=== PATIENT | female | born 1955 | race African-American/Black ===

== ENCOUNTER → 2016-11-16 | Outpatient (CLI) | payer OTHER ==
--- NOTE | 2016-11-16 14:29 | XR ---
EXAMINATION TYPE: XR knee complete RT DATE OF EXAM: 11/16/2016 2:25 PM COMPARISON: NONE HISTORY: Pain TECHNIQUE: Four views are submitted. FINDINGS: There is hypertrophic change and significant narrowing of the joint space particularly along the medi al compartment of the knee and patellofemoral joint with severe narrowing. Small suprapatellar bursal fluid collection. Sclerotic density distal diaphysis of the femur is nonspecific possibly related to previous bone infa rct. Osseous structures are intact. No acute fracture seen. IMPRESSION: 1. No acute fracture or dislocation. 2. Severe osteoarthritis.
== END ==
LOC: RADXRMAIN 14:10
PROVIDERS: ATTEND Emergency Medicine
DX: S80.01XA Contusion of right knee, initial encounter (principal); M17.11 Unilateral primary osteoarthritis, right knee

== ENCOUNTER → 2016-11-24 | Outpatient (CLI) | payer OTHER ==
--- NOTE | 2016-11-24 12:59 | US ---
EXAMINATION TYPE: US venous doppler duplex LE RT DATE OF EXAM: 11/24/2016 12:42 PM COMPARISON: us 11/10 2016 CLINICAL HISTORY: M79.604 Pain in right leg. pt fell and has rt leg pain and swelling, just recently put on aspirin as preventative SIDE PERFORMED: right TECHNIQUE: The lower extremity deep venous system is examined utilizing real time linear array sonog trent with graded compression, doppler sonography and color-flow sonography. VESSELS IMAGED: External Iliac Vein (EIV) Common Femoral Vein Deep Femoral Vein Femoral Vein Popliteal Vein Proximal Calf Veins Right Leg: neg for RLE dvt Results called to Sharita in the office at the time of the exam. IMPRESSION: 1. No deep venous arthrosis right lower extremity.
== END ==
LOC: RADUSWWP 12:24
PROVIDERS: ATTEND Emergency Medicine
DX: S80.01XA Contusion of right knee, initial encounter (principal); M79.604 Pain in right leg

== ENCOUNTER → 2017-08-31 | Outpatient (CLI) | payer BC | END | disposition home or self-care (01) | LOC: LABPAT 12:21 | PROVIDERS: ATTEND Orthopaedic Surgery | DX: Z01.812 Encounter for preprocedural laboratory examination (principal) | CPT/HCPCS: 36415; 84132 ==

== ENCOUNTER 2017-09-05 06:27 | Inpatient (IN) | payer BC, OTHER ==
[2017-08-31 10:40] VITALS: BMI 45.8
[~2017-09-05 06:27] MED LIST: ACETAMINOPHEN TAB 500 MG TAB PO ONE; DEXAMETHASONE SOD PHOSPHATE 10 MG/ML 1 ML VIAL IV ONE; MELOXICAM 7.5 MG TAB PO ONE; MIDAZOLAM 2 MG/2 ML VIAL IV PRN; MORPHINE SULFATE 4 MG/ML SYRINGE IV PRN; ONDANSETRON 4 MG/2 ML VIAL IVP ONE; ROPIVACAINE 246.25 MG, EPINEPHrine 0.5 MG, KETOROLAC 30 MG, cloNIDine HCL/PF 80 MCG, WA... MISCELLANE ONE; SCOPOLAMINE 1.5MG/72HR PATCH TRANSDERM ONE; TRANEXAMIC ACID 1,000 MG in SODIUM CHLORIDE 0.9% 50 ML IVPB ONE
[2017-09-05] MEDS ORDERED: HYDROcodone/APAP 7.5-325MG 1 EACH TAB PO PRN (06:57)
[2017-09-05] MEDS ORDERED: ONDANSETRON 4 MG/2 ML VIAL IVP PRN (06:57)
[2017-09-05] MEDS ORDERED: DIAZEPAM 5 MG TAB PO PRN ×2 (06:57)
[2017-09-05] MEDS ORDERED: MAGNESIUM HYDROXIDE 2,400 MG/10 ML CUP PO PRN (06:57)
[2017-09-05] MEDS ORDERED: NALOXONE 0.4 MG/ML 1 ML VIAL IV PRN (06:57)
[2017-09-05] MEDS ORDERED: HYDROmorphone 2 MG/ML 1 ML SYRINGE IVP PRN ×3 (06:57)
[2017-09-05] MEDS ORDERED: ceFAZolin 1,000 MG in SODIUM CHLORIDE 0.9% 1,000 ML IRRIGATION ONE ×4 (07:20)
[2017-09-05] MEDS: LACTATED RINGERS 1,000 ML IV SCH ×2 (07:20→07:21)
[2017-09-05] MEDS ORDERED: LIDOCAINE 1% 20 ML VIAL (10MG/ML) FOR IV START INTRADERMA ONE (07:20)
[2017-09-05] MEDS ORDERED: PROPOFOL 10 MG/ML 20 ML VIAL IV ONE (07:22)
[2017-09-05] MEDS ORDERED: PHENYLEPHRINE-0.9% NACL SYG 1 MG/10 ML SYRINGE ONE (07:22)
[2017-09-05] MEDS ORDERED: HEPARIN SODIUM,PORCINE 10,000 UNIT/ML 1 ML VIAL ONE (07:22)
[2017-09-05] MEDS ORDERED: SODIUM CHLORIDE 0.9% 100 ML BAG ONE (07:22)
[2017-09-05] MEDS ORDERED: SODIUM CHLORIDE 0.9% IRRIG 1,000 ML BTL IRRIGATION ONE (07:22)
[2017-09-05] MEDS ORDERED: ePHEDrine SULFATE/0.9% NACL/PF 50 MG/5 ML SYRINGE IV ONE (07:22)
[2017-09-05] MEDS ORDERED: MIDAZOLAM 2 MG/2 ML VIAL ONE (07:22)
[2017-09-05] MEDS ORDERED: fentaNYL (PF) 50 MCG/ML 2 ML AMP ONE (07:22)
[2017-09-05] MEDS ORDERED: TRANEXAMIC ACID 1,000 MG/10 ML VIAL ONE (07:22)
[2017-09-05] MEDS ORDERED: ceFAZolin 3 GM in SODIUM CHLORIDE 0.9% 100 ML IVPB SCH (08:00)
[2017-09-05] MEDS ORDERED: LACTATED RINGERS 1,000 ML IV ONE (08:08)
--- NOTE | 2017-09-05 09:06 | P.OP ---
Date of Procedure: 09/05/17 Preoperative Diagnosis: Severe osteoarthritis right hip Postoperative Diagnosis: Severe osteoarthritis right hip Procedure(s) Performed: Right total hip arthroplasty with a direct anterior approach Implants: Bacon and nephew Polarstem size 3 standard Bacon & Nephew R3, 3 hole acetabular shell, 52 mm Bacon [employer] Nephew reflection 6.5 mm cancellus screw, 20 mm 2 Bacon [employer] Nephew R3, XLPE 20 acetabular liner Bacon & Nephew Oxinium femoral head 36 m, +4 All components were press-fit. The articulation is Oxinium on polyethylene. Anesthesia: spinal Surgeon: Randy Deras System Support Technician #1: Pamela Juares Estimated Blood Loss (ml): 100 Pathology: other (Femoral head) Condition: stable Disposition: PACU Indications for Procedure: After failure of conservative treatment we discussed the surgical and nonsurgical treatment options at length. Patient wishes to proceed with a total hip arthroplasty with a direct anterior approach. Complications specific to this procedure were discussed at length, including but not limited to infection, leg length discrepancy, dislocation, and nerve injury. Patient is aware of all these complications and informed consent was obtained Operative Findings: The operative findings are consistent with severe osteoarthritis of the right hip Description of Procedure: Patient was seen and evaluated in the preoperative area, consent was reviewed, and the surgical site was marked with a skin marker. Patient was then brought to the operating room and given prophylactic antibiotics intravenously. 1 g of Tranexamic acid was also given. A spinal anesthetic was administered by the anesthesia department. The patient was then placed on the [place] table with the bony prominences well-padded. The hip area was then prepped and draped in usual sterile fashion. A universal timeout was then performed, which confirmed the patient's name, surgical site, ALLERGIES, and procedure being performed. Next the incision site was located at 1 cm distal and 1 cm lateral to the anterior superior iliac spine. The skin and subcutaneous tissues were sharply incised. Incision was carefully dissected down to the fascia overlying the tensor fascia aleks muscle. This fascia was then incised in line with the incision. Next, using blunt finger dissection, the tensor fascia aleks muscle was dissected off its investing fascia. The muscle was then carefully retracted laterally with a cobra retractor over the lateral neck of the femur. Next, the circumflex vessels were identified and cauterized using the AquaMantis device. The anterior hip capsule was then exposed. The capsule was then opened and an inverted T fashion. Cobra retractors were then placed intracapsularly. The proximal femur was then visualized. The femoral neck was then osteotomized appropriate level above the lesser trochanter. Small amount of traction was placed with the [place] table. A small wedge of bone was then removed from the remaining femoral head. Next, using a corkscrew femoral head was easily removed from the acetabulum. On gross visual inspection, the femoral head had complete loss of articular cartilage in multiple periarticular osteophytes. Attention was then turned to the acetabulum. the acetabulum was exposed and any remaining labrum was excised. Sequential reaming of the acetabulum was performed using fluoroscopic guidance. When the appropriate size was reached, a trial was then placed. The position and fit of the trial was checked with fluoroscopy. The trial was then removed. Then, using fluoroscopic guidance, the final implant was impacted at 20 of anteversion and 40 of abduction, and fully seated in the acetabulum. 2 screws were then placed in the acetabulum. Again fluoroscopy was used to check position of the screws. Next, the liner was then impacted, with a 20 elevated liner located in the anterior superior quadrant. Component locking was confirmed. Attention was then directed to the femur. With the aid of the [place] table, the femur was externally rotated to approximately 130, extended, and abducted under the opposite leg. A side hook was then placed under the proximal femur, and the side hook elevator was used to elevate the proximal femur. Retractors were then placed. A capsular release was performed, as well as a release of the conjoined tendon, which afforded excellent visualization of the proximal femur. Next, a box osteotome was used to lateralize the proximal femur. A tug hand was then used to locate the femoral canal. Sequential broaching was then performed with appropriate size which afforded excellent fixation in the proximal femur. A trial was then placed with appropriate head and neck, and the hip was gently reduced with the aid of the [place] table. Fluoroscopy was then used to check position of the components, as well as to ensure equal leg lengths. The hip was then gently dislocated and the trials were then removed. Final implants were then impacted and the hip was again reduced. Final fluoroscopic x-rays confirmed that the components were in anatomic position, as well as equal leg lengths. The hip was also taken through range of motion, and found to be stable. The hip was then copiously irrigated with antibiotic solution with pulsatile lavage. The hip was then irrigated with Irrisept solution. The soft tissues were then injected with a ropivacaine solution, which consisted of 246.25 mg of ropivacaine, 0.5 mg of epinephrine, 30 mg of Toradol, 80 g of clonidine, and 48.45 mL of sterile water, for a total of 100 mL of fluid injected. A second dose of 1 g of Tranexamic acid was also given. the fascia was then closed with 2-0 strata fix suture. The subcutaneous tissue was closed with 3-0 Vicryl. The subcuticular tissue was closed with 3-0 strata fix suture. The skin was then closed with Dermabond glue and a sterile silver dressing. The patient was then transferred to the recovery room in stable condition. The nurseryman assistant CARY Bose was required due to the complexity of surgery, and the need for skilled surgical assistant certified for positioning, draping, exposure, retraction, and closure of the wound.
[2017-09-05] MEDS: SODIUM CHLORIDE 0.9% 1,000 ML IV SCH ×2 (09:58→22:16)
--- NOTE | 2017-09-05 10:11 | XR ---
Limited right hip HISTORY: Status post right hip arthroplasty Single frontal view of the right hip Patient is status post right hip arthroplasty. There is anatomic alignment. Lucency in the soft tissu es is compatible with postop state. IMPRESSION: Orthopedic follow-up.
--- NOTE | 2017-09-05 11:12 | XR ---
Limited right hip HISTORY: Hip replacement 2 intraoperative C-arm images document the procedure
--- NOTE | 2017-09-05 12:14 | FL ---
Fluoroscopy HISTORY: Hip arthroplasty 43 seconds fluoroscopy time supplied to the referring clinician. 2 intraoperative C-arm images docum ent the procedure. See dictated report from orthopedic surgery.
--- NOTE | 2017-09-05 15:31 | P.CONS ---
History of Present Illness - Reason for Consult Consult date: 09/05/17 Medical management Requesting physician: Randy Deras - Chief Complaint Status post right total hip arthroplasty - History of Present Illness This is a 61-year-old female with a known history of hyperlipidemia, acid reflux , hypertension, overactive bladder, hypothyroidism and depression. She is a patient of Dr. Charles. She has been suffering with right hip pain and underwent a right total hip arthroplasty for her osteoarthritis of the right hip. She tolerated surgery well. Estimated blood loss is 100 mL. Patient denies any chest pain, shortness breath, nausea or vomiting, bowel movement changes or any new urinary symptoms. Patient is complaining of some pain. We' ll continue with current pain medication. We have been consulted for medical management. Review of Systems Please refer to HPI otherwise unremarkable Past Medical History Past Medical History: GERD/Reflux, Hyperlipidemia, Hypertension, Osteoarthritis (OA), Thyroid Disorder Additional Past Medical History / Comment(s): fibro History of Any Multi-Drug Resistant Organisms: None Reported Past Surgical History: Adenoidectomy, Bariatric Surgery, Breast Surgery, Orthopedic Surgery, Tonsillectomy Additional Past Surgical History / Comment(s): LT KNEE SCOPE. BREAST BX. LAP BAND. COLONOSCOPY. EGD Past Anesthesia/Blood Transfusion Reactions: Motion Sickness Past Psychological History: Depression Smoking Status: Former smoker Past Alcohol Use History: Rare Additional Past Alcohol Use History / Comment(s): QUIT SMOKING 2005 Past Drug Use History: None Reported - Past Family History Father Family Medical History: Cancer Medications and Allergies Home Medications Medication Instructions Recorded Confirmed Type Alpha Lipoic Acid 200 mg PO DAILY 08/31/17 09/05/17 History Calcium Carbonate/Vitamin D3 1 tab PO DAILY 08/31/17 09/05/17 History [Calcium 500-Vit D3 600 Tablet] Cyclobenzaprine [Flexeril] 10 mg PO HS 08/31/17 09/05/17 History DULoxetine HCL [Cymbalta] 90 mg PO DAILY 08/31/17 09/05/17 History Diclofenac Sodium [Voltaren] 75 mg PO BID 08/31/17 09/05/17 History Gabapentin 600 mg PO TID 08/31/17 09/05/17 History Hydrocodone/Acetaminophen [Medon 1 tab PO TID PRN 08/31/17 09/05/17 History 10-325] Levothyroxine Sodium [Synthroid] 50 mcg PO DAILY 08/31/17 09/05/17 History Lidocaine 5% Patch [Lidoderm 5% 1 patch TRANSDERM DAILY PRN 08/31/17 09/05/17 History Patch] Losartan/Hydrochlorothiazide 1 tab PO DAILY 08/31/17 09/05/17 History [Losartan-Hctz 100-25 mg Tab] Magnesium Gluconate [Magonate] 500 mg PO DAILY 08/31/17 09/05/17 History Multivit/Folic Acid/Vit K1 1 tab PO DAILY 08/31/17 09/05/17 History [One-A-Day Women's 50 Plus Tab] Fortson-3 Fatty Acids/Fish Oil [Fish 1 cap PO DAILY 08/31/17 09/05/17 History Oil 1,000 mg Softgel] Omeprazole 40 mg PO DAILY 08/31/17 09/05/17 History Oxybutynin Chloride [Ditropan] 5 mg PO HS 08/31/17 09/05/17 History Pravastatin Sodium [Pravachol] 20 mg PO DAILY 08/31/17 09/05/17 History lamoTRIgine [LaMICtal] 25 mg PO HS 08/31/17 09/05/17 History Turmeric Root Extract [Turmeric] 1,000 mg PO DAILY 09/05/17 09/05/17 History Allergies Allergy/AdvReac Type Severity Reaction Status Date / Time No Known Allergies Allergy Verified 09/05/17 11:02 Physical Exam Vitals: Vital Signs Temp Pulse Resp BP Pulse Ox 09/05/17 12:30 89 152/43 89 L 09/05/17 12:15 89 157/85 96 09/05/17 12:00 88 138/76 95 09/05/17 11:45 88 120/97 97 09/05/17 11:30 84 163/79 99 09/05/17 11:15 83 142/94 95 09/05/17 11:00 85 154/101 09/05/17 10:45 83 157/83 09/05/17 10:30 97.6 F 83 16 152/70 97 09/05/17 10:01 77 16 154/63 97 09/05/17 09:45 76 16 170/76 94 L 09/05/17 09:32 73 16 152/72 98 09/05/17 09:21 97.0 F L 74 18 132/68 92 L 09/05/17 07:00 97.7 F 90 16 138/84 97 Intake and Output 09/05/17 09/05/17 09/05/17 06:59 14:59 22:59 Intake Total 2232 Output Total 100 Balance 2132 Intake: IV 2102 Intake, IV Titration 130 Amount Sodium Chloride 0.9% 1, 130 000 ml @ 65 mls/hr IV . [id number] [facility] Rx#:[id number] Output: Estimated Blood Loss 100 Other: Weight 132.903 kg Patient Weight 09/06/17 06:59 Weight 132.903 kg Head normocephalic Neck supple Lungs clear to auscultation bilaterally no wheezing or crackles Heart regular rate and rhythm S1-S2, no rub or gallop Abdomen is soft nontender nondistended positive bowel sounds no hepatosplenomegaly Extremities no edema Neuro alert and orientated to 3 Assessment and Plan Assessment: 1. Severe arthritis of the right hip: Status post right total hip arthroplasty with direct anterior approach. Estimated blood loss is 100 mL. Continue with pain control and DVT prophylaxis, aspirin 325 mg twice a day and SCDs per orthopedics 2. Essential hypertension: Resume her losartan/hydrochlorothiazide 3. Hypothyroidism continue Synthroid 4. GERD resume omeprazole 5. Hyperlipidemia continue pravastatin 6. Depression resume Lamictal 7. Overactive bladder resume the ditropan Thank you for this consultation. We'll continue to follow along with you during patient's hospitalization. Time with Patient: Greater than 30 (Greater than 50% of the total time spent in counseling and coordination of care.I performed an examination of the patient and discussed their management with the physician Button Maker. I have reviewed the Physician Button Maker's notes and agree with the documented findings and plan of care)
[2017-09-05] MEDS: HYDROcodone/APAP 7.5-325MG 1 EACH TAB PO PRN ×2 (16:24→21:51)
[2017-09-05] MEDS: hydrOXYzine PAMOATE 25 MG CAP PO PRN ×2 (16:25→21:51)
[2017-09-05] MEDS: GABAPENTIN 300 MG CAP PO SCH ×2 (16:32→21:51)
[2017-09-05] MEDS: lamoTRIgine 25 MG TAB PO SCH (20:20)
[2017-09-05] MEDS: OXYBUTYNIN CHLORIDE 5 MG TAB PO SCH (20:20)
[2017-09-05] MEDS: ASPIRIN 325 MG TAB PO SCH (20:20)
[2017-09-05] MEDS: SENNOSIDES-DOCUSATE SODIUM 1 EACH TAB PO SCH (20:20)
[2017-09-05] MEDS: CYCLOBENZAPRINE 10 MG TAB PO SCH (20:20)
[2017-09-06] MEDS: LACTATED RINGERS 1,000 ML IV SCH (03:41)
[2017-09-06] MEDS: LEVOTHYROXINE 50 MCG TAB PO SCH (05:26)
[2017-09-06] MEDS: hydrOXYzine PAMOATE 25 MG CAP PO PRN ×3 (06:09→21:19)
[2017-09-06] MEDS: HYDROcodone/APAP 7.5-325MG 1 EACH TAB PO PRN ×3 (06:09→21:19)
[2017-09-06] MEDS: DULoxetine HCL 30 MG CAPSULE.DR PO SCH (07:42)
[2017-09-06] MEDS: GABAPENTIN 300 MG CAP PO SCH ×3 (07:42→21:19)
[2017-09-06] MEDS: LOSARTAN-HCTZ 50-12.5 MG 1 EACH TAB PO SCH (07:42)
[2017-09-06] MEDS: ASPIRIN 325 MG TAB PO SCH ×2 (07:42→21:19)
[2017-09-06] MEDS: MELOXICAM 7.5 MG TAB PO SCH (07:42)
[2017-09-06] MEDS: PANTOPRAZOLE 40 MG TABLET PO SCH (07:42)
[2017-09-06] MEDS: PRAVASTATIN SODIUM 20 MG TAB PO SCH (07:43)
[2017-09-06 07:56] LABS: Basophils % (A) 0 %; Eosinophils % (A) 1 %; HCT 31.8 % (34.0-46.0); HGB 9.5 gm/dL (11.4-16.0); Hypochromasia Slight; Lymphocytes % (A) 18 %; MCH 26.2 pg (25.0-35.0); MCV 87.3 fL (80.0-100.0); Mean Platelet Volume 7.9; Monocytes # (A) 0.3 k/uL (0-1.0); Monocytes % (A) 5 %; Neutrophils # (A) 3.9 k/uL (1.3-7.7); Neutrophils % (A) 74 %; Platelet Count 193 k/uL (150-450); RBC 3.64 m/uL (3.80-5.40); RDW 13.8 % (11.5-15.5); WBC 5.3 k/uL (3.8-10.6)
[2017-09-06 08:04] LABS: ALT 25 U/L (9-52); AST 36 U/L (14-36); Alkaline Phosphatase 91 U/L (38-126); Anion Gap 9 mmol/L; Blood Urea Nitrogen 20 mg/dL (7-17); Calcium 8.5 mg/dL (8.4-10.2); Carbon Dioxide 27 mmol/L (22-30); Chloride 104 mmol/L (98-107); Glucose 114 mg/dL (74-99); Potassium 3.8 mmol/L (3.5-5.1); Sodium 140 mmol/L (137-145); Total Bilirubin 0.4 mg/dL (0.2-1.3); Total Protein 5.3 g/dL (6.3-8.2)
[2017-09-06] MEDS ORDERED: ALPHA LIPOIC ACID 200 MG PO SCH (09:00)
[2017-09-06] MEDS ORDERED: NON-FORMULARY DRUG (Omega-3 Fatty Acids/Fish Oil [Fish Oil 1,000 Mg Softgel] 1 CAP) PO SCH (09:00)
--- NOTE | 2017-09-06 09:07 | P.PN ---
Subjective Progress Note Date: 09/06/17 This is a 61-year-old female who is status post right total hip arthroplasty. Patient is seen and evaluated at bedside today with Dr. Randy Deras. Patient states her pain is well controlled and she has been up and out of bed. Objective - Vital Signs Vital signs: Vital Signs Temp 98.4 F 09/06/17 07:00 Pulse 86 09/06/17 07:00 Resp 16 09/06/17 07:00 BP 118/72 09/06/17 07:00 Pulse Ox 96 09/06/17 07:00 Intake & Output 09/05/17 09/06/17 09/06/17 18:59 06:59 18:59 Intake Total 2472 1120 Output Total 100 600 Balance 2372 520 Weight 132.903 kg Intake: IV 2102 Intake, IV Titration 130 520 Amount Sodium Chloride 0.9% 1, 130 520 000 ml @ 65 mls/hr IV . [id number] [facility] Rx#:[id number] Oral 240 120 Other 480 Output: Urine 600 Estimated Blood Loss 100 Other: # Voids 2 - Exam Vital signs are stable. Patient is in no acute distress and is alert and oriented 3. Calf is soft and nontender to palpation. Dressing is clean, dry, and intact. Patient has full foot and ankle motion without pain or difficulty. Neurovascular status and circulatory status are intact. - Labs CBC & Chem 7: 09/06/17 07:20 09/06/17 07:20 Labs: Abnormal Lab Results - Last 24 Hours (Table) 09/06/17 09/06/17 Range/Units 07:20 07:20 RBC 3.64 L (3.80-5.40) m/uL Hgb 9.5 L (11.4-16.0) gm/dL Hct 31.8 L (34.0-46.0) % MCHC 30.0 L (31.0-37.0) g/dL BUN 20 H (7-17) mg/dL Glucose 114 H (74-99) mg/dL Total Protein 5.3 L (6.3-8.2) g/dL Albumin 3.0 L (3.5-5.0) g/dL Assessment and Plan (1) S/P total hip arthroplasty Current Visit: Yes Status: Acute Code(s): Z96.649 - PRESENCE OF UNSPECIFIED ARTIFICIAL HIP JOINT SNOMED Code(s): 983758470581 (2) Primary osteoarthritis of right hip Current Visit: Yes Status: Acute Code(s): M16.11 - UNILATERAL PRIMARY OSTEOARTHRITIS, RIGHT HIP SNOMED Code(s): 895018932 Plan: Continue routine postop care. Continue antocoagulation. Weightbearing as tolerated with a walker Leave dressing in place for 1 week Anticipate discharge to rehab Monday
[2017-09-06] MEDS: CALCIUM CARB-VIT D 500MG-200UN 1 EACH TAB PO SCH (12:13)
[2017-09-06] MEDS: MULTIVITAMINS, THERA 1 EACH TAB PO SCH (12:13)
[2017-09-06] MEDS: MAGNESIUM OXIDE 400 MG TAB PO SCH (12:13)
--- NOTE | 2017-09-06 17:42 | P.PN ---
Subjective Progress Note Date: 09/06/17 This is a 61-year-old female with a known history of hyperlipidemia, acid reflux , hypertension, overactive bladder, hypothyroidism and depression. She is a patient of Dr. Charles. She has been suffering with right hip pain and underwent a right total hip arthroplasty for her osteoarthritis of the right hip. She tolerated surgery well. Estimated blood loss is 100 mL. Patient denies any chest pain, shortness breath, nausea or vomiting, bowel movement changes or any new urinary symptoms. Patient is complaining of some pain. We' ll continue with current pain medication. We have been consulted for medical management. On 09/06/2017 agent is alert and oriented 3 she is complaining of pain and itching in the right hip area otherwise she denies any complaints liver or chills no headache or dizziness no chest pain or shortness of breath no cough no palpitation no nausea or vomiting no abdominal pain no diarrhea or constipation and no urinary symptoms Objective - Vital Signs Vital signs: Vital Signs Temp 99.4 F 09/06/17 15:00 Pulse 94 09/06/17 15:00 Resp 16 09/06/17 15:00 BP 113/55 09/06/17 15:00 Pulse Ox 96 09/06/17 15:00 Intake & Output 09/05/17 09/06/17 09/06/17 18:59 06:59 18:59 Intake Total 2472 1120 400 Output Total 100 600 Balance 2372 520 400 Weight 132.903 kg Intake: IV 2102 Intake, IV Titration 130 520 Amount Sodium Chloride 0.9% 1, 130 520 000 ml @ 65 mls/hr IV . [id number] [facility] Rx#:[id number] Oral 240 120 400 Other 480 Output: Urine 600 Estimated Blood Loss 100 Other: # Voids 2 1 - Exam HEENT head normocephalic and atraumatic Neck is supple no JVD no goiter no lymphadenopathy Chest exam reveals a few scattered crackles no wheezing Cardiac exam reveals regular heart sounds no gallops no murmurs Abdomen is soft nontender no organomegaly Extremity exam reveals no edema no cyanosis or clubbing - Labs CBC & Chem 7: 09/06/17 07:20 09/06/17 07:20 Labs: Abnormal Lab Results - Last 24 Hours (Table) 09/06/17 09/06/17 Range/Units 07:20 07:20 RBC 3.64 L (3.80-5.40) m/uL Hgb 9.5 L (11.4-16.0) gm/dL Hct 31.8 L (34.0-46.0) % MCHC 30.0 L (31.0-37.0) g/dL BUN 20 H (7-17) mg/dL Glucose 114 H (74-99) mg/dL Total Protein 5.3 L (6.3-8.2) g/dL Albumin 3.0 L (3.5-5.0) g/dL Assessment and Plan Assessment: 1. Severe arthritis of the right hip: Status post right total hip arthroplasty with direct anterior approach. Estimated blood loss is 100 mL. Continue with pain control and DVT prophylaxis, aspirin 325 mg twice a day and SCDs per orthopedics 2. Essential hypertension: Resume her losartan/hydrochlorothiazide 3. Hypothyroidism continue Synthroid 4. GERD resume omeprazole 5. Hyperlipidemia continue pravastatin 6. Depression resume Lamictal 7. Overactive bladder resume the ditropan
[2017-09-06] MEDS: SODIUM CHLORIDE 0.9% 1,000 ML IV SCH (21:10)
[2017-09-06] MEDS: SENNOSIDES-DOCUSATE SODIUM 1 EACH TAB PO SCH (21:19)
[2017-09-06] MEDS: CYCLOBENZAPRINE 10 MG TAB PO SCH (21:19)
[2017-09-06] MEDS: lamoTRIgine 25 MG TAB PO SCH (21:19)
[2017-09-06] MEDS: OXYBUTYNIN CHLORIDE 5 MG TAB PO SCH (21:19)
[2017-09-07] MEDS: SODIUM CHLORIDE 0.9% 1,000 ML IV SCH ×2 (03:43→20:27)
[2017-09-07] MEDS: LACTATED RINGERS 1,000 ML IV SCH (03:43)
[2017-09-07] MEDS: LEVOTHYROXINE 50 MCG TAB PO SCH (04:47)
[2017-09-07] MEDS: HYDROcodone/APAP 7.5-325MG 1 EACH TAB PO PRN ×3 (05:26→20:07)
[2017-09-07] MEDS: hydrOXYzine PAMOATE 25 MG CAP PO PRN ×3 (05:26→20:07)
[2017-09-07 06:40] LABS: Basophils # (A) 0.1 k/uL (0-0.2); Basophils % (A) 1 %; Eosinophils # (A) 0.1 k/uL (0-0.7); Eosinophils % (A) 2 %; HCT 29.3 % (34.0-46.0); HGB 8.9 gm/dL (11.4-16.0); Hypochromasia Slight; Lymphocytes # (A) 0.8 k/uL (1.0-4.8); Lymphocytes % (A) 15 %; MCH 26.7 pg (25.0-35.0); MCHC 30.3 g/dL (31.0-37.0); MCV 88.2 fL (80.0-100.0); Mean Platelet Volume 8.4; Monocytes # (A) 0.3 k/uL (0-1.0); Monocytes % (A) 6 %; Neutrophils % (A) 74 %; Platelet Count 178 k/uL (150-450); RBC 3.33 m/uL (3.80-5.40); RDW 14.9 % (11.5-15.5); WBC 5.4 k/uL (3.8-10.6)
[2017-09-07 06:56] LABS: ALT 25 U/L (9-52); AST 37 U/L (14-36); Alkaline Phosphatase 91 U/L (38-126); Anion Gap 9 mmol/L; Blood Urea Nitrogen 21 mg/dL (7-17); Calcium 8.5 mg/dL (8.4-10.2); Carbon Dioxide 27 mmol/L (22-30); Chloride 101 mmol/L (98-107); Glucose 102 mg/dL (74-99); Potassium 3.7 mmol/L (3.5-5.1); Sodium 137 mmol/L (137-145); Total Bilirubin 0.4 mg/dL (0.2-1.3); Total Protein 5.3 g/dL (6.3-8.2)
[2017-09-07] MEDS: ASPIRIN 325 MG TAB PO SCH ×2 (08:36→20:07)
[2017-09-07] MEDS: MELOXICAM 7.5 MG TAB PO SCH (08:36)
[2017-09-07] MEDS: GABAPENTIN 300 MG CAP PO SCH ×3 (08:36→21:00)
[2017-09-07] MEDS: PANTOPRAZOLE 40 MG TABLET PO SCH (08:36)
[2017-09-07] MEDS: DULoxetine HCL 30 MG CAPSULE.DR PO SCH (08:37)
[2017-09-07] MEDS: LOSARTAN-HCTZ 50-12.5 MG 1 EACH TAB PO SCH (08:45)
--- NOTE | 2017-09-07 09:07 | P.PN ---
Subjective Progress Note Date: 09/07/17 This is a 61-year-old female who is status post right total hip arthroplasty. This is postoperative day #2. Patient states her pain is well controlled and she has been up and out of bed with physical therapy. Patient has no new complaints today. Objective - Vital Signs Vital signs: Vital Signs Temp 97 F L 09/07/17 07:00 Pulse 93 09/07/17 07:00 Resp 16 09/07/17 07:00 BP 102/45 09/07/17 07:00 Pulse Ox 97 09/07/17 07:00 Intake & Output 09/06/17 09/07/17 09/07/17 18:59 06:59 18:59 Intake Total 400 960 360 Balance 400 960 360 Intake: Oral 400 360 Other 960 Other: Voiding Method Toilet Bedpan # Voids 1 3 - Exam Vital signs are stable. Patient is in no acute distress and is alert and oriented 3. Calf is soft and nontender to palpation. Dressing is clean, dry, and intact. Patient has full foot and ankle motion without pain or difficulty. Neurovascular status and circulatory status are intact. - Labs CBC & Chem 7: 09/07/17 06:20 09/07/17 06:20 Labs: Abnormal Lab Results - Last 24 Hours (Table) 09/07/17 09/07/17 Range/Units 06:20 06:20 RBC 3.33 L (3.80-5.40) m/uL Hgb 8.9 L (11.4-16.0) gm/dL Hct 29.3 L (34.0-46.0) % MCHC 30.3 L (31.0-37.0) g/dL Lymphocytes # 0.8 L (1.0-4.8) k/uL BUN 21 H (7-17) mg/dL Glucose 102 H (74-99) mg/dL AST 37 H (14-36) U/L Total Protein 5.3 L (6.3-8.2) g/dL Albumin 3.0 L (3.5-5.0) g/dL Assessment and Plan (1) S/P total hip arthroplasty Current Visit: Yes Status: Acute Code(s): Z96.649 - PRESENCE OF UNSPECIFIED ARTIFICIAL HIP JOINT SNOMED Code(s): 846373312601 (2) Primary osteoarthritis of right hip Current Visit: Yes Status: Acute Code(s): M16.11 - UNILATERAL PRIMARY OSTEOARTHRITIS, RIGHT HIP SNOMED Code(s): 732585710 Plan: Continue routine postop care. Continue antocoagulation. Weightbearing as tolerated with a walker Leave dressing in place for 1 week Anticipate discharge to rehab Monday
--- NOTE | 2017-09-07 10:33 | P.PN ---
Subjective Progress Note Date: 09/07/17 This is a 61-year-old female with a known history of hyperlipidemia, acid reflux , hypertension, overactive bladder, hypothyroidism and depression. She is a patient of Dr. Charles. She has been suffering with right hip pain and underwent a right total hip arthroplasty for her osteoarthritis of the right hip. She tolerated surgery well. Estimated blood loss is 100 mL. Patient denies any chest pain, shortness breath, nausea or vomiting, bowel movement changes or any new urinary symptoms. Patient is complaining of some pain. We' ll continue with current pain medication. We have been consulted for medical management. 09/07/2017 patient's pain is controlled. She is working with the CPM machine. She has been up and ambulating. The planning [facility]. Patient did have a drop in her hemoglobin from 9.5-8.9. She'll be started on iron supplement. She denies any chest pain or shortness of breath. Denies any nausea or vomiting. She is passing gas. Last bowel movement 2 days ago. Denies any difficulty urinating Objective - Vital Signs Vital signs: Vital Signs Temp 97 F L 09/07/17 07:00 Pulse 93 09/07/17 07:00 Resp 16 09/07/17 07:00 BP 102/45 09/07/17 07:00 Pulse Ox 97 09/07/17 07:00 Intake & Output 09/06/17 09/07/17 09/07/17 18:59 06:59 18:59 Intake Total 400 960 360 Balance 400 960 360 Intake: Oral 400 360 Other 960 Other: Voiding Method Toilet Bedpan # Voids 1 3 - Exam Head normocephalic Neck supple Lungs clear to auscultation bilaterally no wheezing or crackles Heart regular rate and rhythm S1-S2, no rub or gallop Abdomen is soft nontender nondistended positive bowel sounds no hepatosplenomegaly Extremities no edema Neuro alert and orientated to 3 - Labs CBC & Chem 7: 09/07/17 06:20 09/07/17 06:20 Labs: Abnormal Lab Results - Last 24 Hours (Table) 09/07/17 09/07/17 Range/Units 06:20 06:20 RBC 3.33 L (3.80-5.40) m/uL Hgb 8.9 L (11.4-16.0) gm/dL Hct 29.3 L (34.0-46.0) % MCHC 30.3 L (31.0-37.0) g/dL Lymphocytes # 0.8 L (1.0-4.8) k/uL BUN 21 H (7-17) mg/dL Glucose 102 H (74-99) mg/dL AST 37 H (14-36) U/L Total Protein 5.3 L (6.3-8.2) g/dL Albumin 3.0 L (3.5-5.0) g/dL Assessment and Plan Assessment: 1. Severe osteoarthritis of the right hip: Status post right total hip arthroplasty with direct anterior approach. Estimated blood loss is 100 mL. Continue with pain control and DVT prophylaxis, aspirin 325 mg twice a day and SCDs per orthopedics 2. Essential hypertension: Continue her losartan/hydrochlorothiazide 3. Hypothyroidism continue Synthroid 4. GERD resume omeprazole 5. Hyperlipidemia continue pravastatin 6. Depression resume Lamictal 7. Overactive bladder resume the ditropan 8. Expected acute blood loss anemia due to surgery. Hemoglobin 8.9. Started iron supplement. Check CBC in a.m. Anticipating [facility] tomorrow I performed an examination of the patient and discussed their management with the physician Egg Sorter. I have reviewed the Physician Egg Sorter's notes and agree with the documented findings and plan of care
[2017-09-07] MEDS: PRAVASTATIN SODIUM 20 MG TAB PO SCH (13:06)
[2017-09-07] MEDS: FERROUS SULFATE 325 MG TAB PO SCH ×2 (13:06→20:07)
[2017-09-07] MEDS: MAGNESIUM OXIDE 400 MG TAB PO SCH (13:08)
[2017-09-07] MEDS: CALCIUM CARB-VIT D 500MG-200UN 1 EACH TAB PO SCH (13:09)
[2017-09-07] MEDS: MULTIVITAMINS, THERA 1 EACH TAB PO SCH (13:09)
[2017-09-07] MEDS: CYCLOBENZAPRINE 10 MG TAB PO SCH (20:07)
[2017-09-07] MEDS: SENNOSIDES-DOCUSATE SODIUM 1 EACH TAB PO SCH (20:07)
[2017-09-07] MEDS: lamoTRIgine 25 MG TAB PO SCH (20:07)
[2017-09-07] MEDS: OXYBUTYNIN CHLORIDE 5 MG TAB PO SCH (20:07)
[2017-09-08] MEDS: LACTATED RINGERS 1,000 ML IV SCH (05:17)
[2017-09-08] MEDS: LEVOTHYROXINE 50 MCG TAB PO SCH (05:20)
[2017-09-08] MEDS: hydrOXYzine PAMOATE 25 MG CAP PO PRN ×3 (06:18→19:57)
[2017-09-08] MEDS: HYDROcodone/APAP 7.5-325MG 1 EACH TAB PO PRN ×3 (06:18→19:55)
[2017-09-08 07:38] LABS: Basophils % (A) 1 %; Eosinophils # (A) 0.2 k/uL (0-0.7); Eosinophils % (A) 4 %; HGB 8.9 gm/dL (11.4-16.0); Hypochromasia Slight; Lymphocytes # (A) 0.8 k/uL (1.0-4.8); Lymphocytes % (A) 20 %; MCH 26.9 pg (25.0-35.0); MCHC 30.7 g/dL (31.0-37.0); MCV 87.6 fL (80.0-100.0); Mean Platelet Volume 8.6; Monocytes # (A) 0.2 k/uL (0-1.0); Monocytes % (A) 5 %; Neutrophils # (A) 2.8 k/uL (1.3-7.7); Neutrophils % (A) 69 %; Platelet Count 186 k/uL (150-450); RBC 3.31 m/uL (3.80-5.40); RDW 14.7 % (11.5-15.5); WBC 4.1 k/uL (3.8-10.6)
[2017-09-08 07:58] LABS: ALT 26 U/L (9-52); AST 35 U/L (14-36); Albumin 2.8 g/dL (3.5-5.0); Alkaline Phosphatase 98 U/L (38-126); Anion Gap 8 mmol/L; Blood Urea Nitrogen 16 mg/dL (7-17); Calcium 8.5 mg/dL (8.4-10.2); Carbon Dioxide 29 mmol/L (22-30); Chloride 102 mmol/L (98-107); Glucose 103 mg/dL (74-99); Potassium 4.2 mmol/L (3.5-5.1); Sodium 139 mmol/L (137-145); Total Bilirubin 0.3 mg/dL (0.2-1.3); Total Protein 5.2 g/dL (6.3-8.2)
[2017-09-08] MEDS: DULoxetine HCL 30 MG CAPSULE.DR PO SCH (09:07)
[2017-09-08] MEDS: ASPIRIN 325 MG TAB PO SCH ×2 (09:07→20:44)
[2017-09-08] MEDS: MAGNESIUM OXIDE 400 MG TAB PO SCH (09:08)
[2017-09-08] MEDS: FERROUS SULFATE 325 MG TAB PO SCH ×2 (09:08→20:44)
[2017-09-08] MEDS: GABAPENTIN 300 MG CAP PO SCH ×3 (09:08→23:16)
[2017-09-08] MEDS: MELOXICAM 7.5 MG TAB PO SCH (09:08)
[2017-09-08] MEDS: CALCIUM CARB-VIT D 500MG-200UN 1 EACH TAB PO SCH (09:08)
[2017-09-08] MEDS: LOSARTAN-HCTZ 50-12.5 MG 1 EACH TAB PO SCH (09:09)
[2017-09-08] MEDS: PRAVASTATIN SODIUM 20 MG TAB PO SCH (09:10)
--- NOTE | 2017-09-08 09:24 | P.DS ---
Providers Date of admission: 09/05/17 06:27 Expected date of discharge: 09/08/17 Attending physician: Randy Deras Consults: 09/05/17 06:57 Consult Physician Routine Consulting Provider: Dilia Wilkerson Consult Reason/Comments: medical management Do you want consulting provider notified?: Yes 09/05/17 09:49 Consult Physician Routine Consulting Provider: Buddy Stark Consult Reason/Comments: medcial management Do you want consulting provider notified?: Yes Primary care physician: Dilia Wilkerson - Discharge Diagnosis(es) (1) S/P total hip arthroplasty Current Visit: Yes Status: Acute (2) Primary osteoarthritis of right hip Current Visit: Yes Status: Acute Hospital Course: This is a 61-year-old female with known history of degenerative arthritis of the right hip. The patient presents for evaluation. After discussion and consideration patient elects to proceed with total hip arthroplasty. The patient is seen preoperatively by Dr. Deras and cleared for surgery. Patient is admitted to [facility] on 09/05/2017 for total hip arthroplasty. The procedures performed without complication or sequelae. The patient is doing well postoperatively. Labs and vital signs are stable on day of discharge. On day of discharge patient's hip incision is healing well. There is minimal erythema. There is no drainage noted at this time. There is minimal soft tissue swelling to the hip and thigh. Patient has full foot and ankle motion without difficulty or pain. Neurovascular status to the right lower extremity is intact. Patient is discharged to rehab in good condition. Please see [facility] rec for accurate list of home medications. Plan - Discharge Summary Discharge Rx Participant: No New Discharge Prescriptions: New Aspirin 325 mg PO BID #60 tab HYDROcodone/APAP 7.5-325MG [[place] 7.5-325] 1 - 2 tab PO Q4-6H PRN #90 tab PRN Reason: Pain Meloxicam [Mobic] 7.5 mg PO DAILY #15 tab Sennosides [Senokot] 1 tab PO BID #60 tablet No Action Alpha Lipoic Acid 200 mg PO DAILY Calcium Carbonate/Vitamin D3 [Calcium 500-Vit D3 600 Tablet] 1 tab PO DAILY Cyclobenzaprine [Flexeril] 10 mg PO HS Diclofenac Sodium [Voltaren] 75 mg PO BID DULoxetine HCL [Cymbalta] 90 mg PO DAILY Gabapentin 600 mg PO TID Hydrocodone/Acetaminophen [[place] 10-325] 1 tab PO TID PRN PRN Reason: Pain lamoTRIgine [LaMICtal] 25 mg PO HS Levothyroxine Sodium [Synthroid] 50 mcg PO DAILY Lidocaine 5% Patch [Lidoderm 5% Patch] 1 patch TRANSDERM DAILY PRN PRN Reason: Pain Losartan/Hydrochlorothiazide [Losartan-Hctz 100-25 mg Tab] 1 tab PO DAILY Magnesium Gluconate [Magonate] 500 mg PO DAILY Multivit/Folic Acid/Vit K1 [One-A-Day Women's 50 Plus Tab] 1 tab PO DAILY [place]-3 Fatty Acids/Fish Oil [Fish Oil 1,000 mg Softgel] 1 cap PO DAILY Omeprazole 40 mg PO DAILY Oxybutynin Chloride [Ditropan] 5 mg PO HS Pravastatin Sodium [Pravachol] 20 mg PO DAILY Turmeric Root Extract [Turmeric] 1,000 mg PO DAILY Discharge Medication List Alpha Lipoic Acid 200 mg PO DAILY 08/31/17 [History] Calcium Carbonate/Vitamin D3 [Calcium 500-Vit D3 600 Tablet] 1 tab PO DAILY [History] Cyclobenzaprine [Flexeril] 10 mg PO HS 08/31/17 [History] DULoxetine HCL [Cymbalta] 90 mg PO DAILY 08/31/17 [History] Diclofenac Sodium [Voltaren] 75 mg PO BID 08/31/17 [History] Gabapentin 600 mg PO TID 08/31/17 [History] Hydrocodone/Acetaminophen [[place] 10-325] 1 tab PO TID PRN 08/31/17 [History] Levothyroxine Sodium [Synthroid] 50 mcg PO DAILY 08/31/17 [History] Lidocaine 5% Patch [Lidoderm 5% Patch] 1 patch TRANSDERM DAILY PRN 08/31/17 [ History] Losartan/Hydrochlorothiazide [Losartan-Hctz 100-25 mg Tab] 1 tab PO DAILY [History] Magnesium Gluconate [Magonate] 500 mg PO DAILY 08/31/17 [History] Multivit/Folic Acid/Vit K1 [One-A-Day Women's 50 Plus Tab] 1 tab PO DAILY [History] [place]-3 Fatty Acids/Fish Oil [Fish Oil 1,000 mg Softgel] 1 cap PO DAILY [History] Omeprazole 40 mg PO DAILY 08/31/17 [History] Oxybutynin Chloride [Ditropan] 5 mg PO HS 08/31/17 [History] Pravastatin Sodium [Pravachol] 20 mg PO DAILY 08/31/17 [History] lamoTRIgine [LaMICtal] 25 mg PO HS 08/31/17 [History] Turmeric Root Extract [Turmeric] 1,000 mg PO DAILY 09/05/17 [History] Aspirin 325 mg PO BID #60 tab 09/08/17 [Rx] HYDROcodone/APAP 7.5-325MG [[place] 7.5-325] 1 - 2 tab PO Q4-6H PRN #90 tab [Rx] Meloxicam [Mobic] 7.5 mg PO DAILY #15 tab 09/08/17 [Rx] Sennosides [Senokot] 1 tab PO BID #60 tablet 09/08/17 [Rx] Follow up Appointment(s)/Referral(s): Randy Deras DO [Doctor of Osteopathic Medicine] - 2 Weeks Activity/Diet/Wound Care/Special Instructions: Weightbearing as tolerated with walker Leave dressing intact. Dressing may be removed by home care nurse in 7 days, 09/12/2017. May shower with dressing on. Follow-up with [facility] in 2 weeks, please call with any questions or concerns [phone] Discharge Disposition: TRANSFER TO SNF/ECF
[2017-09-08] MEDS ORDERED: LACTULOSE 20 GM/30 ML CUP PO ONE (09:56)
--- NOTE | 2017-09-08 10:03 | P.PN ---
Subjective Progress Note Date: 09/08/17 This is a 61-year-old female with a known history of hyperlipidemia, acid reflux , hypertension, overactive bladder, hypothyroidism and depression. She is a patient of Dr. Charles. She has been suffering with right hip pain and underwent a right total hip arthroplasty for her osteoarthritis of the right hip. She tolerated surgery well. Estimated blood loss is 100 mL. Patient denies any chest pain, shortness breath, nausea or vomiting, bowel movement changes or any new urinary symptoms. Patient is complaining of some pain. We' ll continue with current pain medication. We have been consulted for medical management. 09/07/2017 patient's pain is controlled. She is working with the CPM machine. She has been up and ambulating. The planning discharge to ECF tomorrow. Patient did have a drop in her hemoglobin from 9.5-8.9. She'll be started on iron supplement. She denies any chest pain or shortness of breath. Denies any nausea or vomiting. She is passing gas. Last bowel movement 2 days ago. Denies any difficulty urinating 09/08/2017 patient complaining of collado splint and her right collado. This is not new for patient. She was given pain medication. She's having some relief. She denies any chest pain or shortness of breath. She has not had a bowel movement since she's been here. Lactulose will be given. Continue stool softener. Patient denies any chest pain or shortness breath. Denies abdominal pain. Denies a nausea vomiting. Scheduled be discharged to ECF today Objective - Vital Signs Vital signs: Vital Signs Temp 98.6 F 09/08/17 07:00 Pulse 84 09/08/17 07:00 Resp 18 09/08/17 07:00 BP 144/68 09/08/17 07:00 Pulse Ox 94 L 09/08/17 07:00 Intake & Output 09/07/17 09/08/17 09/08/17 18:59 06:59 18:59 Intake Total 1320 480 250 Balance 1320 480 250 Intake: Oral 1320 250 Other 480 Other: Voiding Method Toilet # Voids 4 3 - Exam Head normocephalic Neck supple Lungs clear to auscultation bilaterally no wheezing or crackles Heart regular rate and rhythm S1-S2, no rub or gallop Abdomen is soft nontender nondistended positive bowel sounds no hepatosplenomegaly Extremities no edema Neuro alert and orientated to 3 - Labs CBC & Chem 7: 09/08/17 07:23 09/08/17 07:23 Labs: Abnormal Lab Results - Last 24 Hours (Table) 09/08/17 09/08/17 Range/Units 07:23 07:23 RBC 3.31 L (3.80-5.40) m/uL Hgb 8.9 L (11.4-16.0) gm/dL Hct 29.0 L (34.0-46.0) % MCHC 30.7 L (31.0-37.0) g/dL Lymphocytes # 0.8 L (1.0-4.8) k/uL Glucose 103 H (74-99) mg/dL Total Protein 5.2 L (6.3-8.2) g/dL Albumin 2.8 L (3.5-5.0) g/dL Assessment and Plan Assessment: 1. Severe osteoarthritis of the right hip: Status post right total hip arthroplasty with direct anterior approach. Estimated blood loss is 100 mL. Continue with pain control and DVT prophylaxis, aspirin 325 mg twice a day and SCDs per orthopedics 2. Essential hypertension: Continue her losartan/hydrochlorothiazide 3. Hypothyroidism continue Synthroid 4. GERD resume omeprazole 5. Hyperlipidemia continue pravastatin 6. Depression resume Lamictal 7. Overactive bladder resume the ditropan 8. Expected acute blood loss anemia due to surgery. Hemoglobin 8.9. Continue ferrous sulfate. Check CBC on Monday Patient is medically stable for discharge to [facility]. Dr. Dupree to follow at [facility] I performed an examination of the patient and discussed their management with the physician Stage Manager. I have reviewed the Physician Stage Manager's notes and agree with the documented findings and plan of care
[2017-09-08] MEDS: PANTOPRAZOLE 40 MG TABLET PO SCH (11:08)
[2017-09-08] MEDS ORDERED: HYDROmorphone 2 MG TAB PO PRN ×2 (13:33)
[2017-09-08] MEDS ORDERED: HYDROmorphone 4 MG TABLET PO PRN (13:34)
[2017-09-08] MEDS: MULTIVITAMINS, THERA 1 EACH TAB PO SCH (14:20)
[2017-09-08] MEDS: SODIUM CHLORIDE 0.9% 1,000 ML IV SCH (14:20)
[2017-09-08] MEDS: CYCLOBENZAPRINE 10 MG TAB PO SCH (20:44)
[2017-09-08] MEDS: lamoTRIgine 25 MG TAB PO SCH (20:44)
[2017-09-08] MEDS: OXYBUTYNIN CHLORIDE 5 MG TAB PO SCH (20:44)
[2017-09-08] MEDS: SENNOSIDES-DOCUSATE SODIUM 1 EACH TAB PO SCH (20:44)
[2017-09-09] MEDS: hydrOXYzine PAMOATE 25 MG CAP PO PRN ×4 (02:14→20:19)
[2017-09-09] MEDS: HYDROcodone/APAP 7.5-325MG 1 EACH TAB PO PRN ×4 (02:15→20:19)
[2017-09-09] MEDS: LEVOTHYROXINE 50 MCG TAB PO SCH (05:43)
[2017-09-09] MEDS: PRAVASTATIN SODIUM 20 MG TAB PO SCH (08:29)
[2017-09-09] MEDS: ASPIRIN 325 MG TAB PO SCH ×2 (08:29→20:19)
[2017-09-09] MEDS: MELOXICAM 7.5 MG TAB PO SCH (08:29)
[2017-09-09] MEDS: GABAPENTIN 300 MG CAP PO SCH ×3 (08:29→21:38)
[2017-09-09] MEDS: LOSARTAN-HCTZ 50-12.5 MG 1 EACH TAB PO SCH (08:29)
[2017-09-09] MEDS: FERROUS SULFATE 325 MG TAB PO SCH ×2 (08:29→20:19)
[2017-09-09] MEDS: DULoxetine HCL 30 MG CAPSULE.DR PO SCH (08:30)
[2017-09-09] MEDS: LACTATED RINGERS 1,000 ML IV SCH (08:32)
[2017-09-09] MEDS: SODIUM CHLORIDE 0.9% 1,000 ML IV SCH ×2 (08:32→20:20)
[2017-09-09] MEDS: PANTOPRAZOLE 40 MG TABLET PO SCH (10:03)
[2017-09-09] MEDS: MAGNESIUM OXIDE 400 MG TAB PO SCH (13:49)
[2017-09-09] MEDS: MULTIVITAMINS, THERA 1 EACH TAB PO SCH (13:49)
[2017-09-09] MEDS: CALCIUM CARB-VIT D 500MG-200UN 1 EACH TAB PO SCH (13:49)
[2017-09-09] MEDS: OXYBUTYNIN CHLORIDE 5 MG TAB PO SCH (20:19)
[2017-09-09] MEDS: lamoTRIgine 25 MG TAB PO SCH (20:19)
[2017-09-09] MEDS: CYCLOBENZAPRINE 10 MG TAB PO SCH (20:19)
[2017-09-09] MEDS: SENNOSIDES-DOCUSATE SODIUM 1 EACH TAB PO SCH (20:20)
[2017-09-10] MEDS: LEVOTHYROXINE 50 MCG TAB PO SCH (05:12)
[2017-09-10] MEDS: LACTATED RINGERS 1,000 ML IV SCH (05:14)
[2017-09-10] MEDS: HYDROcodone/APAP 7.5-325MG 1 EACH TAB PO PRN ×3 (06:04→21:39)
[2017-09-10] MEDS: hydrOXYzine PAMOATE 25 MG CAP PO PRN ×3 (06:04→21:39)
[2017-09-10] MEDS: PRAVASTATIN SODIUM 20 MG TAB PO SCH (08:10)
[2017-09-10] MEDS: ASPIRIN 325 MG TAB PO SCH ×2 (08:11→21:39)
[2017-09-10] MEDS: FERROUS SULFATE 325 MG TAB PO SCH ×2 (08:11→21:40)
[2017-09-10] MEDS: DULoxetine HCL 30 MG CAPSULE.DR PO SCH (08:11)
[2017-09-10] MEDS: PANTOPRAZOLE 40 MG TABLET PO SCH (08:11)
[2017-09-10] MEDS: GABAPENTIN 300 MG CAP PO SCH ×3 (08:11→21:40)
[2017-09-10] MEDS: MELOXICAM 7.5 MG TAB PO SCH (08:12)
[2017-09-10] MEDS: LOSARTAN-HCTZ 50-12.5 MG 1 EACH TAB PO SCH (08:12)
[2017-09-10] MEDS: SODIUM CHLORIDE 0.9% 1,000 ML IV SCH (08:14)
--- NOTE | 2017-09-10 09:28 | P.PN ---
Subjective Progress Note Date: 09/10/17 Principal diagnosis: Status post total right hip arthroplasty This is a 61-year-old female who is status post total right hip arthroplasty. She is complaining of increased pain to the right hip and feels that the hip is more swollen today. She is rating her pain at 4-5/10. Objective - Vital Signs Vital signs: Vital Signs Temp 98.5 F 09/10/17 07:00 Pulse 91 09/10/17 07:00 Resp 14 09/10/17 07:00 BP 139/75 09/10/17 07:00 Pulse Ox 96 09/10/17 07:00 Intake & Output 09/09/17 09/10/17 09/10/17 18:59 06:59 18:59 Intake Total 3200 480 600 Balance 3200 480 600 Intake: Oral 3200 600 Other 480 Other: Voiding Method Toilet # Voids 2 1 - Exam This is a pleasant 61-year-old female in no acute distress. She is alert and oriented 3. Exam of the right hip reveals [id number] swelling. There is no erythema. The dressing is intact with no drainage noted on the dressing. She has full foot and ankle motion without difficulty or pain. Neurovascular status to the lower extremity is intact. - Labs CBC & Chem 7: 09/08/17 07:23 09/08/17 07:23 Assessment and Plan (1) Osteoarthritis of right hip Current Visit: Yes Status: Acute Code(s): M16.11 - UNILATERAL PRIMARY OSTEOARTHRITIS, RIGHT HIP SNOMED Code(s): 031415274418293 (2) S/P total hip arthroplasty Current Visit: Yes Status: Acute Code(s): Z96.649 - PRESENCE OF UNSPECIFIED ARTIFICIAL HIP JOINT SNOMED Code(s): 916652225373 Plan: The clinical findings are discussed the patient. We are planning discharge to inpatient rehab tomorrow if cleared medically. Continue physical therapy.
[2017-09-10] MEDS: MAGNESIUM OXIDE 400 MG TAB PO SCH (11:25)
[2017-09-10] MEDS: CALCIUM CARB-VIT D 500MG-200UN 1 EACH TAB PO SCH (11:25)
[2017-09-10] MEDS: MULTIVITAMINS, THERA 1 EACH TAB PO SCH (11:25)
[2017-09-10] MEDS: guaiFENesin SYRUP 100MG/5ML 200 MG/10 ML CUP PO PRN ×2 (14:37→21:38)
[2017-09-10] MEDS: SENNOSIDES-DOCUSATE SODIUM 1 EACH TAB PO SCH (21:39)
[2017-09-10] MEDS: CYCLOBENZAPRINE 10 MG TAB PO SCH (21:39)
[2017-09-10] MEDS: OXYBUTYNIN CHLORIDE 5 MG TAB PO SCH (21:39)
[2017-09-10] MEDS: lamoTRIgine 25 MG TAB PO SCH (21:39)
[2017-09-11] MEDS: SODIUM CHLORIDE 0.9% 1,000 ML IV SCH (00:33)
[2017-09-11] MEDS: LEVOTHYROXINE 50 MCG TAB PO SCH (05:15)
[2017-09-11] MEDS: LACTATED RINGERS 1,000 ML IV SCH (05:16)
[2017-09-11] MEDS: hydrOXYzine PAMOATE 25 MG CAP PO PRN ×2 (06:25→12:51)
[2017-09-11] MEDS: HYDROcodone/APAP 7.5-325MG 1 EACH TAB PO PRN ×2 (06:25→12:51)
[2017-09-11] MEDS: guaiFENesin SYRUP 100MG/5ML 200 MG/10 ML CUP PO PRN ×2 (06:26→12:51)
[2017-09-11 07:01] VITALS: BP 125/59; PULSE 78; RESP 14; TEMP 97.9
[2017-09-11] MEDS: GABAPENTIN 300 MG CAP PO SCH (08:29)
[2017-09-11] MEDS: PRAVASTATIN SODIUM 20 MG TAB PO SCH (08:29)
[2017-09-11] MEDS: LOSARTAN-HCTZ 50-12.5 MG 1 EACH TAB PO SCH (08:29)
[2017-09-11] MEDS: FERROUS SULFATE 325 MG TAB PO SCH (08:30)
[2017-09-11] MEDS: ASPIRIN 325 MG TAB PO SCH (08:30)
[2017-09-11] MEDS: MELOXICAM 7.5 MG TAB PO SCH (08:30)
[2017-09-11] MEDS: DULoxetine HCL 30 MG CAPSULE.DR PO SCH (08:30)
[2017-09-11] MEDS: PANTOPRAZOLE 40 MG TABLET PO SCH (08:30)
[2017-09-11 09:31] LABS: Basophils % (A) 1 %; Eosinophils # (A) 0.2 k/uL (0-0.7); Eosinophils % (A) 8 %; HCT 29.5 % (34.0-46.0); Hypochromasia Moderate; Lymphocytes # (A) 0.6 k/uL (1.0-4.8); Lymphocytes % (A) 22 %; MCH 26.5 pg (25.0-35.0); MCHC 30.4 g/dL (31.0-37.0); MCV 87.3 fL (80.0-100.0); Mean Platelet Volume 7.2; Monocytes # (A) 0.2 k/uL (0-1.0); Monocytes % (A) 6 %; Neutrophils # (A) 1.6 k/uL (1.3-7.7); Neutrophils % (A) 62 %; Platelet Count 270 k/uL (150-450); RBC 3.38 m/uL (3.80-5.40); RDW 13.8 % (11.5-15.5); WBC 2.6 k/uL (3.8-10.6)
--- NOTE | 2017-09-11 09:35 | P.DS ---
Providers Date of admission: 09/05/17 06:27 Expected date of discharge: 09/11/17 Attending physician: Randy Deras Consults: 09/05/17 06:57 Consult Physician Routine Consulting Provider: Dilia Wilkerson Consult Reason/Comments: medical management Do you want consulting provider notified?: Yes 09/05/17 09:49 Consult Physician Routine Consulting Provider: Buddy Stakr Consult Reason/Comments: medcial management Do you want consulting provider notified?: Yes Primary care physician: Dilia Wilkerson - Discharge Diagnosis(es) (1) S/P total hip arthroplasty Current Visit: Yes Status: Acute (2) Primary osteoarthritis of right hip Current Visit: Yes Status: Acute Hospital Course: This is a 61-year-old female with known history of degenerative arthritis of the right hip. The patient presents for evaluation. After discussion and consideration patient elects to proceed with total hip arthroplasty. The patient is seen preoperatively by Dr. Deras and cleared for surgery. Patient is admitted to [facility] on 09/05/2017 for total hip arthroplasty. The procedures performed without complication or sequelae. The patient is doing well postoperatively. Labs and vital signs are stable on day of discharge. On day of discharge patient's hip incision is healing well. There is minimal erythema. There is no drainage noted at this time. There is minimal soft tissue swelling to the hip and thigh. Patient has full foot and ankle motion without difficulty or pain. Neurovascular status to the right lower extremity is intact. Patient is discharged to rehab in good condition. Please see [facility] rec for accurate list of home medications. Plan - Discharge Summary Discharge Rx Participant: No New Discharge Prescriptions: New Aspirin 325 mg PO BID #60 tab HYDROcodone/APAP 7.5-325MG [[place] 7.5-325] 1 - 2 tab PO Q4-6H PRN #90 tab PRN Reason: Pain Meloxicam [Mobic] 7.5 mg PO DAILY #15 tab Sennosides [Senokot] 1 tab PO BID #60 tablet Ferrous Sulfate [Iron (65 MG Elemental)] 325 mg PO BID tab Continue Alpha Lipoic Acid 200 mg PO DAILY Calcium Carbonate/Vitamin D3 [Calcium 500-Vit D3 600 Tablet] 1 tab PO DAILY Cyclobenzaprine [Flexeril] 10 mg PO HS DULoxetine HCL [Cymbalta] 90 mg PO DAILY Gabapentin 600 mg PO TID lamoTRIgine [LaMICtal] 25 mg PO HS Levothyroxine Sodium [Synthroid] 50 mcg PO DAILY Lidocaine 5% Patch [Lidoderm 5% Patch] 1 patch TRANSDERM DAILY PRN PRN Reason: Pain Losartan/Hydrochlorothiazide [Losartan-Hctz 100-25 mg Tab] 1 tab PO DAILY Magnesium Gluconate [Magonate] 500 mg PO DAILY Multivit/Folic Acid/Vit K1 [One-A-Day Women's 50 Plus Tab] 1 tab PO DAILY [place]-3 Fatty Acids/Fish Oil [Fish Oil 1,000 mg Softgel] 1 cap PO DAILY Omeprazole 40 mg PO DAILY Oxybutynin Chloride [Ditropan] 5 mg PO HS Pravastatin Sodium [Pravachol] 20 mg PO DAILY Turmeric Root Extract [Turmeric] 1,000 mg PO DAILY Discontinued Diclofenac Sodium [Voltaren] 75 mg PO BID Hydrocodone/Acetaminophen [[place] 10-325] 1 tab PO TID PRN PRN Reason: Pain Discharge Medication List Alpha Lipoic Acid 200 mg PO DAILY 08/31/17 [History] Calcium Carbonate/Vitamin D3 [Calcium 500-Vit D3 600 Tablet] 1 tab PO DAILY [History] Cyclobenzaprine [Flexeril] 10 mg PO HS 08/31/17 [History] DULoxetine HCL [Cymbalta] 90 mg PO DAILY 08/31/17 [History] Gabapentin 600 mg PO TID 08/31/17 [History] Levothyroxine Sodium [Synthroid] 50 mcg PO DAILY 08/31/17 [History] Lidocaine 5% Patch [Lidoderm 5% Patch] 1 patch TRANSDERM DAILY PRN 08/31/17 [ History] Losartan/Hydrochlorothiazide [Losartan-Hctz 100-25 mg Tab] 1 tab PO DAILY [History] Magnesium Gluconate [Magonate] 500 mg PO DAILY 08/31/17 [History] Multivit/Folic Acid/Vit K1 [One-A-Day Women's 50 Plus Tab] 1 tab PO DAILY [History] [place]-3 Fatty Acids/Fish Oil [Fish Oil 1,000 mg Softgel] 1 cap PO DAILY [History] Omeprazole 40 mg PO DAILY 08/31/17 [History] Oxybutynin Chloride [Ditropan] 5 mg PO HS 08/31/17 [History] Pravastatin Sodium [Pravachol] 20 mg PO DAILY 08/31/17 [History] lamoTRIgine [LaMICtal] 25 mg PO HS 08/31/17 [History] Turmeric Root Extract [Turmeric] 1,000 mg PO DAILY 09/05/17 [History] Aspirin 325 mg PO BID #60 tab 09/08/17 [Rx] Ferrous Sulfate [Iron (65 MG Elemental)] 325 mg PO BID tab 09/08/17 [Rx] HYDROcodone/APAP 7.5-325MG [[place] 7.5-325] 1 - 2 tab PO Q4-6H PRN #90 tab [Rx] Meloxicam [Mobic] 7.5 mg PO DAILY #15 tab 09/08/17 [Rx] Sennosides [Senokot] 1 tab PO BID #60 tablet 09/08/17 [Rx] Follow up Appointment(s)/Referral(s): Randy Deras DO [Doctor of Osteopathic Medicine] - 09/21/17 10:50 am Activity/Diet/Wound Care/Special Instructions: Weightbearing as tolerated with walker Leave dressing intact. Dressing may be removed by home care nurse in 7 days, 09/12/2017. May shower with dressing on. Follow-up with [facility] in 2 weeks, please call with any questions or concerns [phone] diet: regular Check CBC on Monday Dr. Dupree to follow at [facility] Discharge Disposition: TRANSFER TO SNF/ECF
--- NOTE | 2017-09-11 10:21 | P.PN ---
Subjective Progress Note Date: 09/11/17 This is a 61-year-old female with a known history of hyperlipidemia, acid reflux , hypertension, overactive bladder, hypothyroidism and depression. She is a patient of Dr. Charles. She has been suffering with right hip pain and underwent a right total hip arthroplasty for her osteoarthritis of the right hip. She tolerated surgery well. Estimated blood loss is 100 mL. Patient denies any chest pain, shortness breath, nausea or vomiting, bowel movement changes or any new urinary symptoms. Patient is complaining of some pain. We' ll continue with current pain medication. We have been consulted for medical management. 09/07/2017 patient's pain is controlled. She is working with the CPM machine. She has been up and ambulating. The planning discharge to [facility] tomorrow. Patient did have a drop in her hemoglobin from 9.5-8.9. She'll be started on iron supplement. She denies any chest pain or shortness of breath. Denies any nausea or vomiting. She is passing gas. Last bowel movement 2 days ago. Denies any difficulty urinating 09/08/2017 patient complaining of collado splint and her right collado. This is not new for patient. She was given pain medication. She's having some relief. She denies any chest pain or shortness of breath. She has not had a bowel movement since she's been here. Lactulose will be given. Continue stool softener. Patient denies any chest pain or shortness breath. Denies abdominal pain. Denies a nausea vomiting. Scheduled be discharged to [facility] today 09/11/2017 patient's discharged held over the weekend awaiting prior out from her insurance. Patient complaining of a mild cough was started on Robitussin over the weekend. No fever. They complain of some sinus congestion and sore throat but that appears to be improving. We will check a flu swab just confirm that she does not have influenza. At that is negative she can be discharged patient has no other complaints Objective - Vital Signs Vital signs: Vital Signs Temp 97.9 F 09/11/17 06:58 Pulse 78 09/11/17 06:58 Resp 14 09/11/17 06:58 BP 125/59 09/11/17 06:58 Pulse Ox 95 09/11/17 06:58 Intake & Output 09/10/17 09/11/17 09/11/17 18:59 06:59 18:59 Intake Total 1076 520 Balance 1076 520 Intake: Intake, IV Titration 520 Amount Sodium Chloride 0.9% 1, 520 000 ml @ 65 mls/hr IV . [id number] NEETU Rx#:[id number] Oral 1076 Other: Voiding Method Toilet # Voids 3 1 - Exam Head normocephalic Neck supple Lungs clear to auscultation bilaterally no wheezing or crackles Heart regular rate and rhythm S1-S2, no rub or gallop Abdomen is soft nontender nondistended positive bowel sounds no hepatosplenomegaly Extremities no edema Neuro alert and orientated to 3 - Labs CBC & Chem 7: 09/11/17 09:06 09/08/17 07:23 Labs: Abnormal Lab Results - Last 24 Hours (Table) 09/11/17 Range/Units 09:06 WBC 2.6 L (3.8-10.6) k/uL RBC 3.38 L (3.80-5.40) m/uL Hgb 9.0 L (11.4-16.0) gm/dL Hct 29.5 L (34.0-46.0) % MCHC 30.4 L (31.0-37.0) g/dL Lymphocytes # 0.6 L (1.0-4.8) k/uL Assessment and Plan Assessment: 1. Severe osteoarthritis of the right hip: Status post right total hip arthroplasty with direct anterior approach. Estimated blood loss is 100 mL. Continue with pain control and DVT prophylaxis, aspirin 325 mg twice a day and SCDs per orthopedics 2. Essential hypertension: Continue her losartan/hydrochlorothiazide 3. Hypothyroidism continue Synthroid 4. GERD resume omeprazole 5. Hyperlipidemia continue pravastatin 6. Depression resume Lamictal 7. Overactive bladder resume the ditropan 8. Expected acute blood loss anemia due to surgery. Continue ferrous sulfate. Hemoglobin 9. Recommend checking CBC in 1 week 9. Mild upper respiratory infection. Continue with the Robitussin as needed for the next 7 days. Treat symptomatically. We'll confirm that patient does not have the flu. Flu swab has been ordered. 10. Leukopenia: White count 2.6 likely reactive to patient's surgery and upper respiratory tract infection. Again will follow-up with CBC in 1 week If flu swab is negative patient medically stable for discharge I performed an examination of the patient and discussed their management with the physician Midlevel Provider. I have reviewed the Physician Midlevel Provider's notes and agree with the documented findings and plan of care
[2017-09-11] MEDS: MAGNESIUM OXIDE 400 MG TAB PO SCH (12:47)
[2017-09-11] MEDS: CALCIUM CARB-VIT D 500MG-200UN 1 EACH TAB PO SCH (12:47)
[2017-09-11] MEDS: MULTIVITAMINS, THERA 1 EACH TAB PO SCH (12:47)
== END 2017-09-11 15:15 | DRG 470 ==
LOC: 2ORMAIN 06:27 → 3SUR 09:20
PROVIDERS: ADMIT Orthopaedic Surgery; ATTEND Orthopaedic Surgery
PROC: 0SR906A Replacement of Right Hip Joint with Oxidized Zirconium on Polyethylene Synthetic Substitute, Uncemented, Open Approach (ICD-10-PCS; principal; 2017-09-05 07:00)
DX: M16.11 Unilateral primary osteoarthritis, right hip (principal); D62 Acute posthemorrhagic anemia; D72.819 Decreased white blood cell count, unspecified; E03.9 Hypothyroidism, unspecified; E78.5 Hyperlipidemia, unspecified; F32.9 Major depressive disorder, single episode, unspecified; I10 Essential (primary) hypertension; K21.9 Gastro-esophageal reflux disease without esophagitis; E07.9 Disorder of thyroid, unspecified; E20.9 Hypoparathyroidism, unspecified; F41.9 Anxiety disorder, unspecified; N32.81 Overactive bladder; Z79.82 Long term (current) use of aspirin; Z79.899 Other long term (current) drug therapy; Z87.891 Personal history of nicotine dependence; Z79.890 Hormone replacement therapy; Z79.891 Long term (current) use of opiate analgesic; Z98.84 Bariatric surgery status
CPT/HCPCS: 36415; 73501; 80053; 84132; 85025; 86850; 86891; 86900; 86901; 87502; 88300

== ENCOUNTER 2017-12-25 07:00 | Inpatient (IN) | payer BC ==
[2018-02-12 14:07] VITALS: BMI 50.4
[2018-02-19] MEDS ORDERED: TRANEXAMIC ACID 1,000 MG in SODIUM CHLORIDE 0.9% 50 ML IVPB ONE ×4 (05:00)
[2018-02-19] MEDS ORDERED: ACETAMINOPHEN TAB 500 MG TAB PO ONE (05:00)
[2018-02-19] MEDS ORDERED: MELOXICAM 7.5 MG TAB PO ONE (05:00)
[2018-02-19] MEDS ORDERED: LIDOCAINE 1% 20 ML VIAL (10MG/ML) FOR IV START INTRADERMA PRN (05:12)
[2018-02-19] MEDS ORDERED: HYDROmorphone 0.5 MG/0.5 ML SYRINGE IVP PRN ×3 (05:12→09:14)
[2018-02-19] MEDS ORDERED: LACTATED RINGERS 1,000 ML IV SCH (05:12)
[2018-02-19] MEDS ORDERED: ONDANSETRON 4 MG/2 ML VIAL IVP ONE (05:12)
[2018-02-19] MEDS ORDERED: DEXAMETHASONE SOD PHOS (MDV) 100 MG/10 ML VIAL IVP ONE (07:00)
[2018-02-19] MEDS ORDERED: fentaNYL (PF) 50 MCG/ML 2 ML AMP ONE (07:11)
[2018-02-19] MEDS ORDERED: MIDAZOLAM 2 MG/2 ML VIAL ONE (07:11)
[2018-02-19] MEDS ORDERED: PHENYLEPHRINE-0.9% NACL SYG 1 MG/10 ML SYRINGE ONE (07:11)
[2018-02-19] MEDS: ROPIVACAINE 246.25 MG, EPINEPHrine 0.5 MG, KETOROLAC 30 MG, cloNIDine HCL/PF 80 MCG, WA... MISCELLANE ONE ×10 (07:39→08:31)
[2018-02-19] MEDS ORDERED: ceFAZolin 3,000 MG in SODIUM CHLORIDE 0.9% IRRIGATIO 3,000 ML IRRIGATION ONE (07:40)
[2018-02-19 07:44] LABS: Basophils % (A) 1 %; Eosinophils # (A) 0.2 k/uL (0-0.7); Eosinophils % (A) 3 %; HCT 37.5 % (34.0-46.0); HGB 11.8 gm/dL (11.4-16.0); Hypochromasia Slight; Lymphocytes # (A) 0.8 k/uL (1.0-4.8); Lymphocytes % (A) 13 %; MCH 25.6 pg (25.0-35.0); MCHC 31.5 g/dL (31.0-37.0); MCV 81.2 fL (80.0-100.0); Mean Platelet Volume 7.4; Monocytes # (A) 0.3 k/uL (0-1.0); Monocytes % (A) 4 %; Neutrophils # (A) 4.6 k/uL (1.3-7.7); Neutrophils % (A) 77 %; Platelet Count 251 k/uL (150-450); RBC 4.62 m/uL (3.80-5.40)
[2018-02-19] MEDS ORDERED: LACTATED RINGERS 1,000 ML IV ONE (08:41)
--- NOTE | 2018-02-19 08:48 | P.OP ---
Date of Procedure: 02/19/18 Preoperative Diagnosis: Severe osteoarthritis left hip Postoperative Diagnosis: Severe osteoarthritis left hip Procedure(s) Performed: Left total hip arthroplasty with a direct anterior approach Implants: Bacon and nephew Polarstem size 3 standard Bacon & Nephew R3, 3 hole acetabular shell, 52 mm Bacon & Nephew reflection 6.5 mm cancellus screw, 20 mm 2 Bacon & Nephew R3, XLPE 20 acetabular liner Bacon & Nephew Oxinium femoral head 36 m, +0 All components were press-fit. The articulation is Oxinium on polyethylene. Anesthesia: spinal Surgeon: Randy Deras Plate And Frame Filter Operator #1: Pamela Juares Estimated Blood Loss (ml): 200 Pathology: other (Femoral head) Condition: stable Disposition: PACU Indications for Procedure: After failure of conservative treatment we discussed the surgical and nonsurgical treatment options at length. Patient wishes to proceed with a total hip arthroplasty with a direct anterior approach. Complications specific to this procedure were discussed at length, including but not limited to infection, leg length discrepancy, dislocation, and nerve injury. Patient is aware of all these complications and informed consent was obtained Operative Findings: The operative findings are consistent with severe osteoarthritis of the left hip Description of Procedure: Patient was seen and evaluated in the preoperative area, consent was reviewed, and the surgical site was marked with a skin marker. Patient was then brought to the operating room and given prophylactic antibiotics intravenously. 1 g of Tranexamic acid was also given. A spinal anesthetic was administered by the anesthesia department. The patient was then placed on the Fromberg table with the bony prominences well-padded. The hip area was then prepped and draped in usual sterile fashion. A universal timeout was then performed, which confirmed the patient's name, surgical site, ALLERGIES, and procedure being performed. Next the incision site was located at 1 cm distal and 1 cm lateral to the anterior superior iliac spine. The skin and subcutaneous tissues were sharply incised. Incision was carefully dissected down to the fascia overlying the tensor fascia aleks muscle. This fascia was then incised in line with the incision. Next, using blunt finger dissection, the tensor fascia aleks muscle was dissected off its investing fascia. The muscle was then carefully retracted laterally with a cobra retractor over the lateral neck of the femur. Next, the circumflex vessels were identified and cauterized using the AquaMantis device. The anterior hip capsule was then exposed. The capsule was then opened and an inverted T fashion. Cobra retractors were then placed intracapsularly. The proximal femur was then visualized. The femoral neck was then osteotomized appropriate level above the lesser trochanter. Small amount of traction was placed with the Fromberg table. A small wedge of bone was then removed from the remaining femoral head. Next, using a corkscrew femoral head was easily removed from the acetabulum. On gross visual inspection, the femoral head had complete loss of articular cartilage in multiple periarticular osteophytes. Attention was then turned to the acetabulum. the acetabulum was exposed and any remaining labrum was excised. Sequential reaming of the acetabulum was performed using fluoroscopic guidance. When the appropriate size was reached, a trial was then placed. The position and fit of the trial was checked with fluoroscopy. The trial was then removed. Then, using fluoroscopic guidance, the final implant was impacted at 20 of anteversion and 40 of abduction, and fully seated in the acetabulum. 2 screws were then placed in the acetabulum. Again fluoroscopy was used to check position of the screws. Next, the liner was then impacted, with a 20 elevated liner located in the anterior superior quadrant. Component locking was confirmed. Attention was then directed to the femur. With the aid of the Fromberg table, the femur was externally rotated to approximately 130, extended, and abducted under the opposite leg. A side hook was then placed under the proximal femur, and the side hook elevator was used to elevate the proximal femur. Retractors were then placed. A capsular release was performed, as well as a release of the conjoined tendon, which afforded excellent visualization of the proximal femur. Next, a box osteotome was used to lateralize the proximal femur. A mail handler was then used to locate the femoral canal. Sequential broaching was then performed with appropriate size which afforded excellent fixation in the proximal femur. A trial was then placed with appropriate head and neck, and the hip was gently reduced with the aid of the Fromberg table. Fluoroscopy was then used to check position of the components, as well as to ensure equal leg lengths. The hip was then gently dislocated and the trials were then removed. Final implants were then impacted and the hip was again reduced. Final fluoroscopic x-rays confirmed that the components were in anatomic position, as well as equal leg lengths. The hip was also taken through range of motion, and found to be stable. The hip was then copiously irrigated with antibiotic solution with pulsatile lavage. The hip was then irrigated with Irrisept solution. The soft tissues were then injected with a ropivacaine solution, which consisted of 246.25 mg of ropivacaine, 0.5 mg of epinephrine, 30 mg of Toradol, 80 g of clonidine, and 48.45 mL of sterile water, for a total of 100 mL of fluid injected. A second dose of 1 g of Tranexamic acid was also given. the fascia was then closed with 2-0 strata fix suture. The subcutaneous tissue was closed with 3-0 Vicryl. The subcuticular tissue was closed with 3-0 strata fix suture. The skin was then closed with Dermabond glue and a sterile silver dressing. The patient was then transferred to the recovery room in stable condition. The physician assistant certified CARY Bose was required due to the complexity of surgery, and the need for skilled surgical physician assistant for positioning, draping, exposure, retraction, and closure of the wound.
--- NOTE | 2018-02-19 08:58 | FL ---
Fluoroscopy HISTORY: Hip replacement 55 seconds fluoroscopy time supplied to the referring clinician. 2 intraoperative C-arm images docum ent the procedure. See dictated report from orthopedic surgery.
--- NOTE | 2018-02-19 08:58 | XR ---
Limited left hip HISTORY: Hip replacement 2 intraoperative C-arm images document the procedure
[2018-02-19] MEDS ORDERED: NALOXONE 0.4 MG/ML 1 ML VIAL IV PRN (09:14)
[2018-02-19] MEDS ORDERED: HYDROcodone/APAP 7.5-325MG 1 EACH TAB PO PRN (09:14)
[2018-02-19] MEDS ORDERED: DIAZEPAM 5 MG TAB PO PRN ×2 (09:14)
[2018-02-19] MEDS ORDERED: MAGNESIUM HYDROXIDE 2,400 MG/10 ML CUP PO PRN (09:14)
[2018-02-19] MEDS ORDERED: ONDANSETRON 4 MG/2 ML VIAL IVP PRN (09:14)
[2018-02-19] MEDS ORDERED: hydrOXYzine PAMOATE 25 MG CAP PO PRN (09:14)
[2018-02-19] MEDS ORDERED: LABETALOL 5 MG/ML VIAL MDV IVP ONE (09:57)
--- NOTE | 2018-02-19 10:31 | XR ---
EXAMINATION TYPE: XR Hip Limited LT DATE OF EXAM: 02/19/2018 CLINICAL HISTORY: Left hip pain and osteoarthritis. TECHNIQUE: Single AP portable view of left hip is obtained immediately postoperatively. COMPARISON: None. FINDINGS: Metallic hardware from left hip arthroplasty is seen and appears satisfactory in alignment and position. There is evidence of recent surgery with subcutaneous gas noted laterally. IMPRESSION: Metallic hardware from left hip arthroplasty is satisfactory in position.
[2018-02-19] MEDS: HYDROmorphone 0.5 MG/0.5 ML SYRINGE IVP PRN (11:38)
--- NOTE | 2018-02-19 12:45 | P.CONS ---
History of Present Illness - Reason for Consult Consult date: 02/19/18 Medical management Requesting physician: Randy Deras - Chief Complaint Osteoarthritis of left hip - History of Present Illness This is a 62-year-old patient of Dr. Wilkerson. Patient is status post total left arthroplasty anterior approach with cell saver with Dr. Deras. Patient has a known medical history of GERD, hyperlipidemia, hypertension, osteoarthritis, pneumonia, thyroid disorder, depression bariatric surgery and previous joint replacement. Patient denies a history of arrhythmia or Myocardial infections. Patient is an ex-smoker quitting in 2006. At this time patient is resting comfortably in bed remaining pretty sleepy post surgery but is easily arousable. Patient denies chest pain or shortness of breath at this time. Patient denies nausea vomiting or diarrhea. Patient denies urinary burning or frequency. Review of Systems Please refer to HPI otherwise unremarkable Past Medical History Past Medical History: GERD/Reflux, Hyperlipidemia, Hypertension, Osteoarthritis (OA), Pneumonia, Thyroid Disorder Additional Past Medical History / Comment(s): varicose veins, hx ulcer and hiatal hernia, arthritis in back, degenerative disk, pinched nerve L5, sciatica , spinal stenosis, hx anemia, urinary urgency/leakage History of Any Multi-Drug Resistant Organisms: None Reported Past Surgical History: Adenoidectomy, Bariatric Surgery, Breast Surgery, Joint Replacement, Orthopedic Surgery, Tonsillectomy Additional Past Surgical History / Comment(s): LT KNEE arthroscopy, rt hip replacement, lap band with hiatal hernia repair, loly breast biopsy Past Anesthesia/Blood Transfusion Reactions: Motion Sickness Smoking Status: Former smoker - Past Family History Father Family Medical History: Cancer Brother(s) Family Medical History: Cancer Medications and Allergies Home Medications Medication Instructions Recorded Confirmed Type Alpha Lipoic Acid 200 mg PO DAILY 08/31/17 02/19/18 History Calcium Carbonate/Vitamin D3 1 tab PO DAILY 08/31/17 02/19/18 History [Calcium 500-Vit D3 600 Tablet] Cyclobenzaprine [Flexeril] 10 mg PO HS 08/31/17 02/19/18 History DULoxetine HCL [Cymbalta] 90 mg PO DAILY 08/31/17 02/19/18 History Levothyroxine Sodium [Synthroid] 50 mcg PO DAILY 08/31/17 02/19/18 History Lidocaine 5% Patch [Lidoderm 5% 1 patch TRANSDERM DAILY 08/31/17 02/19/18 History Patch] Losartan/Hydrochlorothiazide 1 tab PO DAILY 08/31/17 02/19/18 History [Losartan-Hctz 100-25 mg Tab] Multivit/Folic Acid/Vit K1 1 tab PO DAILY 08/31/17 02/19/18 History [One-A-Day Women's 50 Plus Tab] Omeprazole 40 mg PO DAILY 08/31/17 02/19/18 History Pravastatin Sodium [Pravachol] 20 mg PO DAILY 08/31/17 02/19/18 History lamoTRIgine [LaMICtal] 25 mg PO HS 08/31/17 02/19/18 History Diclofenac Sodium [Voltaren] 75 mg PO BID 02/12/18 02/19/18 History Fish Oil/Dha/Epa [Fish Oil 1,200 1 cap PO DAILY 02/12/18 02/19/18 History mg Fish Oil] Gabapentin 800 mg PO QID PRN 02/12/18 02/19/18 History HYDROcodone/APAP 10-325MG [[place] 1 tab PO TID 02/12/18 02/19/18 History 10-325] Ranitidine HCl 300 mg PO HS 02/12/18 02/19/18 History Turmeric Tab 400 mg PO DAILY 02/12/18 02/19/18 History hydrOXYzine PAMOATE 25 mg PO BID PRN 02/12/18 02/19/18 History Potassium Chloride [Klor-Con 10] 10 meq PO DIRECTED 02/19/18 02/19/18 History Allergies Allergy/AdvReac Type Severity Reaction Status Date / Time No Known Allergies Allergy Verified 02/19/18 10:25 Physical Exam Vitals: Vital Signs Temp Pulse Resp BP Pulse Ox 02/19/18 10:25 77 16 132/78 97 02/19/18 10:10 84 16 142/60 97 02/19/18 09:55 85 16 187/99 96 02/19/18 09:40 97 16 183/100 100 02/19/18 09:25 96 16 162/79 100 02/19/18 09:10 97.5 F L 96 14 138/64 100 02/19/18 06:37 97.7 F 62 16 134/90 98 Intake and Output 02/18/18 02/19/18 02/19/18 22:59 06:59 14:59 Intake Total 1151 Output Total 150 Balance 1001 Intake: IV 1151 Output: Estimated Blood Loss 150 Head normocephalic Neck supple Lungs clear to auscultation bilaterally no wheezing or crackles Heart regular rate and rhythm S1-S2, no rub or gallop Abdomen is soft nontender nondistended positive bowel sounds no hepatosplenomegaly Extremities no edema. Left hip dressing clean dry and intact Neuro alert and orientated to 3 Results CBC & Chem 7: 02/19/18 06:55 Labs: Abnormal Lab Results - Last 24 Hours (Table) 02/19/18 Range/Units 06:55 RDW 16.0 H (11.5-15.5) % Lymphocytes # 0.8 L (1.0-4.8) k/uL Assessment and Plan Assessment: 1. Status post total left hip arthroplasty. Patient currently on aspirin 325 mg by mouth twice a day per Ortho surgical services. Pain control with Dilaudid and [place]. 2. History of hypothyroidism. Home Synthroid ordered 3. History of depression. Home Cymbalta reordered 4. Hyperlipidemia. Home Pravastatin ordered. 5. History of essential hypertension. Home Hyzaar ordered 6. History of GERD. DVT prophylaxis Pepcid, DVT prophylaxis aspirin 325 twice a day Thank you for this medical consultation will continue to follow patient throughout hospitilization Time with Patient: Greater than 30 (Greater than 60% of the total time spent in counseling and coordination of care. I performed an examination of the patient and discussed their management with the Nurse Practitioner. I have reviewed the Nurse Practitioner's notes and agree with the documented findings and plan of care)
[2018-02-19] MEDS: HYDROcodone/APAP 7.5-325MG 1 EACH TAB PO PRN ×2 (14:15→23:53)
--- NOTE | 2018-02-19 14:41 | CDI ---
Last Revision, July 2017 Documentation Clarification Form Date: 02/19/2018 12:00:00 AM From: Shahnaz WEISS,RN,CCDS Admit Date: 02/19/2018 5:48:00 AM Patient Name: Rosalva Gooden Visit Number: [id number] Discharge Date: ATTENTION: The Clinical Documentation Specialists (CDI) and [facility] Coding Staff appreciate your assistance in clarifying documentation. Please respond to the clarification below the line at the bottom and electronically sign. The CDI & [facility] Coding staff will review the response and follow-up if needed. Please note: Queries are made part of the Legal Health Record. If you have any questions, please contact the author of this message via ITS. Dr. Randy Deras Please render your opinion on the clinical significance if any of Documetned BMI 50.4 with VTE assessment noting obesity as risk factor. EMR documents notes abdomen obese habitus on physical exam. History/Risk Factors: bariatric surgery(lap band) , GERD, Hyperlipidemai, Thyroid issues, deprersion and previous joint replacment presenting for left hip replacement for OA of left hip, Mallampati score of 3, Clinical Indicator: preop surgical check list identifying obesity as risk with VTE assessment Patients weight is 146.05 KGs Patients height is 5 ft 7 in Calculated BMI is 50.4 Treatment clear liquid diet advance as tolerated. In order to capture the severity of condition associated with patient BMI of 50.4, a clinical diagnoses needs to be documented by the physician. Please clarify: Obese Morbidly obese Other, please specify ____ Unable to determine Please continue to document in your progress notes and discharge summary in order to capture severity of illness and risk of mortality. Include clinical findings that support your diagnosis. MTDD
[2018-02-19] MEDS: SODIUM CHLORIDE 0.9% 1,000 ML IV SCH (15:13)
[2018-02-19] MEDS: POTASSIUM CHLORIDE ER 10 MEQ TAB.ER.PRT PO SCH (15:19)
[2018-02-19] MEDS: lamoTRIgine 25 MG TAB PO SCH (20:53)
[2018-02-19] MEDS: ASPIRIN 325 MG TAB PO SCH (20:53)
[2018-02-19] MEDS: FAMOTIDINE 20 MG TAB PO SCH (20:53)
[2018-02-19] MEDS: SENNOSIDES-DOCUSATE SODIUM 1 EACH TAB PO SCH (20:54)
[2018-02-19] MEDS: GABAPENTIN 400 MG CAP PO PRN ×2 (21:00→23:53)
[2018-02-20] MEDS: SODIUM CHLORIDE 0.9% 1,000 ML IV SCH ×2 (01:07→16:58)
[2018-02-20] MEDS: LEVOTHYROXINE 50 MCG TAB PO SCH (05:45)
[2018-02-20] MEDS: HYDROcodone/APAP 7.5-325MG 1 EACH TAB PO PRN ×3 (07:09→19:24)
[2018-02-20] MEDS: PANTOPRAZOLE 40 MG TABLET PO SCH (07:09)
[2018-02-20 07:54] LABS: Anisocytosis Slight; Basophils % (A) 1 %; Eosinophils % (A) 1 %; HCT 34.9 % (34.0-46.0); HGB 10.4 gm/dL (11.4-16.0); Hypochromasia Marked; Lymphocytes # (A) 1.2 k/uL (1.0-4.8); Lymphocytes % (A) 17 %; MCH 26.2 pg (25.0-35.0); MCHC 29.8 g/dL (31.0-37.0); Monocytes # (A) 0.4 k/uL (0-1.0); Monocytes % (A) 6 %; Neutrophils # (A) 5.2 k/uL (1.3-7.7); Neutrophils % (A) 75 %; Platelet Count 267 k/uL (150-450); RBC 3.97 m/uL (3.80-5.40); RDW 16.3 % (11.5-15.5); WBC 6.9 k/uL (3.8-10.6)
[2018-02-20 08:01] LABS: ALT 28 U/L (9-52); AST 39 U/L (14-36); Albumin 3.5 g/dL (3.5-5.0); Alkaline Phosphatase 98 U/L (38-126); Anion Gap 10 mmol/L; Blood Urea Nitrogen 17 mg/dL (7-17); Calcium 8.5 mg/dL (8.4-10.2); Carbon Dioxide 23 mmol/L (22-30); Chloride 104 mmol/L (98-107); Glucose 123 mg/dL (74-99); Sodium 137 mmol/L (137-145); Total Bilirubin 0.5 mg/dL (0.2-1.3)
[2018-02-20 08:17] LABS: Potassium 4.5 mmol/L (3.5-5.1)
[2018-02-20] MEDS: ASPIRIN 325 MG TAB PO SCH ×2 (08:49→21:08)
[2018-02-20] MEDS: DULoxetine HCL 30 MG CAPSULE.DR PO SCH (08:49)
[2018-02-20] MEDS: CALCIUM CARB-VIT D 500MG-200UN 1 EACH TAB PO SCH (08:49)
[2018-02-20] MEDS: MULTIVITAMINS, THERA 1 EACH TAB PO SCH (08:50)
[2018-02-20] MEDS: PRAVASTATIN SODIUM 20 MG TAB PO SCH (08:50)
[2018-02-20] MEDS: MELOXICAM 7.5 MG TAB PO SCH (08:50)
[2018-02-20] MEDS ORDERED: FISH OIL 1200MG PO SCH (09:00)
--- NOTE | 2018-02-20 09:33 | P.PN ---
Subjective Progress Note Date: 02/20/18 This is a 62-year-old female who is status post left total hip arthroplasty. This is postoperative day #1. Patient is seen and evaluated at bedside with Dr. Randy Deras. Patient states that she has been up and walking and reports that her pain is under control. Patient denies any fever/chills, numbness, weakness, tingling, abdominal pain, shortness of breath or chest pain. Objective - Vital Signs Vital signs: Vital Signs Temp 98.3 F 02/20/18 07:00 Pulse 94 02/20/18 07:00 Resp 14 02/20/18 07:00 BP 128/67 02/20/18 07:00 Pulse Ox 94 L 02/20/18 07:00 Intake & Output 02/19/18 02/20/18 02/20/18 18:59 06:59 18:59 Intake Total 1656 1080 300 Output Total 150 Balance 1506 1080 300 Weight 146.057 kg Intake: IV 1151 Intake, IV Titration 505 680 Amount Sodium Chloride 0.9% 1, 455 680 000 ml @ 65 mls/hr IV . [id number] [facility] Rx#:[id number] ceFAZolin 3 gm In Sodium 50 Chloride 0.9% 50 ml @ 100 mls/hr IVPB Q8HR [facility] Rx# :[id number] Oral 300 Other 400 Output: Estimated Blood Loss 150 Other: Voiding Method Toilet # Voids 1 2 - Exam Vital signs are stable. Patient is in no acute distress and is alert and oriented 3. Calf is soft and nontender to palpation. Dressing is clean, dry, and intact. Patient has full foot and ankle motion without pain or difficulty. Neurovascular status and circulatory status are intact. - Labs CBC & Chem 7: 02/20/18 07:08 02/20/18 07:08 Labs: Abnormal Lab Results - Last 24 Hours (Table) 02/20/18 02/20/18 Range/Units 07:08 07:08 Hgb 10.4 L (11.4-16.0) gm/dL MCHC 29.8 L (31.0-37.0) g/dL RDW 16.3 H (11.5-15.5) % Glucose 123 H (74-99) mg/dL AST 39 H (14-36) U/L Total Protein 6.0 L (6.3-8.2) g/dL Assessment and Plan (1) Primary osteoarthritis of left hip Current Visit: Yes Status: Acute Code(s): M16.12 - UNILATERAL PRIMARY OSTEOARTHRITIS, LEFT HIP SNOMED Code(s): 288761274 (2) S/P total hip arthroplasty Current Visit: Yes Status: Acute Code(s): Z96.649 - PRESENCE OF UNSPECIFIED ARTIFICIAL HIP JOINT SNOMED Code(s): 518803684957 Plan: Continue routine postop care. Continue antocoagulation. Weightbearing as tolerated with a walker Leave dressing in place for 10 days. Likely discharge to rehab .
--- NOTE | 2018-02-20 09:46 | P.PN ---
Subjective Progress Note Date: 02/20/18 This is a 62-year-old patient of Dr. Wilkerson. Patient is status post total left arthroplasty anterior approach with cell saver with Dr. Deras. Patient has a known medical history of GERD, hyperlipidemia, hypertension, osteoarthritis, pneumonia, thyroid disorder, depression bariatric surgery and previous joint replacement. Patient denies a history of arrhythmia or Myocardial infections. Patient is an ex-smoker quitting in 2006. At this time patient is resting comfortably in bed remaining pretty sleepy post surgery but is easily arousable. Patient denies chest pain or shortness of breath at this time. Patient denies nausea vomiting or diarrhea. Patient denies urinary burning or frequency. On 02/20/2018 patient is sitting up at site of bed. States that her pain is not bothering her too bad but it is more her chronic back pain. Requesting a lidocaine patch be reordered for her back along with her home medications of Flexeril and Diclofenac sodium that she takes for back pain. Will discuss case with ortho surgical services since they have prescribed patient on Valium and Mobic. Denies chest pain or shortness of breath at this time. Denies any urinary symptoms. Denies nausea vomiting or diarrhea. Plan for possible discharge on to [facility]. Objective - Vital Signs Vital signs: Vital Signs Temp 98.3 F 02/20/18 07:00 Pulse 94 02/20/18 07:00 Resp 14 02/20/18 07:00 BP 128/67 02/20/18 07:00 Pulse Ox 94 L 02/20/18 07:00 Intake & Output 02/19/18 02/20/18 02/20/18 18:59 06:59 18:59 Intake Total 1656 1080 300 Output Total 150 Balance 1506 1080 300 Weight 146.057 kg Intake: IV 1151 Intake, IV Titration 505 680 Amount Sodium Chloride 0.9% 1, 455 680 000 ml @ 65 mls/hr IV . [id number] [facility] Rx#:[id number] ceFAZolin 3 gm In Sodium 50 Chloride 0.9% 50 ml @ 100 mls/hr IVPB Q8HR [facility] Rx# :[id number] Oral 300 Other 400 Output: Estimated Blood Loss 150 Other: Voiding Method Toilet # Voids 1 2 - Exam Head normocephalic Neck supple Lungs clear to auscultation bilaterally no wheezing or crackles Heart regular rate and rhythm S1-S2, no rub or gallop Abdomen is soft nontender nondistended positive bowel sounds no hepatosplenomegaly Extremities no edema. Dressing to left hip is clean dry and intact Neuro alert and orientated to 3 - Labs CBC & Chem 7: 02/20/18 07:08 02/20/18 07:08 Labs: Abnormal Lab Results - Last 24 Hours (Table) 02/20/18 02/20/18 Range/Units 07:08 07:08 Hgb 10.4 L (11.4-16.0) gm/dL MCHC 29.8 L (31.0-37.0) g/dL RDW 16.3 H (11.5-15.5) % Glucose 123 H (74-99) mg/dL AST 39 H (14-36) U/L Total Protein 6.0 L (6.3-8.2) g/dL Assessment and Plan Assessment: 1. Status post total left hip arthroplasty. Patient currently on aspirin 325 mg by mouth twice a day per Ortho surgical services. Pain control with Dilaudid and [place]. 2. History of hypothyroidism. Home Synthroid ordered 3. History of depression. Home Cymbalta reordered 4. Hyperlipidemia. Home Pravastatin ordered. 5. History of essential hypertension. Home Hyzaar ordered 6. History of GERD. 7. Back pain. Lidocaine patch has been reordered. Patient home medication of Diclofenac sodium and Flexeril. Patient currently prescribed Valium and Mobiac per Ortho surgical services. Will discuss with Ortho. DVT prophylaxis Pepcid, DVT prophylaxis aspirin 325 twice a day Thank you for this medical consultation will continue to follow patient throughout hospitilization Possible plan for discharge on to I performed an examination of the patient and discussed their management with the Nurse Practitioner. I have reviewed the Nurse Practitioner's notes and agree with the documented findings and plan of care
--- NOTE | 2018-02-20 10:04 | CDI ---
Date: 02/19/2018 12:00:00 AM From: Shahnaz WEISS,RN,CCDS Admit Date: 02/19/2018 5:48:00 AM Patient Name: Rosalva Gooden Visit Number: [id number] Discharge Date: ATTENTION: The Clinical Documentation Specialists (CDI) and [facility] Coding Staff appreciate your assistance in clarifying documentation. Please respond to the clarification below the line at the bottom and electronically sign. The CDI & [facility] Coding staff will review the response and follow-up if needed. Please note: Queries are made part of the Legal Health Record. If you have any questions, please contact the author of this message via ITS. Dr. Randy Deras Please render your opinion on the clinical significance if any of Documetned BMI 50.4 with VTE assessment noting obesity as risk factor. EMR documents notes abdomen obese habitus on physical exam. History/Risk Factors: bariatric surgery(lap band) , GERD, Hyperlipidemai, Thyroid issues, deprersion and previous joint replacment presenting for left hip replacement for OA of left hip, Mallampati score of 3, Clinical Indicator: preop surgical check list identifying obesity as risk with VTE assessment Patients weight is 146.05 KGs Patients height is 5 ft 7 in Calculated BMI is 50.4 Treatment clear liquid diet advance as tolerated. In order to capture the severity of condition associated with patient BMI of 50.4, a clinical diagnoses needs to be documented by the physician. Please clarify: Obese Morbidly obese Other, please specify ____ Unable to determine Please continue to document in your progress notes and discharge summary in order to capture severity of illness and risk of mortality. Include clinical findings that support your diagnosis. MTDD
[2018-02-20] MEDS: LIDOCAINE 5% PATCH TOPICAL SCH (10:09)
[2018-02-20] MEDS: LOSARTAN-HCTZ 50-12.5 MG 1 EACH TAB PO SCH (10:09)
[2018-02-20] MEDS: HYDROmorphone 0.5 MG/0.5 ML SYRINGE IVP PRN (14:36)
[2018-02-20] MEDS: SENNOSIDES-DOCUSATE SODIUM 1 EACH TAB PO SCH (21:08)
[2018-02-20] MEDS: lamoTRIgine 25 MG TAB PO SCH (21:09)
[2018-02-20] MEDS: FAMOTIDINE 20 MG TAB PO SCH (21:09)
[2018-02-21] MEDS ORDERED: HYDROcodone/APAP 7.5-325MG 1 EACH TAB ONE (01:35)
[2018-02-21] MEDS: LEVOTHYROXINE 50 MCG TAB PO SCH (05:40)
[2018-02-21] MEDS: HYDROcodone/APAP 7.5-325MG 1 EACH TAB PO PRN ×3 (07:32→19:37)
[2018-02-21] MEDS: PANTOPRAZOLE 40 MG TABLET PO SCH (07:37)
[2018-02-21] MEDS: LIDOCAINE 5% PATCH TOPICAL SCH (07:38)
[2018-02-21] MEDS ORDERED: KETOROLAC 60 MG/2 ML VIAL IM STA (08:06)
--- NOTE | 2018-02-21 08:06 | P.PN ---
Subjective Progress Note Date: 02/21/18 This is a 62-year-old female who is status post left total hip arthroplasty. This is postoperative day #2. Patient is seen and evaluated at bedside with Dr. Randy Deras. Patient states that her pain has been worse today, but she has been up and walking to and from the bathroom throughout the night. Patient denies any fever/chills, numbness, weakness, tingling, abdominal pain, shortness of breath or chest pain. Objective - Vital Signs Vital signs: Vital Signs Temp 98.8 F 02/21/18 02:16 Pulse 95 02/21/18 02:16 Resp 16 02/21/18 02:16 BP 139/72 02/21/18 02:16 Pulse Ox 94 L 02/21/18 02:16 Intake & Output 02/20/18 02/21/18 02/21/18 18:59 06:59 18:59 Intake Total 700 980 Balance 700 980 Intake: Intake, IV Titration 800 Amount Sodium Chloride 0.9% 1, 800 000 ml @ 65 mls/hr IV . [id number] [facility] Rx#:[id number] Oral 700 180 Other: Voiding Method Toilet # Voids 2 1 - Exam Vital signs are stable. Patient is in no acute distress and is alert and oriented 3. Calf is soft and nontender to palpation. Dressing is clean, dry, and intact. Patient has full foot and ankle motion without pain or difficulty. Neurovascular status and circulatory status are intact. - Labs CBC & Chem 7: 02/20/18 07:08 02/20/18 07:08 Assessment and Plan (1) Primary osteoarthritis of left hip Current Visit: Yes Status: Acute Code(s): M16.12 - UNILATERAL PRIMARY OSTEOARTHRITIS, LEFT HIP SNOMED Code(s): 548097255 (2) S/P total hip arthroplasty Current Visit: Yes Status: Acute Code(s): Z96.649 - PRESENCE OF UNSPECIFIED ARTIFICIAL HIP JOINT SNOMED Code(s): 928434164515 Plan: Continue routine postop care. Continue antocoagulation with aspirin. Weightbearing as tolerated with a walker. Leave dressing in place for 10 days. Likely discharge to rehab .
[2018-02-21] MEDS ORDERED: KETOROLAC 30 MG/ML 1 ML VIAL IVP STA (08:16)
[2018-02-21 08:23] LABS: ALT 24 U/L (9-52); AST 39 U/L (14-36); Alkaline Phosphatase 100 U/L (38-126); Anion Gap 6 mmol/L; Blood Urea Nitrogen 15 mg/dL (7-17); Calcium 8.3 mg/dL (8.4-10.2); Carbon Dioxide 28 mmol/L (22-30); Chloride 103 mmol/L (98-107); Glucose 104 mg/dL (74-99); Potassium 4.1 mmol/L (3.5-5.1); Sodium 137 mmol/L (137-145); Total Bilirubin 0.4 mg/dL (0.2-1.3); Total Protein 5.2 g/dL (6.3-8.2)
[2018-02-21] MEDS: SODIUM CHLORIDE 0.9% 1,000 ML IV SCH (08:40)
[2018-02-21] MEDS: CALCIUM CARB-VIT D 500MG-200UN 1 EACH TAB PO SCH (08:50)
[2018-02-21] MEDS: ASPIRIN 325 MG TAB PO SCH ×2 (08:50→19:34)
[2018-02-21] MEDS: DULoxetine HCL 30 MG CAPSULE.DR PO SCH (08:50)
[2018-02-21] MEDS: PRAVASTATIN SODIUM 20 MG TAB PO SCH (08:51)
[2018-02-21] MEDS: MELOXICAM 7.5 MG TAB PO SCH (08:51)
[2018-02-21] MEDS: MULTIVITAMINS, THERA 1 EACH TAB PO SCH (08:51)
[2018-02-21] MEDS: POTASSIUM CHLORIDE ER 10 MEQ TAB.ER.PRT PO SCH (08:51)
[2018-02-21] MEDS: LOSARTAN-HCTZ 50-12.5 MG 1 EACH TAB PO SCH (08:51)
[2018-02-21] MEDS: KETOROLAC 30 MG/ML 1 ML VIAL IVP SCH ×2 (11:32→17:25)
--- NOTE | 2018-02-21 11:44 | P.PN ---
Subjective Progress Note Date: 02/21/18 This is a 62-year-old patient of Dr. Wilkerson. Patient is status post total left arthroplasty anterior approach with cell saver with Dr. Deras. Patient has a known medical history of GERD, hyperlipidemia, hypertension, osteoarthritis, pneumonia, thyroid disorder, depression bariatric surgery and previous joint replacement. Patient denies a history of arrhythmia or Myocardial infections. Patient is an ex-smoker quitting in 2006. At this time patient is resting comfortably in bed remaining pretty sleepy post surgery but is easily arousable. Patient denies chest pain or shortness of breath at this time. Patient denies nausea vomiting or diarrhea. Patient denies urinary burning or frequency. On 02/20/2018 patient is sitting up at site of bed. States that her pain is not bothering her too bad but it is more her chronic back pain. Requesting a lidocaine patch be reordered for her back along with her home medications of Flexeril and Diclofenac sodium that she takes for back pain. Will discuss case with ortho surgical services since they have prescribed patient on Valium and Mobic. Denies chest pain or shortness of breath at this time. Denies any urinary symptoms. Denies nausea vomiting or diarrhea. Plan for possible discharge on to [facility]. On 02/21/2018 patient is sitting in bed. Does complain of increased pain in hip and back. Toradol has been added per Ortho surgical services. Patient also complaining of increase urinary frequency throughout night. Urinary analysis and culture has been ordered. Patient has remained afebrile. We'll check CBC. She denies chest pain or shortness of breath at this time. Denies nausea vomiting or diarrhea Objective - Vital Signs Vital signs: Vital Signs Temp 98.1 F 02/21/18 07:05 Pulse 99 02/21/18 07:05 Resp 20 02/21/18 07:05 BP 127/74 02/21/18 07:05 Pulse Ox 96 02/21/18 07:05 Intake & Output 02/20/18 02/21/18 02/21/18 18:59 06:59 18:59 Intake Total 700 980 Balance 700 980 Intake: Intake, IV Titration 800 Amount Sodium Chloride 0.9% 1, 800 000 ml @ 65 mls/hr IV . [id number] [facility] Rx#:[id number] Oral 700 180 Other: Voiding Method Toilet Toilet # Voids 2 1 - Exam Head normocephalic Neck supple Lungs clear to auscultation bilaterally no wheezing or crackles Heart regular rate and rhythm S1-S2, no rub or gallop Abdomen is soft nontender nondistended positive bowel sounds no hepatosplenomegaly Extremities no edema. Dressing to left hip is clean dry and intact Neuro alert and orientated to 3 - Labs CBC & Chem 7: 02/20/18 07:08 18 07:17 Labs: Abnormal Lab Results - Last 24 Hours (Table) 02/21/18 Range/Units 07:17 Glucose 104 H (74-99) mg/dL Calcium 8.3 L (8.4-10.2) mg/dL AST 39 H (14-36) U/L Total Protein 5.2 L (6.3-8.2) g/dL Albumin 3.0 L (3.5-5.0) g/dL Assessment and Plan Assessment: 1. Status post total left hip arthroplasty. Patient currently on aspirin 325 mg by mouth twice a day per Ortho surgical services. Pain control with Dilaudid and [place]. Toradol has been added for ortho surgical services for increase pain. 2. History of hypothyroidism. Home Synthroid ordered 3. History of depression. Home Cymbalta reordered 4. Hyperlipidemia. Home Pravastatin ordered. AST 39, ALT 24. We'll continue to monitor 5. History of essential hypertension. Home Hyzaar ordered 6. History of GERD. 7. Back pain. Lidocaine patch has been reordered. Patient home medication of Diclofenac sodium and Flexeril. Patient currently prescribed Valium and Mobiac per Ortho surgical services. Will discuss with Ortho. DVT prophylaxis Pepcid, DVT prophylaxis aspirin 325 twice a day Thank you for this medical consultation will continue to follow patient throughout hospitilization Possible plan for discharge on to I performed an examination of the patient and discussed their management with the Nurse Practitioner. I have reviewed the Nurse Practitioner's notes and agree with the documented findings and plan of care -
[2018-02-21 13:41] LABS: Appearance,Urine Clear (Clear); Bilirubin,Urine Negative (Negative); Blood,Urine Negative (Negative); Color,Urine Yellow; Glucose,Urine (UA) Negative (Negative); Ketones,Urine Negative (Negative); Leukocyte Esterase,Urine Negative (Negative); Nitrite,Urine Negative (Negative); Protein,Urine Negative (Negative); Specific Gravity,Urine 1.011 (1.001-1.035); Urobilinogen,Urine <2.0 mg/dL (<2.0)
[2018-02-21] MEDS ORDERED: HYDROmorphone 1 MG/ML 1 ML SYRINGE IVP PRN ×3 (17:12→17:13)
[2018-02-21] MEDS: FAMOTIDINE 20 MG TAB PO SCH (19:33)
[2018-02-21] MEDS: lamoTRIgine 25 MG TAB PO SCH (19:33)
[2018-02-21] MEDS: SENNOSIDES-DOCUSATE SODIUM 1 EACH TAB PO SCH (19:33)
[2018-02-22] MEDS: KETOROLAC 30 MG/ML 1 ML VIAL IVP SCH ×4 (00:03→17:10)
[2018-02-22] MEDS: HYDROcodone/APAP 7.5-325MG 1 EACH TAB PO PRN ×3 (01:17→17:46)
[2018-02-22 03:15] VITALS: RESP 16
[2018-02-22] MEDS: LEVOTHYROXINE 50 MCG TAB PO SCH (05:41)
[2018-02-22 07:22] LABS: ALT 32 U/L (9-52); AST 34 U/L (14-36); Albumin 2.9 g/dL (3.5-5.0); Alkaline Phosphatase 92 U/L (38-126); Anion Gap 6 mmol/L; Blood Urea Nitrogen 17 mg/dL (7-17); Carbon Dioxide 29 mmol/L (22-30); Chloride 103 mmol/L (98-107); Glucose 94 mg/dL (74-99); Potassium 4.4 mmol/L (3.5-5.1); Sodium 138 mmol/L (137-145); Total Bilirubin 0.3 mg/dL (0.2-1.3); Total Protein 4.9 g/dL (6.3-8.2)
[2018-02-22 07:44] LABS: Basophils % (A) 1 %; Eosinophils # (A) 0.2 k/uL (0-0.7); Eosinophils % (A) 5 %; HCT 27.6 % (34.0-46.0); Hypochromasia Moderate; Lymphocytes # (A) 1.1 k/uL (1.0-4.8); Lymphocytes % (A) 26 %; MCH 25.5 pg (25.0-35.0); MCHC 30.8 g/dL (31.0-37.0); Mean Platelet Volume 7.8; Monocytes # (A) 0.2 k/uL (0-1.0); Monocytes % (A) 5 %; Neutrophils # (A) 2.7 k/uL (1.3-7.7); Neutrophils % (A) 62 %; Platelet Count 206 k/uL (150-450); RBC 3.32 m/uL (3.80-5.40); RDW 15.9 % (11.5-15.5); WBC 4.3 k/uL (3.8-10.6)
[2018-02-22 07:47] LABS: HGB 8.5 gm/dL (11.4-16.0); MCV 82.9 fL (80.0-100.0)
[2018-02-22] MEDS: DULoxetine HCL 30 MG CAPSULE.DR PO SCH (08:16)
[2018-02-22] MEDS: LOSARTAN-HCTZ 50-12.5 MG 1 EACH TAB PO SCH (08:16)
[2018-02-22] MEDS: MELOXICAM 7.5 MG TAB PO SCH (08:16)
[2018-02-22] MEDS: PANTOPRAZOLE 40 MG TABLET PO SCH (08:17)
[2018-02-22] MEDS: ASPIRIN 325 MG TAB PO SCH (08:17)
[2018-02-22] MEDS: CALCIUM CARB-VIT D 500MG-200UN 1 EACH TAB PO SCH (08:17)
[2018-02-22] MEDS: MULTIVITAMINS, THERA 1 EACH TAB PO SCH (08:17)
[2018-02-22] MEDS: PRAVASTATIN SODIUM 20 MG TAB PO SCH (08:17)
[2018-02-22] MEDS: LIDOCAINE 5% PATCH TOPICAL SCH (08:18)
--- NOTE | 2018-02-22 08:44 | P.DS ---
Providers Date of admission: 02/19/18 05:48 Expected date of discharge: 02/22/18 Attending physician: Randy Deras Consults: 02/19/18 09:14 Consult Physician Routine Consulting Provider: Dilia Wilkerson Consult Reason/Comments: medical management Do you want consulting provider notified?: Yes 02/19/18 09:56 Consult Physician Routine Consulting Provider: Buddy Stark Consult Reason/Comments: medical managment Do you want consulting provider notified?: Yes Primary care physician: Dilia Wilkerson - Discharge Diagnosis(es) (1) Primary osteoarthritis of left hip Current Visit: Yes Status: Acute (2) S/P total hip arthroplasty Current Visit: Yes Status: Acute Hospital Course: This is a 62-year-old female with known history of degenerative arthritis of the left hip. The patient presents for evaluation. After discussion and consideration patient elects to proceed with total hip arthroplasty. The patient is seen preoperatively by Dr. Deras and medically cleared for surgery by their primary care physician. Patient is admitted to [facility] on 02/19/2018 for total hip arthroplasty. The procedures performed without complication or sequelae. The patient is doing well postoperatively. Labs and vital signs are stable on day of discharge. On day of discharge patient's hip incision is healing well. There is minimal erythema. There is no drainage noted at this time. There is minimal soft tissue swelling to the hip and thigh. Patient has full foot and ankle motion without difficulty or pain. Neurovascular status to the left lower extremity is intact. Patient is discharged to rehab in good condition. Please see med rec for accurate list of home medications. Plan - Discharge Summary Discharge Rx Participant: No New Discharge Prescriptions: New Aspirin 325 mg PO BID #60 tab HYDROcodone/APAP 7.5-325MG [[place] 7.5-325] 1 - 2 tab PO Q4-6H PRN #84 tab PRN Reason: Pain Sennosides [Senokot] 1 tab PO BID #60 tablet Ketorolac [Toradol] 10 mg PO Q6H #8 tab No Action Alpha Lipoic Acid 200 mg PO DAILY Calcium Carbonate/Vitamin D3 [Calcium 500-Vit D3 600 Tablet] 1 tab PO DAILY Cyclobenzaprine [Flexeril] 10 mg PO HS DULoxetine HCL [Cymbalta] 90 mg PO DAILY lamoTRIgine [LaMICtal] 25 mg PO HS Levothyroxine Sodium [Synthroid] 50 mcg PO DAILY Lidocaine 5% Patch [Lidoderm 5% Patch] 1 patch TRANSDERM DAILY Losartan/Hydrochlorothiazide [Losartan-Hctz 100-25 mg Tab] 1 tab PO DAILY Multivit/Folic Acid/Vit K1 [One-A-Day Women's 50 Plus Tab] 1 tab PO DAILY Omeprazole 40 mg PO DAILY Pravastatin Sodium [Pravachol] 20 mg PO DAILY HYDROcodone/APAP 10-325MG [[place] 10-325] 1 tab PO TID Gabapentin 800 mg PO QID PRN PRN Reason: neuropathy Fish Oil/Dha/Epa [Fish Oil 1,200 mg Fish Oil] 1 cap PO DAILY Diclofenac Sodium [Voltaren] 75 mg PO BID Turmeric Tab 400 mg PO DAILY hydrOXYzine PAMOATE 25 mg PO BID PRN PRN Reason: Anxiety Ranitidine HCl 300 mg PO HS Potassium Chloride [Klor-Con 10] 10 meq PO DIRECTED Discharge Medication List Alpha Lipoic Acid 200 mg PO DAILY 08/31/17 [History] Calcium Carbonate/Vitamin D3 [Calcium 500-Vit D3 600 Tablet] 1 tab PO DAILY [History] Cyclobenzaprine [Flexeril] 10 mg PO HS 08/31/17 [History] DULoxetine HCL [Cymbalta] 90 mg PO DAILY 08/31/17 [History] Levothyroxine Sodium [Synthroid] 50 mcg PO DAILY 08/31/17 [History] Lidocaine 5% Patch [Lidoderm 5% Patch] 1 patch TRANSDERM DAILY 08/31/17 [History ] Losartan/Hydrochlorothiazide [Losartan-Hctz 100-25 mg Tab] 1 tab PO DAILY [History] Multivit/Folic Acid/Vit K1 [One-A-Day Women's 50 Plus Tab] 1 tab PO DAILY [History] Omeprazole 40 mg PO DAILY 08/31/17 [History] Pravastatin Sodium [Pravachol] 20 mg PO DAILY 08/31/17 [History] lamoTRIgine [LaMICtal] 25 mg PO HS 08/31/17 [History] Diclofenac Sodium [Voltaren] 75 mg PO BID 02/12/18 [History] Fish Oil/Dha/Epa [Fish Oil 1,200 mg Fish Oil] 1 cap PO DAILY 02/12/18 [History] Gabapentin 800 mg PO QID PRN 02/12/18 [History] HYDROcodone/APAP 10-325MG [[place] 10-325] 1 tab PO TID 02/12/18 [History] Ranitidine HCl 300 mg PO HS 02/12/18 [History] Turmeric Tab 400 mg PO DAILY 02/12/18 [History] hydrOXYzine PAMOATE 25 mg PO BID PRN 02/12/18 [History] Potassium Chloride [Klor-Con 10] 10 meq PO DIRECTED 02/19/18 [History] Aspirin 325 mg PO BID #60 tab 02/22/18 [Rx] HYDROcodone/APAP 7.5-325MG [[place] 7.5-325] 1 - 2 tab PO Q4-6H PRN #84 tab [Rx] Ketorolac [Toradol] 10 mg PO Q6H #8 tab 02/22/18 [Rx] Sennosides [Senokot] 1 tab PO BID #60 tablet 02/22/18 [Rx] Follow up Appointment(s)/Referral(s): Lucho Espinosa, [NON-STAFF] - As Needed Randy Deras DO [Doctor of Osteopathic Medicine] - 03/05/18 9:00 am Patient Instructions/Handouts: Anterior Hip Replacement (DC) Activity/Diet/Wound Care/Special Instructions: Weightbearing as tolerated with walker Leave dressing intact. Dressing may be removed by home care nurse in 10 days. May shower with dressing on. Follow-up with [facility] in 2 weeks, please call with any questions or concerns [phone] Discharge Disposition: TRANSFER TO SNF/ECF
--- NOTE | 2018-02-22 13:44 | P.PN ---
Subjective Progress Note Date: 02/22/18 This is a 62-year-old patient of Dr. Wilkerson. Patient is status post total left arthroplasty anterior approach with cell saver with Dr. Deras. Patient has a known medical history of GERD, hyperlipidemia, hypertension, osteoarthritis, pneumonia, thyroid disorder, depression bariatric surgery and previous joint replacement. Patient denies a history of arrhythmia or Myocardial infections. Patient is an ex-smoker quitting in 2006. At this time patient is resting comfortably in bed remaining pretty sleepy post surgery but is easily arousable. Patient denies chest pain or shortness of breath at this time. Patient denies nausea vomiting or diarrhea. Patient denies urinary burning or frequency. On 02/20/2018 patient is sitting up at site of bed. States that her pain is not bothering her too bad but it is more her chronic back pain. Requesting a lidocaine patch be reordered for her back along with her home medications of Flexeril and Diclofenac sodium that she takes for back pain. Will discuss case with ortho surgical services since they have prescribed patient on Valium and Mobic. Denies chest pain or shortness of breath at this time. Denies any urinary symptoms. Denies nausea vomiting or diarrhea. Plan for possible discharge on to [facility]. On 02/21/2018 patient is sitting in bed. Does complain of increased pain in hip and back. Toradol has been added per Ortho surgical services. Patient also complaining of increase urinary frequency throughout night. Urinary analysis and culture has been ordered. Patient has remained afebrile. We'll check CBC. She denies chest pain or shortness of breath at this time. Denies nausea vomiting or diarrhea On 02/22/2018 patient is sitting in bed stating pain is improved today. UA completed yesterday and was negative for infection. Discharge orders received from ortho surgical services. Patient will be discharged to [facility] on the jose and will be prescribed [place] and Toradol for pain per ortho. Hemoglobin dropping to 8.5. No signs of bleeding noted to site. Ferrous sulfate has been ordered. CBC and comp will be followed up outpatient. Patient denies chest pain or shortness of breath at this time. Objective - Vital Signs Vital signs: Vital Signs Temp 98.5 F 02/22/18 07:20 Pulse 85 02/22/18 07:20 Resp 16 02/22/18 07:20 BP 118/69 07/19/18 07:20 Pulse Ox 96 02/22/18 07:20 Intake & Output 02/21/18 02/22/18 02/22/18 18:59 06:59 18:59 Intake Total 0 Balance 0 Intake: Intake, IV Titration 0 Amount Sodium Chloride 0.9% 1, 0 000 ml @ 65 mls/hr IV . [id number] [facility] Rx#:[id number] Other: Voiding Method Toilet Toilet # Voids 3 1 - Exam Head normocephalic Neck supple Lungs clear to auscultation bilaterally no wheezing or crackles Heart regular rate and rhythm S1-S2, no rub or gallop Abdomen is soft nontender nondistended positive bowel sounds no hepatosplenomegaly Extremities no edema. Dressing to left hip is clean dry and intact Neuro alert and orientated to 3 - Labs CBC & Chem 7: 02/22/18 06:27 02/22/18 06:27 Labs: Abnormal Lab Results - Last 24 Hours (Table) 02/22/18 02/22/18 Range/Units 06:27 06:27 RBC 3.32 L (3.80-5.40) m/uL Hgb 8.5 L D (11.4-16.0) gm/dL Hct 27.6 L (34.0-46.0) % MCHC 30.8 L (31.0-37.0) g/dL RDW 15.9 H (11.5-15.5) % Calcium 8.0 L (8.4-10.2) mg/dL Total Protein 4.9 L (6.3-8.2) g/dL Albumin 2.9 L (3.5-5.0) g/dL Microbiology - Last 24 Hours (Table) 02/21/18 13:00 Urine Culture - Preliminary Urine,Clean Catch Assessment and Plan Assessment: 1. Status post total left hip arthroplasty. Patient currently on aspirin 325 mg by mouth twice a day per Ortho surgical services. Pain control with Dilaudid and [place]. Toradol has been added for ortho surgical services for increase pain. 2. History of hypothyroidism. Home Synthroid ordered 3. History of depression. Home Cymbalta reordered 4. Hyperlipidemia. Home Pravastatin ordered. AST 39, ALT 24. We'll continue to monitor. Resolved. AST 34 and ALT 32. 5. History of essential hypertension. Home Hyzaar ordered 6. History of GERD. 7. Back pain. Lidocaine patch has been reordered. Patient home medication of Diclofenac sodium and Flexeril. Patient currently prescribed Valium and Mobiac per Ortho surgical services. Will discuss with Ortho. Diclofenac DC'd upon discharge. 8. Anemia following postoperative blood loss. Hemoglobin down to 8.5. Ferrous sulfate has been ordered. CBC Ordered for outpatient management DVT prophylaxis Pepcid, DVT prophylaxis aspirin 325 twice a day Thank you for this medical consultation will continue to follow patient throughout hospitilization Possible plan for discharge on to I performed an examination of the patient and discussed their management with the Nurse Practitioner. I have reviewed the Nurse Practitioner's notes and agree with the documented findings and plan of care -
[2018-02-22 14:55] VITALS: BP 120/69; PULSE 86; TEMP 98.4
[2018-02-22] MEDS: SODIUM CHLORIDE 0.9% 1,000 ML IV SCH ×2 (16:16)
[2018-02-22] MEDS ORDERED: FERROUS SULFATE 325 MG TAB PO SCH (21:00)
--- NOTE | 2018-02-27 09:33 | CDI ---
Last Revision, July 2017 Documentation Clarification Form Date: 02/27/18 From: Valeria Nicolas Josiane Carty, Homoeopath Hours-8:30 am & 5 pm Crow Admit Date: 02/19/2018 5:48:00 AM Patient Name: Rosalva Gooden Visit Number: [id number] Discharge Date: 02/22/18 ATTENTION: The Clinical Documentation Specialists (CDI) and [facility] Coding Staff appreciate your assistance in clarifying documentation. Please respond to the clarification below the line at the bottom and electronically sign. The CDI & [facility] Coding staff will review the response and follow-up if needed. Please note: Queries are made part of the Legal Health Record. If you have any questions, please contact the author of this message via ITS. Dr. Buddy Stark A diagnosis of anemia following postoperative blood loss lacks specificity to accurately reflect your patients severity of condition and clarification is needed. History/Risk Factors: left THR Hemoglobin: 11.8, 10.4, 8.5 Hematocrit: 37.5, 34.9, 27.6 Treatment: Ferrous sulfate, monitoring labs In order to capture the severity of condition, please clarify the type of anemia and etiology if known: Acute Acute on chronic Chronic Unable to determine Other, please specify Please continue to document in your progress notes and discharge summary in order to capture severity of illness and risk of mortality. Include clinical findings that support your diagnosis. MTDD
--- NOTE | 2018-02-28 08:38 | CDI ---
Date: 02/19/2018 12:00:00 AM From: Shahnaz WEISS,CCDS,RN Admit Date: 02/19/2018 5:48:00 AM Patient Name: Rosalva Gooden Visit Number: [id number] Discharge Date: ATTENTION: The Clinical Documentation Specialists (CDI) and [facility] Coding Staff appreciate your assistance in clarifying documentation. Please respond to the clarification below the line at the bottom and electronically sign. The CDI & [facility] Coding staff will review the response and follow-up if needed. Please note: Queries are made part of the Legal Health Record. If you have any questions, please contact the author of this message via ITS Dr Stark Please render your opinion on the clinical significance if any of Documented BMI 50.4 with VTE assessment noting obesity as risk factor. EMR documents notes abdomen obese habitus on physical exam. History/Risk Factors: bariatric surgery(lap band) , GERD, Hyperlipidemia, Thyroid issues, depression and previous joint replacement presenting for left hip replacement for OA of left hip, Mallampati score of 3, Clinical Indicator: preop surgical check list identifying obesity as risk with VTE assessment Patients weight is 146.05 KGs Patients height is 5 ft 7 in Calculated BMI is 50.4 Treatment clear liquid diet advance as tolerated. In order to capture the severity of condition associated with patient BMI of 50.4, a clinical diagnoses needs to be documented by the physician. Please clarify: Obese Morbidly obese Other, please specify ____ Unable to determine Please continue to document in your progress notes and discharge summary in order to capture severity of illness and risk of mortality. Include clinical findings that support your diagnosis. MTDD
== END 2018-02-22 18:56 | DRG 470 ==
LOC: 2ORMAIN 02-19 05:48 → 3SUR 02-19 09:50
PROVIDERS: ADMIT Orthopaedic Surgery; ATTEND Orthopaedic Surgery
PROC: 30233N0 Transfusion of Autologous Red Blood Cells into Peripheral Vein, Percutaneous Approach (ICD-10-PCS; 2018-02-19)
PROC: 0SRB06A Replacement of Left Hip Joint with Oxidized Zirconium on Polyethylene Synthetic Substitute, Uncemented, Open Approach (ICD-10-PCS; principal; 2018-02-19 07:00)
DX: M16.12 Unilateral primary osteoarthritis, left hip (principal); Z68.43 Body mass index [BMI] 50.0-59.9, adult; E78.5 Hyperlipidemia, unspecified; K21.9 Gastro-esophageal reflux disease without esophagitis; I10 Essential (primary) hypertension; F32.9 Major depressive disorder, single episode, unspecified; E20.9 Hypoparathyroidism, unspecified; F41.9 Anxiety disorder, unspecified; I73.00 Raynaud's syndrome without gangrene; G62.9 Polyneuropathy, unspecified; I83.90 Asymptomatic varicose veins of unspecified lower extremity; Z87.11 Personal history of peptic ulcer disease; M51.16 Intervertebral disc disorders with radiculopathy, lumbar region; E03.9 Hypothyroidism, unspecified; G89.29 Other chronic pain; R35.0 Frequency of micturition; R39.15 Urgency of urination; E66.01 Morbid (severe) obesity due to excess calories; K44.9 Diaphragmatic hernia without obstruction or gangrene; M48.061 Spinal stenosis, lumbar region without neurogenic claudication; D50.0 Iron deficiency anemia secondary to blood loss (chronic); Z79.890 Hormone replacement therapy; Z79.891 Long term (current) use of opiate analgesic; Z79.899 Other long term (current) drug therapy; Z98.84 Bariatric surgery status; Z87.891 Personal history of nicotine dependence; Z96.641 Presence of right artificial hip joint; Z87.01 Personal history of pneumonia (recurrent); Z80.9 Family history of malignant neoplasm, unspecified
CPT/HCPCS: 36415; 73501; 80053; 81001; 81003; 85025; 85027; 85610; 85730; 86850; 86900; 86901; 87070; 87086; 88300

== ENCOUNTER → 2018-02-12 | Outpatient (CLI) | payer BC ==
[2018-02-12 17:54] LABS: Anisocytosis Slight; HGB 11.2 gm/dL (11.4-16.0); Hypochromasia Slight; MCH 25.2 pg (25.0-35.0); MCHC 31.1 g/dL (31.0-37.0); MCV 80.9 fL (80.0-100.0); Mean Platelet Volume 8.5; Platelet Count 209 k/uL (150-450); RBC 4.44 m/uL (3.80-5.40); RDW 16.6 % (11.5-15.5); WBC 3.5 k/uL (3.8-10.6)
[2018-02-12 18:03] LABS: INR 1.1 (<1.2); Partial Thromboplastin Time 24.6 sec (22.0-30.0); Prothrombin Time 10.4 sec (9.0-12.0)
[2018-02-12 18:06] LABS: ALT 31 U/L (9-52); AST 18 U/L (14-36); Albumin 3.8 g/dL (3.5-5.0); Alkaline Phosphatase 117 U/L (38-126); Anion Gap 11 mmol/L; Blood Urea Nitrogen 20 mg/dL (7-17); Calcium 8.6 mg/dL (8.4-10.2); Carbon Dioxide 27 mmol/L (22-30); Chloride 104 mmol/L (98-107); Glucose 102 mg/dL (74-99); Potassium 3.8 mmol/L (3.5-5.1); Sodium 142 mmol/L (137-145); Total Bilirubin 0.2 mg/dL (0.2-1.3); Total Protein 6.1 g/dL (6.3-8.2)
[2018-02-12 18:27] LABS: Appearance,Urine Clear (Clear); Bilirubin,Urine Negative (Negative); Blood,Urine Negative (Negative); Color,Urine Yellow; Glucose,Urine (UA) Negative (Negative); Ketones,Urine Negative (Negative); Leukocyte Esterase,Urine Trace (Negative); Mucus,Urine Rare /hpf; Nitrite,Urine Negative (Negative); PH, Urine 5.5 (5.0-8.0); Protein,Urine Negative (Negative); RBC,Urine <1 /hpf (0-5); Specific Gravity,Urine 1.024 (1.001-1.035); Squamous Epithelial Cell,Urine 2 /hpf (0-4); Urobilinogen,Urine <2.0 mg/dL (<2.0); WBC,Urine 1 /hpf (0-5)
== END | disposition home or self-care (01) ==
LOC: LABPAT 16:24
PROVIDERS: ATTEND Orthopaedic Surgery
DX: Z01.812 Encounter for preprocedural laboratory examination (principal)
CPT/HCPCS: 36415; 80053; 81001; 85027; 85610; 85730; 87070

== ENCOUNTER → 2019-02-01 | Outpatient (CLI) | payer MEDICARE ==
--- NOTE | 2019-02-01 08:24 | CT ---
EXAMINATION TYPE: CT chest w con DATE OF EXAM: 02/01/2019 COMPARISON: None HISTORY: Dyspnea upon exertion CT DLP: 1278.3 mGycm Automated exposure control for dose reduction was used. CONTRAST: CT scan of the chest is performed with IV Contrast, patient injected with 100 mL of Isovue 300. FINDINGS: LUNGS: The lungs are grossly clear, there is no concerning parenchymal mass or nodule identified. M ild hyperinflation is compatible with mild COPD. Parenchymal linear scar is noted at the left lung ba se and lingula. There is no pleural effusion or pneumothorax seen. The tracheobronchial tree is dumont nt. MEDIASTINUM: There are no greater than 1 cm hilar or mediastinal lymph nodes. No pericardial effusi on is seen. Thoracic aorta is of normal caliber. The heart is not enlarged. UPPER ABDOMEN: Gastric banding device is noted. 3.5 cm left adrenal mass felt to reflect an adrenal a denoma. OTHER: No additional significant abnormality is seen. IMPRESSION: 1. Mild COPD. 2. Left adrenal adenoma.
== END | disposition home or self-care (01) ==
LOC: RADCTMAIN 06:03
PROVIDERS: ATTEND Family Medicine
DX: J44.9 Chronic obstructive pulmonary disease, unspecified (principal)
CPT/HCPCS: 82565; 84520; 71260; 36415; Q9967

== ENCOUNTER → 2019-05-06 | Outpatient (CLI) | payer MEDICARE, BC ==
--- NOTE | 2019-05-06 15:04 | P.HPBAR ---
Bariatric H&P - History & Physicial H&P Date: 05/06/19 History & Physicial: Visit/CC: Patient initial contact: Initial weight: Initial weight in pounds: Height: Initial BMI: Last weight: Current weight: Current weight in pounds: Current BMI: Trinity body weight (based on NIH guidelines): Excess body weight loss: The patient is a 63 year-old F who presents for Bariatric Assessment. Patient presents today for her LAP-BAND follow-up. Patient's had been seen several years. She has complaints of some vague abdominal pain. She describes pain in the epigastric and right and left upper quadrant. She also has complaints of indigestion. Past Medical History Past Medical History: GERD/Reflux, Hyperlipidemia, Hypertension, Osteoarthritis (OA), Pneumonia, Thyroid Disorder Additional Past Medical History / Comment(s): varicose veins, hx ulcer and hiatal hernia, arthritis in back, degenerative disk, pinched nerve L5, sciatica, spinal stenosis, hx anemia, urinary urgency/leakage History of Any Multi-Drug Resistant Organisms: None Reported Past Surgical History: Adenoidectomy, Bariatric Surgery, Breast Surgery, Joint Replacement, Orthopedic Surgery, Tonsillectomy Additional Past Surgical History / Comment(s): LT KNEE arthroscopy, rt hip replacement, lap band with hiatal hernia repair, loly breast biopsy Past Anesthesia/Blood Transfusion Reactions: Motion Sickness Smoking Status: Former smoker - Past Family History Father Family Medical History: Cancer Brother(s) Family Medical History: Cancer Surgical - Exam - General well developed, well nourished, no distress - Eyes PERRL - ENT normal pinna - Abdomen Abdomen: soft, non tender Bariatric Assessment & Plan Plan: Patient is a vague complaints of abdominal pain. No evidence of ventral hernia. The patient will undergo ultrasound the gallbladder and HIDA scan tonight for possible biliary dysfunction or gallstones. She also be scheduled for an EGD. Bariatric Checklist Checklist: Plan: Checklist: EGD: 1. Hiatal hernia: 2. H. Pylori: HgbA1c: Vitamin D: Smoking: Former smoker Primary care physician referral: Psychiatry clearance: Cardiology clearance: Sleep study: Diet journal: VTE risk score: VTE risk level: Rehab needs at discharge:
[2019-05-06 15:52] VITALS: BP 132/59; PULSE 67; TEMP 98; BMI 50.3
== END ==
LOC: BARWHC3 14:13
PROVIDERS: ATTEND Surgery
DX: Z48.815 Encounter for surgical aftercare following surgery on the digestive system (principal); R10.9 Unspecified abdominal pain; Z98.84 Bariatric surgery status; Z87.891 Personal history of nicotine dependence
CPT/HCPCS: 99211

== ENCOUNTER → 2019-05-15 | Outpatient (CLI) | payer MEDICARE, BC ==
--- NOTE | 2019-05-15 10:43 | CT ---
EXAMINATION TYPE: CT brain w con DATE OF EXAM: 05/15/2019 COMPARISON: None HISTORY: headache CT DLP: 1094 mGycm Automated exposure control for dose reduction was used. CONTRAST: CT scan of the head is performed with IV Contrast, patient injected with 80 mL of Isovue 300. FINDINGS: There is no abnormal enhancing mass or midline shift identified. The ventricles and sulci are within normal limits in size. The globes are intact and the visualized sinuses are clear. IMPRESSION: Negative contrast enhanced head CT exam.
== END | disposition home or self-care (01) ==
LOC: RADCTMAIN 06:17
PROVIDERS: ATTEND Family Medicine
DX: R51 Headache (principal)
CPT/HCPCS: 82565; 84520; 70460; 36415; Q9967

== ENCOUNTER → 2019-05-15 | Outpatient (CLI) | payer MEDICARE, BC ==
--- NOTE | 2019-05-15 10:57 | NM ---
Nuclear medicine hepatobiliary scan. HISTORY: Pain. DOSAGE: The patient received 2.9 micrograms of CCK and 4.1 mCi of Technetium 99m Choletec. FINDINGS: There is reduced hepatic extraction. The gallbladder is seen by 30 minutes. There is bili wilmer to bowel clearance by 30 minutes. Ejection fraction is 96%. IMPRESSION: 1. Reduced hepatic extraction could be technical correlate with LFTs confirmation. 2. Ejection fraction 96% which can occasionally be seen with hyperdynamic gallbladder. Correlate clin ically.
== END ==
LOC: RADNMMAIN 06:23
PROVIDERS: ATTEND Surgery
DX: R10.13 Epigastric pain (principal)
CPT/HCPCS: 78227; A9537; J2805

== ENCOUNTER 2019-05-17 08:55 | Day surgery (SDC) | payer MEDICARE, BC ==
[2019-05-16 11:09] VITALS: BMI 51.7
[~2019-05-17 08:55] MED LIST changes: -ACETAMINOPHEN TAB 500 MG TAB PO ONE; -DEXAMETHASONE SOD PHOSPHATE 10 MG/ML 1 ML VIAL IV ONE; +LACTATED RINGERS 1,000 ML IV SCH; +LIDOCAINE 1% 20 ML VIAL (10MG/ML) FOR IV START INTRADERMA PRN; -MELOXICAM 7.5 MG TAB PO ONE; -MIDAZOLAM 2 MG/2 ML VIAL IV PRN; -MORPHINE SULFATE 4 MG/ML SYRINGE IV PRN; -ONDANSETRON 4 MG/2 ML VIAL IVP ONE; -ROPIVACAINE 246.25 MG, EPINEPHrine 0.5 MG, KETOROLAC 30 MG, cloNIDine HCL/PF 80 MCG, WA... MISCELLANE ONE; -SCOPOLAMINE 1.5MG/72HR PATCH TRANSDERM ONE; -TRANEXAMIC ACID 1,000 MG in SODIUM CHLORIDE 0.9% 50 ML IVPB ONE
[2019-05-17 09:26] VITALS: TEMP 97
[2019-05-17] MEDS ORDERED: PROPOFOL 10 MG/ML 20 ML VIAL IV ONE (10:17)
[2019-05-17] MEDS ORDERED: GLYCOPYRROLATE 0.2 MG/ML 2 ML VIAL ONE (10:17)
[2019-05-17] MEDS ORDERED: LIDOCAINE 1% INJ 10MG/ML (20 ML MDV) ONE (10:17)
[2019-05-17] MEDS ORDERED: KETAMINE 10 MG/ML 20 ML VIAL ONE (10:17)
--- NOTE | 2019-05-17 10:21 | P.GSHP ---
History of Present Illness H&P Date: 05/17/19 Chief Complaint: GERD This is a 63-year-old female who presents today for EGD. Patient issues with GERD. Past Medical History Past Medical History: GERD/Reflux, Hyperlipidemia, Hypertension, Osteoarthritis (OA), Pneumonia, Thyroid Disorder Additional Past Medical History / Comment(s): having nausea,sob w/ activity,varicose veins, hx ulcer and hiatal hernia, arthritis in back, degenerative disk, pinched nerve L5, sciatica, spinal stenosis, hx anemia, urinary urgency/leakage History of Any Multi-Drug Resistant Organisms: None Reported Past Surgical History: Adenoidectomy, Bariatric Surgery, Breast Surgery, Joint Replacement, Orthopedic Surgery, Tonsillectomy Additional Past Surgical History / Comment(s): LT KNEE arthroscopy x2, bilateral hip replacement, lap band with hiatal hernia repair, loly breast biopsy Past Anesthesia/Blood Transfusion Reactions: Motion Sickness Smoking Status: Former smoker - Past Family History Father Family Medical History: Cancer Brother(s) Family Medical History: Cancer Medications and Allergies Home Medications Medication Instructions Recorded Confirmed Type Levothyroxine Sodium [Synthroid] 50 mcg PO QAM 08/31/17 05/16/19 History Omeprazole 40 mg PO DAILY 08/31/17 05/16/19 History Pravastatin Sodium [Pravachol] 40 mg PO DAILY 08/31/17 05/16/19 History Ranitidine HCl 300 mg PO HS 02/12/18 05/16/19 History Diclofenac Sodium [Voltaren] 75 mg PO BID 05/06/19 05/16/19 History FLUoxetine HCL [PROzac] 40 mg PO BID 05/06/19 05/16/19 History Fluticasone Nasal [place] [Flonase 2 spray NASAL DAILY 05/06/19 05/16/19 History Nasal [place]] Metoprolol Succinate [Toprol XL] 25 mg PO BID 05/06/19 05/16/19 History Ondansetron [Zofran] 8 mg PO Q8H PRN 05/06/19 05/17/19 History Gabapentin 800 mg PO QID 05/16/19 05/16/19 History HYDROcodone/APAP 10-325MG [[place] 1 tab PO Q8H PRN 05/16/19 05/17/19 History 10-325] Losartan Potassium 100 mg PO QAM 05/16/19 05/16/19 History Metoprolol Tartrate 25 mg PO HS PRN 05/16/19 05/17/19 History Topiramate [Trokendi Xr] 50 mg PO HS 05/16/19 05/16/19 History Allergies Allergy/AdvReac Type Severity Reaction Status Date / Time aripiprazole [From [facility]] Allergy Anaphylaxis Verified 05/17/19 09:28 Surgical - Exam Vital Signs Temp Pulse Resp BP Pulse Ox 97 F L 59 L 16 166/70 98 05/17/19 09:25 05/17/19 09:25 05/17/19 09:25 05/17/19 09:25 05/17/19 09:25 - General well developed, well nourished - Eyes PERRL - ENT normal pinna - Neck no masses - Respiratory normal expansion - Cardiovascular Rhythm: regular - Abdomen Abdomen: soft, non tender Assessment and Plan Assessment: GERD. We'll perform EGD.
--- NOTE | 2019-05-17 10:31 | P.OP ---
Date of Procedure: 05/17/19 Preoperative Diagnosis: GERD Postoperative Diagnosis: Antral gastritis Procedure(s) Performed: EGD Anesthesia: MAC Surgeon: Anil Valenzuela Pathology: other (Antrum) Condition: stable Disposition: PACU Description of Procedure: The patient's placed on the endoscopy table in the lateral position. She rece ived IV sedation. The gastro-/oropharynx and passed in the esophagus and stomach. Scope then placed through the pylorus. The first second portion of the duodenum appeared normal. Scope was then brought back the antrum and this appeared mildly inflamed. A biopsies performed. Scope was unretroflexed and remainder of the stomach appeared normal. There was no significant hiatal hernia. The GE junction was at 40 cm. The distal esophagus appeared normal. The proximal esophagus. Normal. Scope withdrawn for patient.
[2019-05-17 10:53] VITALS: BP 130/67; PULSE 54; RESP 18
== END 2019-05-17 11:24 | disposition home or self-care (01) ==
LOC: ORWHC2ENDO 08:55
PROVIDERS: ATTEND Surgery
DX: K29.50 Unspecified chronic gastritis without bleeding (principal); K21.9 Gastro-esophageal reflux disease without esophagitis; E78.5 Hyperlipidemia, unspecified; I10 Essential (primary) hypertension; M19.90 Unspecified osteoarthritis, unspecified site; E07.9 Disorder of thyroid, unspecified; I83.90 Asymptomatic varicose veins of unspecified lower extremity; M46.90 Unspecified inflammatory spondylopathy, site unspecified; G58.8 Other specified mononeuropathies; M54.30 Sciatica, unspecified side; M48.00 Spinal stenosis, site unspecified; Z79.890 Hormone replacement therapy; Z79.899 Other long term (current) drug therapy; Z79.1 Long term (current) use of non-steroidal anti-inflammatories (NSAID); Z79.891 Long term (current) use of opiate analgesic; Z88.8 Allergy status to other drugs, medicaments and biological substances; Z98.84 Bariatric surgery status; Z96.643 Presence of artificial hip joint, bilateral; Z98.890 Other specified postprocedural states; Z90.89 Acquired absence of other organs; Z87.19 Personal history of other diseases of the digestive system; Z87.891 Personal history of nicotine dependence; Z87.01 Personal history of pneumonia (recurrent); Z87.448 Personal history of other diseases of urinary system; Z80.9 Family history of malignant neoplasm, unspecified
CPT/HCPCS: 88305; 43239; J2001; J2704

== ENCOUNTER → 2019-05-20 | Outpatient (CLI) | payer MEDICARE, BC ==
--- NOTE | 2019-05-20 14:36 | P.HPBAR ---
Bariatric H&P - History & Physicial H&P Date: 05/20/19 History & Physicial: Visit/CC: Patient initial contact: Initial weight: Initial weight in pounds: Height: Initial BMI: Last weight: Current weight: Current weight in pounds: Current BMI: [place] body weight (based on NIH guidelines): Excess body weight loss: The patient is a 63 year-old F who presents for Bariatric Assessment. She presents today for follow-up. She had a recent EGD. She's been observed mild gastritis. Her HIDA scan shows abnormal ejection fraction. She's had trouble with nausea. Past Medical History Past Medical History: GERD/Reflux, Hyperlipidemia, Hypertension, Osteoarthritis (OA), Pneumonia, Thyroid Disorder Additional Past Medical History / Comment(s): having nausea,sob w/ activity,varicose veins, hx ulcer and hiatal hernia, arthritis in back, degenerative disk, pinched nerve L5, sciatica, spinal stenosis, hx anemia, urinary urgency/leakage History of Any Multi-Drug Resistant Organisms: None Reported Past Surgical History: Adenoidectomy, Bariatric Surgery, Breast Surgery, Joint Replacement, Orthopedic Surgery, Tonsillectomy Additional Past Surgical History / Comment(s): LT KNEE arthroscopy x2, bilateral hip replacement, lap band with hiatal hernia repair, loly breast biopsy Past Anesthesia/Blood Transfusion Reactions: Motion Sickness Smoking Status: Former smoker - Past Family History Father Family Medical History: Cancer Brother(s) Family Medical History: Cancer Surgical - Exam - General well developed, well nourished, no distress - Eyes PERRL - ENT normal pinna - Neck no masses - Respiratory normal expansion - Cardiovascular Rhythm: regular - Abdomen Abdomen: soft, non tender Bariatric Assessment & Plan Plan: Biliary dysfunction Chronic nausea. Patient will bet scheduled for laparoscopic cholecystectomy Bariatric Checklist Checklist: Plan: Checklist: EGD: 1. Hiatal hernia: 2. H. Pylori: HgbA1c: Vitamin D: Smoking: Former smoker Primary care physician referral: Karen Rivera (THRESHING DEPARTMENT SUPERVISOR at Dr. Dilia Wilkerson's office) Psychiatry clearance: Cardiology clearance: Sleep study: Diet journal: VTE risk score: VTE risk level: Rehab needs at discharge:
[2019-05-20 15:27] VITALS: BP 127/79; PULSE 65; TEMP 98.5; BMI 53.0
== END ==
LOC: BARWHC3 14:08
PROVIDERS: ATTEND Surgery
DX: Z48.815 Encounter for surgical aftercare following surgery on the digestive system (principal); K83.8 Other specified diseases of biliary tract; Z98.84 Bariatric surgery status; Z87.891 Personal history of nicotine dependence
CPT/HCPCS: 99211

== ENCOUNTER 2019-05-29 10:46 | Day surgery (SDC) | payer MEDICARE, BC ==
[2019-05-28 11:48] VITALS: BMI 52.4
[~2019-05-29 10:46] MED LIST changes: +DEXAMETHASONE SOD PHOSPHATE 10 MG/ML 1 ML VIAL IV ONE; +HYDROmorphone 0.5 MG/0.5 ML SYRINGE IVP PRN; +MIDAZOLAM 2 MG/2 ML VIAL IV PRN; +SCOPOLAMINE 1.5MG/72HR PATCH TRANSDERM ONE; +ceFAZolin 3 GM in SODIUM CHLORIDE 0.9% 100 ML IVPB ONE
--- NOTE | 2019-05-29 11:11 | P.GSHP ---
History of Present Illness H&P Date: 05/29/19 Chief Complaint: Right upper quadrant pain This a 63-year-old female with complaint right quadrant pain. Her recent HIDA scan shows an abnormal ejection fraction. Patient presents today for laparoscopic cholecystectomy for chronic cholecystitis and right upper quadrant pain. Past Medical History Past Medical History: GERD/Reflux, Hyperlipidemia, Hypertension, Osteoarthritis (OA), Pneumonia, Sleep Apnea/CPAP/BIPAP, Thyroid Disorder Additional Past Medical History / Comment(s): having nausea,sob w/ activity,varicose veins, hx ulcer and hiatal hernia, arthritis in back, degenerative disk, pinched nerve L5, sciatica, spinal stenosis, hx anemia, urinary urgency/leakage History of Any Multi-Drug Resistant Organisms: None Reported Past Surgical History: Adenoidectomy, Bariatric Surgery, Breast Surgery, Joint Replacement, Orthopedic Surgery, Tonsillectomy Additional Past Surgical History / Comment(s): LT KNEE arthroscopy x2, bilateral hip replacement, lap band with hiatal hernia repair, loly breast biopsy,emphysema Past Anesthesia/Blood Transfusion Reactions: Motion Sickness Smoking Status: Former smoker - Past Family History Father Family Medical History: Cancer Brother(s) Family Medical History: Cancer Medications and Allergies Home Medications Medication Instructions Recorded Confirmed Type Levothyroxine Sodium [Synthroid] 50 mcg PO QAM 08/31/17 05/28/19 History Omeprazole 40 mg PO DAILY 08/31/17 05/28/19 History Pravastatin Sodium [Pravachol] 40 mg PO HS 08/31/17 05/28/19 History Ranitidine HCl 300 mg PO HS 02/12/18 05/28/19 History Diclofenac Sodium [Voltaren] 75 mg PO BID 05/06/19 05/28/19 History FLUoxetine HCL [PROzac] 40 mg PO BID 05/06/19 05/28/19 History Fluticasone Nasal [place] [Flonase 2 spray NASAL DAILY 05/06/19 05/28/19 History Nasal [place]] Metoprolol Succinate [Toprol XL] 25 mg PO BID 05/06/19 05/28/19 History Ondansetron [Zofran] 8 mg PO Q8H PRN 05/06/19 05/28/19 History Gabapentin 800 mg PO QID 05/16/19 05/28/19 History HYDROcodone/APAP 10-325MG [[place] 1 tab PO Q8H PRN 05/16/19 05/28/19 History 10-325] Losartan Potassium 100 mg PO QAM 05/16/19 05/28/19 History Topiramate [Trokendi Xr] 50 mg PO HS 05/16/19 05/28/19 History Allergies Allergy/AdvReac Type Severity Reaction Status Date / Time aripiprazole [From [facility]] Allergy Anaphylaxis, Verified 05/28/19 10:59 TROUBLE BREATHING Surgical - Exam - General well developed, well nourished, no distress - Eyes PERRL - ENT normal pinna - Neck no masses - Respiratory normal expansion - Cardiovascular Rhythm: regular - Abdomen Abdomen: soft, non tender Assessment and Plan Assessment: Right upper Quadrant pain Chronic cholecystitis We'll perform laparoscopic cholecystectomy.
[2019-05-29] MEDS ORDERED: LACTATED RINGERS 1,000 ML IV ONE (11:40)
[2019-05-29] MEDS: ONDANSETRON 4 MG/2 ML VIAL IVP ONE ×2 (11:41→15:33)
[2019-05-29] MEDS ORDERED: HEPARIN SODIUM,PORCINE 5,000 UNIT/ML 1 ML VIAL SQ ONE (12:59)
[2019-05-29] MEDS ORDERED: SUCCINYLCHOLINE CHLORIDE VIAL 200 MG/10 ML VIAL IV ONE (14:14)
[2019-05-29] MEDS ORDERED: GLYCOPYRROLATE 0.2 MG/ML 2 ML VIAL ONE (14:14)
[2019-05-29] MEDS ORDERED: ROCURONIUM BROMIDE 10 MG/ML 10 ML VIAL IV ONE (14:14)
[2019-05-29] MEDS ORDERED: PROPOFOL 10 MG/ML 20 ML VIAL IV ONE (14:14)
[2019-05-29] MEDS ORDERED: LIDOCAINE 1% INJ 10MG/ML (20 ML MDV) ONE (14:14)
[2019-05-29] MEDS ORDERED: MIDAZOLAM 2 MG/2 ML VIAL ONE (14:14)
[2019-05-29] MEDS ORDERED: NEOSTIGMINE 1 MG/ML 10 ML VIAL ONE (14:14)
[2019-05-29] MEDS ORDERED: fentaNYL (PF) 50 MCG/ML 2 ML AMP ONE (14:14)
[2019-05-29] MEDS ORDERED: BUPIVACAINE (PF) 0.25% 30 ML VIAL SQ ONE (14:51)
--- NOTE | 2019-05-29 15:15 | P.OP ---
Date of Procedure: 05/29/19 Preoperative Diagnosis: Cholecystitis Postoperative Diagnosis: Cholecystitis Procedure(s) Performed: Laparoscopic cholecystectomy Anesthesia: ROLANDO Surgeon: Anil Valenzuela Estimated Blood Loss (ml): 5 Pathology: other (Gallbladder) Condition: stable Disposition: PACU Description of Procedure: The patient was placed on the operating table. The patient received a general endotracheal tube anesthesia. The patients abdomen was prepped and draped in the usual sterile fashion. Through an infraumbilical stab incision, the fascia of the anterior abdominal wall was grasped with a pair of Kochers and then the Veress needle was placed in the peritoneal cavity. Position of the Veress needle was confirmed with positive drop test. The abdomen was then insufflated. After adequate insufflation, the 10 mm trocar was placed in the peritoneal cavity. Following this the laparoscope was placed in the peritoneal cavity. The patient was placed in the head-up, right side up position and then a 5 mm trocar was placed in the right lateral and right subcostal position under direct visualization. A 8 mm trocar was placed in the epigastric position. The gallbladder was grasped in the fundus and infundibulum. Traction on the gallbladder was placed in the lateral and the cephalad positions. The triangle of Calot was visualized.. The cystic duct was bluntly dissected until the union of the cystic duct and common bile duct was seen. A critical view of safety was achieved. The cystic duct was then divided and sealed with the Harmonic scissors. A PDS Endoloop was then placed throughout the cystic duct stump. The cystic artery divided and sealed with the Harmonic scissors. The gallbladder was then removed from the liver bed using Harmonic scissors. The gallbladder was then extracted through the epigastric port site. Operative field was checked for any bleeding spots and Harmonic scissors was used to coagulate the liver bed. The abdomen was irrigated. The trocars were removed. The skin was closed using interrupted 3-0 Vicryl suture. Dermabond dressing were applied. The patient tolerated the procedure well.
[2019-05-29 15:18] VITALS: TEMP 97
[2019-05-29] MEDS ORDERED: ONDANSETRON 4 MG/2 ML VIAL IVP ONE (16:15)
[2019-05-29 17:14] VITALS: RESP 20
[2019-05-29 18:01] VITALS: BP 145/59; PULSE 62
== END 2019-05-29 18:10 | disposition home or self-care (01) ==
LOC: OR 10:46
PROVIDERS: ATTEND Surgery
DX: K81.1 Chronic cholecystitis (principal); K21.9 Gastro-esophageal reflux disease without esophagitis; E78.5 Hyperlipidemia, unspecified; I10 Essential (primary) hypertension; M19.90 Unspecified osteoarthritis, unspecified site; G47.30 Sleep apnea, unspecified; Z99.89 Dependence on other enabling machines and devices; E07.9 Disorder of thyroid, unspecified; I83.90 Asymptomatic varicose veins of unspecified lower extremity; M46.90 Unspecified inflammatory spondylopathy, site unspecified; M54.30 Sciatica, unspecified side; Z98.84 Bariatric surgery status; Z96.643 Presence of artificial hip joint, bilateral; R39.15 Urgency of urination; Z87.891 Personal history of nicotine dependence; Z87.01 Personal history of pneumonia (recurrent); Z79.890 Hormone replacement therapy; Z79.899 Other long term (current) drug therapy; Z88.8 Allergy status to other drugs, medicaments and biological substances
CPT/HCPCS: 47562; 88304; J2250; J0330; J1644; J1100; J2710; J0690; J2405; J2001; J3010; J2704; J1170

== ENCOUNTER → 2019-06-10 | Outpatient (CLI) | payer MEDICARE, BC ==
[2019-06-10 15:23] VITALS: BP 137/74; PULSE 79; RESP 16; TEMP 97.4; BMI 52.3
--- NOTE | 2019-06-10 15:49 | P.HPBAR ---
Bariatric H&P - History & Physicial H&P Date: 06/10/19 History & Physicial: Visit/CC: Gallbladder f/u Patient initial contact: Initial weight: 158.757 kg Initial weight in pounds: 350.00 Height: 5 ft 7 in Initial BMI: 54.8 Last weight: Current weight: 151.5 kg Current weight in pounds: 334.00 Current BMI: 52.3 [place] body weight (based on NIH guidelines): 61.235 kg Excess body weight loss: 7.4% The patient is a 63 year-old F who presents for Bariatric Assessment. Patient presents today for lab band follow up. She has lost 4 pounds since her last visit. She's had some evidence of GERD. She recently underwent laparoscopic cholecystectomy. Past Medical History Past Medical History: GERD/Reflux, Hyperlipidemia, Hypertension, Osteoarthritis (OA), Pneumonia, Sleep Apnea/CPAP/BIPAP, Thyroid Disorder Additional Past Medical History / Comment(s): having nausea,sob w/ activity,varicose veins, hx ulcer and hiatal hernia, arthritis in back, degenerative disk, pinched nerve L5, sciatica, spinal stenosis, hx anemia, urinary urgency/leakage History of Any Multi-Drug Resistant Organisms: None Reported Past Surgical History: Adenoidectomy, Bariatric Surgery, Breast Surgery, Cholecystectomy, Joint Replacement, Orthopedic Surgery, Tonsillectomy Additional Past Surgical History / Comment(s): LT KNEE arthroscopy x2, bilateral hip replacement, lap band with hiatal hernia repair, loly breast biopsy,emphysema Past Anesthesia/Blood Transfusion Reactions: Motion Sickness Past Psychological History: Depression Smoking Status: Former smoker Past Alcohol Use History: Rare Additional Past Alcohol Use History / Comment(s): QUIT SMOKING 2006, started smoking age 18's, 1 PPD Past Drug Use History: None Reported - Past Family History Father Family Medical History: Cancer Brother(s) Family Medical History: Cancer Surgical - Exam Vital Signs Temp Pulse Resp BP 97.4 F L 79 16 137/74 06/10/19 15:18 06/10/19 15:18 06/10/19 15:18 06/10/19 15:18 - General well developed, well nourished, no distress - Eyes PERRL - ENT normal pinna - Neck no masses - Respiratory normal expansion - Cardiovascular Rhythm: regular - Abdomen Abdomen: soft, non tender Bariatric Assessment & Plan Plan: Status post lap band surgery. Patient is doing quite well. She will follow-up in 4 weeks. Her GERD is minimal will be observed. Bariatric Checklist Checklist: Plan: Checklist: EGD: 1. Hiatal hernia: 2. H. Pylori: HgbA1c: Vitamin D: Smoking: Former smoker Primary care physician referral: Karen Rivera (OPERA SINGER at Dr. Dilia Wilkerson's office) Psychiatry clearance: Cardiology clearance: Sleep study: Diet journal: VTE risk score: VTE risk level: Rehab needs at discharge:
== END | disposition home or self-care (01) ==
LOC: BARWHC3 14:31
PROVIDERS: ATTEND Surgery
DX: Z46.51 Encounter for fitting and adjustment of gastric lap band (principal); K21.9 Gastro-esophageal reflux disease without esophagitis; Z98.84 Bariatric surgery status; Z87.891 Personal history of nicotine dependence; Z90.49 Acquired absence of other specified parts of digestive tract
CPT/HCPCS: 99211

== ENCOUNTER → 2019-07-08 | Outpatient (CLI) | payer MEDICARE, BC ==
[2019-07-08 15:14] VITALS: BP 139/84; PULSE 84; RESP 16; TEMP 98.4; BMI 52.3
--- NOTE | 2019-08-25 12:39 | P.HPBAR ---
Bariatric H&P - History & Physicial H&P Date: 07/08/19 History & Physicial: Visit/CC: band f/u Patient initial contact: Initial weight: 158.757 kg Initial weight in pounds: 350.00 Height: 5 ft 7 in Initial BMI: 54.8 Last weight: Current weight: 151.5 kg Current weight in pounds: 334.00 Current BMI: 52.3 [place] body weight (based on NIH guidelines): 61.235 kg Excess body weight loss: 7.4% The patient is a 63 year-old F who presents for Bariatric Assessment. Patient is hungry and requesting a fill of her band. Past Medical History Past Medical History: GERD/Reflux, Hyperlipidemia, Hypertension, Osteoarthritis (OA), Pneumonia, Sleep Apnea/CPAP/BIPAP, Thyroid Disorder Additional Past Medical History / Comment(s): having nausea,sob w/ activity,varicose veins, hx ulcer and hiatal hernia, arthritis in back, degen erative disk, pinched nerve L5, sciatica, spinal stenosis, hx anemia, urinary urgency/leakage History of Any Multi-Drug Resistant Organisms: None Reported Past Surgical History: Adenoidectomy, Bariatric Surgery, Breast Surgery, Cholecystectomy, Joint Replacement, Orthopedic Surgery, Tonsillectomy Additional Past Surgical History / Comment(s): LT KNEE arthroscopy x2, bilateral hip replacement, lap band with hiatal hernia repair, loly breast biopsy,emphysema Past Anesthesia/Blood Transfusion Reactions: Motion Sickness Smoking Status: Former smoker - Past Family History Father Family Medical History: Cancer Brother(s) Family Medical History: Cancer Surgical - Exam Vital Signs Temp Pulse Resp BP 98.4 F 84 16 139/84 07/08/19 15:12 07/08/19 15:12 07/08/19 15:12 07/08/19 15:12 - General well developed, well nourished - Abdomen Abdomen: soft, non tender Bariatric Assessment & Plan Plan: Patient LAP-BAND was adjusted. She had 0.5 mL added to her band. She currently is 2.5 mL in the band. She'll follow-up as needed Bariatric Checklist Checklist: Plan: Checklist: EGD: 1. Hiatal hernia: 2. H. Pylori: HgbA1c: Vitamin D: Smoking: Former smoker Primary care physician referral: Karen Rivera (FUR DRESSING SUPERVISOR at Dr. Dilia Wilkerson's office) Psychiatry clearance: Cardiology clearance: Sleep study: Diet journal: VTE risk score: VTE risk level: Rehab needs at discharge:
== END | disposition home or self-care (01) ==
LOC: BARWHC3 15:01
PROVIDERS: ATTEND Surgery
DX: E66.01 Morbid (severe) obesity due to excess calories (principal); Z68.43 Body mass index [BMI] 50.0-59.9, adult; K21.9 Gastro-esophageal reflux disease without esophagitis; E78.5 Hyperlipidemia, unspecified; I10 Essential (primary) hypertension; G47.33 Obstructive sleep apnea (adult) (pediatric)
CPT/HCPCS: 99212

== ENCOUNTER → 2019-08-12 | Outpatient (CLI) | payer MEDICARE, BC ==
[2019-08-12 14:51] VITALS: BP 139/64; PULSE 72; RESP 16; TEMP 97.5; BMI 52.3
--- NOTE | 2019-08-25 12:30 | P.HPBAR ---
Bariatric H&P - History & Physicial H&P Date: 08/12/19 History & Physicial: Visit/CC: Band adj Patient initial contact: Initial weight: 158.757 kg Initial weight in pounds: 350.00 Height: 5 ft 7 in Initial BMI: 54.8 Last weight: Current weight: 151.5 kg Current weight in pounds: 334.00 Current BMI: 52.3 [place] body weight (based on NIH guidelines): 61.235 kg Excess body weight loss: 7.4% The patient is a 63 year-old F who presents for Bariatric Assessment. Patient presents today for her LAP-BAND adjustment. She currently is hungry. Past Medical History Past Medical History: GERD/Reflux, Hyperlipidemia, Hypertension, Osteoarthritis (OA), Pneumonia, Sleep Apnea/CPAP/BIPAP, Thyroid Disorder Additional Past Medical History / Comment(s): having nausea,sob w/ activity,varicose veins, hx ulcer and hiatal hernia, arthritis in back, degenerative disk, pinched nerve L5, sciatica, spinal stenosis, hx anemia, urinary urgency/leakage History of Any Multi-Drug Resistant Organisms: None Reported Past Surgical History: Adenoidectomy, Bariatric Surgery, Breast Surgery, Cholecystectomy, Joint Replacement, Orthopedic Surgery, Tonsillectomy Additional Past Surgical History / Comment(s): LT KNEE arthroscopy x2, bilateral hip replacement, lap band with hiatal hernia repair, loly breast biopsy,emphysema Past Anesthesia/Blood Transfusion Reactions: Motion Sickness Past Psychological History: Depression Smoking Status: Former smoker Past Alcohol Use History: Rare Additional Past Alcohol Use History / Comment(s): QUIT SMOKING 2006, started smoking age 18's, 1 PPD Past Drug Use History: None Reported - Past Family History Father Family Medical History: Cancer Brother(s) Family Medical History: Cancer Surgical - Exam Vital Signs Temp Pulse Resp BP 97.5 F L 72 16 139/64 08/12/19 14:41 08/12/19 14:41 08/12/19 14:41 08/12/19 14:41 - General well developed, well nourished, no distress - Abdomen Abdomen: soft, non tender Bariatric Assessment & Plan Plan: Patient's lap band adjusted. She had 1 mL added to the band. She currently has 3.8 mL in the band. She will follow-up in 4 weeks. Bariatric Checklist Checklist: Plan: Checklist: EGD: 1. Hiatal hernia: 2. H. Pylori: HgbA1c: Vitamin D: Smoking: Former smoker Primary care physician referral: Karen Rivera (SALES COMMUNICATIONS MANAGER at Dr. Dilia Wilkerson's office) Psychiatry clearance: Cardiology clearance: Sleep study: Diet journal: VTE risk score: VTE risk level: Rehab needs at discharge:
== END | disposition home or self-care (01) ==
LOC: BARWHC3 14:06
PROVIDERS: ATTEND Surgery
DX: Z46.51 Encounter for fitting and adjustment of gastric lap band (principal); Z98.84 Bariatric surgery status; Z90.49 Acquired absence of other specified parts of digestive tract; Z87.891 Personal history of nicotine dependence
CPT/HCPCS: 99212

== ENCOUNTER → 2019-09-23 | Outpatient (CLI) | payer MEDICARE, BC ==
[2019-09-23 15:48] VITALS: BP 131/81; PULSE 96; TEMP 97.6; BMI 52.7
--- NOTE | 2019-09-26 11:21 | P.HPBAR ---
Bariatric H&P - History & Physicial H&P Date: 09/23/19 History & Physicial: Visit/CC: band fill Patient initial contact: Initial weight: 158.757 kg Initial weight in pounds: 350.00 Height: 5 ft 7 in Initial BMI: 54.8 Last weight: Current weight: 152.861 kg Current weight in pounds: 337.00 Current BMI: 52.7 [place] body weight (based on NIH guidelines): 61.235 kg Excess body weight loss: 6.0% The patient is a 63 year-old F who presents for Bariatric Assessment. Patient presents today for her LAP-BAND adjustment. She currently is hungry. She's had a weight gain. Past Medical History Past Medical History: GERD/Reflux, Hyperlipidemia, Hypertension, Osteoarthritis (OA), Pneumonia, Sleep Apnea/CPAP/BIPAP, Thyroid Disorder Additional Past Medical History / Comment(s): having nausea,sob w/ activity,varicose veins, hx ulcer and hiatal hernia, arthritis in back, degenerative disks, pinched nerve L5, sciatica, spinal stenosis, hx anemia, urinary urgency/leakage (occasional incontinence of bladder and bowels) Pt seeing urologist to determine cause History of Any Multi-Drug Resistant Organisms: None Reported Past Surgical History: Adenoidectomy, Bariatric Surgery, Breast Surgery, Cholecystectomy, Joint Replacement, Orthopedic Surgery, Tonsillectomy Additional Past Surgical History / Comment(s): LT KNEE arthroscopy x2, bilateral hip replacement, lap band with hiatal hernia repair, loly breast biopsy,emphysema Past Anesthesia/Blood Transfusion Reactions: Motion Sickness Past Psychological History: Depression Smoking Status: Former smoker Past Alcohol Use History: Rare Additional Past Alcohol Use History / Comment(s): QUIT SMOKING 2006, started smoking age 18's, 1 PPD Past Drug Use History: None Reported - Past Family History Father Family Medical History: Cancer Brother(s) Family Medical History: Cancer Surgical - Exam Vital Signs Temp Pulse BP 97.6 F 96 131/81 09/23/19 15:44 09/23/19 15:44 09/23/19 15:44 - General well developed, well nourished, no distress - Eyes PERRL - ENT normal pinna - Neck no masses - Cardiovascular Rhythm: regular - Abdomen Abdomen: soft, non tender Bariatric Assessment & Plan Plan: Patient LAP-BAND was adjusted. She had 0.5 mL added to the band. The patient's had troubles with dysphagia. She was able to water without difficulty. She currently has 4 mL in the band. The patient may need conversion sleeve gastrectomy if her dysphagia recurs Bariatric Checklist Checklist: Plan: Checklist: EGD: 1. Hiatal hernia: 2. H. Pylori: HgbA1c: Vitamin D: Smoking: Former smoker Primary care physician referral: Karen Rivera (MARKETING AREA MANAGER at Dr. Dilia Wilkerson's office) Psychiatry clearance: Cardiology clearance: Sleep study: Diet journal: VTE risk score: VTE risk level: Rehab needs at discharge:
== END | disposition home or self-care (01) ==
LOC: BARWHC3 15:30
PROVIDERS: ATTEND Surgery
DX: Z46.51 Encounter for fitting and adjustment of gastric lap band (principal); R13.10 Dysphagia, unspecified; Z87.891 Personal history of nicotine dependence; Z98.84 Bariatric surgery status; Z90.49 Acquired absence of other specified parts of digestive tract
CPT/HCPCS: 99212

== ENCOUNTER → 2019-10-14 | Outpatient (CLI) | payer MEDICARE, BC ==
[2019-10-14 15:01] VITALS: BP 135/62; PULSE 74; RESP 16; TEMP 97.5; BMI 51.7
--- NOTE | 2019-10-15 12:36 | P.HPBAR ---
Bariatric H&P - History & Physicial H&P Date: 10/14/19 History & Physicial: Visit/CC: Band f/u Patient initial contact: Initial weight: 158.757 kg Initial weight in pounds: 350.00 Height: 5 ft 7 in Initial BMI: 54.8 Last weight: Current weight: 149.685 kg Current weight in pounds: 330.00 Current BMI: 51.7 [place] body weight (based on NIH guidelines): 61.235 kg Excess body weight loss: 9.3% The patient is a 63 year-old F who presents for Bariatric Assessment. Patient presents today for lab band follow. She's had some minimal GERD. She also some complaints of nausea. She's had excellent weight loss. She is less 7 pounds last visit. Past Medical History Past Medical History: GERD/Reflux, Hyperlipidemia, Hypertension, Osteoarthritis (OA), Pneumonia, Sleep Apnea/CPAP/BIPAP, Thyroid Disorder Additional Past Medical History / Comment(s): having nausea,sob w/ activity,varicose veins, hx ulcer and hiatal hernia, arthritis in back, degenerative disks, pinched nerve L5, sciatica, spinal stenosis, hx anemia, u rinary urgency/leakage (occasional incontinence of bladder and bowels) Pt seeing urologist to determine cause History of Any Multi-Drug Resistant Organisms: None Reported Past Surgical History: Adenoidectomy, Bariatric Surgery, Breast Surgery, Cholecystectomy, Joint Replacement, Orthopedic Surgery, Tonsillectomy Additional Past Surgical History / Comment(s): LT KNEE arthroscopy x2, bilateral hip replacement, lap band with hiatal hernia repair, loly breast biopsy,emphysema Past Anesthesia/Blood Transfusion Reactions: Motion Sickness Past Psychological History: Depression Smoking Status: Former smoker Past Alcohol Use History: Rare Additional Past Alcohol Use History / Comment(s): QUIT SMOKING 2006, started smoking age 18's, 1 PPD Past Drug Use History: None Reported - Past Family History Father Family Medical History: Cancer Brother(s) Family Medical History: Cancer Surgical - Exam Vital Signs Temp Pulse Resp BP 97.5 F L 74 16 135/62 10/14/19 14:59 10/14/19 14:59 10/14/19 14:59 10/14/19 14:59 - General well developed, well nourished, no distress - Abdomen Abdomen: soft, non tender Bariatric Assessment & Plan Plan: Patient did not have an adjustment today. Her weight loss is great. Her GERD and dysphagia is minimal. She'll follow-up in 4 weeks. Bariatric Checklist Checklist: Plan: Checklist: EGD: 1. Hiatal hernia: 2. H. Pylori: HgbA1c: Vitamin D: Smoking: Former smoker Primary care physician referral: Karen Rivera (JUNIOR UNDERWRITER at Dr. Dilia Wilkerson's office) Psychiatry clearance: Cardiology clearance: Sleep study: Diet journal: VTE risk score: VTE risk level: Rehab needs at discharge:
== END | disposition home or self-care (01) ==
LOC: BARWHC3 13:34
PROVIDERS: ATTEND Surgery
DX: Z46.51 Encounter for fitting and adjustment of gastric lap band (principal); Z87.891 Personal history of nicotine dependence; Z90.49 Acquired absence of other specified parts of digestive tract; Z98.84 Bariatric surgery status
CPT/HCPCS: 99211

== ENCOUNTER → 2019-12-16 | Outpatient (CLI) | payer MEDICARE, BC ==
[2019-12-16 14:10] VITALS: BP 112/69; PULSE 60; RESP 16; TEMP 98.6; BMI 51.5
--- NOTE | 2019-12-16 15:21 | P.HPBAR ---
Bariatric H&P - History & Physicial H&P Date: 12/16/19 History & Physicial: Visit/CC: Lap Band follow up possible fill Patient initial contact: Initial weight: 158.757 kg Initial weight in pounds: 350.00 Height: 5 ft 7 in Initial BMI: 54.8 Last weight: Current weight: 149.277 kg Current weight in pounds: 329.10 Current BMI: 51.5 [place] body weight (based on NIH guidelines): 61.235 kg Excess body weight loss: 9.7% The patient is a 64 year-old F who presents for Bariatric Assessment. Patient rents today for her LAP-BAND follow-up. She has lost 1 pounds her last visit. She's had minimal GERD. Past Medical History Past Medical History: GERD/Reflux, Hyperlipidemia, Hypertension, Osteoarthritis (OA), Pneumonia, Sleep Apnea/CPAP/BIPAP, Thyroid Disorder Additional Past Medical History / Comment(s): having nausea,sob w/ activity,varicose veins, hx ulcer and hiatal hernia, arthritis in back, degenerative disks, pinched nerve L5, sciatica, spinal stenosis, hx anemia, urinary urgency/leakage (occasional incontinence of bladder and bowels) Pt seeing urologist to determine cause History of Any Multi-Drug Resistant Organisms: None Reported Past Surgical History: Adenoidectomy, Bariatric Surgery, Breast Surgery, Cholecystectomy, Joint Replacement, Orthopedic Surgery, Tonsillectomy Additional Past Surgical History / Comment(s): LT KNEE arthroscopy x2, bilateral hip replacement, lap band with hiatal hernia repair, loly breast biopsy,emphysema Past Anesthesia/Blood Transfusion Reactions: Motion Sickness Smoking Status: Former smoker - Past Family History Father Family Medical History: Cancer Brother(s) Family Medical History: Cancer Surgical - Exam Vital Signs Temp Pulse Resp BP Pulse Ox 98.6 F 60 16 112/69 96 12/16/19 14:07 12/16/19 14:07 12/16/19 14:07 12/16/19 14:07 12/16/19 14:07 - General well developed, well nourished, no distress - Eyes PERRL - ENT normal pinna - Neck no masses - Respiratory normal expansion - Cardiovascular Rhythm: regular - Abdomen Abdomen: soft, non tender Bariatric Assessment & Plan Plan: Status post lap band procedure. Patient is minimal overexert. She'll follow-up in 8 weeks. She will have a fill at that time she still has poorly. Bariatric Checklist Checklist: Plan: Checklist: EGD: 1. Hiatal hernia: 2. H. Pylori: HgbA1c: Vitamin D: Smoking: Former smoker Primary care physician referral: Karen Rivera (ART SALES CONSULTANT at Dr. Dilia Wilkerson's office) Psychiatry clearance: Cardiology clearance: Sleep study: Diet journal: VTE risk score: VTE risk level: Rehab needs at discharge:
== END | disposition home or self-care (01) ==
LOC: BARWHC3 13:59
PROVIDERS: ATTEND Surgery
DX: Z48.815 Encounter for surgical aftercare following surgery on the digestive system (principal); Z98.84 Bariatric surgery status; Z87.891 Personal history of nicotine dependence
CPT/HCPCS: 99211

== ENCOUNTER → 2020-01-13 | Outpatient (CLI) | payer MEDICARE, BC ==
[2020-01-13 15:02] VITALS: BP 160/81; PULSE 68; RESP 16; TEMP 98.6; BMI 51.8
--- NOTE | 2020-01-13 15:50 | P.HPBAR ---
Bariatric H&P - History & Physicial H&P Date: 01/13/20 History & Physicial: Visit/CC: Band F/U Patient initial contact: Initial weight: 158.757 kg Initial weight in pounds: 350.00 Height: 5 ft 7 in Initial BMI: 54.8 Last weight: Current weight: 150.139 kg Current weight in pounds: 331.00 Current BMI: 51.8 [place] body weight (based on NIH guidelines): 61.235 kg Excess body weight loss: 8.8% The patient is a 64 year-old F who presents for Bariatric Assessment. Patient presents today for bariatric follow-up. She is requesting a fill of her band. She currently is hungry. Past Medical History Past Medical History: GERD/Reflux, Hyperlipidemia, Hypertension, Osteoarthritis (OA), Pneumonia, Sleep Apnea/CPAP/BIPAP, Thyroid Disorder Additional Past Medical History / Comment(s): having nausea,sob w/ activity,varicose veins, hx ulcer and hiatal hernia, arthritis in back, degenerative disks, pinched nerve L5, sciatica, spinal stenosis, hx anemia, urinary urgency/leakage (occasional incontinence of bladder and bowels) Pt seeing urologist to determine cause History of Any Multi-Drug Resistant Organisms: None Reported Past Surgical History: Adenoidectomy, Bariatric Surgery, Breast Surgery, Cholecystectomy, Joint Replacement, Orthopedic Surgery, Tonsillectomy Additional Past Surgical History / Comment(s): LT KNEE arthroscopy x2, bilateral hip replacement, lap band with hiatal hernia repair, loly breast biopsy,emphysema Past Anesthesia/Blood Transfusion Reactions: Motion Sickness Past Psychological History: Depression Smoking Status: Former smoker Past Alcohol Use History: Rare Additional Past Alcohol Use History / Comment(s): QUIT SMOKING 2006, started smoking age 18's, 1 PPD Past Drug Use History: None Reported - Past Family History Father Family Medical History: Cancer Brother(s) Family Medical History: Cancer Surgical - Exam Vital Signs Temp Pulse Resp BP 98.6 F 68 16 160/81 01/13/20 14:59 01/13/20 14:59 01/13/20 14:59 01/13/20 14:59 - General well developed, well nourished, no distress - Eyes PERRL - ENT normal pinna - Neck no masses - Respiratory normal expansion - Cardiovascular Rhythm: regular - Abdomen Abdomen: soft, non tender Bariatric Assessment & Plan Plan: Patient's lap band was adjusted. She had 0.5 mL added to the band. She currently has 5 mL in the band. She'll follow-up in 4 weeks. Bariatric Checklist Checklist: Plan: Checklist: EGD: 1. Hiatal hernia: 2. H. Pylori: HgbA1c: Vitamin D: Smoking: Former smoker Primary care physician referral: Karen Rivera (JEWEL SETTER at Dr. Dilia Wilkerson's office) Psychiatry clearance: Cardiology clearance: Sleep study: Diet journal: VTE risk score: VTE risk level: Rehab needs at discharge:
== END | disposition home or self-care (01) ==
LOC: BARWHC3 14:04
PROVIDERS: ATTEND Surgery
DX: Z46.51 Encounter for fitting and adjustment of gastric lap band (principal); Z87.891 Personal history of nicotine dependence; Z98.84 Bariatric surgery status
CPT/HCPCS: 99212

== ENCOUNTER 2020-01-19 07:31 | Emergency (ER) | payer MEDICARE, BC ==
[2020-01-19] MEDS ORDERED: IOPAMIDOL CONTRAST (ORAL USE) VIAL PO PRN (07:57)
--- NOTE | 2020-01-19 08:02 | ED ---
General Adult HPI - General Chief complaint: Nausea/Vomiting/Diarrhea Stated complaint: vomiting Time Seen by Provider: 01/19/20 07:38 Source: patient, RN notes reviewed, old records reviewed Mode of arrival: ambulatory Limitations: no limitations - History of Present Illness Initial comments: 64-year-old female presenting for evaluation of vomiting and inability to tolerate anything by mouth. Patient has a gastric lap band which was adjusted earlier this week. She states that yesterday she had a mashed potato and has been unable to swallow anything since this time including her medication. She's had several episodes of vomiting. She is spitting her oral secretions She cannot swallow them. She denies significant abdominal pain. She has epigastric discomfort associated with this. - Related Data Home Medications Medication Instructions Recorded Confirmed Levothyroxine Sodium [Synthroid] 50 mcg PO QAM 08/31/17 12/16/19 Omeprazole 40 mg PO DAILY 08/31/17 12/16/19 Pravastatin Sodium [Pravachol] 40 mg PO HS 08/31/17 12/16/19 Ranitidine HCl 300 mg PO HS 02/12/18 12/16/19 Diclofenac Sodium [Voltaren] 75 mg PO BID 05/06/19 12/16/19 FLUoxetine HCL [PROzac] 40 mg PO BID 05/06/19 12/16/19 Fluticasone Nasal [place] [Flonase 2 spray NASAL DAILY 05/06/19 12/16/19 Nasal [place]] Metoprolol Succinate [Toprol XL] 25 mg PO BID 05/06/19 12/16/19 Ondansetron [Zofran] 8 mg PO Q8H PRN 05/06/19 12/16/19 Gabapentin 800 mg PO QID 05/16/19 12/16/19 HYDROcodone/APAP 10-325MG [[place] 1 tab PO Q8H PRN 05/16/19 12/16/19 10-325] Losartan Potassium 100 mg PO QAM 05/16/19 12/16/19 Topiramate [Trokendi Xr] 50 mg PO HS 05/16/19 12/16/19 Trospium Chloride [Sanctura XR] 60 mg PO HS 09/23/19 12/16/19 Previous Rx's Medication Instructions Recorded Docusate [Colace] 100 mg PO BID #20 capsule 10/23/19 HYDROcodone/APAP 5-325MG [[place] 1 tab PO Q6HR PRN #10 tab 05/29/19 5-325] Allergies Allergy/AdvReac Type Severity Reaction Status Date / Time aripiprazole [From [facility]] Allergy Anaphylaxis, Verified 01/19/20 07:37 TROUBLE BREATHING Review of Systems ROS Statement: Those systems with pertinent positive or pertinent negative responses have been documented in the HPI. ROS Other: All systems not noted in ROS Statement are negative. Past Medical History Past Medical History: GERD/Reflux, Hyperlipidemia, Hypertension, Osteoarthritis (OA), Pneumonia, Sleep Apnea/CPAP/BIPAP, Thyroid Disorder Additional Past Medical History / Comment(s): having nausea,sob w/ activity,va ricose veins, hx ulcer and hiatal hernia, arthritis in back, degenerative disks, pinched nerve L5, sciatica, spinal stenosis, hx anemia, urinary urgency/leakage (occasional incontinence of bladder and bowels) Pt seeing urologist to determine cause History of Any Multi-Drug Resistant Organisms: None Reported Past Surgical History: Adenoidectomy, Bariatric Surgery, Breast Surgery, Cholecystectomy, Joint Replacement, Orthopedic Surgery, Tonsillectomy Additional Past Surgical History / Comment(s): LT KNEE arthroscopy x2, bilateral hip replacement, lap band with hiatal hernia repair, loly breast biopsy,emphysema Past Anesthesia/Blood Transfusion Reactions: Motion Sickness Past Psychological History: Depression Smoking Status: Former smoker Past Alcohol Use History: Rare Past Drug Use History: None Reported - Past Family History Father Family Medical History: Cancer Brother(s) Family Medical History: Cancer General Exam Limitations: no limitations General appearance: alert, anxious Head exam: Present: atraumatic, normocephalic Eye exam: Present: normal appearance, PERRL Neck exam: Present: normal inspection. Absent: tenderness, meningismus Respiratory exam: Present: normal lung sounds bilaterally. Absent: respiratory distress, wheezes Cardiovascular Exam: Present: regular rate, normal rhythm GI/Abdominal exam: Present: soft. Absent: distended, tenderness, guarding Extremities exam: Present: normal inspection, normal capillary refill. Absent: pedal edema Neurological exam: Present: alert, oriented X3, CN II-XII intact. Absent: motor sensory deficit Psychiatric exam: Present: anxious Skin exam: Present: warm, dry, intact. Absent: cyanosis, diaphoretic Course Vital Signs 01/19/20 01/19/20 07:35 09:00 Temperature 98.5 F 97.9 F Pulse Rate 87 50 L Respiratory 16 16 Rate Blood Pressure 183/80 168/82 O2 Sat by Pulse 98 98 Oximetry - Reevaluation(s) Reevaluation #1: 01/19/20 08:[address] Gongora, will obtain CT with oral contrast Medical Decision Making - Medical Decision Making 64-year-old status post lap band with nausea vomiting, unable to tolerate any liquids or solid foods. CT performed with both oral and IV contrast, shows lap band in satisfactory position, there is gastric contents beyond the lap band however the oral contrast load did not repeat the distal esophagus or stomach or was diluted. Laboratory testing reveals normal CBC, normal x-rays, normal kidney function. Patient will be admitted to Dr. Valenzuela, , for IV hydration, possible adjustment of lap band. - Lab Data Result diagrams: 01/19/20 08:02 01/19/20 08:02 Lab Results 01/19/20 01/19/20 01/19/20 Range/Units 08:02 08:02 08:02 WBC 4.5 (3.8-10.6) k/uL RBC 5.02 (3.80-5.40) m/uL Hgb 13.2 (11.4-16.0) gm/dL Hct 43.3 (34.0-46.0) % MCV 86.3 (80.0-100.0) fL MCH 26.3 (25.0-35.0) pg MCHC 30.5 L (31.0-37.0) g/dL RDW 14.5 (11.5-15.5) % Plt Count 228 (150-450) k/uL Neutrophils % 68 % Lymphocytes % 24 % Monocytes % 3 % Eosinophils % 4 % Basophils % 1 % Neutrophils # 3.1 (1.3-7.7) k/uL Lymphocytes # 1.1 (1.0-4.8) k/uL Monocytes # 0.1 (0-1.0) k/uL Eosinophils # 0.2 (0-0.7) k/uL Basophils # 0.0 (0-0.2) k/uL Hypochromasia Slight Sodium 140 (137-145) mmol/L Potassium 4.4 (3.5-5.1) mmol/L Chloride 111 H (98-107) mmol/L Carbon Dioxide 23 (22-30) mmol/L Anion Gap 6 mmol/L BUN 12 (7-17) mg/dL Creatinine 0.96 (0.52-1.04) mg/dL Est GFR (CKD-EPI)AfAm 71 (>60 ml/min/1.73 sqM) Est GFR (CKD-EPI)NonAf 62 (>60 ml/min/1.73 sqM) Glucose 119 H (74-99) mg/dL Calcium 9.0 (8.4-10.2) mg/dL Total Bilirubin 0.6 (0.2-1.3) mg/dL AST 37 H (14-36) U/L ALT 36 H (4-34) U/L Alkaline Phosphatase 156 H (38-126) U/L Total Protein 6.9 (6.3-8.2) g/dL Albumin 4.0 (3.5-5.0) g/dL Amylase 95 (30-110) U/L Lipase 93 (23-300) U/L Urine Color Yellow Urine Appearance Clear (Clear) Urine pH 6.0 (5.0-8.0) Ur Specific [place] 1.020 (1.001-1.035) Urine Protein Trace H (Negative) Urine Glucose (UA) Negative (Negative) Urine Ketones Negative (Negative) Urine Blood Negative (Negative) Urine Nitrite Negative (Negative) Urine Bilirubin Negative (Negative) Urine Urobilinogen 3.0 (<2.0) mg/dL Ur Leukocyte Esterase Negative (Negative) Disposition Clinical Impression: Dehydration, Hx of laparoscopic gastric banding, Partial gastric outlet obstruction Disposition: ADMITTED IP TO THIS [facility] Condition: Stable Is patient prescribed a controlled substance at d/c from ED?: No Referrals: Dilia Wilkerson DO [Primary Care Provider] - 1-2 days Decision to Admit Reason: Admit from EC Decision Date: 01/19/20 Decision Time: 09:33
[2020-01-19 08:32] LABS: Basophils % (A) 1 %; Eosinophils # (A) 0.2 k/uL (0-0.7); Eosinophils % (A) 4 %; HCT 43.3 % (34.0-46.0); HGB 13.2 gm/dL (11.4-16.0); Hypochromasia Slight; Lymphocytes # (A) 1.1 k/uL (1.0-4.8); Lymphocytes % (A) 24 %; MCH 26.3 pg (25.0-35.0); MCHC 30.5 g/dL (31.0-37.0); MCV 86.3 fL (80.0-100.0); Monocytes # (A) 0.1 k/uL (0-1.0); Monocytes % (A) 3 %; Neutrophils # (A) 3.1 k/uL (1.3-7.7); Neutrophils % (A) 68 %; Platelet Count 228 k/uL (150-450); RBC 5.02 m/uL (3.80-5.40); RDW 14.5 % (11.5-15.5); WBC 4.5 k/uL (3.8-10.6)
[2020-01-19 08:39] LABS: Appearance,Urine Clear (Clear); Bilirubin,Urine Negative (Negative); Blood,Urine Negative (Negative); Color,Urine Yellow; Glucose,Urine (UA) Negative (Negative); Ketones,Urine Negative (Negative); Leukocyte Esterase,Urine Negative (Negative); Nitrite,Urine Negative (Negative); Protein,Urine Trace (Negative)
[2020-01-19 08:41] LABS: Potassium 4.4 mmol/L (3.5-5.1); Total Bilirubin 0.6 mg/dL (0.2-1.3); Total Protein 6.9 g/dL (6.3-8.2)
[2020-01-19 09:09] VITALS: TEMP 97.9
--- NOTE | 2020-01-19 09:22 | CT ---
EXAMINATION TYPE: CT abdomen pelvis w con DATE OF EXAM: 01/19/2020 REFERENCE: NONE HISTORY: abdominal pain HISTORY: vomiting CT DLP: 3477 mGy Automated exposure control for dose reduction was used. TECHNIQUE: Helical acquisition through the abdomen and pelvis was obtained following the oral ingesti on of with Oral Contrast and following intravenous administration of 100 mL of Isovue 300. The data w as reformatted in axial, coronal and sagittal projections. FINDINGS: Visualized portions of the lungs are clear. There is no pleural or pericardial fluid. The heart is enlarged. Within the abdomen, a lap band is in place. The lap band appears in good position. The liver is unremarkable. The gallbladder is been removed. The spleen is normal. The right adrenal gland is normal. There is a 3.6 cm low attenuating left adrenal mass. This is noted on previous CT scan of the chest dated 02/01/2019. Both kidneys demonstrate function and appear morphologically normal. The pancreas is unremarkable. There is no significant retroperitoneal, iliac or inguinal adenopathy. There are bilateral hip prostheses in place. This is causing significant streak artifact through the pelvis. Limited views of the bladder unremarkable. The uterus is normal. The ovaries are not seen wit h certainty. There is no significant diverticular change and there is no radiographic evidence of diverticulitis. The appendix is not seen with certainty. Small bowel loops are normal caliber. There is no free fluid and no free air. There is degenerative disc disease with vacuum phenomena at T12-L1, L4-5 and L5-S1. This hypertrophic spondylosis throughout the lower dorsal spine. IMPRESSION: 1. STATUS POST LAP BAND SURGERY. 2. MILD CARDIOMEGALY. 3. 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 4. DEGENERATIVE CHANGE WITHIN THE SPINE.
[2020-01-19] MEDS ORDERED: MORPHINE SULFATE 4 MG/0.8 ML SYRINGE (INJ) IVP STA (09:29)
[2020-01-19] MEDS ORDERED: ALPRAZolam 0.25 MG TAB PO PRN (09:30)
[2020-01-19] MEDS ORDERED: MORPHINE SULFATE 4 MG/ML SYRINGE IV PRN (09:30)
[2020-01-19] MEDS ORDERED: ONDANSETRON 4 MG/2 ML VIAL IVP PRN (09:30)
[2020-01-19] MEDS ORDERED: SODIUM CHLORIDE 0.9% 1,000 ML IV SCH (09:30)
[2020-01-19] MEDS ORDERED: NALOXONE 0.4 MG/ML 1 ML VIAL IV PRN (09:30)
[2020-01-19] MEDS ORDERED: MORPHINE SULFATE 4 MG/ML SYRINGE IVP STA (09:34)
--- NOTE | 2020-01-19 10:01 | ED ---
Medical Decision Making - Medical Decision Making Patient cleared by Dr. Gongora, stable for discharge - Lab Data Result diagrams: 01/19/20 08:02 01/19/20 08:02 Lab Results 01/19/20 01/19/20 01/19/20 Range/Units 08:02 08:02 08:02 WBC 4.5 (3.8-10.6) k/uL RBC 5.02 (3.80-5.40) m/uL Hgb 13.2 (11.4-16.0) gm/dL Hct 43.3 (34.0-46.0) % MCV 86.3 (80.0-100.0) fL MCH 26.3 (25.0-35.0) pg MCHC 30.5 L (31.0-37.0) g/dL RDW 14.5 (11.5-15.5) % Plt Count 228 (150-450) k/uL Neutrophils % 68 % Lymphocytes % 24 % Monocytes % 3 % Eosinophils % 4 % Basophils % 1 % Neutrophils # 3.1 (1.3-7.7) k/uL Lymphocytes # 1.1 (1.0-4.8) k/uL Monocytes # 0.1 (0-1.0) k/uL Eosinophils # 0.2 (0-0.7) k/uL Basophils # 0.0 (0-0.2) k/uL Hypochromasia Slight Sodium 140 (137-145) mmol/L Potassium 4.4 (3.5-5.1) mmol/L Chloride 111 H (98-107) mmol/L Carbon Dioxide 23 (22-30) mmol/L Anion Gap 6 mmol/L BUN 12 (7-17) mg/dL Creatinine 0.96 (0.52-1.04) mg/dL Est GFR (CKD-EPI)AfAm 71 (>60 ml/min/1.73 sqM) Est GFR (CKD-EPI)NonAf 62 (>60 ml/min/1.73 sqM) Glucose 119 H (74-99) mg/dL Calcium 9.0 (8.4-10.2) mg/dL Total Bilirubin 0.6 (0.2-1.3) mg/dL AST 37 H (14-36) U/L ALT 36 H (4-34) U/L Alkaline Phosphatase 156 H (38-126) U/L Total Protein 6.9 (6.3-8.2) g/dL Albumin 4.0 (3.5-5.0) g/dL Amylase 95 (30-110) U/L Lipase 93 (23-300) U/L Urine Color Yellow Urine Appearance Clear (Clear) Urine pH 6.0 (5.0-8.0) Ur Specific [place] 1.020 (1.001-1.035) Urine Protein Trace H (Negative) Urine Glucose (UA) Negative (Negative) Urine Ketones Negative (Negative) Urine Blood Negative (Negative) Urine Nitrite Negative (Negative) Urine Bilirubin Negative (Negative) Urine Urobilinogen 3.0 (<2.0) mg/dL Ur Leukocyte Esterase Negative (Negative) Disposition Clinical Impression: Dehydration, Hx of laparoscopic gastric banding, Partial gastric outlet obstruction Disposition: HOME SELF-CARE Condition: Good Is patient prescribed a controlled substance at d/c from ED?: No Time of Disposition: 10:00
--- NOTE | 2020-01-19 10:20 | P.GSCN ---
History of Present Illness Consult date: 01/19/20 History of present illness: Patient seen and evaluated. CT of the abdomen and pelvis reviewed without findings of band slip. Patient just had a band fill 6 days ago. She reports going to 1 days eating a potato sandwich and eggs. She admits able to tolerate her pills since yesterday her keep any food down. She presented to the emergency room. I recommend a CT of the abdomen and pelvis to exclude band slippage. No band slippage, computed tomography scan. At bedside, 7 mL of normal saline removed along the right upper quadrant port after anesthetizing the skin with 20 mL 1% lidocaine with 22-gauge needle and 10 mL syringe. After procedure, patient was able to tolerate drinking fluids. Patient may be discharged home. Follow-up the bariatric center. Past Medical History Past Medical History: GERD/Reflux, Hyperlipidemia, Hypertension, Osteoarthritis (OA), Pneumonia, Sleep Apnea/CPAP/BIPAP, Thyroid Disorder Additional Past Medical History / Comment(s): having nausea,sob w/ activity,vari cose veins, hx ulcer and hiatal hernia, arthritis in back, degenerative disks, pinched nerve L5, sciatica, spinal stenosis, hx anemia, urinary urgency/leakage (occasional incontinence of bladder and bowels) Pt seeing urologist to determine cause History of Any Multi-Drug Resistant Organisms: None Reported Past Surgical History: Adenoidectomy, Bariatric Surgery, Breast Surgery, Cholecystectomy, Joint Replacement, Orthopedic Surgery, Tonsillectomy Additional Past Surgical History / Comment(s): LT KNEE arthroscopy x2, bilateral hip replacement, lap band with hiatal hernia repair, loly breast biopsy,emphysema Past Anesthesia/Blood Transfusion Reactions: Motion Sickness Past Psychological History: Depression Smoking Status: Former smoker Past Alcohol Use History: Rare Past Drug Use History: None Reported - Past Family History Father Family Medical History: Cancer Brother(s) Family Medical History: Cancer Medications and Allergies Home Medications Medication Instructions Recorded Confirmed Type Levothyroxine Sodium [Synthroid] 50 mcg PO QAM 08/31/17 12/16/19 History Omeprazole 40 mg PO DAILY 08/31/17 12/16/19 History Pravastatin Sodium [Pravachol] 40 mg PO HS 08/31/17 12/16/19 History Ranitidine HCl 300 mg PO HS 02/12/18 12/16/19 History Diclofenac Sodium [Voltaren] 75 mg PO BID 05/06/19 12/16/19 History FLUoxetine HCL [PROzac] 40 mg PO BID 05/06/19 12/16/19 History Fluticasone Nasal [place] [Flonase 2 spray NASAL DAILY 05/06/19 12/16/19 History Nasal [place]] Metoprolol Succinate [Toprol XL] 25 mg PO BID 05/06/19 12/16/19 History Ondansetron [Zofran] 8 mg PO Q8H PRN 05/06/19 12/16/19 History Gabapentin 800 mg PO QID 05/16/19 12/16/19 History HYDROcodone/APAP 10-325MG [[place] 1 tab PO Q8H PRN 05/16/19 12/16/19 History 10-325] Losartan Potassium 100 mg PO QAM 05/16/19 12/16/19 History Topiramate [Trokendi Xr] 50 mg PO HS 05/16/19 12/16/19 History Docusate [Colace] 100 mg PO BID #20 capsule 05/29/19 12/16/19 Rx HYDROcodone/APAP 5-325MG [[place] 1 tab PO Q6HR PRN #10 tab 05/29/19 12/16/19 Rx 5-325] Trospium Chloride [Sanctura XR] 60 mg PO HS 09/23/19 12/16/19 History Allergies Allergy/AdvReac Type Severity Reaction Status Date / Time aripiprazole [From [facility]] Allergy Anaphylaxis, Verified 01/19/20 07:37 TROUBLE BREATHING Surgical - Exam Vital Signs Temp Pulse Resp BP Pulse Ox 98.5 F 87 16 183/80 98 01/19/20 07:35 01/19/20 07:35 01/19/20 07:35 01/19/20 07:35 01/19/20 07:35 Results - Labs 01/19/20 08:02 01/19/20 08:02 Abnormal Lab Results - Last 24 Hours (Table) 01/19/20 01/19/20 01/19/20 Range/Units 08:02 08:02 08:02 MCHC 30.5 L (31.0-37.0) g/dL Chloride 111 H (98-107) mmol/L Glucose 119 H (74-99) mg/dL AST 37 H (14-36) U/L ALT 36 H (4-34) U/L Alkaline Phosphatase 156 H (38-126) U/L Urine Protein Trace H (Negative) Diabetes panel 01/19/20 Range/Units 08:02 Sodium 140 (137-145) mmol/L Potassium 4.4 (3.5-5.1) mmol/L Chloride 111 H (98-107) mmol/L Carbon Dioxide 23 (22-30) mmol/L BUN 12 (7-17) mg/dL Creatinine 0.96 (0.52-1.04) mg/dL Glucose 119 H (74-99) mg/dL Calcium 9.0 (8.4-10.2) mg/dL AST 37 H (14-36) U/L ALT 36 H (4-34) U/L Alkaline Phosphatase 156 H (38-126) U/L Total Protein 6.9 (6.3-8.2) g/dL Albumin 4.0 (3.5-5.0) g/dL Calcium panel 01/19/20 Range/Units 08:02 Calcium 9.0 (8.4-10.2) mg/dL Albumin 4.0 (3.5-5.0) g/dL Pituitary panel 01/19/20 Range/Units 08:02 Sodium 140 (137-145) mmol/L Potassium 4.4 (3.5-5.1) mmol/L Chloride 111 H (98-107) mmol/L Carbon Dioxide 23 (22-30) mmol/L BUN 12 (7-17) mg/dL Creatinine 0.96 (0.52-1.04) mg/dL Glucose 119 H (74-99) mg/dL Calcium 9.0 (8.4-10.2) mg/dL Adrenal panel 01/19/20 Range/Units 08:02 Sodium 140 (137-145) mmol/L Potassium 4.4 (3.5-5.1) mmol/L Chloride 111 H (98-107) mmol/L Carbon Dioxide 23 (22-30) mmol/L BUN 12 (7-17) mg/dL Creatinine 0.96 (0.52-1.04) mg/dL Glucose 119 H (74-99) mg/dL Calcium 9.0 (8.4-10.2) mg/dL Total Bilirubin 0.6 (0.2-1.3) mg/dL AST 37 H (14-36) U/L ALT 36 H (4-34) U/L Alkaline Phosphatase 156 H (38-126) U/L Total Protein 6.9 (6.3-8.2) g/dL Albumin 4.0 (3.5-5.0) g/dL
[2020-01-19 10:22] VITALS: BP 170/78; PULSE 60; RESP 18
== END 2020-01-19 10:17 | disposition home or self-care (01) ==
LOC: EC 07:31 → 6PED 09:30 → UNDOADMOB 09:30 → 6PED 09:50 → EC 10:17
DX: E86.0 Dehydration (principal); K31.1 Adult hypertrophic pyloric stenosis; K21.9 Gastro-esophageal reflux disease without esophagitis; E78.5 Hyperlipidemia, unspecified; I10 Essential (primary) hypertension; F32.9 Major depressive disorder, single episode, unspecified; E07.9 Disorder of thyroid, unspecified; M19.90 Unspecified osteoarthritis, unspecified site; G47.30 Sleep apnea, unspecified; Z98.84 Bariatric surgery status; Z90.89 Acquired absence of other organs; Z90.49 Acquired absence of other specified parts of digestive tract; Z96.643 Presence of artificial hip joint, bilateral; Z88.8 Allergy status to other drugs, medicaments and biological substances; Z79.890 Hormone replacement therapy; Z79.899 Other long term (current) drug therapy
CPT/HCPCS: 36415; 80053; 82150; 83690; 85025; 81003; 74177; 99285; Q9967

== ENCOUNTER → 2020-01-27 | Outpatient (CLI) | payer MEDICARE, BC ==
[2020-01-27 14:54] VITALS: BP 131/83; PULSE 46; TEMP 97.8; BMI 51.3
--- NOTE | 2020-02-06 12:54 | P.HPBAR ---
Bariatric H&P - History & Physicial H&P Date: 01/27/20 History & Physicial: Visit/CC: lap band follow up Patient initial contact: Initial weight: 158.757 kg Initial weight in pounds: 350.00 Height: 5 ft 6.7 in Initial BMI: 55.3 Last weight: Current weight: 147.418 kg Current weight in pounds: 325.00 Current BMI: 51.3 [place] body weight (based on NIH guidelines): 60.555 kg Excess body weight loss: 11.5% The patient is a 64 year-old F who presents for Bariatric Assessment.patient ret urns today for lap band follow-up. Patient is requesting a refill of her band. Past Medical History Past Medical History: GERD/Reflux, Hyperlipidemia, Hypertension, Osteoarthritis (OA), Pneumonia, Sleep Apnea/CPAP/BIPAP, Thyroid Disorder Additional Past Medical History / Comment(s): having nausea,sob w/ activity,varicose veins, hx ulcer and hiatal hernia, arthritis in back, degenerative disks, pinched nerve L5, sciatica, spinal stenosis, hx anemia, urinary urgency/leakage (occasional incontinence of bladder and bowels) Pt see ing urologist to determine cause History of Any Multi-Drug Resistant Organisms: None Reported Past Surgical History: Adenoidectomy, Bariatric Surgery, Breast Surgery, Cholecystectomy, Joint Replacement, Orthopedic Surgery, Tonsillectomy Additional Past Surgical History / Comment(s): LT KNEE arthroscopy x2, bilateral hip replacement, lap band with hiatal hernia repair, loly breast biopsy,emphysema Past Anesthesia/Blood Transfusion Reactions: Motion Sickness Past Psychological History: Depression Smoking Status: Former smoker Past Alcohol Use History: Rare Additional Past Alcohol Use History / Comment(s): QUIT SMOKING 2006, started smoking age 18's, 1 PPD Past Drug Use History: None Reported - Past Family History Father Family Medical History: Cancer Brother(s) Family Medical History: Cancer Surgical - Exam Vital Signs Temp Pulse BP 97.8 F 46 L 131/83 01/27/20 14:52 01/27/20 14:52 01/27/20 14:52 - General well developed, well nourished, no distress - Eyes PERRL - ENT normal pinna - Neck no masses - Cardiovascular Rhythm: regular - Abdomen Abdomen: soft, non tender Bariatric Assessment & Plan Plan: patient's lap band was adjusted. She had 3 cc added to the band. She'll follow-up in 4 weeks. Bariatric Checklist Checklist: Plan: Checklist: EGD: 1. Hiatal hernia: 2. H. Pylori: HgbA1c: Vitamin D: Smoking: Former smoker Primary care physician referral: Karen Rivera (CERTIFIED CODING SPECIALIST at Dr. Dilia Wilkerson's office) Psychiatry clearance: Cardiology clearance: Sleep study: Diet journal: VTE risk score: VTE risk level: Rehab needs at discharge:
== END | disposition home or self-care (01) ==
LOC: BARWHC3 13:36
PROVIDERS: ATTEND Surgery
DX: Z46.51 Encounter for fitting and adjustment of gastric lap band (principal); Z87.891 Personal history of nicotine dependence
CPT/HCPCS: 99212

== ENCOUNTER → 2020-02-27 | Outpatient (CLI) | payer MEDICARE, BC | END | disposition home or self-care (01) | LOC: LABWHC1 14:22 | PROVIDERS: ATTEND Physician Assistant | DX: R19.7 Diarrhea, unspecified (principal) | CPT/HCPCS: 87328; 87329 ==

== ENCOUNTER 2022-10-23 15:37 | Emergency (ER) | payer MEDICARE, BC ==
[2022-10-23 15:47] VITALS: RESP 18; TEMP 98.4
[2022-10-23] MEDS ORDERED: PROCHLORPERAZINE INJ 10 MG/2 ML VIAL IVP STA (16:08)
[2022-10-23] MEDS ORDERED: SODIUM CHLORIDE 0.9% 1,000 ML IV STA (16:08)
--- NOTE | 2022-10-23 16:12 | ED ---
General Adult HPI - General Chief complaint: Nausea/Vomiting/Diarrhea Stated complaint: Vomiting;Diarrhea; juanis Time Seen by Provider: 10/23/22 16:02 Source: patient, EMS, RN notes reviewed Mode of arrival: EMS Limitations: no limitations - History of Present Illness Initial comments: Patient is a 66-year-old, -N[place]alese female presenting to the emergency room via EMS from [facility] on the [place] with complaints of abdominal pain, nausea, vomiting and diarrhea which started today. She was diagnosed with COVID approximately one week ago and was hospitalized at the end of SeptemberOctober 10 due to infected pressure ulcer. She received was still reports of nausea without any emesis production at this time. She received 500 L IV fluid bolus by EMS along with 4 mg of Zofran. She also reports some difficulty in breathing however she is oxygenating well. She she reports generalized malaise, body aches and intermittent fevers and chills however she is afebrile at this time. She denies any chest pain, focal neurological deficits, headache, dizziness, vision changes or altered mental status. She has a past medical history in addition to her recent hospitalization for infected sacral decubitus and COVID of GERD, hyperlipidemia, hypertension, osteoarthritis, sleep apnea, hypothyroidism, degenerative disc disease, spinal stenosis with chronic back pain along with chronic urinary leakage. - Related Data Home Medications Medication Instructions Recorded Confirmed Levothyroxine Sodium [Synthroid] 50 mcg PO DAILY 08/31/17 10/04/22 Metoprolol Succinate [Toprol XL] 25 mg PO DAILY 05/06/19 10/04/22 Losartan Potassium 100 mg PO DAILY 05/16/19 10/04/22 Albuterol Inhaler [Ventolin Hfa 1 - 2 puff INHALATION RT-Q4H PRN 10/04/22 10/04/22 Inhaler] Baclofen [Lioresal] 20 mg PO HS 10/04/22 10/04/22 Cetirizine HCl 10 mg PO DAILY 10/04/22 10/04/22 Cholecalciferol [Vitamin D3 (25 25 mcg PO DAILY 10/04/22 10/04/22 Mcg = 1000 Iu)] Cyanocobalamin [Vitamin B-12] 500 mcg PO DAILY 10/04/22 10/04/22 FLUoxetine HCL 40 mg PO DAILY 10/04/22 10/04/22 Fluticasone Propion/Salmeterol 1 puff INHALATION RT-BID 10/04/22 10/04/22 [Fluticasone-Salmeterol 250-50] Multivitamins, Thera [Multivitamin 1 tab PO DAILY 10/04/22 10/04/22 (formulary)] Ondansetron Odt [Zofran ODT] 4 mg PO Q8HR PRN 10/04/22 10/04/22 Pravastatin Sodium [Pravachol] 40 mg PO MOWEFR 10/04/22 10/04/22 Tiotropium 2.5 Mcg/Puff [Spiriva 2 puff INHALATION RT-DAILY 10/04/22 10/04/22 Respimat 2.5 Mcg] Previous Rx's Medication Instructions Recorded Acetaminophen Tab [Tylenol] 650 mg PO Q6HR PRN tab 10/10/22 Amoxic-Pot Clav 875-125Mg 1 tab PO BID 7 Days #14 tab 10/10/22 [Augmentin 875-125] Gabapentin 800 mg PO QID #12 tab 10/10/22 HYDROcodone/APAP 10-325MG [Craig 1 each PO Q6HR PRN #12 tab 10/10/22 10-325] Prochlorperazine [Compazine] 10 mg PO Q8H PRN 7 Days #21 tab 10/23/22 Allergies Allergy/AdvReac Type Severity Reaction Status Date / Time aripiprazole [From Abilify] Allergy Anaphylaxis, Verified 10/23/22 15:47 TROUBLE BREATHING Review of Systems ROS Statement: Those systems with pertinent positive or pertinent negative responses have been documented in the HPI. ROS Other: All systems not noted in ROS Statement are negative. Past Medical History Past Medical History: GERD/Reflux, Hyperlipidemia, Hypertension, Osteoarthritis (OA), Pneumonia, Sleep Apnea/CPAP/BIPAP, Thyroid Disorder Additional Past Medical History / Comment(s): having nausea,sob w/ activity,varicose veins, hx ulcer and hiatal hernia, arthritis in back, degenerative disks, pinched nerve L5, sciatica, spinal stenosis, hx anemia, urinary urgency/leakage (occasional incontinence of bladder and bowels) Pt seeing urologist to determine cause History of Any Multi-Drug Resistant Organisms: None Reported Past Surgical History: Adenoidectomy, Bariatric Surgery, Breast Surgery, Cholecystectomy, Joint Replacement, Orthopedic Surgery, Tonsillectomy Additional Past Surgical History / Comment(s): LT KNEE arthroscopy x2, bilateral hip replacement, lap band with hiatal hernia repair, loly breast biopsy,emphysema Past Anesthesia/Blood Transfusion Reactions: Motion Sickness Past Psychological History: Depression Smoking Status: Former smoker Past Alcohol Use History: Rare Past Drug Use History: None Reported - Past Family History Father Family Medical History: Cancer Brother(s) Family Medical History: Cancer General Exam - General Exam Comments Initial Comments: GENERAL: No acute distress, well developed, well nourished. Morbidly obese HEENT: Normocephalic, atraumatic. Pupils equal, round, reactive to light. Moist mucous membranes. LUNGS: No respiratory distress. Clear to auscultation, no adventitious sounds, n o use of accessory muscles. HEART: Regular rate and rhythm without murmur, rub, or gallop. ABDOMEN: Normal bowel sounds. Soft, non-tender, non-distended. BACK: Normal inspection. EXTREMITIES: No edema. No tenderness. Moves all extremities. NEUROLOGIC: Alert & oriented x 3. CN II-XII grossly intact. PSYCHIATRIC: Normal affect and behavior. DERMATOLOGIC: Buttocks pressure ulcer not no other skin abnormalities noted. Limitations: no limitations Course Vital Signs 10/23/22 10/23/22 10/23/22 15:42 16:20 16:46 Temperature 98.4 F Pulse Rate 84 79 83 Respiratory 18 18 18 Rate Blood Pressure 188/90 209/97 208/95 O2 Sat by Pulse 99 98 96 Oximetry 10/23/22 10/23/22 10/23/22 17:22 17:46 17:57 Temperature Pulse Rate 80 76 81 Respiratory 18 18 18 Rate Blood Pressure 207/93 193/76 180/85 O2 Sat by Pulse 98 97 94 L Oximetry Medical Decision Making - Medical Decision Making Was pt. sent in by a medical professional or institution (, PA, DRAGGER, urgent care, hospital, or long term...) When possible be specific @ -[facility] on the [place] Did you speak to anyone other than the patient for history (EMS, parent, family, police, friend...)? What history was obtained from this source @ -EMS Did you review nursing and triage notes (agree or disagree)? Why? @ -I reviewed and agree with nursing and triage notes Were old charts reviewed (outside hosp., previous admission, EMS record, old EKG, old radiological studies, urgent care reports/EKG's, long term records)? Report findings @ -Discharge summary from 10/10/2022 and most recent laboratory studies. Differential Diagnosis (chest pain, altered mental status, abdominal pain women, abdominal pain men, vaginal bleeding, weakness, fever, dyspnea, syncope, headache, dizziness, GI bleed, back pain, seizure, CVA, palpatations, mental health, musculoskeletal)? @ -Differential Abdominal Pain Women: Appendicitis, Cholecystitis, diverticulosis, ischemic bowel, pancreatitis, hepatitis, UTI, gastroenteritis, AAA, incarcerated hernia, bowel obstruction, constipation, inflammatory bowel, hepatitis, peptic ulcer disease, splenic infarction, perforated viscus, vulvitis, ovarian torsion, PID, kidney stone, placenta abruption, this is not meant to be an all-inclusive list EKG interpreted by me (3pts min.). @ -None done X-rays interpreted by me (1pt min.). @ -None done CT interpreted by me (1pt min.). @ -None done U/S interpreted by me (1pt. min.). @ -None done What testing was considered but not performed or refused? (CT, X-rays, U/S, labs)? Why? @ -None What meds were considered but not given or refused? Why? @ -None Did you discuss the management of the patient with other professionals (professionals i.e. , PA, DRAGGER, lab, RT, psych nurse, social worker palliative care, hydraulic blocker, teacher, immigration services officer, test case developer)? Give summary @ -No Was smoking cessation discussed for >3mins.? @ -No Was critical care preformed (if so, how long)? @ -No Were there social determinants of health that impacted care today? How? (Homelessness, low income, unemployed, alcoholism, drug addiction, transportation, low edu. Level, literacy, decrease access to med. care, longterm, rehab)? @ -No Was there de-escalation of care discussed even if they declined (Discuss DNR or withdrawal of care, Hospice)? DNR status @ -No What co-morbidities impacted this encounter? (DM, HTN, Smoking, COPD, CAD, Cancer, CVA, ARF, Chemo, Hep., AIDS, mental health diagnosis, sleep apnea, morbid obesity)? @ -None Was patient admitted / discharged? Hospital course, mention meds given and route, prescriptions, significant lab abnormalities, going to OR and other pertinent info. @ -66-year-old -N[place]alese female presenting to the emergency room via EMS with complaints of nausea vomiting diarrhea and generalized malaise. She was iris gnosed with COVID approximately one week ago. Her shortness of breath is near baseline. She is afebrile. Zofran 4 mg given by EMS along with 500 L fluid bolus still with nausea and dry heaves no emesis production. Will give Compazine 10 mg IV and additional 1 L fluid bolus no indication for diagnostic imaging or laboratory studies will monitor closely. Blood pressure elevated Lopressor given with reduction of blood pressure to 180/85 which is near her arrival blood pressure. Symptoms improved with IV hydration and Compazine. No indication for further diagnostic imaging or laboratory studies will arrange transportation back to [facility] for continued rehabilitative services. Questions and concerns answered. Return parameters to the emergency room discussed. Will discharge back to [facility] in stable condition with symptomatic management of nausea vomiting diarrhea. Undiagnosed new problem with uncertain prognosis? @ -No Drug Therapy requiring intensive monitoring for toxicity (Heparin, Nitro, Insulin, Cardizem)? @ -No Were any procedures done? @ -No Diagnosis/symptom? @ -Nausea, vomiting, diarrhea due to viral illness Acute, or Chronic, or Acute on Chronic? @ -Acute Uncomplicated (without systemic symptoms) or Complicated (systemic symptoms)? @ -Uncomplicated Side effects of treatment? @ -No Exacerbation, Progression, or Severe Exacerbation? @ -No Poses a threat to life or bodily function? How? (Chest pain, USA, VT, pneumonia, PE, COPD, DKA, ARF, appy, cholecystitis, CVA, Diverticulitis, Homicidal, Suicidal, threat to staff... and all critical care pts) @ -No. Case discussed with Dr. Beckwith Disposition Clinical Impression: COVID, Nausea vomiting and diarrhea Disposition: HOME SELF-CARE Condition: Stable Instructions (If sedation given, give patient instructions): Acute Nausea and Vomiting (ED), Acute Diarrhea (ED) Additional Instructions: Please utilize Compazine as needed for nausea vomiting. Please stay well hydrated. Please follow-up with your primary care provider. Please return to the Emergency Department if symptoms worsen or any other concerns. Prescriptions: Prochlorperazine [Compazine] 10 mg PO Q8H PRN 7 Days #21 tab PRN Reason: Nausea Is patient prescribed a controlled substance at d/c from ED?: No Referrals: Dilia Wilkerson DO [Primary Care Provider] - 1-2 days Time of Disposition: 18:01
[2022-10-23] MEDS ORDERED: METOPROLOL TARTRATE 5 MG/5 ML VIAL IVP STA (16:30)
[2022-10-23] MEDS ORDERED: METOPROLOL TARTRATE 5 MG/5 ML VIAL IVP ONE (17:16)
[2022-10-23 17:58] VITALS: PULSE 81
[2022-10-23 19:06] VITALS: BP 167/74
== END 2022-10-23 20:49 | disposition home or self-care (01) ==
LOC: EC 15:37
DX: U07.1 COVID-19 (principal); K21.9 Gastro-esophageal reflux disease without esophagitis; E78.5 Hyperlipidemia, unspecified; I10 Essential (primary) hypertension; M19.90 Unspecified osteoarthritis, unspecified site; G47.30 Sleep apnea, unspecified; E07.9 Disorder of thyroid, unspecified; F32.A Depression, unspecified; Z87.891 Personal history of nicotine dependence; Z79.890 Hormone replacement therapy; Z79.1 Long term (current) use of non-steroidal anti-inflammatories (NSAID); Z79.899 Other long term (current) drug therapy; Z88.6 Allergy status to analgesic agent
CPT/HCPCS: 99285; 96374; 96375; 96376; 96361; J0780

== ENCOUNTER → 2022-11-29 | Outpatient (CLI) | payer MEDICARE, BC ==
--- NOTE | 2022-11-29 08:37 | CT ---
EXAMINATION TYPE: CT chest w con DATE OF EXAM: 11/29/2022 COMPARISON: 02/01/2019 HISTORY: 67-year-old female R9 1.8, shortness of breath, Difficulty breathing post covid. TECHNIQUE: Contiguous axial scanning of the chest after the administration of 100ml mL of Isovue 300. Coronal/sagittal reconstructions performed. CT DLP: 585.1mGycm. Automatic exposure control utilized for a dose reduction. FINDINGS: The heart is mildly enlarged without pericardial effusion. Aorta normal caliber with bovine configuration and minimal atherosclerotic arch calcifications. Mildly enlarged caliber to the main right and left pulmonary arteries measuring up to 2.6 cm suggesti ng underlying pulmonary hypertension. No thoracic lymphadenopathy by CT size criteria. Bandlike areas of scarring, increased interstitial and some subpleural groundglass density in the low er lungs has either increased or is new. There is also associated bibasilar bronchiolectasis, greater on the left. No pleural effusion or adrien consolidation. Visualized upper abdomen shows lap band device in place and stable 3.6 cm left adrenal adenoma. Bridgett cystectomy clips. Bones: Moderate degenerative disc disease especially mid and lower thoracic spine. Degenerative hernandez e prominently at both shoulders. IMPRESSION: 1. Interstitial scarring, some subpleural groundglass changes, and mild bronchiolectasis in the lower lungs is either new or increased from 2019. Suspect postinfectious scarring. 2. Mild cardiomegaly and possible underlying pulmonary hypertension. 3. Redemonstrated 3.6 cm benign left adrenal adenoma.
== END | disposition home or self-care (01) ==
LOC: RADCTMAIN 07:10
PROVIDERS: ATTEND Internal Medicine
DX: J47.9 Bronchiectasis, uncomplicated (principal); J98.4 Other disorders of lung; R91.8 Other nonspecific abnormal finding of lung field; D35.02 Benign neoplasm of left adrenal gland; I51.7 Cardiomegaly; Z86.16 Personal history of COVID-19
CPT/HCPCS: 71260; Q9967

== ENCOUNTER → 2023-06-07 | Outpatient (CLI) | payer MEDICARE, BC ==
--- NOTE | 2023-06-08 07:22 | XR ---
EXAMINATION TYPE: XR Hip Bilateral Complete DATE OF EXAM: 06/07/2023 COMPARISON: NONE HISTORY: Pain TECHNIQUE: 2 views of each hip submitted FINDINGS: Right hip: Postoperative change. No acute fracture. No Dislocation. Left hip: Postoperative change. No acute fracture. No Dislocation. IMPRESSION: 1. No acute process.
--- NOTE | 2023-06-08 07:30 | XR ---
EXAM TYPE: LUMBAR SPINE X RAY SERIES COMPARISON: 01/21/2012 HISTORY: Pain TECHNIQUE: 4 views are submitted. FINDINGS: Alignment is anatomic. The pedicles are intact. The transverse processes are intact. There is vacu um disc T12-L1, L4-5 and L5-S1 compatible severe degenerative disc disease. No compression deformitie s. There is multilevel facet arthropathy. Tubing overlying the abdomen. IMPRESSION: 1. Severe multilevel degenerative disc disease\facet arthropathy mildly progressed from prior exam.
--- NOTE | 2023-06-08 07:32 | XR ---
EXAMINATION TYPE: XR knee complete bilateral DATE OF EXAM: 06/07/2023 COMPARISON: 11/16/2016 HISTORY: Pain TECHNIQUE: Three views are submitted. FINDINGS: Right knee: Severe narrowing of the patellofemoral joint and medial compartment of the knee joint wit h hypertrophic spurring. Small amount of fluid in the suprapatellar bursa. Mild diffuse osteopenia wi th no erosive change. No acute fracture. Left knee:. Severe narrowing of the patellofemoral joint and medial compartment of the knee joint wi th hypertrophic spurring. Small amount of fluid in the suprapatellar bursa. Mild diffuse osteopenia w ith no erosive change. No acute fracture. IMPRESSION: 1. Severe bilateral osteoarthritis. Progressed from prior exam.
== END | disposition home or self-care (01) ==
LOC: RADXRMAIN 17:31
PROVIDERS: ATTEND Psychiatry & Neurology Neurology
DX: M17.0 Bilateral primary osteoarthritis of knee (principal); M51.37 Other intervertebral disc degeneration, lumbosacral region; M51.35 Other intervertebral disc degeneration, thoracolumbar region; M47.816 Spondylosis without myelopathy or radiculopathy, lumbar region; M25.552 Pain in left hip; M25.551 Pain in right hip
CPT/HCPCS: 72110; 73521

== ENCOUNTER 2023-06-28 16:48 | Emergency (ER) | payer MEDICARE, BC ==
[2023-06-28] MEDS ORDERED: SODIUM CHLORIDE 0.9% 1,000 ML IV STA (16:58)
[2023-06-28] MEDS ORDERED: ONDANSETRON 4 MG/2 ML VIAL IVP STA (16:58)
[2023-06-28 17:27] VITALS: BP 155/68; PULSE 60; RESP 18; TEMP 97.7
[2023-06-28 17:45] LABS: Basophils % (A) 1 %; Eosinophils # (A) 0.2 k/uL (0-0.7); Eosinophils % (A) 4 %; HCT 38.2 % (34.0-46.0); Hypochromasia Moderate; Lymphocytes # (A) 0.7 k/uL (1.0-4.8); Lymphocytes % (A) 17 %; MCH 28.8 pg (25.0-35.0); MCHC 31.4 g/dL (31.0-37.0); MCV 91.5 fL (80.0-100.0); Mean Platelet Volume 9.4; Monocytes # (A) 0.1 k/uL (0-1.0); Monocytes % (A) 3 %; Neutrophils # (A) 2.9 k/uL (1.3-7.7); Neutrophils % (A) 74 %; Platelet Count 166 k/uL (150-450); RBC 4.17 m/uL (3.80-5.40); RDW 14.3 % (11.5-15.5)
--- NOTE | 2023-06-28 17:55 | ED ---
Dizziness HPI - General Chief Complaint: Dizziness Stated Complaint: Vomiting Time Seen by Provider: 06/28/23 16:57 Source: patient, EMS, RN notes reviewed, old records reviewed Mode of arrival: EMS Limitations: no limitations - History of Present Illness Initial Comments: This is a 67-year-old female to the emergency department for evaluation today. Patient presents today for evaluation regards. Dizziness nausea vomiting and dehydration. She was getting some physical therapy with dizziness lightheadedness while at physical therapy today. Her symptoms are improved here in the ER but she did overdose pass out this event happened to her in the past she has no headache chest pain or other complaints currently and will she is here year she feels well MD Complaint: dizziness, lightheadedness, near syncope -: hour(s) Timing: sudden onset Description: sense of movement, "room spinning", lightheadedness, near-syncope History of Same: Yes History of Trauma: No Severity: moderate Worsens With: nothing Associated Symptoms: shortness of breath, syncope - Related Data Home Medications Medication Instructions Recorded Confirmed Levothyroxine Sodium [Synthroid] 50 mcg PO DAILY 08/31/17 10/04/22 Metoprolol Succinate [Toprol XL] 25 mg PO DAILY 05/06/19 10/04/22 Losartan Potassium 100 mg PO DAILY 05/16/19 10/04/22 Albuterol Inhaler [Ventolin Hfa 1 - 2 puff INHALATION RT-Q4H PRN 10/04/22 10/04/22 Inhaler] Baclofen [Lioresal] 20 mg PO HS 10/04/22 10/04/22 Cetirizine HCl 10 mg PO DAILY 10/04/22 10/04/22 Cholecalciferol [Vitamin D3 (25 25 mcg PO DAILY 10/04/22 10/04/22 Mcg = 1000 Iu)] Cyanocobalamin [Vitamin B-12] 500 mcg PO DAILY 10/04/22 10/04/22 FLUoxetine HCL 40 mg PO DAILY 10/04/22 10/04/22 Fluticasone Propion/Salmeterol 1 puff INHALATION RT-BID 10/04/22 10/04/22 [Fluticasone-Salmeterol 250-50] Multivitamins, Thera [Multivitamin 1 tab PO DAILY 10/04/22 10/04/22 (formulary)] Ondansetron Odt [Zofran ODT] 4 mg PO Q8HR PRN 10/04/22 10/04/22 Pravastatin Sodium [Pravachol] 40 mg PO MOWEFR 10/04/22 10/04/22 Tiotropium 2.5 Mcg/Puff [Spiriva 2 puff INHALATION RT-DAILY 10/04/22 10/04/22 Respimat 2.5 Mcg] Previous Rx's Medication Instructions Recorded Acetaminophen Tab [Tylenol] 650 mg PO Q6HR PRN tab 10/10/22 Amoxic-Pot Clav 875-125Mg 1 tab PO BID 7 Days #14 tab 10/10/22 [Augmentin 875-125] Gabapentin 800 mg PO QID #12 tab 10/10/22 HYDROcodone/APAP 10-325MG [Addison 1 each PO Q6HR PRN #12 tab 10/10/22 10-325] Prochlorperazine [Compazine] 10 mg PO Q8H PRN 7 Days #21 tab 10/23/22 Allergies Allergy/AdvReac Type Severity Reaction Status Date / Time aripiprazole [From Abilify] Allergy Anaphylaxis, Verified 06/28/23 17:10 TROUBLE BREATHING Review of Systems ROS Statement: Those systems with pertinent positive or pertinent negative responses have been documented in the HPI. ROS Other: All systems not noted in ROS Statement are negative. Past Medical History Past Medical History: GERD/Reflux, Hyperlipidemia, Hypertension, Osteoarthritis (OA), Pneumonia, Sleep Apnea/CPAP/BIPAP, Thyroid Disorder Additional Past Medical History / Comment(s): having nausea,sob w/ activity,varicose veins, hx ulcer and hiatal hernia, arthritis in back, degenerative disks, pinched nerve L5, sciatica, spinal stenosis, hx anemia, urinary urgency/leakage (occasional incontinence of bladder and bowels) Pt seeing urologist to determine cause History of Any Multi-Drug Resistant Organisms: None Reported Past Surgical History: Adenoidectomy, Bariatric Surgery, Breast Surgery, Cholecystectomy, Joint Replacement, Orthopedic Surgery, Tonsillectomy Additional Past Surgical History / Comment(s): LT KNEE arthroscopy x2, bilateral hip replacement, lap band with hiatal hernia repair, loly breast biopsy,emphysema Past Anesthesia/Blood Transfusion Reactions: Motion Sickness Past Psychological History: Depression Smoking Status: Former smoker Past Alcohol Use History: Rare Past Drug Use History: None Reported - Past Family History Father Family Medical History: Cancer Brother(s) Family Medical History: Cancer General Exam Limitations: no limitations General appearance: alert, in no apparent distress Head exam: Present: atraumatic, normocephalic, normal inspection Eye exam: Present: normal appearance, PERRL, EOMI. Absent: scleral icterus, conjunctival injection, periorbital swelling ENT exam: Present: normal exam, mucous membranes moist Neck exam: Present: normal inspection. Absent: tenderness, meningismus, lymphadenopathy Respiratory exam: Present: normal lung sounds bilaterally. Absent: respiratory distress, wheezes, rales, rhonchi, stridor Cardiovascular Exam: Present: regular rate, normal rhythm, normal heart sounds. Absent: systolic murmur, diastolic murmur, rubs, gallop, clicks GI/Abdominal exam: Present: soft, normal bowel sounds. Absent: distended, tenderness, guarding, rebound, rigid Extremities exam: Present: normal inspection, full ROM, normal capillary refill. Absent: tenderness, pedal edema, joint swelling, calf tenderness Back exam: Present: normal inspection Neurological exam: Present: alert, oriented X3, CN II-XII intact Psychiatric exam: Present: normal affect, normal mood Skin exam: Present: warm, dry, intact, normal color. Absent: rash Course Vital Signs 06/28/23 17:03 Temperature 97.7 F Pulse Rate 60 Respiratory 18 Rate Blood Pressure 155/68 O2 Sat by Pulse 95 Oximetry - Reevaluation(s) Reevaluation #1: Medical record is reviewed Reevaluation #2: Patient has no recurrent syncopal event here in the ER Reevaluation #3: Patient informed results questions answered feels comfortable for discharge Reevaluation #4: Was pt. sent in by a medical professional or institution (, PA, SOFTWARE MANAGER, urgent care, hospital, or longterm...) When possible be specific @ -no Did you speak to anyone other than the patient for history (EMS, parent, family, police, friend...)? What history was obtained from this source @ -no Did you review nursing and triage notes (agree or disagree)? Why? @ -agree Are old charts reviewed (outside hosp., previous admission, EMS record, old EKG, old radiological studies, urgent care reports/EKG's, longterm records)? Report findings @ -yes Differential Diagnosis (chest pain, altered mental status, abdominal pain women, abdominal pain men, vaginal bleeding, weakness, fever, dyspnea, syncope, headache, dizziness, GI bleed, back pain, seizure, CVA, palpatations, mental health, musculoskeletal)? @ -prior EKG interpreted by me (3pts min.). @ -no X-rays interpreted by me (1pt min.). @ -no CT interpreted by me (1pt min.). @ -no U/S interpreted by me (1pt. min.). @ -no What testing was considered but not performed or refused? (CT, X-rays, U/S, labs)? Why? @ -none What meds were considered but not given or refused? Why? @ -none Did you discuss the management of the patient with other professionals (professionals i.e. , PA, SOFTWARE MANAGER, lab, RT, psych nurse, social work administrator, tobacco feeder catcher, teacher, founder and chief executive officer, manager case management)? Give summary @ -no Was smoking cessation discussed for >3mins.? @ -no Was critical care preformed (if so, how long)? @ -no Were there social determinants of health that impacted care today? How? (Homelessness, low income, unemployed, alcoholism, drug addiction, transportation, low edu. Level, literacy, decrease access to med. care, assisted, rehab)? @ -none Was there de-escalation of care discussed even if they declined (Discuss DNR or withdrawal of care, Hospice)? DNR status @ -no What co-morbidities impacted this encounter? (DM, HTN, Smoking, COPD, CAD, C ancer, CVA, ARF, Chemo, Hep., AIDS, mental health diagnosis, sleep apnea, morbid obesity)? @ -none Was patient admitted / discharged? Hospital course, mention meds given and route, prescriptions, significant lab abnormalities, going to OR and other pertinent info. @ - 67 female with near syncopal event while at rehabilitation today. Patient has no recurrent syncope here in the ER is able to ambulate and walk without difficulty currently can be discharged home Discharge Undiagnosed new problem with uncertain prognosis? @ -no Drug Therapy requiring intensive monitoring for toxicity (Heparin, Nitro, Insulin, Cardizem)? @ -no Were any procedures done? @ -no Diagnosis/symptom? @ -Syncope, near-syncope dizziness and weakness Acute, or Chronic, or Acute on Chronic? @ -Acute Uncomplicated (without systemic symptoms) or Complicated (systemic symptoms)? @ -Complicated Side effects of treatment? @ -no Exacerbation, Progression, or Severe Exacerbation? @ -exacerbation Poses a threat to life or bodily function? How? (Chest pain, USA, CT, pneumonia, PE, COPD, DKA, ARF, appy, cholecystitis, CVA, Diverticulitis, Homicidal, Suicidal, threat to staff... and all critical care pts) @ -yes with near syncopal event Medical Decision Making - Medical Decision Making 67 female with near syncopal event while at rehabilitation today. Patient has no recurrent syncope here in the ER is able to ambulate and walk without difficulty currently can be discharged home - Lab Data Result diagrams: 06/28/23 17:21 06/28/23 17:21 Lab Results 06/28/23 06/28/23 06/28/23 Range/Units 17:21 17:21 17:21 WBC 4.0 (3.8-10.6) k/uL RBC 4.17 (3.80-5.40) m/uL Hgb 12.0 (11.4-16.0) gm/dL Hct 38.2 (34.0-46.0) % MCV 91.5 (80.0-100.0) fL MCH 28.8 (25.0-35.0) pg MCHC 31.4 (31.0-37.0) g/dL RDW 14.3 (11.5-15.5) % Plt Count 166 (150-450) k/uL MPV 9.4 Neutrophils % 74 % Lymphocytes % 17 % Monocytes % 3 % Eosinophils % 4 % Basophils % 1 % Neutrophils # 2.9 (1.3-7.7) k/uL Lymphocytes # 0.7 L (1.0-4.8) k/uL Monocytes # 0.1 (0-1.0) k/uL Eosinophils # 0.2 (0-0.7) k/uL Basophils # 0.0 (0-0.2) k/uL Hypochromasia Moderate Sodium 142 (137-145) mmol/L Potassium 3.8 (3.5-5.1) mmol/L Chloride 112 H (98-107) mmol/L Carbon Dioxide 22 (22-30) mmol/L Anion Gap 8 mmol/L BUN 23 H (7-17) mg/dL Creatinine 0.69 (0.52-1.04) mg/dL Est GFR (CKD-EPI)AfAm >90 (>60 ml/min/1.73 sqM) Est GFR (CKD-EPI)NonAf 89 (>60 ml/min/1.73 sqM) Glucose 107 H (74-99) mg/dL Plasma Lactic Acid Long 1.4 (0.7-2.0) mmol/L Calcium 8.1 L (8.4-10.2) mg/dL Total Bilirubin 0.4 (0.2-1.3) mg/dL AST 31 (14-36) U/L ALT 37 H (4-34) U/L Alkaline Phosphatase 215 H (38-126) U/L Troponin I (0.000-0.034) ng/mL Total Protein 5.8 L (6.3-8.2) g/dL Albumin 3.2 L (3.5-5.0) g/dL Amylase 51 (30-110) U/L Lipase 69 (23-300) U/L 06/28/23 Range/Units 17:21 WBC (3.8-10.6) k/uL RBC (3.80-5.40) m/uL Hgb (11.4-16.0) gm/dL Hct (34.0-46.0) % MCV (80.0-100.0) fL MCH (25.0-35.0) pg MCHC (31.0-37.0) g/dL RDW (11.5-15.5) % Plt Count (150-450) k/uL MPV Neutrophils % % Lymphocytes % % Monocytes % % Eosinophils % % Basophils % % Neutrophils # (1.3-7.7) k/uL Lymphocytes # (1.0-4.8) k/uL Monocytes # (0-1.0) k/uL Eosinophils # (0-0.7) k/uL Basophils # (0-0.2) k/uL Hypochromasia Sodium (137-145) mmol/L Potassium (3.5-5.1) mmol/L Chloride (98-107) mmol/L Carbon Dioxide (22-30) mmol/L Anion Gap mmol/L BUN (7-17) mg/dL Creatinine (0.52-1.04) mg/dL Est GFR (CKD-EPI)AfAm (>60 ml/min/1.73 sqM) Est GFR (CKD-EPI)NonAf (>60 ml/min/1.73 sqM) Glucose (74-99) mg/dL Plasma Lactic Acid Long (0.7-2.0) mmol/L Calcium (8.4-10.2) mg/dL Total Bilirubin (0.2-1.3) mg/dL AST (14-36) U/L ALT (4-34) U/L Alkaline Phosphatase (38-126) U/L Troponin I <0.012 (0.000-0.034) ng/mL Total Protein (6.3-8.2) g/dL Albumin (3.5-5.0) g/dL Amylase (30-110) U/L Lipase (23-300) U/L Disposition Clinical Impression: Dehydration, Dizziness, Nausea & vomiting, Morbid obesity due to excess calories, Near syncope Disposition: HOME SELF-CARE Condition: Good Instructions (If sedation given, give patient instructions): Acute Nausea and Vomiting (ED), Dizziness (ED) Is patient prescribed a controlled substance at d/c from ED?: No Referrals: Shea Alfredo MD [Primary Care Provider] - 1-2 days Time of Disposition: 19:00
[2023-06-28 18:09] LABS: AST 31 U/L (14-36); African American GFR (CKD) >90 (>60 ml/min/1.73 sqM); Albumin 3.2 g/dL (3.5-5.0); Amylase 51 U/L (30-110); Anion Gap 8 mmol/L; Blood Urea Nitrogen 23 mg/dL (7-17); Calcium 8.1 mg/dL (8.4-10.2); Carbon Dioxide 22 mmol/L (22-30); Chloride 112 mmol/L (98-107); Glucose 107 mg/dL (74-99); Lipase 69 U/L (23-300); Non-African American GFR(CKD) 89 (>60 ml/min/1.73 sqM); Sodium 142 mmol/L (137-145); Total Bilirubin 0.4 mg/dL (0.2-1.3); Total Protein 5.8 g/dL (6.3-8.2)
[2023-06-28 18:14] LABS: ALT 37 U/L (4-34); Alkaline Phosphatase 215 U/L (38-126); Potassium 3.8 mmol/L (3.5-5.1)
== END 2023-06-28 19:35 | disposition home or self-care (01) ==
LOC: EC 16:48
DX: R42 Dizziness and giddiness (principal); R11.2 Nausea with vomiting, unspecified; E86.0 Dehydration; E66.01 Morbid (severe) obesity due to excess calories; R55 Syncope and collapse; K21.9 Gastro-esophageal reflux disease without esophagitis; I10 Essential (primary) hypertension; M19.90 Unspecified osteoarthritis, unspecified site; E78.5 Hyperlipidemia, unspecified; E07.9 Disorder of thyroid, unspecified; F32.A Depression, unspecified; Z87.891 Personal history of nicotine dependence; Z88.8 Allergy status to other drugs, medicaments and biological substances; Z79.51 Long term (current) use of inhaled steroids; Z79.890 Hormone replacement therapy; Z79.899 Other long term (current) drug therapy
CPT/HCPCS: 36415; 80053; 82150; 83605; 83690; 84484; 85025; 96360; 99284

== ENCOUNTER 2023-08-15 17:31 | Inpatient (IN) | payer MEDICARE, BC ==
[2023-08-15] MEDS ORDERED: MORPHINE SULFATE 4 MG/ML SYRINGE IVP STA (17:46)
[2023-08-15] MEDS ORDERED: SODIUM CHLORIDE 0.9% 1,000 ML IV STA (17:46)
--- NOTE | 2023-08-15 17:49 | ED ---
General Adult HPI - General Stated complaint: Fall Time Seen by Provider: 08/15/23 17:36 Source: patient, RN notes reviewed Limitations: no limitations - History of Present Illness Initial comments: Patient is a pleasant [age]-year-old female presenting to the emergency department with weakness. Patient has chronic knee problems that have worsened over the past month. Patient has been falling multiple times over the past week. Patient fell again 2 days ago and was in unable to get up. Patient es timates she was on the ground for around 2 days. Patient does complain of abrasions. Patient states her tetanus immunization is up-to-date. Patient states knee pain is extremely severe with movement or attempted ambulation. Patient does not believe she hurt her knees worse. Patient has seen orthopedics for her knee problems however states that insurance requires her to wait another month prior to having surgery. No head injury or loss of consciousness. No confusion or isolated area of weakness - Related Data Home Medications Medication Instructions Recorded Confirmed Levothyroxine Sodium [Synthroid] 50 mcg PO DAILY 08/31/17 10/04/22 Metoprolol Succinate [Toprol XL] 25 mg PO DAILY 05/06/19 10/04/22 Losartan Potassium 100 mg PO DAILY 05/16/19 10/04/22 Albuterol Inhaler [Ventolin Hfa 1 - 2 puff INHALATION RT-Q4H PRN 10/04/22 10/04/22 Inhaler] Baclofen [Lioresal] 20 mg PO HS 10/04/22 10/04/22 Cetirizine HCl 10 mg PO DAILY 10/04/22 10/04/22 Cholecalciferol [Vitamin D3 (25 25 mcg PO DAILY 10/04/22 10/04/22 Mcg = 1000 Iu)] Cyanocobalamin [Vitamin B-12] 500 mcg PO DAILY 10/04/22 10/04/22 FLUoxetine HCL 40 mg PO DAILY 10/04/22 10/04/22 Fluticasone Propion/Salmeterol 1 puff INHALATION RT-BID 10/04/22 10/04/22 [Fluticasone-Salmeterol 250-50] Multivitamins, Thera [Multivitamin 1 tab PO DAILY 10/04/22 10/04/22 (formulary)] Ondansetron Odt [Zofran ODT] 4 mg PO Q8HR PRN 10/04/22 10/04/22 Pravastatin Sodium [Pravachol] 40 mg PO MOWEFR 10/04/22 10/04/22 Tiotropium 2.5 Mcg/Puff [Spiriva 2 puff INHALATION RT-DAILY 10/04/22 10/04/22 Respimat 2.5 Mcg] Previous Rx's Medication Instructions Recorded Acetaminophen Tab [Tylenol] 650 mg PO Q6HR PRN tab 10/10/22 Amoxic-Pot Clav 875-125Mg 1 tab PO BID 7 Days #14 tab 10/10/22 [Augmentin 875-125] Gabapentin 800 mg PO QID #12 tab 10/10/22 HYDROcodone/APAP 10-325MG [Leslie 1 each PO Q6HR PRN #12 tab 10/10/22 10-325] Prochlorperazine [Compazine] 10 mg PO Q8H PRN 7 Days #21 tab 10/23/22 Allergies Allergy/AdvReac Type Severity Reaction Status Date / Time aripiprazole [From Abilify] Allergy Anaphylaxis, Verified 08/15/23 17:48 TROUBLE BREATHING Review of Systems ROS Statement: Those systems with pertinent positive or pertinent negative responses have been documented in the HPI. ROS Other: All systems not noted in ROS Statement are negative. Constitutional: Denies: fever Eyes: Denies: eye pain ENT: Denies: ear pain Respiratory: Denies: cough, dyspnea Cardiovascular: Denies: chest pain Endocrine: Reports: fatigue Gastrointestinal: Denies: abdominal pain Neurological: Reports: as per HPI, weakness. Denies: headache, confusion Past Medical History Past Medical History: GERD/Reflux, Hyperlipidemia, Hypertension, Osteoarthritis (OA), Pneumonia, Sleep Apnea/CPAP/BIPAP, Thyroid Disorder Additional Past Medical History / Comment(s): having nausea,sob w/ activity,varicose veins, hx ulcer and hiatal hernia, arthritis in back, degenerative disks, pinched nerve L5, sciatica, spinal stenosis, hx anemia, urinary urgency/leakage (occasional incontinence of bladder and bowels) Pt seeing urologist to determine cause History of Any Multi-Drug Resistant Organisms: None Reported Past Surgical History: Adenoidectomy, Bariatric Surgery, Breast Surgery, Cholecystectomy, Joint Replacement, Orthopedic Surgery, Tonsillectomy Additional Past Surgical History / Comment(s): LT KNEE arthroscopy x2, bilateral hip replacement, lap band with hiatal hernia repair, loly breast biopsy,emphysema Past Anesthesia/Blood Transfusion Reactions: Motion Sickness Past Psychological History: Depression Smoking Status: Former smoker Past Alcohol Use History: Rare Past Drug Use History: None Reported - Past Family History Father Family Medical History: Cancer Brother(s) Family Medical History: Cancer General Exam Limitations: no limitations General appearance: alert, in no apparent distress Head exam: Present: atraumatic Eye exam: Present: normal appearance Neck exam: Present: normal inspection. Absent: tenderness Respiratory exam: Present: normal lung sounds bilaterally Cardiovascular Exam: Present: regular rate, normal rhythm GI/Abdominal exam: Present: soft. Absent: tenderness Extremities exam: Present: tenderness (Moderate to severe tenderness bilaterally), other (Skin abrasions breakdown) Back exam: Present: normal inspection Neurological exam: Present: alert. Absent: motor sensory deficit Psychiatric exam: Present: normal affect, normal mood Skin exam: Present: abrasion Course Vital Signs 08/15/23 17:37 Temperature 97.9 F Pulse Rate 88 Respiratory 24 Rate Blood Pressure 151/98 O2 Sat by Pulse 99 Oximetry EKG Findings - EKG Results: EKG: interpreted by ERMD (Left axis septal Q waves), sinus rhythm, normal ST/T Medical Decision Making - Medical Decision Making Was pt. sent in by a medical professional or institution ([facility], FINE UNHAIRER, urgent care, hospital, or [facility]...) When possible be specific @ -No Did you speak to anyone other than the patient for history (EMS, parent, family, police, friend...)? What history was obtained from this source @ -No Did you review nursing and triage notes (agree or disagree)? Why? @ -I reviewed and agree with nursing and triage notes Were old charts reviewed (outside hosp., previous admission, EMS record, old EKG, old radiological studies, urgent care reports/EKG's, [facility] records)? Report findings @ -Previous knee x-rays reviewed Differential Diagnosis (chest pain, altered mental status, abdominal pain women, abdominal pain men, vaginal bleeding, weakness, fever, dyspnea, syncope, headache, dizziness, GI bleed, back pain, seizure, CVA, palpatations, mental health, musculoskeletal)? @ -Differential Weakness: Hypoglycemia, shock, sepsis, hyponatremia, anemia, infection, CO, ETOH, adverse medicine reaction, overdose, stroke, this is not meant to be an all-inclusive list. EKG interpreted by me (3pts min.). @ -As above X-rays interpreted by me (1pt min.). @ -Bilateral knee x-ray showed arthritic changes. Chest x-ray shows no acute process. CT interpreted by me (1pt min.). @ -None done U/S interpreted by me (1pt. min.). @ -None done What testing was considered but not performed or refused? (CT, X-rays, U/S, labs)? Why? @ -None What meds were considered but not given or refused? Why? @ -None Did you discuss the management of the patient with other professionals (professionals i.e. , PA, FINE UNHAIRER, lab, RT, psych nurse, socially responsible investment adviser, comfort station attendant, teacher, railway patrol officer, case assembler)? Give summary @ -Case was discussed with Dr. Cuellar who will admit covering Dr. Wilkerson Was smoking cessation discussed for >3mins.? @ -No Was critical care preformed (if so, how long)? @ -No Were there social determinants of health that impacted care today? How? (Homelessness, low income, unemployed, alcoholism, drug addiction, transportation, low edu. Level, literacy, decrease access to med. care, [facility], rehab)? @ -No Was there de-escalation of care discussed even if they declined (Discuss DNR or withdrawal of care, Hospice)? DNR status @ -No What co-morbidities impacted this encounter? (DM, HTN, Smoking, COPD, CAD, Can cer, CVA, ARF, Chemo, Hep., AIDS, mental health diagnosis, sleep apnea, morbid obesity)? @ -None Was patient admitted / discharged? Hospital course, mention meds given and route, prescriptions, significant lab abnormalities, going to OR and other pertinent info. @ -Patient reevaluated and updated. Patient will admitted with orthopedic cons ult. Patient may benefit from placement. Undiagnosed new problem with uncertain prognosis? @ -No Drug Therapy requiring intensive monitoring for toxicity (Heparin, Nitro, Insulin, Cardizem)? @ -No Were any procedures done? @ -No Diagnosis/symptom? @ -Weakness, arthritis Acute, or Chronic, or Acute on Chronic? @ -Acute, acute on chronic Uncomplicated (without systemic symptoms) or Complicated (systemic symptoms)? @ -default Side effects of treatment? @ -No Exacerbation, Progression, or Severe Exacerbation? @ -No Poses a threat to life or bodily function? How? (Chest pain, USA, CO, pneumonia, PE, COPD, DKA, ARF, appy, cholecystitis, CVA, Diverticulitis, Homicidal, Suicid al, threat to staff... and all critical care pts) @ -No - Lab Data Result diagrams: 08/15/23 17:49 08/15/23 19:49 Lab Results 08/15/23 08/15/23 08/15/23 Range/Units 17:49 17:49 17:49 WBC 4.9 (3.8-10.6) k/uL RBC 5.01 (3.80-5.40) m/uL Hgb 14.2 (11.4-16.0) gm/dL Hct 45.4 (34.0-46.0) % MCV 90.7 (80.0-100.0) fL MCH 28.4 (25.0-35.0) pg MCHC 31.3 (31.0-37.0) g/dL RDW 13.9 (11.5-15.5) % Plt Count 210 (150-450) k/uL MPV 9.1 Neutrophils % 69 % Lymphocytes % 20 % Monocytes % 5 % Eosinophils % 4 % Basophils % 1 % Neutrophils # 3.4 (1.3-7.7) k/uL Lymphocytes # 1.0 (1.0-4.8) k/uL Monocytes # 0.2 (0-1.0) k/uL Eosinophils # 0.2 (0-0.7) k/uL Basophils # 0.1 (0-0.2) k/uL Hypochromasia Slight PT 11.5 (10.0-12.5) sec INR 1.1 (<1.2) APTT 25.7 (22.0-30.0) sec Sodium (137-145) mmol/L Potassium (3.5-5.1) mmol/L Chloride (98-107) mmol/L Carbon Dioxide (22-30) mmol/L Anion Gap mmol/L BUN (7-17) mg/dL Creatinine (0.52-1.04) mg/dL Est GFR (CKD-EPI)AfAm (>60 ml/min/1.73 sqM) Est GFR (CKD-EPI)NonAf (>60 ml/min/1.73 sqM) Glucose (74-99) mg/dL Lactic Ac Sepsis Rflx Plasma Lactic Acid Long 2.2 H* (0.7-2.0) mmol/L Calcium (8.4-10.2) mg/dL Magnesium (1.6-2.3) mg/dL Total Bilirubin (0.2-1.3) mg/dL AST (14-36) U/L ALT (4-34) U/L Alkaline Phosphatase (38-126) U/L Creatine Kinase (30-135) U/L Troponin I (0.000-0.034) ng/mL Total Protein (6.3-8.2) g/dL Albumin (3.5-5.0) g/dL 08/15/23 08/15/23 08/15/23 Range/Units 17:49 18:41 19:49 WBC (3.8-10.6) k/uL RBC (3.80-5.40) m/uL Hgb (11.4-16.0) gm/dL Hct (34.0-46.0) % MCV (80.0-100.0) fL MCH (25.0-35.0) pg MCHC (31.0-37.0) g/dL RDW (11.5-15.5) % Plt Count (150-450) k/uL MPV Neutrophils % % Lymphocytes % % Monocytes % % Eosinophils % % Basophils % % Neutrophils # (1.3-7.7) k/uL Lymphocytes # (1.0-4.8) k/uL Monocytes # (0-1.0) k/uL Eosinophils # (0-0.7) k/uL Basophils # (0-0.2) k/uL Hypochromasia PT (10.0-12.5) sec INR (<1.2) APTT (22.0-30.0) sec Sodium 139 (137-145) mmol/L Potassium 3.5 (3.5-5.1) mmol/L Chloride 104 (98-107) mmol/L Carbon Dioxide 24 (22-30) mmol/L Anion Gap 11 mmol/L BUN 15 (7-17) mg/dL Creatinine 0.81 (0.52-1.04) mg/dL Est GFR (CKD-EPI)AfAm 86 (>60 ml/min/1.73 sqM) Est GFR (CKD-EPI)NonAf 75 (>60 ml/min/1.73 sqM) Glucose 111 H (74-99) mg/dL Lactic Ac Sepsis Rflx Y Plasma Lactic Acid Long (0.7-2.0) mmol/L Calcium 8.5 (8.4-10.2) mg/dL Magnesium 1.7 (1.6-2.3) mg/dL Total Bilirubin 1.3 (0.2-1.3) mg/dL AST 209 H (14-36) U/L ALT 197 H (4-34) U/L Alkaline Phosphatase 495 H (38-126) U/L Creatine Kinase 778 H (30-135) U/L Troponin I <0.012 (0.000-0.034) ng/mL Total Protein 6.1 L (6.3-8.2) g/dL Albumin 3.6 (3.5-5.0) g/dL Disposition Clinical Impression: Weakness, Arthritis of both knees Disposition: ADMITTED IP TO THIS HOSP Is patient prescribed a controlled substance at d/c from ED?: No Referrals: Dilia Wilkerson DO [Primary Care Provider] - 1-2 days Time of Disposition: 21:14
[2023-08-15 18:26] LABS: Basophils # (A) 0.1 k/uL (0-0.2); Basophils % (A) 1 %; Eosinophils # (A) 0.2 k/uL (0-0.7); Eosinophils % (A) 4 %; HCT 45.4 % (34.0-46.0); HGB 14.2 gm/dL (11.4-16.0); Hypochromasia Slight; Lymphocytes % (A) 20 %; MCH 28.4 pg (25.0-35.0); MCHC 31.3 g/dL (31.0-37.0); MCV 90.7 fL (80.0-100.0); Mean Platelet Volume 9.1; Monocytes # (A) 0.2 k/uL (0-1.0); Monocytes % (A) 5 %; Neutrophils # (A) 3.4 k/uL (1.3-7.7); Neutrophils % (A) 69 %; Platelet Count 210 k/uL (150-450); RBC 5.01 m/uL (3.80-5.40); RDW 13.9 % (11.5-15.5); WBC 4.9 k/uL (3.8-10.6)
[2023-08-15 18:35] LABS: INR 1.1 (<1.2); Partial Thromboplastin Time 25.7 sec (22.0-30.0); Prothrombin Time 11.5 sec (10.0-12.5)
--- NOTE | 2023-08-15 18:47 | XR ---
EXAMINATION TYPE: XR chest 2V DATE OF EXAM: 08/15/2023 6:38 PM CLINICAL INDICATION:Female, 67 years old with history of Weakness; COMPARISON: None TECHNIQUE: XR chest 2V Frontal and lateral views of the chest. FINDINGS: Lungs/Pleura: There is no evidence of pleural effusion, focal consolidation, or pneumothorax. Pulmonary vascularity: Unremarkable. Heart/mediastinum: Cardiomediastinal silhouette is enlarged and stable. Musculoskeletal: No acute osseous pathology. IMPRESSION: No acute cardiopulmonary disease/process.
--- NOTE | 2023-08-15 19:00 | XR ---
EXAMINATION TYPE: XR knee complete bilateral DATE OF EXAM: 08/15/2023 6:38 PM CLINICAL INDICATION:Female, 67 years old with history of pain; COMPARISON: None. TECHNIQUE: XR knee complete bilateral; examined in Frontal, lateral and oblique projections. FINDINGS: No evidence of any acute osseous pathology, soft tissue swelling, or joint effusion is no maximo. Tricompartmental osteophyte formation involving the femoral condyles, tibial plateau and patella . Severe joint space narrowing. Prepatellar soft tissue edema. IMPRESSION: 1. No acute osseous pathology. 2. Severe tricompartmental osteoarthritic changes.
[2023-08-15 20:11] LABS: ALT 197 U/L (4-34); AST 209 U/L (14-36); African American GFR (CKD) 86 (>60 ml/min/1.73 sqM); Albumin 3.6 g/dL (3.5-5.0); Alkaline Phosphatase 495 U/L (38-126); Anion Gap 11 mmol/L; Blood Urea Nitrogen 15 mg/dL (7-17); Calcium 8.5 mg/dL (8.4-10.2); Carbon Dioxide 24 mmol/L (22-30); Chloride 104 mmol/L (98-107); Creatine Kinase 778 U/L (30-135); Glucose 111 mg/dL (74-99); Magnesium 1.7 mg/dL (1.6-2.3); Non-African American GFR(CKD) 75 (>60 ml/min/1.73 sqM); Potassium 3.5 mmol/L (3.5-5.1); Sodium 139 mmol/L (137-145); Total Bilirubin 1.3 mg/dL (0.2-1.3); Total Protein 6.1 g/dL (6.3-8.2)
[2023-08-15] MEDS ORDERED: NALOXONE 0.4 MG/ML 1 ML VIAL IV PRN (21:14)
[2023-08-15] MEDS: SODIUM CHLORIDE 0.9% 1,000 ML IV SCH (22:55)
[2023-08-16] MEDS: HYDROcodone/APAP 5-325MG 1 EACH TAB PO PRN ×4 (00:15→18:09)
[2023-08-16 03:52] LABS: Basophils % (A) 0 %; Eosinophils # (A) 0.1 k/uL (0-0.7); Eosinophils % (A) 2 %; HGB 12.7 gm/dL (11.4-16.0); Hypochromasia Slight; Lymphocytes # (A) 1.2 k/uL (1.0-4.8); Lymphocytes % (A) 20 %; MCH 28.8 pg (25.0-35.0); MCHC 31.6 g/dL (31.0-37.0); MCV 90.9 fL (80.0-100.0); Monocytes # (A) 0.4 k/uL (0-1.0); Monocytes % (A) 7 %; Neutrophils # (A) 3.9 k/uL (1.3-7.7); Neutrophils % (A) 69 %; Platelet Count 192 k/uL (150-450); WBC 5.7 k/uL (3.8-10.6)
[2023-08-16 04:01] LABS: ALT 191 U/L (4-34); AST 155 U/L (14-36); African American GFR (CKD) 80 (>60 ml/min/1.73 sqM); Albumin 3.3 g/dL (3.5-5.0); Alkaline Phosphatase 437 U/L (38-126); Anion Gap 7 mmol/L; Blood Urea Nitrogen 18 mg/dL (7-17); Calcium 8.4 mg/dL (8.4-10.2); Carbon Dioxide 24 mmol/L (22-30); Chloride 105 mmol/L (98-107); Glucose 120 mg/dL (74-99); Non-African American GFR(CKD) 70 (>60 ml/min/1.73 sqM); Potassium 3.6 mmol/L (3.5-5.1); Sodium 136 mmol/L (137-145); Total Bilirubin 0.5 mg/dL (0.2-1.3); Total Protein 5.8 g/dL (6.3-8.2)
[2023-08-16] MEDS ORDERED: IPRATROPIUM-ALBUTEROL 3 ML NEB INHALATION PRN (09:32)
[2023-08-16] MEDS: FAMOTIDINE 20 MG TAB PO SCH ×2 (09:33→21:13)
[2023-08-16] MEDS: GABAPENTIN 400 MG CAP PO SCH ×4 (09:33→21:13)
[2023-08-16] MEDS: amLODIPine 10 MG TAB PO SCH (09:33)
[2023-08-16] MEDS: LEVOTHYROXINE 50 MCG TAB PO SCH (09:34)
[2023-08-16] MEDS: LOSARTAN 50 MG TAB PO SCH (09:34)
[2023-08-16] MEDS: LORATADINE 10 MG TAB PO SCH (09:34)
[2023-08-16] MEDS: METOPROLOL SUCCINATE (ER) 25 MG TAB.ER.24H PO SCH (09:34)
[2023-08-16] MEDS: PANTOPRAZOLE 40 MG/10 ML VIAL IVP SCH (12:29)
[2023-08-16] MEDS: MORPHINE SULFATE 4 MG/ML SYRINGE IV PRN (14:41)
--- NOTE | 2023-08-16 14:56 | P.HPIM ---
History of Present Illness H&P Date: 08/16/23 Chief Complaint: Increased weakness, status post fall, laid on floor 2 days This a 67-year-old female with past medical history significant for chronic back pain, degenerative disc, spinal stenosis with extensive workup outpatient, including visits with Dr. Coughlin, multiple epidurals, evaluated by orthopedic spine, sciatica pain, occasional incontinence of bladder and bowel-follows with urology, hypertension, hyperlipidemia, morbid obesity, obstructive sleep apnea, hypothyroidism, osteoarthritis, depression, former nicotine dependence and multiple other medical issues presented to the ER with complaints of increased weakness of bilateral lower extremities, left weaker than right, status post multiple falls laid on the ground x 2days. Worsening chronic bilateral knee pain, follows with orthopedic surgeon,. States insurance won't authorize surgery for another month. Reports Monday she fell 3 times; on the last fall, no one was available to help her and she laid on the floor for 2 days. CK on admission 778. Denies head trauma. Denies syncope. Denies chest pain, palpitations or shortness of breath. Denies recent illness.Bilateral knee x-ray reporting no acute osseous pathology, severe tricompartmental osteoarthritic changes. Chest x-ray reported no acute cardiopulmonary disease/process. Troponin negative 1. EKG reported sinus rhythm with PVCs,a Afebrile. Maintaining O2 sats in the 90s on room air. Hematology, coagulation panels unremarkable. Lactic acid 2.2, resolved with IV fluid hydration, 1.2. Sodium 136, potassium 3.6, bicarb 24, BUN 18, creatinine 0.86 glucose 120 magnesium 1.7. Improving LFTs: total bili 0.5, AST 155, ALT 137, alk phos 437. Total protein 5.8, albumin 3.3. Patient also states that she has had no urine since yesterday, no urine in pure wick container. Reports she does have urinary incontinence. Review of Systems ROS Statement: Those systems with pertinent positive or pertinent negative responses have been documented in the HPI. ROS Other: All systems not noted in ROS Statement are negative. Past Medical History Past Medical History: GERD/Reflux, Hyperlipidemia, Hypertension, Osteoarthritis (OA), Pneumonia, Sleep Apnea/CPAP/BIPAP, Thyroid Disorder Additional Past Medical History / Comment(s): having nausea,sob w/ activity,varicose veins, hx ulcer and hiatal hernia, arthritis in back, degenerative disks, pinched nerve L5, sciatica, spinal stenosis, hx anemia, urinary urgency/leakage (occasional incontinence of bladder and bowels) Pt seeing urologist to determine cause History of Any Multi-Drug Resistant Organisms: None Reported Past Surgical History: Adenoidectomy, Bariatric Surgery, Breast Surgery, Cholecystectomy, Joint Replacement, Orthopedic Surgery, Tonsillectomy Additional Past Surgical History / Comment(s): LT KNEE arthroscopy x2, bilateral hip replacement, lap band with hiatal hernia repair, loly breast biopsy,emphysema Past Anesthesia/Blood Transfusion Reactions: Motion Sickness Past Psychological History: Depression Smoking Status: Former smoker Past Alcohol Use History: Rare Additional Past Alcohol Use History / Comment(s): QUIT SMOKING 2006, started smoking age 18's, 1 PPD Past Drug Use History: None Reported - Past Family History Father Family Medical History: Cancer Brother(s) Family Medical History: Cancer Medications and Allergies Home Medications Medication Instructions Recorded Confirmed Type Levothyroxine Sodium [Synthroid] 50 mcg PO DAILY 08/31/17 08/16/23 History Metoprolol Succinate [Toprol XL] 25 mg PO DAILY 05/06/19 08/16/23 History Losartan Potassium 100 mg PO DAILY 05/16/19 08/16/23 History Baclofen [Lioresal] 20 mg PO HS 10/04/22 08/16/23 History Cetirizine HCl 10 mg PO DAILY 10/04/22 08/16/23 History Cholecalciferol [Vitamin D3 (25 25 mcg PO DAILY 10/04/22 08/16/23 History Mcg = 1000 Iu)] Cyanocobalamin [Vitamin B-12] 500 mcg PO DAILY 10/04/22 08/16/23 History Fluticasone Propion/Salmeterol 1 puff INHALATION RT-BID 10/04/22 08/16/23 History [Fluticasone-Salmeterol 250-50] Multivitamins, Thera [Multivitamin 1 tab PO DAILY 10/04/22 08/16/23 History (formulary)] Ondansetron Odt [Zofran ODT] 4 mg PO Q8HR PRN 10/04/22 08/16/23 History Pravastatin Sodium [Pravachol] 40 mg PO MOWEFR 10/04/22 08/16/23 History Tiotropium 2.5 Mcg/Puff [Spiriva 2 puff INHALATION RT-DAILY 10/04/22 08/16/23 History Respimat 2.5 Mcg] Acetaminophen Tab [Tylenol] 650 mg PO Q6HR PRN tab 10/10/22 08/16/23 Rx Gabapentin 800 mg PO QID #12 tab 10/10/22 08/16/23 Rx Diclofenac Sodium [Voltaren] 75 mg PO DAILY 08/16/23 08/16/23 History HYDROcodone/APAP 10-325MG [[place] 1 tab PO TID 08/16/23 08/16/23 History 10-325] Primidone 50 mg PO HS 08/16/23 08/16/23 History Sildenafil [Revatio] 20 mg PO BID 08/16/23 08/16/23 History amLODIPine [Norvasc] 10 mg PO DAILY 08/16/23 08/16/23 History Allergies Allergy/AdvReac Type Severity Reaction Status Date / Time aripiprazole [From [facility]] Allergy Anaphylaxis, Verified 08/16/23 08:14 TROUBLE BREATHING Physical Exam Vitals: Vital Signs Temp Pulse Pulse Resp BP BP Pulse Ox 08/16/23 08:08 96 08/16/23 07:29 98.9 F 93 18 142/76 96 08/16/23 01:45 97.9 F 90 20 135/72 94 L 08/15/23 23:38 98.0 F 08/15/23 22:30 92 22 133/81 92 L 08/15/23 22:00 86 19 121/99 93 L 08/15/23 21:30 86 24 134/70 94 L 08/15/23 21:00 82 19 152/68 95 08/15/23 20:30 82 13 135/76 96 08/15/23 20:00 79 12 119/106 96 08/15/23 19:30 83 18 158/64 95 08/15/23 19:00 75 16 96 08/15/23 18:30 151/98 08/15/23 18:00 151/98 97 08/15/23 17:37 97.9 F 88 24 151/98 99 Intake and Output 08/15/23 08/16/23 08/16/23 22:59 06:59 14:59 Intake Total 800 120 Balance 800 120 Intake: Oral 800 120 Other: Voiding Method External Catheter Weight 141.974 kg 141.974 kg PHYSICAL EXAM: VITAL SIGNS: As above GENERAL: Alert and oriented 3, no acute distress, lying on stretcher HEENT: Conjunctivae normal. eyes normal. NECK: Supple, No JVD. No LNs CARDIOVASCULAR: S1, S2 regular.. No murmur RESPIRATION: Breath sounds diminished in the bases. No rhonchi or crackles. ABDOMEN: Soft, nontender . No guarding. no masses palpable. Possible Bowel sounds. LEGS: Generalized tenderness, with abrasions. Positive DP pulses. PSYCHIATRY: Alert and oriented X3, mood and affect normal. NERVOUS SYSTEM: Cranial N 2-12 grossly normal. No focal deficits. Strength and sensation grossly intact. Skin: Warm and dry multiple scrapes, abrasions. Results CBC & Chem 7: 08/16/23 03:25 08/16/23 03:25 Labs: Abnormal Lab Results - Last 24 Hours (Table) 08/15/23 08/15/23 08/16/23 Range/Units 17:49 19:49 03:25 Sodium 136 L (137-145) mmol/L BUN 18 H (7-17) mg/dL Glucose 111 H 120 H (74-99) mg/dL Plasma Lactic Acid Long 2.2 H* (0.7-2.0) mmol/L AST 209 H 155 H (14-36) U/L ALT 197 H 191 H (4-34) U/L Alkaline Phosphatase 495 H 437 H (38-126) U/L Creatine Kinase 778 H (30-135) U/L Total Protein 6.1 L 5.8 L (6.3-8.2) g/dL Albumin 3.3 L (3.5-5.0) g/dL Thrombosis Risk Factor Assmnt - Choose All That Apply Each Risk Factor Represents 2 Points: Age 61-74 years Thrombosis Risk Factor Assessment Total Risk Factor Score: 2 Thrombosis Risk Factor Assessment Level: Low Risk Assessment and Plan Assessment: Rhabdomyolysis status post fall, remained on the floor 2 days. CK on admission 778 Osteoarthritis Urinary retention Ruling out acute UTI Obstructive sleep apnea, wears CPAP Morbid obesity, BMI 49 Chronic back pain,degenerative disc, spinal stenosis , reports extensive workup outpatient with orthopedic spine Incontinence of bladder and bowel, follows with urologist outpatient Hypertension Hyperlipidemia Hypothyroidism Gastroesophageal reflux disease Former nicotine dependence Depression, patient asking for psychiatry evaluation. Reports depression secondary to health declining with group home, family complains of her hoarding/clutter. Plan: Continue on current medication regime ,monitoring and symptomatic treatment. UA/Urine culture pending .Urinary retention, bladder scan ordered, possible Saxena catheter pending.IV fluid hydration. Orthopedic consult in place, recommendations pending Psychiatry consulted for depression. PT/OT/social work consulted for subacute rehab. PPI ordered for GI prophylaxis. Pain management. The impression and plan of care has been dictated as directed. : I performed a history and examination of this patient, discussed the same with the dictator. I agree with the dictator's note ,documented as a scribe. Any additional findings or plans will be noted.
[2023-08-16] MEDS ORDERED: POTASSIUM CHLORIDE ER 20 MEQ TAB.ER PO STA (14:57)
[2023-08-16 16:18] LABS: Appearance,Urine Clear (Clear); Bilirubin,Urine Negative (Negative); Blood,Urine Negative (Negative); Color,Urine Yellow; Glucose,Urine (UA) Negative (Negative); Hyaline Casts,Urine 1 /lpf (0-2); Ketones,Urine Negative (Negative); Leukocyte Esterase,Urine Negative (Negative); Mucus,Urine Occasional /hpf; Nitrite,Urine Negative (Negative); Protein,Urine 1+ (Negative); Specific Gravity,Urine 1.029 (1.001-1.035); Squamous Epithelial Cell,Urine 1 /hpf (0-4); WBC,Urine 5 /hpf (0-5)
[2023-08-16] MEDS: SODIUM CHLORIDE 0.9% 1,000 ML IV SCH (19:50)
[2023-08-16] MEDS: SYMBICORT 80-4.5 MCG INHALER INHALATION SCH (20:28)
[2023-08-16] MEDS: BACLOFEN 10 MG TAB PO SCH (21:13)
[2023-08-17] MEDS: SODIUM CHLORIDE 0.9% 1,000 ML IV SCH ×2 (00:05→12:25)
[2023-08-17] MEDS: HYDROcodone/APAP 5-325MG 1 EACH TAB PO PRN ×3 (00:28→12:24)
[2023-08-17] MEDS: MORPHINE SULFATE 4 MG/ML SYRINGE IV PRN ×2 (03:16→09:34)
[2023-08-17] MEDS: LEVOTHYROXINE 50 MCG TAB PO SCH (06:04)
[2023-08-17] MEDS: amLODIPine 10 MG TAB PO SCH (07:35)
[2023-08-17] MEDS: FAMOTIDINE 20 MG TAB PO SCH ×2 (07:35→20:45)
[2023-08-17] MEDS: METOPROLOL SUCCINATE (ER) 25 MG TAB.ER.24H PO SCH (07:35)
[2023-08-17] MEDS: LOSARTAN 50 MG TAB PO SCH (07:35)
[2023-08-17] MEDS: GABAPENTIN 400 MG CAP PO SCH ×4 (07:35→22:07)
[2023-08-17] MEDS: LORATADINE 10 MG TAB PO SCH (07:36)
[2023-08-17] MEDS: IPRATROPIUM 0.5 MG/2.5 ML NEBU INHALATION SCH ×4 (07:47→18:40)
[2023-08-17] MEDS: SYMBICORT 80-4.5 MCG INHALER INHALATION SCH ×2 (08:04→23:52)
[2023-08-17] MEDS: PANTOPRAZOLE 40 MG/10 ML VIAL IVP SCH (08:08)
[2023-08-17 11:13] LABS: Blood Urea Nitrogen 19.2 mg/dL (9.0-27.0); Calcium 8.4 mg/dL (8.7-10.3); Carbon Dioxide 22.3 mmol/L (21.6-31.8); Chloride 108 mmol/L (96-109); Glucose 101 mg/dL (70-110); Potassium 4.1 mmol/L (3.5-5.5); Sodium 143 mmol/L (135-145)
[2023-08-17] MEDS: CEPHALEXIN 500 MG CAP PO SCH ×2 (16:17→22:07)
[2023-08-17] MEDS: oxyCODONE ER 10 MG TAB.ER.12H PO SCH ×2 (16:19→20:44)
[2023-08-17] MEDS: methylPREDNISolone 4 MG TAB TAPER PO SCH (17:22)
--- NOTE | 2023-08-17 17:44 | P.PN ---
Subjective Progress Note Date: 08/17/23 H&P Date: 08/16/23 Chief Complaint: Increased weakness, status post fall, laid on floor 2 days This a 67-year-old female with past medical history significant for chronic back pain, degenerative disc, spinal stenosis with extensive workup outpatient, incl uding visits with Dr. Coughlin, multiple epidurals, evaluated by orthopedic spine, sciatica pain, occasional incontinence of bladder and bowel-follows with urology, hypertension, hyperlipidemia, morbid obesity, obstructive sleep apnea, hypothyroidism, osteoarthritis, depression, former nicotine dependence and multiple other medical issues presented to the ER with complaints of increased weakness of bilateral lower extremities, left weaker than right, status post multiple falls laid on the ground x 2days. Worsening chronic bilateral knee pain, follows with orthopedic surgeon,. States insurance won't authorize surgery for another month. Reports Monday she fell 3 times; on the last fall, no one was available to help her and she laid on the floor for 2 days. CK on admission 778. Denies head trauma. Denies syncope. Denies chest pain, palpitations or shortness of breath. Denies recent illness.Bilateral knee x-ray reporting no acute osseous pathology, severe tricompartmental osteoarthritic changes. Chest x-ray reported no acute cardiopulmonary disease/process. Troponin negative 1. EKG reported sinus rhythm with PVCs,a Afebrile. Maintaining O2 sats in the 90s on room air. Hematology, coagulation panels unremarkable. Lactic acid 2.2, resolved with IV fluid hydration, 1.2. Sodium 136, potassium 3.6, bicarb 24, BUN 18, creatinine 0.86 glucose 120 magnesium 1.7. Improving LFTs: total bili 0.5, AST 155, ALT 137, alk phos 437. Total protein 5.8, albumin 3.3. Patient also states that she has had no urine since yesterday, no urine in pure wick container. Reports she does have urinary incontinence. 08/17/2023 and maintained on nebulized bronchodilators, Symbicort ,IV fluids and pain management. Maintaining O2 sats in the high 90s to 100% on room air. Afebrile, T-max 99.5. Sodium within normal limits, BUN 19.2, creatinine 1. UA negative. Objective - Vital Signs Vital signs: Vital Signs Temp 97.4 F L 08/17/23 12:49 Pulse 66 08/17/23 12:49 Resp 16 08/17/23 12:49 BP 105/64 08/17/23 12:49 Pulse Ox 100 08/17/23 12:49 FiO2 Intake & Output 08/16/23 08/17/23 08/17/23 18:59 06:59 18:59 Intake Total 500 200 Output Total 600 584 Balance -100 -384 Intake: Oral 500 200 Output: Urine 600 312 Straight 600 Post Void Residual 272 Other: Voiding Method External Catheter External Catheter Bedpan # Voids 2 - Exam PHYSICAL EXAM: VITAL SIGNS: As above GENERAL: Alert and oriented 3, no acute distress, lying in bed. HEENT: Conjunctivae normal. eyes normal. NECK: Supple, No JVD. No LNs CARDIOVASCULAR: S1, S2 regular.. No murmur RESPIRATION: Breath sounds diminished in the bases. No rhonchi or crackles. ABDOMEN: Soft, nontender . No guarding. no masses palpable. Possible Bowel sounds. SKIN/Extremities:Warm and dry, multiple scrapes,abrasions on bilateral lower anterior extremities and left lower calf, dressings clean dry and intact. Generalized tenderness, Positive DP pulses. PSYCHIATRY: Alert and oriented X3, mood and affect normal. NERVOUS SYSTEM: Cranial N 2-12 grossly normal. No focal deficits. Strength and sensation grossly intact. - Labs CBC & Chem 7: 08/16/23 03:25 08/17/23 06:56 Labs: Abnormal Lab Results - Last 24 Hours (Table) 08/17/23 Range/Units 06:56 Anion Gap 12.70 H (4.00-12.00) mmol/L Calcium 8.4 L (8.7-10.3) mg/dL Assessment and Plan Assessment: Rhabdomyolysis status post fall, remained on the floor 2 days. CK on admission 778 Osteoarthritis Urinary retention Acute UTI ruled out, UA neg. Obstructive sleep apnea, wears CPAP Morbid obesity, BMI 49 Chronic back pain,degenerative disc, spinal stenosis , reports extensive workup outpatient with orthopedic spine Incontinence of bladder and bowel, follows with urologist outpatient Hypertension Hyperlipidemia Hypothyroidism Gastroesophageal reflux disease Former nicotine dependence Depression, patient asking for psychiatry evaluation. Reports depression secondary to health declining with intermediate, family complains of her hoarding/clutter. Plan: Continue on current medication regime ,monitoring and symptomatic treatment. Psychiatry consult in place, recommendations pending. Evaluated by orthopedic surgery with recommendations pending.maintain IV fluid hydration. Pain management. PT/OT. Strict I&O's. Discharge planning in progress for [facility] subacute rehab. after 3 nights I.P. stay. The impression and plan of care has been dictated as directed. : I performed a history and examination of this patient, discussed the same with the dictator. I agree with the dictator's note ,documented as a scribe. Any additional findings or plans will be noted.
[2023-08-17] MEDS: BACLOFEN 10 MG TAB PO SCH (20:45)
[2023-08-18] MEDS: HYDROcodone/APAP 5-325MG 1 EACH TAB PO PRN (02:54)
[2023-08-18] MEDS: SODIUM CHLORIDE 0.9% 1,000 ML IV SCH ×2 (03:01→09:13)
[2023-08-18] MEDS: LEVOTHYROXINE 50 MCG TAB PO SCH (05:51)
[2023-08-18] MEDS: IPRATROPIUM 0.5 MG/2.5 ML NEBU INHALATION SCH ×4 (08:28→20:15)
[2023-08-18] MEDS: SYMBICORT 80-4.5 MCG INHALER INHALATION SCH ×2 (08:28→20:16)
[2023-08-18] MEDS: FAMOTIDINE 20 MG TAB PO SCH ×2 (08:42→21:04)
[2023-08-18] MEDS: LOSARTAN 50 MG TAB PO SCH (08:42)
[2023-08-18] MEDS: GABAPENTIN 400 MG CAP PO SCH ×4 (08:42→22:04)
[2023-08-18] MEDS: CEPHALEXIN 500 MG CAP PO SCH ×3 (08:42→22:04)
[2023-08-18] MEDS: METOPROLOL SUCCINATE (ER) 25 MG TAB.ER.24H PO SCH (08:42)
[2023-08-18] MEDS: methylPREDNISolone 4 MG TAB TAPER PO SCH (08:42)
[2023-08-18] MEDS: oxyCODONE ER 10 MG TAB.ER.12H PO SCH ×2 (08:43→21:04)
[2023-08-18] MEDS: LORATADINE 10 MG TAB PO SCH (08:43)
[2023-08-18] MEDS: amLODIPine 10 MG TAB PO SCH (08:43)
[2023-08-18] MEDS: PANTOPRAZOLE 40 MG/10 ML VIAL IVP SCH (08:43)
--- NOTE | 2023-08-18 11:45 | P.CNOR ---
History of Present Illness - [facility] Consult date: 08/17/23 Consult reason: joint pain History of present illness: Patient is a 67 yo female seen at bedside this afternoon in consultation for bilateral knee pain. She is known to Dr. Deras for similar problem and known advanced OA/DJD of bilateral knees. She is having increased pain and difficulty with ambulating. She has no calf pain, fever or chills. Review of Systems All systems: negative Constitutional: Denies chills, Denies fever Eyes: denies blurred vision, denies pain Ears, nose, mouth and throat: Denies headache, Denies sore throat Cardiovascular: Denies chest pain, Denies shortness of breath Respiratory: Denies cough Gastrointestinal: Denies abdominal pain, Denies diarrhea, Denies nausea, Denies vomiting Genitourinary: Denies dysuria, Denies hematuria Musculoskeletal: Denies myalgias Integumentary: Denies pruritus, Denies rash Neurological: Denies numbness, Denies weakness Psychiatric: Denies anxiety, Denies depression Endocrine: Denies fatigue, Denies weight change Past Medical History Past Medical History: GERD/Reflux, Hyperlipidemia, Hypertension, Osteoarthritis (OA), Pneumonia, Sleep Apnea/CPAP/BIPAP, Thyroid Disorder Additional Past Medical History / Comment(s): having nausea,sob w/ activity,varicose veins, hx ulcer and hiatal hernia, arthritis in back, degenerative disks, pinched nerve L5, sciatica, spinal stenosis, hx anemia, urinary urgency/leakage (occasional incontinence of bladder and bowels) Pt seeing urologist to determine cause History of Any Multi-Drug Resistant Organisms: None Reported Past Surgical History: Adenoidectomy, Bariatric Surgery, Breast Surgery, Cholecystectomy, Joint Replacement, Orthopedic Surgery, Tonsillectomy Additional Past Surgical History / Comment(s): LT KNEE arthroscopy x2, bilateral hip replacement, lap band with hiatal hernia repair, loly breast biopsy,emphysema Past Anesthesia/Blood Transfusion Reactions: Motion Sickness Past Psychological History: Depression Smoking Status: Former smoker Past Alcohol Use History: Rare Additional Past Alcohol Use History / Comment(s): QUIT SMOKING 2006, started smoking age 18's, 1 PPD Past Drug Use History: None Reported - Past Family History Father Family Medical History: Cancer Brother(s) Family Medical History: Cancer Medications and Allergies Home Medications Medication Instructions Recorded Confirmed Type Levothyroxine Sodium [Synthroid] 50 mcg PO DAILY 08/31/17 08/16/23 History Metoprolol Succinate [Toprol XL] 25 mg PO DAILY 05/06/19 08/16/23 History Losartan Potassium 100 mg PO DAILY 05/16/19 08/16/23 History Baclofen [Lioresal] 20 mg PO HS 10/04/22 08/16/23 History Cetirizine HCl 10 mg PO DAILY 10/04/22 08/16/23 History Cholecalciferol [Vitamin D3 (25 25 mcg PO DAILY 10/04/22 08/16/23 History Mcg = 1000 Iu)] Cyanocobalamin [Vitamin B-12] 500 mcg PO DAILY 10/04/22 08/16/23 History Fluticasone Propion/Salmeterol 1 puff INHALATION RT-BID 10/04/22 08/16/23 History [Fluticasone-Salmeterol 250-50] Multivitamins, Thera [Multivitamin 1 tab PO DAILY 10/04/22 08/16/23 History (formulary)] Ondansetron Odt [Zofran ODT] 4 mg PO Q8HR PRN 10/04/22 08/16/23 History Pravastatin Sodium [Pravachol] 40 mg PO MOWEFR 10/04/22 08/16/23 History Tiotropium 2.5 Mcg/Puff [Spiriva 2 puff INHALATION RT-DAILY 10/04/22 08/16/23 History Respimat 2.5 Mcg] Acetaminophen Tab [Tylenol] 650 mg PO Q6HR PRN tab 10/10/22 08/16/23 Rx Gabapentin 800 mg PO QID #12 tab 10/10/22 08/16/23 Rx Diclofenac Sodium [Voltaren] 75 mg PO DAILY 08/16/23 08/16/23 History HYDROcodone/APAP 10-325MG [[place] 1 tab PO TID 08/16/23 08/16/23 History 10-325] Primidone 50 mg PO HS 08/16/23 08/16/23 History Sildenafil [Revatio] 20 mg PO BID 08/16/23 08/16/23 History amLODIPine [Norvasc] 10 mg PO DAILY 08/16/23 08/16/23 History Allergies Allergy/AdvReac Type Severity Reaction Status Date / Time aripiprazole [From [facility]] Allergy Anaphylaxis, Verified 08/16/23 08:14 TROUBLE BREATHING Physical Examination NEUROLOGICAL: Patient is alert and oriented x3. Cranial nerves, speech, memory, recall, cognition are grossly intact. Constitutional: Patient is adequately groomed with no evidence of malnutrition. Mental Status: Oriented to time, place, and person. Mood and affect are appropriate. Skin: There are no rashes, ulcerations or lesions in the regions examined. There are multiple small blisters and minor cuts along viola lower extremities Right Knee Examination Brief Exam Examination of the right knee reveals extension is -30, which is painful. moderate effusion. Moderate varus. Flexion is 120. There is no instability. No warmth or redness. Examination of the lower extremity reveals the calf is soft and nontender to palpation. Good range of motion of the ankle and foot. Sensation is intact. Ginna rovascular and circulatory status are intact. Left Knee Examination Brief Exam . Examination of the left knee reveals extension is -15. moderate. Moderate varus. Flexion is 125. There is no instability. No warmth or redness. Examination of the lower extremity reveals the calf is soft and nontender to palpation. Good range of motion of the ankle and foot. Sensation is intact. Neurovascular and circulatory status are intact. Results - Labs Labs: Abnormal Lab Results - Last 24 Hours (Table) 08/16/23 08/17/23 Range/Units 16:00 06:56 Anion Gap 12.70 H (4.00-12.00) mmol/L Calcium 8.4 L (8.7-10.3) mg/dL Urine Protein 1+ H (Negative) Urine Mucus Occasional H (None) /hpf H & H 08/15/23 08/16/23 Range/Units 17:49 03:25 Hgb 14.2 12.7 (11.4-16.0) gm/dL Hct 45.4 40.0 (34.0-46.0) % Coagulation 08/15/23 Range/Units 17:49 INR 1.1 (<1.2) Result Diagrams: 08/16/23 03:25 08/17/23 06:56 - Diagnostic results Knee x-ray: report reviewed, image reviewed Assessment and Plan (1) Arthritis of both knees Narrative/Plan: Will start her on Medrol dose pack for inflammation as she is not able to have intra-articular injections due to having some in June. Will start Oxy ER for sustained pain relief as she is opiod tolerant in addition to having elevated liver enzymes. Would limit Tylenol intake. Also starting Keflex for empiric/prophylactic antibiotic treatment as she has multiple skin blisters and superficial skin wounds. Continue ice at bilateral knees for 30 mins multiple times per day. She may be WBAT with walker. Will continue to follow/monitor. Current Visit: Yes Status: Acute Priority: Medium Code(s): M17.0 - BILATERAL PRIMARY OSTEOARTHRITIS OF KNEE SNOMED Code(s): 828333457 Time with Patient: Less than 30
[2023-08-18 12:24] LABS: BUN/Creat Ratio 19.67 Ratio (12.00-20.00); Blood Urea Nitrogen 17.7 mg/dL (9.0-27.0); Calcium 8.7 mg/dL (8.7-10.3); Carbon Dioxide 22.7 mmol/L (21.6-31.8); Chloride 108 mmol/L (96-109); Glucose 169 mg/dL (70-110); Potassium 4.8 mmol/L (3.5-5.5); Sodium 140 mmol/L (135-145)
--- NOTE | 2023-08-18 12:33 | P.PN ---
Subjective Progress Note Date: 08/18/23 H&P Date: 08/16/23 Chief Complaint: Increased weakness, status post fall, laid on floor 2 days This a 67-year-old female with past medical history significant for chronic back pain, degenerative disc, spinal stenosis with extensive workup outpatient, incl uding visits with Dr. Coughlin, multiple epidurals, evaluated by orthopedic spine, sciatica pain, occasional incontinence of bladder and bowel-follows with urology, hypertension, hyperlipidemia, morbid obesity, obstructive sleep apnea, hypothyroidism, osteoarthritis, depression, former nicotine dependence and multiple other medical issues presented to the ER with complaints of increased weakness of bilateral lower extremities, left weaker than right, status post multiple falls laid on the ground x 2days. Worsening chronic bilateral knee pain, follows with orthopedic surgeon,. States insurance won't authorize surgery for another month. Reports Monday she fell 3 times; on the last fall, no one was available to help her and she laid on the floor for 2 days. CK on admission 778. Denies head trauma. Denies syncope. Denies chest pain, palpitations or shortness of breath. Denies recent illness.Bilateral knee x-ray reporting no acute osseous pathology, severe tricompartmental osteoarthritic changes. Chest x-ray reported no acute cardiopulmonary disease/process. Troponin negative 1. EKG reported sinus rhythm with PVCs,a Afebrile. Maintaining O2 sats in the 90s on room air. Hematology, coagulation panels unremarkable. Lactic acid 2.2, resolved with IV fluid hydration, 1.2. Sodium 136, potassium 3.6, bicarb 24, BUN 18, creatinine 0.86 glucose 120 magnesium 1.7. Improving LFTs: total bili 0.5, AST 155, ALT 137, alk phos 437. Total protein 5.8, albumin 3.3. Patient also states that she has had no urine since yesterday, no urine in pure wick container. Reports she does have urinary incontinence. 08/17/2023 and maintained on nebulized bronchodilators, Symbicort ,IV fluids and pain management. Maintaining O2 sats in the high 90s to 100% on room air. Afebrile, T-max 99.5. Sodium within normal limits, BUN 19.2, creatinine 1. UA negative. 08/18/2023 evaluated by orthopedic surgery with pain management further adjusted, Oxy ER ,Medrol Dosepak along with empiric antibiotics of Keflex. Sitting up at bedside, preparing to participate with PT, using a walker. Denies chest pain, palpitations or shortness of breath. Afebrile, maintaining O2 sats in the high 90s on room air. CK pending. Objective - Vital Signs Vital signs: Vital Signs Temp 98.1 F 08/18/23 07:42 Pulse 76 08/18/23 11:45 Resp 18 08/18/23 07:42 BP 157/69 08/18/23 07:42 Pulse Ox 98 08/18/23 11:45 FiO2 Intake & Output 08/17/23 08/18/23 08/18/23 18:59 06:59 18:59 Intake Total 1420 Output Total 250 Balance 1420 -250 Intake: Oral 1420 Output: Urine 250 Other: Voiding Method Bedpan Bedpan Bedside Commode Bedpan # Voids 2 4 - Exam PHYSICAL EXAM: VITAL SIGNS: As above GENERAL: Alert and oriented 3, no acute distress, sitting up at side of bed. HEENT: Conjunctivae normal. eyes normal. NECK: Supple, No JVD. CARDIOVASCULAR: S1, S2 regular..No murmur RESPIRATION: Unlabored, equal air entry .Breath sounds diminished in the bases. ABDOMEN: Soft, nontender . No guarding. +BS. SKIN/Extremities:Warm and dry, multiple scrapes,abrasions on bilateral lower anterior extremities and left lower calf, dressings clean dry and intact. Generalized tenderness, Positive DP pulses. PSYCHIATRY: Alert and oriented X3, mood and affect normal. NERVOUS SYSTEM: Cranial N 2-12 grossly normal. No focal deficits. Strength and sensation grossly intact. - Labs CBC & Chem 7: 08/16/23 03:25 08/18/23 06:29 Assessment and Plan Assessment: Rhabdomyolysis status post fall, remained on the floor 2 days. CK on admission 778 Osteoarthritis Urinary retention Acute UTI ruled out, UA neg. Obstructive sleep apnea, wears CPAP Morbid obesity, BMI 49 Chronic back pain,degenerative disc, spinal stenosis , reports extensive workup outpatient with orthopedic spine Elevated LFTs, Incontinence of bladder and bowel, follows with urologist outpatient Hypertension Hyperlipidemia Hypothyroidism Gastroesophageal reflux disease Former nicotine dependence Depression, patient asking for psychiatry evaluation. Reports depression secondary to health declining with snf, family complains of her hoarding/clutter. Plan: Continue on current medication regime ,monitoring and symptomatic treatment. CK pending. Psychiatry consult in place, recommendations pending. Orthopedic surgery recommendations noted and appreciated. Pain management. PT/OT. Discharge planning in progress for [facility] subacute rehab. Monday08/19/23. The impression and plan of care has been dictated as directed. : I performed a history and examination of this patient, discussed the same with the dictator. I agree with the dictator's note ,documented as a scribe. Any additional findings or plans will be noted.
[2023-08-18] MEDS: MORPHINE SULFATE 4 MG/ML SYRINGE IV PRN (17:18)
[2023-08-18] MEDS: BACLOFEN 10 MG TAB PO SCH (21:03)
[2023-08-19 01:45] VITALS: TEMP 98.2
[2023-08-19] MEDS: LEVOTHYROXINE 50 MCG TAB PO SCH (05:15)
[2023-08-19] MEDS: SYMBICORT 80-4.5 MCG INHALER INHALATION SCH (08:20)
[2023-08-19] MEDS: IPRATROPIUM 0.5 MG/2.5 ML NEBU INHALATION SCH ×2 (08:20→11:56)
[2023-08-19 08:50] VITALS: BP 164/81; PULSE 85; RESP 19
[2023-08-19] MEDS: FAMOTIDINE 20 MG TAB PO SCH (10:00)
[2023-08-19] MEDS: GABAPENTIN 400 MG CAP PO SCH ×2 (10:00→12:44)
[2023-08-19] MEDS: methylPREDNISolone 4 MG TAB TAPER PO SCH (10:00)
[2023-08-19] MEDS: amLODIPine 10 MG TAB PO SCH (10:00)
[2023-08-19] MEDS: LOSARTAN 50 MG TAB PO SCH (10:00)
[2023-08-19] MEDS: CEPHALEXIN 500 MG CAP PO SCH (10:02)
[2023-08-19] MEDS: oxyCODONE ER 10 MG TAB.ER.12H PO SCH (10:02)
[2023-08-19] MEDS: LORATADINE 10 MG TAB PO SCH (10:02)
[2023-08-19] MEDS: METOPROLOL SUCCINATE (ER) 25 MG TAB.ER.24H PO SCH (10:02)
--- NOTE | 2023-08-19 10:13 | P.DS ---
Providers Date of admission: 08/16/23 09:25 Attending physician: Phu Cordova MD Consults: 08/15/23 21:14 Consult Physician Urgent Consulting Provider: Randy Deras Consult Reason/Comments: Bilateral knee arthritis Do you want consulting provider notified?: Yes 08/16/23 09:23 Consult Physician Routine Consulting Provider: Ramy Rivera Consult Reason/Comments: depression Do you want consulting provider notified?: Yes Primary care physician: Dilia Wilkerson Hospital Course: Final diagnosis Acute rhabdomyolysis status post fall DJD Urinary retention acute UTI Obsessive sleep apnea Hypertension hyperlipidemia a Chronic back pain Elevated LFTs GERD multiple complex medical issues Discharge impression patient discharged in stable condition with guarded prognosis to [facility] History of present illness This 67-year-old woman with a past medical history multiple medical problems admitted with acute rhabdomyolysis and multiple other complications as listed above. I was covering Dr. Cordova for the weekend. Patient is keen on going to [facility] today. So the patient be discharged in a stable condition with guarded prognosis. Continue the medications as per the discharge medication reconciliation. On exam vitals are stable. Cardio S1-S2 normal abdomen soft nervous system no focal deficit. Follow-up labs with the [facility]. Follow-up with the primary physician after discharge from [facility] Follow-up CBC CMP in 2-3 days Plan - Discharge Summary New Discharge Prescriptions: New Cephalexin [Keflex] 500 mg PO Q6HR 1 Days #28 cap oxyCODONE ER [OxyCONTIN] 10 mg PO Q12HR 5 Days #10 tab Ipratropium Nebulized [Atrovent Nebulized 0.2 MG/ML] 0.5 mg INHALATION RT-QID ml methylPREDNISolone Dose Pack [Medrol Dose Pack] 4 mg PO DIRECTED #21 tab Continue Levothyroxine Sodium [Synthroid] 50 mcg PO DAILY Metoprolol Succinate [Toprol XL] 25 mg PO DAILY Losartan Potassium 100 mg PO DAILY Multivitamins, Thera [Multivitamin (formulary)] 1 tab PO DAILY Cyanocobalamin [Vitamin B-12] 500 mcg PO DAILY Cholecalciferol [Vitamin D3 (25 Mcg = 1000 Iu)] 25 mcg PO DAILY Baclofen [Lioresal] 20 mg PO HS Fluticasone Propion/Salmeterol [Fluticasone-Salmeterol 250-50] 1 puff INHALATION RT-BID Ondansetron Odt [Zofran ODT] 4 mg PO Q8HR PRN PRN Reason: Nausea Acetaminophen Tab [Tylenol] 650 mg PO Q6HR PRN tab PRN Reason: Mild Pain Or Fever > 100.5 Sildenafil [Revatio] 20 mg PO BID Primidone 50 mg PO HS Tiotropium 2.5 Mcg/Puff [Spiriva Respimat 2.5 Mcg] 2 puff INHALATION RT-DAILY Pravastatin Sodium [Pravachol] 40 mg PO MOWEFR Cetirizine HCl 10 mg PO DAILY Gabapentin 800 mg PO QID #12 tab amLODIPine [Norvasc] 10 mg PO DAILY Diclofenac Sodium [Voltaren] 75 mg PO DAILY HYDROcodone/APAP 10-325MG [[place] 10-325] 1 tab PO TID Discharge Medication List Levothyroxine Sodium [Synthroid] 50 mcg PO DAILY 08/31/17 [History] Metoprolol Succinate [Toprol XL] 25 mg PO DAILY 05/06/19 [History] Losartan Potassium 100 mg PO DAILY 05/16/19 [History] Baclofen [Lioresal] 20 mg PO HS 10/04/22 [History] Cetirizine HCl 10 mg PO DAILY 10/04/22 [History] Cholecalciferol [Vitamin D3 (25 Mcg = 1000 Iu)] 25 mcg PO DAILY 10/04/22 [History] Cyanocobalamin [Vitamin B-12] 500 mcg PO DAILY 10/04/22 [History] Fluticasone Propion/Salmeterol [Fluticasone-Salmeterol 250-50] 1 puff INHALATION RT-BID 10/04/22 [History] Multivitamins, Thera [Multivitamin (formulary)] 1 tab PO DAILY 10/04/22 [History] Ondansetron Odt [Zofran ODT] 4 mg PO Q8HR PRN 10/04/22 [History] Pravastatin Sodium [Pravachol] 40 mg PO MOWEFR 10/04/22 [History] Tiotropium 2.5 Mcg/Puff [Spiriva Respimat 2.5 Mcg] 2 puff INHALATION RT-DAILY 10/04/22 [History] Acetaminophen Tab [Tylenol] 650 mg PO Q6HR PRN tab 10/10/22 [Rx] Gabapentin 800 mg PO QID #12 tab 10/10/22 [Rx] Diclofenac Sodium [Voltaren] 75 mg PO DAILY 08/16/23 [History] HYDROcodone/APAP 10-325MG [[place] 10-325] 1 tab PO TID 08/16/23 [History] Primidone 50 mg PO HS 08/16/23 [History] Sildenafil [Revatio] 20 mg PO BID 08/16/23 [History] amLODIPine [Norvasc] 10 mg PO DAILY 08/16/23 [History] Cephalexin [Keflex] 500 mg PO Q6HR 1 Days #28 cap 08/18/23 [Rx] methylPREDNISolone Dose Pack [Medrol Dose Pack] 4 mg PO DIRECTED #21 tab 08/18/23 [Rx] oxyCODONE ER [OxyCONTIN] 10 mg PO Q12HR 5 Days #10 tab 08/18/23 [Rx] Ipratropium Nebulized [Atrovent Nebulized 0.2 MG/ML] 0.5 mg INHALATION RT-QID ml 08/19/23 [Rx] Follow up Appointment(s)/Referral(s): Randy Deras DO [Doctor of Osteopathic Medicine] - 2 Weeks Dilia Wilkerson DO [Primary Care Provider] - 1-2 days
--- NOTE | 2023-08-19 10:40 | P.PN ---
Subjective Progress Note Date: 08/19/23 Principal diagnosis: Bilateral knee pain. Patient is a 67 yo female seen at bedside this afternoon in consultation for bilateral knee pain. She is known to Dr. Deras for similar problem and known advanced OA/DJD of bilateral knees. She is having increased pain and difficulty with ambulating. She has no calf pain, fever or chills. 08/19/23: She is scheduled to be discharged to rehab today. There are no new complaints or concerns. Objective - Vital Signs Vital signs: Vital Signs Temp 98.2 F 08/19/23 08:12 Pulse 76 08/19/23 08:35 Resp 19 08/19/23 08:12 BP 164/81 08/19/23 08:12 Pulse Ox 98 08/19/23 08:12 FiO2 Intake & Output 08/18/23 08/19/23 08/19/23 18:59 06:59 18:59 Intake Total 240 710 Output Total 250 850 Balance -10 -140 Intake: Oral 240 710 Output: Urine 250 850 Other: Voiding Method Bedside Commode Bedside Commode Bedpan # Voids 1 - Exam NEUROLOGICAL: Patient is alert and oriented x3. Cranial nerves, speech, memory, recall, cognition are grossly intact. Constitutional: Patient is adequately groomed with no evidence of malnutrition. Mental Status: Oriented to time, place, and person. Mood and affect are appropriate. Skin: There are no rashes, ulcerations or lesions in the regions examined. There are multiple small blisters and minor cuts along the lower extremities which are improved today. Right Knee Examination Brief Exam Examination of the right knee reveals extension is -30, which is painful. moderate effusion. Moderate varus. Flexion is 120. There is no instability. No warmth or redness. Examination of the lower extremity reveals the calf is soft and nontender to palpation. Good range of motion of the ankle and foot. Sensation is intact. Neurovascular and circulatory status are intact. - Labs CBC & Chem 7: 08/16/23 03:25 08/18/23 06:29 Labs: Abnormal Lab Results - Last 24 Hours (Table) 08/18/23 08/18/23 08/18/23 Range/Units 06:29 06:29 15:33 Glucose 169 H (70-110) mg/dL Creatine Kinase 188 H 147 H (26-186) U/L Assessment and Plan (1) BMI 50.0-59.9, adult Current Visit: No Status: Acute Code(s): Z68.43 - BODY MASS INDEX [BMI] 50.0-59.9, ADULT SNOMED Code(s): 451861582 Plan: The patient may be discharged to inpatient rehab today. Follow up with ortho pedics as needed.
[2023-08-19] MEDS: PANTOPRAZOLE 40 MG/10 ML VIAL IVP SCH (11:36)
[2023-08-19] MEDS ORDERED: FLUoxetine HCL 20 MG CAP PO SCH (12:15)
--- NOTE | 2023-08-19 12:18 | P.CN ---
Psychiatric Consult - . Consult date: 08/19/23 Consult:: 08/19/23 11:44 IDENTIFYING DATA: This patient is a 67-year-old retired -[place] female REASON FOR REFERRAL: Psychiatry was consulted for depression HISTORY OF PRESENT ILLNESS: The patient presented to the hospital for falls. Patient and family requested psychiatry consult for depression. Patient states that her home and car have been "cluttered". She notes having a low mood since 2003. 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 However, she reports having a low mood that has worsened due to her physical condition. She reports having numerous medical issues that have caused her to become less mobile. She says that for majority of the time, she is laying in her bed at home and at times she is unable to move, covered in urine and feces. She endorses feeling hopeless, helpless, having low energy, low ability to focus, and having trouble sleeping. However, she reports sleeping mostly during the daytime and being awake at night. She says that she is scheduled for a sleep study on September 08 due to potential for sleep apnea. She also feels a sense of anhedonia although she continues to spend time with family which she finds enjoyable. She endorses good appetite. As a result of her low mood, she says that items have accumulated at her home. She endorses difficulty with discarding possessions, she describes enjoying buying more items as a means of transiently improving her mood, and says that her home has become so full of items that it is difficult to move around in the living space. Patient denies signs and symptoms consistent with anabel. At this time patient denies any active suicidal or homicidal ideations, intent or plan. She endorses fleeting occasional passive suicidal ideation but is future oriented and enjoys spending time with her family members. Patient says she plans to hire cleaning crew for her home. She denies any access to firearms. Patient denies any auditory, visual hallucinations and denies any paranoia or delusions. Patient denies all substance use except she was a former smoker for one pack per day and says she quit in 2001. PAST PSYCHIATRIC HISTORY: Patient has a a history of depression. She states that she has tried numerous psychiatric medications including Effexor, Abilify, Zoloft, Cymbalta, Trintellix, Wellbutrin, and Seroquel. She says all of the med ications she has tried so far were all ineffective. She does not currently see a psychiatrist but says that she used to see one in the past but due to the distance being a barrier, she is unable to continue seeing a psychiatrist. She denies having any therapist. She reports being compliant at home on Prozac 40 mg daily. PAST MEDICAL HISTORY: Past Medical History: GERD/Reflux, Hyperlipidemia, Hypertension, Osteoarthritis (OA), Pneumonia, Sleep Apnea/CPAP/BIPAP, Thyroid Disorder Additional Past Medical History / Comment(s): having nausea,sob w/ activity,varicose veins, hx ulcer and hiatal hernia, arthritis in back, degenerative disks, pinched nerve L5, sciatica, spinal stenosis, hx anemia, urinary urgency/leakage (occasional incontinence of bladder and bowels) Pt seeing urologist to determine cause History of Any Multi-Drug Resistant Organisms: None Reported Past Surgical History: Adenoidectomy, Bariatric Surgery, Breast Surgery, Cholecystectomy, Joint Replacement, Orthopedic Surgery, Tonsillectomy Additional Past Surgical History / Comment(s): LT KNEE arthroscopy x2, bilateral hip replacement, lap band with hiatal hernia repair, loly breast biopsy,emphysema Past Anesthesia/Blood Transfusion Reactions: Motion Sickness ALLERGIES: as per EMR. CHEMICAL DEPENDENCY HISTORY: as per HPI. FAMILY PSYCHIATRIC/SUBSTANCE USE HISTORY: father was reportedly abusing heroin. Mother was reportedly always saying she was "sick", but "there was nothing wrong with her" says the patient SOCIAL HISTORY: Patient states that she was "abandoned at by her mother "but that her aunt and grandmother raised her. She reports having worked in [employer] for 26 years and at the police department for answering calls. 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 MENTAL STATUS EXAM: General Appearance: Patient appears to be stated age is alert, pleasant, and cooperative. Patient appears to have fair hygiene and grooming wearing hospital gown with good eye contact. Behavior: Patient is calmly lying in bed without any agitated behavior. Speech: Patient's speech is fluent and nonpressured. Mood/Affect: Patient reports their mood is "depressed", affect is congruent, tearful Suicidality/Homicidality: Patient denies having any suicidal or homicidal ideation intent or plan. Perceptions: Patient denies any visual hallucinations and denies any auditory hallucinations Though content/process: There is no evidence of any delusional thought content and thought process is linear and goal-directed. Memory and concentration: AOX3, grossly intact for the purposes of this session. 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 -Would recommend the following medication changes/additions: Increase Prozac to 60 mg daily -Recommend sleep hygiene & encouraged patient's idea of hiring a cleaning crew -APS case filed -Discussed at length importance of following up with an outpatient provider including finding a therapist. Recommended CBT -trail construction worker to provide patient with outpatient mental health/psychiatry resources for appropriate follow up upon discharge. -Communicated plan to patient's nurse -Psychiatry will sign off at this time -Please contact with any questions. 08/19/23 12:18
[2023-08-19 14:08] LABS: ALT 77 U/L (8-44); AST 27 U/L (13-35); Albumin 3.6 g/dL (3.8-4.9); Albumin/Globulin Ratio 1.89 Ratio (1.60-3.17); Alkaline Phosphatase 275 U/L (41-126); BUN/Creat Ratio 19.25 Ratio (12.00-20.00); Blood Urea Nitrogen 15.4 mg/dL (9.0-27.0); Calcium 8.8 mg/dL (8.7-10.3); Carbon Dioxide 23.8 mmol/L (21.6-31.8); Chloride 110 mmol/L (96-109); Globulin 1.9 g/dL (1.6-3.3); Glucose 85 mg/dL (70-110); Potassium 4.5 mmol/L (3.5-5.5); Sodium 144 mmol/L (135-145); Total Bilirubin 0.3 mg/dL (0.3-1.2); Total Protein 5.5 g/dL (6.2-8.2)
== END 2023-08-19 14:40 | DRG 565 ==
LOC: EC 17:31 → 6NMEDSUR 21:15 → 1SOBS 22:35 → OBSVTOIN 08-16 09:25 → 5NMEDONC 08-16 18:28
PROVIDERS: ADMIT Family Medicine; ATTEND Family Medicine
DX: T79.6XXA Traumatic ischemia of muscle, initial encounter (principal); E87.1 Hypo-osmolality and hyponatremia; Z68.43 Body mass index [BMI] 50.0-59.9, adult; N39.0 Urinary tract infection, site not specified; W19.XXXA Unspecified fall, initial encounter; K21.9 Gastro-esophageal reflux disease without esophagitis; M54.30 Sciatica, unspecified side; Z87.19 Personal history of other diseases of the digestive system; D64.9 Anemia, unspecified; Z87.01 Personal history of pneumonia (recurrent); M19.90 Unspecified osteoarthritis, unspecified site; E78.5 Hyperlipidemia, unspecified; E03.9 Hypothyroidism, unspecified; F32.A Depression, unspecified; E66.01 Morbid (severe) obesity due to excess calories; G47.33 Obstructive sleep apnea (adult) (pediatric); R33.8 Other retention of urine; G89.29 Other chronic pain; R74.01 Elevation of levels of liver transaminase levels; Z87.891 Personal history of nicotine dependence; I10 Essential (primary) hypertension; I49.3 Ventricular premature depolarization; J43.9 Emphysema, unspecified; Z98.84 Bariatric surgery status; Z90.49 Acquired absence of other specified parts of digestive tract; M17.0 Bilateral primary osteoarthritis of knee; R32 Unspecified urinary incontinence; Z79.899 Other long term (current) drug therapy; Z79.890 Hormone replacement therapy; Z96.643 Presence of artificial hip joint, bilateral; Z91.81 History of falling; F42.3 Hoarding disorder; F39 Unspecified mood [affective] disorder
CPT/HCPCS: 36415; 71046; 80048; 80053; 81001; 82550; 83605; 83735; 84484; 85025; 85610; 85730; 93005; 94640; 94760; 96361; 96374; 99285

== ENCOUNTER → 2023-10-11 | Outpatient (CLI) | payer MEDICARE, BC ==
[2023-10-11 11:35] LABS: African American GFR (CKD) >90 (>60 ml/min/1.73 sqM); Blood Urea Nitrogen 23 mg/dL (7-17); Non-African American GFR(CKD) 82 (>60 ml/min/1.73 sqM)
--- NOTE | 2023-10-11 11:48 | CT ---
Exam: CT Chest with contrast. Date: 10/11/2023. Comparison: 11/29/2022. History: Pneumonia. Technique: CT examination of the chest was performed following the intravenous administration of 100 mL of Isovue-300. Coronal and sagittal reformats were performed. CT dose lowering techniques were us ed, to include: automated exposure control, adjustment for patient size, and/or use of iterative emmett nstruction. FINDINGS: Mediastinum and Florinda: There is no axillary, mediastinal or hilar lymphadenopathy. Pleural and Pericardial spaces: There are no pleural or pericardial effusions. Upper Abdomen: Laparoscopic band is seen around the region of the gastroesophageal junction. 3.5 cm l eft adrenal nodule is unchanged. The gallbladder surgically absent. The visualized upper abdomen othe rwise appears unremarkable. Cardiovascular: There is mild vascular calcification the aortic arch without evidence of aneurysmal d ilation. [id number] coronary calcium is seen in the left anterior descending. Pulmonary Artery: There are no central pulmonary arterial abnormalities. The examination was not per formed to evaluate for pulmonary embolism. Lung Parenchyma and Airways: There are a few scattered bands of opacities throughout the lungs bilate rally which are likely related to atelectasis or scarring. There is no focal consolidative change. So me scattered subpleural areas of reticulation are also likely chronic. Bones: Significant osteophytic changes are seen in the partially visualized shoulders bilaterally. Sc attered degenerative disc changes are seen throughout the spine. There are no acute osseous abnormali ties. IMPRESSION: 1. Chronic lung changes with no acute process identified. 2. Coronary artery calcifications. 3. Osteoarthritic changes within the shoulders bilaterally.
== END | disposition home or self-care (01) ==
LOC: RADCTMAIN 10:48
PROVIDERS: ATTEND Internal Medicine Critical Care Medicine
DX: I25.10 Atherosclerotic heart disease of native coronary artery without angina pectoris (principal); J18.9 Pneumonia, unspecified organism; R91.8 Other nonspecific abnormal finding of lung field; M19.012 Primary osteoarthritis, left shoulder; M19.011 Primary osteoarthritis, right shoulder
CPT/HCPCS: 82565; 84520; 71260; 36415; Q9967

== ENCOUNTER 2023-10-25 12:14 | Day surgery (SDC) | payer MEDICARE, BC ==
[~2023-10-25 12:14] MED LIST changes: -DEXAMETHASONE SOD PHOSPHATE 10 MG/ML 1 ML VIAL IV ONE; -HYDROmorphone 0.5 MG/0.5 ML SYRINGE IVP PRN; -LIDOCAINE 1% 20 ML VIAL (10MG/ML) FOR IV START INTRADERMA PRN; -MIDAZOLAM 2 MG/2 ML VIAL IV PRN; -SCOPOLAMINE 1.5MG/72HR PATCH TRANSDERM ONE; -ceFAZolin 3 GM in SODIUM CHLORIDE 0.9% 100 ML IVPB ONE
[2023-10-25] MEDS: LACTATED RINGERS 1,000 ML IV SCH (13:14)
[2023-10-25] MEDS ORDERED: PROPOFOL 10 MG/ML 20 ML VIAL IV ONE (13:24)
[2023-10-25] MEDS ORDERED: SUCCINYLCHOLINE CHLORIDE 200 MG/10 ML VIAL IV ONE (13:24)
[2023-10-25] MEDS ORDERED: fentaNYL (PF) 50 MCG/ML 2 ML AMP ONE (13:24)
[2023-10-25] MEDS ORDERED: LIDOCAINE 1% INJ 10MG/ML (20 ML MDV) ONE (13:24)
[2023-10-25] MEDS: LIDOCAINE 2% INJ 20 MG/ML INTRATRACH ONE (13:29)
[2023-10-25 14:00] VITALS: TEMP 97.6
[2023-10-25 14:35] VITALS: PULSE 67
[2023-10-25 15:11] VITALS: BP 130/84; RESP 16
--- NOTE | 2023-10-26 11:02 | P.PCN ---
Date of Procedure: 10/25/23 Preoperative Diagnosis: Recurrent pneumonia Postoperative Diagnosis: Recurrent pneumonias, tracheobronchomalacia, scant respiratory secretions. Otherwise rest of the airway examination was within normal limits. Procedure(s) Performed: Bronchoscopy endobronchial valve lavage of the lingula Anesthesia: MAC Surgeon: Aquilino Alaniz Estimated Blood Loss (ml): 0 Pathology: other Condition: stable Disposition: same day Operative Findings: This flexible bronchoscopy that was done in the endoscopy suite. A consent was obtained and a timeout was done. The patient was intubated and placed on the mechanical ventilator by the anesthesia team. After achieving adequate sedation, the flexible bronchoscope was easily passed through the orotracheal tube and was advanced into the lower trachea. The orotracheal tube was gradually pulled back and the mid and the distal trachea was inspected and there was a moderate component of tracheobronchomalacia with dynamic compressibility and obstruction of the tracheal wall with exhalation and coughing. Following that, a complete airway inspection was done. Distal trachea, bilateral mainstem bronchi, right upper lobe bronchus, bronchus intermedius, right middle lobe and right lower lobe bronchus and the various 10 segments on the right and the left upper lobe bronchus and the left lower lobe bronchus and the various 8 segments on the left were all inspected. Close cloudy milky respiratory secretions were noted in the left mainstem bronchus. Therapeutic airway suctioning was done. Following that, the bronchoscope was advanced and wedged into the lingular segment and a bronchoalveolar lavage was done. A total of 60 cc of saline was infused and 15 to 20 cc of saline was aspirated without any major difficulties. The aspirate was none bloody. The patient tolerated the procedure well. The bronchoscope was removed. The patient is to be extubated and transferred to recovery in stable condition. Note that along with some mild degree of tracheobronchomalacia, there was no endobronchial tumors or lesions. No foreign bodies. No other significant abnormalities identified endobronchially. The bronchoalveolar lavage will be sent for microbial cultures and analysis.
== END 2023-10-25 15:42 | disposition home or self-care (01) ==
LOC: ORWHC2ENDO 12:14
PROVIDERS: ATTEND Internal Medicine Critical Care Medicine
DX: J18.9 Pneumonia, unspecified organism (principal); J98.09 Other diseases of bronchus, not elsewhere classified; I10 Essential (primary) hypertension; E78.5 Hyperlipidemia, unspecified; I25.10 Atherosclerotic heart disease of native coronary artery without angina pectoris; G47.33 Obstructive sleep apnea (adult) (pediatric); E07.9 Disorder of thyroid, unspecified; E66.01 Morbid (severe) obesity due to excess calories; M48.00 Spinal stenosis, site unspecified; Z79.890 Hormone replacement therapy; Z79.899 Other long term (current) drug therapy
CPT/HCPCS: 87070; 87205; 87116; 87102; 87077; 87186; 87206; 31624; J0330; J2001; J3010; J2704

== ENCOUNTER 2023-11-16 22:11 | Observation (INO) | payer MEDICARE, BC ==
[2023-11-16 23:03] LABS: Basophils % (A) 1 %; Eosinophils # (A) 0.1 k/uL (0-0.7); Eosinophils % (A) 2 %; HCT 39.6 % (34.0-46.0); HGB 12.3 gm/dL (11.4-16.0); Hypochromasia Slight; Lymphocytes # (A) 0.8 k/uL (1.0-4.8); Lymphocytes % (A) 15 %; MCH 28.2 pg (25.0-35.0); MCHC 31.1 g/dL (31.0-37.0); MCV 90.9 fL (80.0-100.0); Mean Platelet Volume 8.6; Monocytes # (A) 0.2 k/uL (0-1.0); Monocytes % (A) 4 %; Neutrophils # (A) 4.2 k/uL (1.3-7.7); Neutrophils % (A) 77 %; Platelet Count 198 k/uL (150-450); RBC 4.36 m/uL (3.80-5.40); RDW 15.1 % (11.5-15.5); WBC 5.5 k/uL (3.8-10.6)
[2023-11-16] MEDS: ONDANSETRON 4 MG/2 ML VIAL IVP STA (23:05)
[2023-11-16 23:09] LABS: AST 163 U/L (14-36); African American GFR (CKD) 78 (>60 ml/min/1.73 sqM); Albumin 3.5 g/dL (3.5-5.0); Blood Urea Nitrogen 25 mg/dL (7-17); Carbon Dioxide 26 mmol/L (22-30); Non-African American GFR(CKD) 67 (>60 ml/min/1.73 sqM); Total Bilirubin 0.3 mg/dL (0.2-1.3)
[2023-11-16 23:10] LABS: ALT 243 U/L (4-34); Alkaline Phosphatase 289 U/L (38-126); Anion Gap 5 mmol/L; Calcium 8.7 mg/dL (8.4-10.2); Chloride 105 mmol/L (98-107); Glucose 119 mg/dL (74-99); Magnesium 1.8 mg/dL (1.6-2.3); Potassium 4.1 mmol/L (3.5-5.1); Sodium 136 mmol/L (137-145)
--- NOTE | 2023-11-16 23:14 | ED ---
General Adult HPI - General Chief complaint: Shortness of Breath Stated complaint: Upset stomach, Difficulty breathing Time Seen by Provider: 11/16/23 22:37 Source: patient, RN notes reviewed, old records reviewed Mode of arrival: wheelchair Limitations: no limitations - History of Present Illness Initial comments: 68-year-old female presenting with cough, dyspnea, and nausea. Patient was discharged from [facility] earlier this evening and had been going home when she was climbing the stairs to her home she became more dyspneic. She states that she was seen by pulmonology and had a bronchial lavage earlier this week. She denies central chest pain. Denies fever. She reports abdominal discomfort and nausea without specific pain at this time. - Related Data Home Medications Medication Instructions Recorded Confirmed Levothyroxine Sodium [Synthroid] 50 mcg PO QAM 08/31/17 10/25/23 Metoprolol Succinate [Toprol XL] 25 mg PO QAM 05/06/19 10/25/23 Losartan Potassium 100 mg PO QAM 05/16/19 10/25/23 Baclofen [Lioresal] 20 mg PO HS 10/04/22 10/25/23 Cetirizine HCl 10 mg PO QAM 10/04/22 10/25/23 Cholecalciferol [Vitamin D3 (25 25 mcg PO QAM 10/04/22 10/25/23 Mcg = 1000 Iu)] Cyanocobalamin [Vitamin B-12] 500 mcg PO DAILY 10/04/22 10/25/23 Fluticasone Propion/Salmeterol 1 puff INHALATION RT-BID 10/04/22 10/25/23 [Fluticasone-Salmeterol 250-50] Multivitamins, Thera [Multivitamin 1 tab PO QAM 10/04/22 10/25/23 (formulary)] Ondansetron Odt [Zofran ODT] 4 mg PO Q8HR PRN 10/04/22 10/25/23 Pravastatin Sodium [Pravachol] 40 mg PO MOWEFR 10/04/22 10/25/23 Diclofenac Sodium [Voltaren] 75 mg PO QAM 08/16/23 10/25/23 HYDROcodone/APAP 10-325MG [[place] 1 tab PO TID PRN 08/16/23 10/25/23 10-325] Primidone 50 mg PO HS 08/16/23 10/25/23 Sildenafil [Revatio] 20 mg PO BID 08/16/23 10/25/23 amLODIPine [Norvasc] 10 mg PO QAM 08/16/23 10/25/23 Ascorbic Acid [Vitamin C] 500 mg PO BID 10/24/23 10/25/23 Baclofen 10 mg PO BID PRN 10/24/23 10/25/23 FLUoxetine HCL 20 mg PO HS 10/24/23 10/25/23 Ferrous Sulfate [Feosol] 325 mg PO BID 10/24/23 10/25/23 Fluticasone Propionate 2 spray NASAL BID 10/24/23 10/25/23 [Fluticasone Propionate [place] 50 mcg Nasal [place]] Omeprazole 20 mg PO QAM 10/24/23 10/25/23 Pravastatin Sodium [Pravachol] 40 mg PO HS 10/24/23 10/25/23 Promethazine/Dextromethorphan 5 ml PO Q8H PRN 10/24/23 10/25/23 [Promethazine-Dm 6.25-15 mg/5Ml] Umeclidinium [place] [Incruse 1 puff INHALATION QAM 10/24/23 10/25/23 Ellipta] guaiFENesin [guaiFENesin Oral 10 ml PO Q4HR PRN 10/24/23 10/25/23 Solution] risperiDONE [RisperDAL] 2 mg PO QAM 10/24/23 10/25/23 Previous Rx's Medication Instructions Recorded Acetaminophen Tab [Tylenol] 650 mg PO Q6HR PRN tab 10/10/22 Gabapentin 800 mg PO QID #12 tab 10/10/22 oxyCODONE ER [OxyCONTIN] 10 mg PO Q12HR 5 Days #10 tab 08/18/23 Ipratropium Nebulized [Atrovent 0.5 mg INHALATION RT-QID ml 08/19/23 Nebulized 0.2 MG/ML] Allergies Allergy/AdvReac Type Severity Reaction Status Date / Time aripiprazole [From Abilify] Allergy Anaphylaxis, Verified 10/25/23 12:45 TROUBLE BREATHING Review of Systems ROS Statement: Those systems with pertinent positive or pertinent negative responses have been documented in the HPI. ROS Other: All systems not noted in ROS Statement are negative. Past Medical History Past Medical History: Pneumonia Additional Past Medical History / Comment(s): having nausea,sob w/ activity,varicose veins, hx ulcer and hiatal hernia, arthritis in back, degenerative disks, pinched nerve L5, sciatica, spinal stenosis, hx anemia, urinary urgency/leakage (occasional incontinence of bladder and bowels) Pt seeing urologist to determine cause History of Any Multi-Drug Resistant Organisms: None Reported Past Surgical History: Adenoidectomy, Bariatric Surgery, Breast Surgery, Cholecystectomy, Joint Replacement, Orthopedic Surgery, Tonsillectomy Additional Past Surgical History / Comment(s): LT KNEE arthroscopy x2, bilateral hip replacement, lap band with hiatal hernia repair, loly breast biopsy,emphysema Past Anesthesia/Blood Transfusion Reactions: Motion Sickness Past Psychological History: Depression Smoking Status: Former smoker - Past Family History Father Family Medical History: Cancer Brother(s) Family Medical History: Cancer General Exam Limitations: no limitations General appearance: alert, in no apparent distress Head exam: Present: atraumatic, normocephalic Eye exam: Present: normal appearance, PERRL ENT exam: Present: normal exam Respiratory exam: Present: respiratory distress, decreased breath sounds Cardiovascular Exam: Present: regular rate, normal rhythm GI/Abdominal exam: Present: soft. Absent: distended, tenderness, guarding Neurological exam: Present: alert, oriented X3 Psychiatric exam: Present: anxious Skin exam: Present: warm, dry, intact Course Vital Signs 11/16/23 11/16/23 11/16/23 22:14 23:23 23:46 Temperature 97.5 F L Pulse Rate 76 67 73 Respiratory 91 H Rate Blood Pressure 153/73 O2 Sat by Pulse 94 L Oximetry 11/17/23 00:33 Temperature Pulse Rate 79 Respiratory 18 Rate Blood Pressure 158/68 O2 Sat by Pulse 95 Oximetry Medical Decision Making - Medical Decision Making Was pt. sent in by a medical professional or institution (, PA, DELIVERY ASSOCIATE, urgent care, hospital, or jail...) When possible be specific @ -No Did you speak to anyone other than the patient for history (EMS, parent, family, police, friend...)? What history was obtained from this source @ -No Did you review nursing and triage notes (agree or disagree)? Why? @ -I reviewed and agree with nursing and triage notes Were old charts reviewed (outside hosp., previous admission, EMS record, old EKG, old radiological studies, urgent care reports/EKG's, jail records)? Report findings @ -No old charts were reviewed Differential Diagnosis (chest pain, altered mental status, abdominal pain women, abdominal pain men, vaginal bleeding, weakness, fever, dyspnea, syncope, headache, dizziness, GI bleed, back pain, seizure, CVA, palpatations, mental health, musculoskeletal)? @Differential Dyspnea: Coronary syndrome, arrhythmia, tamponade, asthma, COPD, pulmonary embolism, pneumonia, pneumothorax, pulmonary effusion, anaphylaxis, diabetic ketoacidosis, flailed chest, pulmonary contusion, diaphragmatic rupture, anemia, haley romuscular, this is not meant to be an all-inclusive list. EKG interpreted by me (3pts min.). @ -Sinus rhythm rate of 71, TX interval 187, QRS duration [address] segment elevation. X-rays interpreted by me (1pt min.). @No focal pneumonia, no pneumothorax on chest x-ray CT interpreted by me (1pt min.). @ -CT abdomen pelvis negative for acute intra-abdominal pathology. U/S interpreted by me (1pt. min.). @ -None done What testing was considered but not performed or refused? (CT, X-rays, U/S, l abs)? Why? @ -None What meds were considered but not given or refused? Why? @ -None Did you discuss the management of the patient with other professionals (professionals i.e. , PA, DELIVERY ASSOCIATE, lab, RT, psych nurse, social media community manager, boxcar weigher, teacher, parachute officer, family preservation caseworker)? Give summary @Dr. Villa, will admit Was smoking cessation discussed for >3mins.? @ -No Was critical care preformed (if so, how long)? @ -No Were there social determinants of health that impacted care today? How? (Homelessness, low income, unemployed, alcoholism, drug addiction, transportation, low edu. Level, literacy, decrease access to med. care, longterm, rehab)? @ -No Was there de-escalation of care discussed even if they declined (Discuss DNR or withdrawal of care, Hospice)? DNR status @ -No What co-morbidities impacted this encounter? (DM, HTN, Smoking, COPD, CAD, Cancer, CVA, ARF, Chemo, Hep., AIDS, mental health diagnosis, sleep apnea, morbid obesity)? @ -None Was patient admitted / discharged? Hospital course, mention meds given and route, prescriptions, significant lab abnormalities, going to OR and other pertinent info. @Patient admitted with bronchospastic cough, dyspnea, persistent nausea vomiting. Patient admitted to Dr. Cordova who is aware with pulmonology on consult. Undiagnosed new problem with uncertain prognosis? @ -No Drug Therapy requiring intensive monitoring for toxicity (Heparin, Nitro, Insulin, Cardizem)? @ -No Were any procedures done? @ -No Diagnosis/symptom? @ -Dyspnea, bronchospasm, weakness and debility, persistent nausea Acute, or Chronic, or Acute on Chronic? @ -Acute on chronic Uncomplicated (without systemic symptoms) or Complicated (systemic symptoms)? @ -Default Side effects of treatment? @ -No Exacerbation, Progression, or Severe Exacerbation? @ -No Poses a threat to life or bodily function? How? (Chest pain, [place], [place], pneumonia, PE, COPD, DKA, ARF, appy, cholecystitis, CVA, Diverticulitis, Homicidal, Suicidal, threat to staff... and all critical care pts) @ -Low risk at this time - Lab Data Result diagrams: 11/16/23 22:32 11/16/23 22:32 Lab Results 11/16/23 11/16/23 11/16/23 Range/Units 22:32 22:32 22:32 WBC 5.5 (3.8-10.6) k/uL RBC 4.36 (3.80-5.40) m/uL Hgb 12.3 (11.4-16.0) gm/dL Hct 39.6 (34.0-46.0) % MCV 90.9 (80.0-100.0) fL MCH 28.2 (25.0-35.0) pg MCHC 31.1 (31.0-37.0) g/dL RDW 15.1 (11.5-15.5) % Plt Count 198 (150-450) k/uL MPV 8.6 Neutrophils % 77 % Lymphocytes % 15 % Monocytes % 4 % Eosinophils % 2 % Basophils % 1 % Neutrophils # 4.2 (1.3-7.7) k/uL Lymphocytes # 0.8 L (1.0-4.8) k/uL Monocytes # 0.2 (0-1.0) k/uL Eosinophils # 0.1 (0-0.7) k/uL Basophils # 0.0 (0-0.2) k/uL Hypochromasia Slight PT 10.9 (10.0-12.5) sec INR 1.0 (<1.2) APTT 26.7 (22.0-30.0) sec Sodium 136 L (137-145) mmol/L Potassium 4.1 (3.5-5.1) mmol/L Chloride 105 (98-107) mmol/L Carbon Dioxide 26 (22-30) mmol/L Anion Gap 5 mmol/L BUN 25 H (7-17) mg/dL Creatinine 0.88 (0.52-1.04) mg/dL Est GFR (CKD-EPI)AfAm 78 (>60 ml/min/1.73 sqM) Est GFR (CKD-EPI)NonAf 67 (>60 ml/min/1.73 sqM) Glucose 119 H (74-99) mg/dL Plasma Lactic Acid Long (0.7-2.0) mmol/L Calcium 8.7 (8.4-10.2) mg/dL Magnesium 1.8 (1.6-2.3) mg/dL Total Bilirubin 0.3 (0.2-1.3) mg/dL AST 163 H (14-36) U/L ALT 243 H (4-34) U/L Alkaline Phosphatase 289 H (38-126) U/L Troponin I (0.000-0.034) ng/mL NT-Pro-B Natriuret Pep 305 pg/mL Total Protein 6.0 L (6.3-8.2) g/dL Albumin 3.5 (3.5-5.0) g/dL Influenza Type A (PCR) (Not Detectd) Influenza Type B (PCR) (Not Detectd) RSV (PCR) (Not Detectd) SARS-CoV-2 (PCR) (Not Detectd) 11/16/23 11/16/23 11/16/23 Range/Units 22:32 22:32 23:01 WBC (3.8-10.6) k/uL RBC (3.80-5.40) m/uL Hgb (11.4-16.0) gm/dL Hct (34.0-46.0) % MCV (80.0-100.0) fL MCH (25.0-35.0) pg MCHC (31.0-37.0) g/dL RDW (11.5-15.5) % Plt Count (150-450) k/uL MPV Neutrophils % % Lymphocytes % % Monocytes % % Eosinophils % % Basophils % % Neutrophils # (1.3-7.7) k/uL Lymphocytes # (1.0-4.8) k/uL Monocytes # (0-1.0) k/uL Eosinophils # (0-0.7) k/uL Basophils # (0-0.2) k/uL Hypochromasia PT (10.0-12.5) sec INR (<1.2) APTT (22.0-30.0) sec Sodium (137-145) mmol/L Potassium (3.5-5.1) mmol/L Chloride (98-107) mmol/L Carbon Dioxide (22-30) mmol/L Anion Gap mmol/L BUN (7-17) mg/dL Creatinine (0.52-1.04) mg/dL Est GFR (CKD-EPI)AfAm (>60 ml/min/1.73 sqM) Est GFR (CKD-EPI)NonAf (>60 ml/min/1.73 sqM) Glucose (74-99) mg/dL Plasma Lactic Acid Long 1.1 (0.7-2.0) mmol/L Calcium (8.4-10.2) mg/dL Magnesium (1.6-2.3) mg/dL Total Bilirubin (0.2-1.3) mg/dL AST (14-36) U/L ALT (4-34) U/L Alkaline Phosphatase (38-126) U/L Troponin I <0.012 (0.000-0.034) ng/mL NT-Pro-B Natriuret Pep pg/mL Total Protein (6.3-8.2) g/dL Albumin (3.5-5.0) g/dL Influenza Type A (PCR) Not Detected (Not Detectd) Influenza Type B (PCR) Not Detected (Not Detectd) RSV (PCR) Not Detected (Not Detectd) SARS-CoV-2 (PCR) Not Detected (Not Detectd) Disposition Clinical Impression: Weakness, Bronchospasm Disposition: ADMITTED IP TO THIS HOSP Condition: Stable Is patient prescribed a controlled substance at d/c from ED?: No Time of Disposition: 02:37
[2023-11-16 23:17] LABS: NT-Pro-B-Type Natriuretic Pept 305 pg/mL; Partial Thromboplastin Time 26.7 sec (22.0-30.0); Prothrombin Time 10.9 sec (10.0-12.5)
[2023-11-16] MEDS: IPRATROPIUM 0.5 MG/2.5 ML NEBU INHALATION STA (23:21)
[2023-11-16] MEDS: ALBUTEROL NEBULIZED 2.5 MG/3 ML INHALATION STA (23:21)
--- NOTE | 2023-11-16 23:44 | XR ---
EXAM: XR Chest, 2 Views CLINICAL HISTORY: ITS.REASON XR Reason: difficulty breathing TECHNIQUE: Frontal and lateral views of the chest. COMPARISON: No relevant prior studies available. FINDINGS: Lungs: Pulmonary vascular congestion. Correlate for congestive heart failure. No consolidation. Pleural space: Unremarkable. No pneumothorax. Heart: Cardiomegaly. Mediastinum: Unremarkable. Normal mediastinal contour. Bones/joints: Unremarkable. No acute fracture. IMPRESSION: Pulmonary vascular congestion. Correlate for congestive heart failure.
--- NOTE | 2023-11-17 01:26 | CT ---
EXAM: CT Abdomen and Pelvis With Intravenous Contrast CLINICAL HISTORY: ITS.REASON CT Reason: ab pain/nausea TECHNIQUE: Axial computed tomography images of the abdomen and pelvis with intravenous contrast. CTDI is 72 mGy and DLP is 3402 mGy-cm. This CT exam was performed using one or more of the following dose reduction techniques: automated exposure control, adjustment of the mA and/or kV according to patient size, and/or use of iterative reconstruction technique. COMPARISON: 10/11/2023 01/19/2020 FINDINGS: Lung bases: Mild bibasilar subsegmental atelectasis/scarring. Heart: Mild cardiomegaly. ABDOMEN: Liver: No acute findings. No mass. Gallbladder and bile ducts: Cholecystectomy. No ductal dilation. Pancreas: Unremarkable. No mass. No ductal dilation. Spleen: Unremarkable. No splenomegaly. Adrenals: Stable 3.3 cm left adrenal nodule. Kidneys and ureters: Unremarkable. No solid mass. No hydronephrosis. Stomach and bowel: Laparoscopic gastric band. No obstruction. No mucosal thickening. PELVIS: Appendix: No findings to suggest acute appendicitis. Bladder: Unremarkable. No mass. Reproductive: Lobulation along the uterine fundus likely representing a fibroid, unchanged. ABDOMEN and PELVIS: Intraperitoneal space: Unremarkable. No free air. No significant fluid collection. Bones/joints: Bilateral total hip arthroplasties. Degenerative changes in the spine. No acute fracture. No dislocation. Soft tissues: Unremarkable. Vasculature: Unremarkable. No abdominal aortic aneurysm. Lymph nodes: Unremarkable. No enlarged lymph nodes. Tubes, lines and devices: Unchanged intrauterine device along the posterior uterus. IMPRESSION: No acute findings in the abdomen or pelvis.
[2023-11-17] MEDS ORDERED: ACETAMINOPHEN TAB 325 MG TAB PO PRN (01:53)
[2023-11-17] MEDS ORDERED: NALOXONE 0.4 MG/ML 1 ML VIAL IVP PRN (01:53)
--- NOTE | 2023-11-17 04:30 | P.CNPUL ---
History of Present Illness Consult date: 11/17/23 Requesting physician: Jose Beckwith Reason for consult: other (Recent bronchoscopy) Chief complaint: Shortness of breath, cough, nausea History of present illness: Patient is a 68-year-old female with past medical history significant for morbid obesity, osteoarthritis, lap band, hypertension, hyperlipidemia, hypothyroidism, COPD, former tobacco smoker with 82-45-cxit-year history. Patient had been at [facility] up until 24 hours ago. Apparently, she was having increased weakness and recurrent falls in August, and required rehab on hospital discharge. While at the outside facility, she had a persistent cough, respiratory difficulties, and recurrent pneumonias. She was treated with multiple courses of antibiotics. A CT of the chest done 10/11/2023 showed few scattered veins of opacities throughout the lungs bilaterally, which are likely related to atelectasis or scarring. No focal consolidative changes. There is scattered subpleural areas of reticulation, also likely chronic. Dr. Alaniz did take the patient for a bronchoscopy on 10/25/2023. She was noted to have tracheobronchial malacia and a BAL of the lingula was done, and microbiology was positive for Citrobacter. She was treated with a prolonged course of ciprofloxacin. Patient had been discharged from [facility], less than 24 hours, where she started to feel short of breath, chest tightness, with a persistent cough and occasional clear sputum production. Denies any fevers. She denies any chest pain. Denies any hemoptysis. Admits some associated nausea and mild epigastric pain. Denies any emesis. Denies any diarrhea. Denies any bloody bowel movements or melena. Patient is currently lying in bed on her left side, she is teary-eyed and states she is frustrated. She is on room air. Does not appear to be in any distress at rest. Chest x-ray on arrival shows cardiomegaly with some likely bibasilar atelectasis/scarring. No acute focal infiltrates or evidence of pneumonia. An CT of the abdomen pelvis did not show any acute intra-abdominal abnormalities. CBC unremarkable. No leukocytosis. BMP also unremarkable. LFTs were mildly elevated. Troponin is less than 0.012. NT proBNP 305. Negative for influenza, RSV, COVID. Hemodynamically stable. Review of Systems REVIEW OF SYSTEMS: CONSTITUTIONAL: Denies any recent significant weight loss or weight gain. EYES: Denies change in vision. EARS, NOSE, MOUTH, THROAT: Denies headaches, denies sore throat. CARDIOVASCULAR: Denies chest pain, palpitations or syncopal episodes. RESPIRATORY: See HPI. GASTROINTESTINAL: See HPI. GENITOURINARY: Denies hematuria, denies infections. MUSKULOSKELETAL: Denies pain, denies swelling. INTEGUMENTARY: Denies rash, denies eczema. NEUROLOGICAL: Denies recent memory loss, no recent seizure activity. PSYCHIATRIC: Denies anxiety, denies depression. HEMATOLOGIC/LYMPHATIC: Denies anemia, denies enlarged lymph node Past Medical History Past Medical History: Pneumonia Additional Past Medical History / Comment(s): having nausea,sob w/ activity,varicose veins, hx ulcer and hiatal hernia, arthritis in back, degenerative disks, pinched nerve L5, sciatica, spinal stenosis, hx anemia, urinary urgency/leakage (occasional incontinence of bladder and bowels) Pt seeing urologist to determine cause, emphysema History of Any Multi-Drug Resistant Organisms: None Reported Past Surgical History: Adenoidectomy, Bariatric Surgery, Breast Surgery, Cholecystectomy, Joint Replacement, Orthopedic Surgery, Tonsillectomy Additional Past Surgical History / Comment(s): LT KNEE arthroscopy x2, bilateral hip replacement, lap band with hiatal hernia repair, loly breast biopsy, Past Anesthesia/Blood Transfusion Reactions: Motion Sickness Past Psychological History: Depression Smoking Status: Former smoker Past Alcohol Use History: Rare Additional Past Alcohol Use History / Comment(s): QUIT SMOKING 2006, started smoking age 18's, 1 PPD Past Drug Use History: None Reported - Past Family History Father Family Medical History: Cancer Brother(s) Family Medical History: Cancer Medications and Allergies Home Medications Medication Instructions Recorded Confirmed Type Levothyroxine Sodium [Synthroid] 50 mcg PO QAM 08/31/17 11/17/23 History Metoprolol Succinate [Toprol XL] 25 mg PO QAM 05/06/19 11/17/23 History Losartan Potassium 100 mg PO QAM 05/16/19 11/17/23 History Baclofen [Lioresal] 20 mg PO HS 10/04/22 11/17/23 History Cetirizine HCl 10 mg PO QAM 10/04/22 11/17/23 History Cholecalciferol [Vitamin D3 (25 25 mcg PO QAM 10/04/22 11/17/23 History Mcg = 1000 Iu)] Cyanocobalamin [Vitamin B-12] 500 mcg PO DAILY 10/04/22 11/17/23 History Fluticasone Propion/Salmeterol 1 puff INHALATION RT-BID 10/04/22 11/17/23 History [Fluticasone-Salmeterol 250-50] Multivitamins, Thera [Multivitamin 1 tab PO QAM 10/04/22 11/17/23 History (formulary)] Ondansetron Odt [Zofran ODT] 4 mg PO Q8HR PRN 10/04/22 11/17/23 History Acetaminophen Tab [Tylenol] 650 mg PO Q6HR PRN tab 10/10/22 11/17/23 Rx Gabapentin 800 mg PO QID #12 tab 10/10/22 11/17/23 Rx Diclofenac Sodium [Voltaren] 75 mg PO QAM 08/16/23 11/17/23 History HYDROcodone/APAP 10-325MG [[place] 1 tab PO TID PRN 08/16/23 11/17/23 History 10-325] Primidone 50 mg PO HS 08/16/23 11/17/23 History Sildenafil [Revatio] 20 mg PO BID 08/16/23 11/17/23 History amLODIPine [Norvasc] 10 mg PO QAM 08/16/23 11/17/23 History Ascorbic Acid [Vitamin C] 500 mg PO BID 10/24/23 11/17/23 History Baclofen 10 mg PO BID PRN 10/24/23 11/17/23 History FLUoxetine HCL 60 mg PO HS 10/24/23 11/17/23 History Ferrous Sulfate [Feosol] 325 mg PO BID 10/24/23 11/17/23 History Fluticasone Propionate 2 spray NASAL DAILY 10/24/23 11/17/23 History [Fluticasone Propionate [place] 50 mcg Nasal [place]] Omeprazole 20 mg PO QAM 10/24/23 11/17/23 History Pravastatin Sodium [Pravachol] 40 mg PO HS 10/24/23 11/17/23 History Promethazine/Dextromethorphan 5 ml PO Q8H PRN 10/24/23 11/17/23 History [Promethazine-Dm 6.25-15 mg/5Ml] Umeclidinium [place] [Incruse 1 puff INHALATION RT-DAILY 10/24/23 11/17/23 History Ellipta] guaiFENesin [guaiFENesin Oral 10 ml PO Q4HR PRN 10/24/23 11/17/23 History Solution] Ciprofloxacin HCl [Cipro] 500 mg PO Q12HR 11/17/23 11/17/23 History Furosemide [Lasix] 40 mg PO BID #60 tab 11/17/23 Rx Ipratropium-Albuterol Nebulize 3 ml INHALATION RT-QID PRN 11/17/23 11/17/23 History [Duoneb 0.5 mg-3 mg/3 ml Soln] OLANZapine [ZyPREXA] 2.5 mg PO HS 11/17/23 11/17/23 History Potassium Chloride [Klor-Con M20] 20 meq PO BID #60 tab 11/17/23 Rx oxyCODONE ER [OxyCONTIN] 15 mg PO Q12HR 11/17/23 11/17/23 History predniSONE 10 mg PO DIRECTED #45 tab 11/17/23 Rx Allergies Allergy/AdvReac Type Severity Reaction Status Date / Time aripiprazole [From Abilify] Allergy Anaphylaxis, Verified 11/17/23 12:52 TROUBLE BREATHING Physical Exam Vitals: Vital Signs Temp Pulse Pulse Resp BP BP Pulse Ox 11/17/23 03:23 98 F 71 16 146/75 96 11/17/23 02:46 76 18 161/80 96 11/17/23 02:00 77 19 156/67 95 11/17/23 01:00 80 18 158/68 96 11/17/23 00:33 79 18 158/68 95 11/17/23 00:32 79 20 153/99 94 L 11/16/23 23:46 73 11/16/23 23:23 67 11/16/23 22:14 97.5 F L 76 91 H 153/73 94 L Intake and Output 11/16/23 11/16/23 11/17/23 14:59 22:59 06:59 Other: Weight 158.757 kg 158.757 kg GENERAL EXAM: Alert, morbidly obese 68-year-old female, teary-eyed, in no acute distress. HEAD: Normocephalic and atraumatic EYES: Normal reaction of pupils, equal size. NOSE: Clear with pink turbinates. THROAT: No erythema or exudates. NECK: No masses, no JVD. CHEST: No chest wall deformity. LUNGS: Equal air entry with no crackles, wheeze, rhonchi or dullness. On room air. No conversational dyspnea or accessory muscle use while at rest. CVS: S1 and S2 normal with no audible murmur, regular rhythm. No extra heart sounds ABDOMEN: Obese abdomen, no hepatosplenomegaly, active bowel sounds, no guarding or rigidity. Hard abdominal mass left upper quadrant consistent with the patient's history of Lap-Band SPINE: No scoliosis or deformity SKIN: No rashes CENTRAL NERVOUS SYSTEM: No focal deficits, tone is normal in all 4 extremities. EXTREMITIES: There is mild nonpitting bilateral lower extremity edema. No clubbing, or cyanosis. Peripheral pulses are intact. Results - Laboratory Findings CBC and BMP: 11/16/23 22:32 11/16/23 22:32 PT/INR, D-dimer PT 10.9 sec (10.0-12.5) 11/16/23 22:32 INR 1.0 (<1.2) 11/16/23 22:32 Abnormal lab findings: Abnormal Labs 11/16/23 11/16/23 22:32 22:32 Lymphocytes # 0.8 L Sodium 136 L BUN 25 H Glucose 119 H AST 163 H ALT 243 H Alkaline Phosphatase 289 H Total Protein 6.0 L - Diagnostic Findings Chest x-ray: image reviewed Assessment and Plan Assessment: History of recurrent pneumonias, recently underwent bronchoscopy with BAL on 10/25/2023, which was positive for Citrobacter koseri. Patient is currently on ciprofloxacin. We will continue this. Chest x-ray on arrival shows cardiomegaly with some chronic bibasilar atelectasis/scarring. No new acute focal infiltrates or evidence of pneumonia. Tracheobronchomalacia, as noted on bronchoscopy report Chronic obstructive pulmonary disease, stable, maintained on a combination of Advair and Incruse, albuterol nebulizer [id number], and as needed albuterol rescue inhaler Abdominal pain and nausea, CT of the abdomen pelvis did not show any acute intra-abdominal abnormalities. Mild transaminitis Morbid obesity, with a BMI of 54.8 kg/m History of laparoscopic gastric band History of hypertension History of hypothyroidism History of osteoarthritis Former tobacco dependence, with a 39-04-qzra-year history Plan: Medications, labs, chest x-ray reviewed Currently on room air Continue fluoroquinolone antibiotic Negative for influenza, RSV, COVID. Continue combination of DuoNebs [id number], add Symbicort inhaler, and taper Solumedrol. Anticipate 24 to 48-hour hospital course We will continue to follow I have personally seen and examined the patient, performed the documentation and the assessment and plan as written. Number of minutes spent on the visit:20 This is a joint evaluation that was done along with the nurse practitioner. The patient is known to me. The patient was treated for gram-negative pneumonia and she was discharged to an ECF and following that she was discharged home to be readmitted for worsening shortness of breath. She is also having some nausea and emesis. CAT scan of the abdomen showed that the lung bases were clear and there is no evidence of any pulmonary infiltrates or infections. There may be also a component of fluid overload as the patient is experiencing increased edema lower extremities bilaterally. Pulse ox 94% room air oxygen.The rest of the labs were reviewed and the patient has normal CBC, normal coagulation profile, normal renal function, LFTs are slightly disturbed and this is essentially on a chronic basis, consider fatty liver. Troponins are negative. proBNP level is 305. I reviewed the CAT scan of the abdomen and pelvis and it shows no acute intra-abdominal findings. Overall respiratory status is stable. The patient may be potentially get discharged home on a course of fluoroquinolones and she should be also started on Lasix 40 mg p.o. twice a day to be followed up on outpatient basis. She does have some increased edema lower extremities and some signs of fluid overload. Overall respiratory status is stable at this point. Also CAT scan of the abdomen shows cholecystectomy changes without any dilatation of the common bile duct. LFTs to be monitored on outpatient basis. Evaluation was done in more than 30 minutes. Time with Patient: Greater than 30
[2023-11-17] MEDS: ONDANSETRON 4 MG/2 ML VIAL IVP PRN (05:45)
[2023-11-17] MEDS: LEVOFLOXACIN 750 MG TAB PO SCH (05:45)
[2023-11-17] MEDS ORDERED: methylPREDNISolone SOD SUCCI 125 MG/2 ML VIAL IV SCH (06:00)
[2023-11-17] MEDS: predniSONE 50 MG TAB PO SCH (08:49)
[2023-11-17] MEDS: METOPROLOL SUCCINATE (ER) 25 MG TAB.ER.24H PO SCH (08:49)
[2023-11-17] MEDS: GABAPENTIN 400 MG CAP PO SCH (08:49)
[2023-11-17] MEDS: PANTOPRAZOLE 40 MG TABLET PO SCH (08:50)
[2023-11-17] MEDS: LOSARTAN 50 MG TAB PO SCH (08:50)
[2023-11-17] MEDS: amLODIPine 10 MG TAB PO SCH (08:50)
[2023-11-17 09:07] LABS: Hepatitis A Antibody IgM Nonreactive (Nonreactive); Hepatitis B Core IgM Nonreactive (Nonreactive); Hepatitis B Surface Antigen Nonreactive (Nonreactive); Hepatitis C IgG Antibody Nonreactive (Nonreactive)
[2023-11-17] MEDS: IPRATROPIUM-ALBUTEROL 3 ML NEB INHALATION SCH (09:08)
[2023-11-17] MEDS: SYMBICORT 160-4.5 MCG INHALER INHALATION SCH (09:08)
--- NOTE | 2023-11-17 10:10 | P.HPIM ---
History of Present Illness H&P Date: 11/17/23 Chief Complaint: Bronchospasms, weakness This is a 68-year-old female with past medical history significant for morbid obesity, obstructive sleep apnea, chronic back pain, degenerative disc, spinal stenosis with extensive workup outpatient, including visits with Dr. Coughlin, multiple epidurals, previously evaluated by orthopedic spine, sciatica pain, occasional incontinence of bladder and bowel-follows with urology, hypertension, hyperlipidemia, hypothyroidism, osteoarthritis, depression, former nicotine dependence and multiple other medical issues presented to the ER with complaints of bronchospasms and weakness. In August 2023, patient was admitted inpatient with recurrent falls, rhabdomyolysis and at discharge was discharged to subacute rehab. Ongoing Cough, Dyspnea with recurrent treated pneumonias. Followed up with Dr. Alaniz for bronchoscopy on 10/25/2023, reporting Tracheobronchomalacia, cultures reported positive for Citrobacter and patient was discharged on Cipro.Reports she was discharged yesterday from [facility] subacute rehab.,cimbing the stairs to her home and developed increased dyspnea accompanied by nausea this minimal epigastric discomfort. Denies diarrhea, melena or bloody stools .denies chest pain or palpitations. Troponin negative x 1 denies lightheadedness dizziness or focal deficits. Denies chills or fevers. Abdominal/pelvis CT reported no acute findings.Chest x-ray reported pulmonary vascular congestion. proBNP 305. Afebrile, normal WBC-hematology and coagulation panels unremarkable. Electrolytes within normal limits, BUN 25, creatinine 0.88. T. bili 0.3, AST 163, ALT 243, alk phos 289. Hepatitis panel nonreactive, viral studies negative. This morning remains hemodynamically stable, maintaining O2 sats in the 90s on room air, complaining of nausea. Procalcitonin normal at 0.09. Review of Systems ROS Statement: Those systems with pertinent positive or pertinent negative responses have been documented in the HPI. ROS Other: All systems not noted in ROS Statement are negative. Past Medical History Past Medical History: Pneumonia Additional Past Medical History / Comment(s): having nausea,sob w/ activity,varicose veins, hx ulcer and hiatal hernia, arthritis in back, degenerative disks, pinched nerve L5, sciatica, spinal stenosis, hx anemia, urinary urgency/leakage (occasional incontinence of bladder and bowels) Pt seeing urologist to determine cause, emphysema History of Any Multi-Drug Resistant Organisms: None Reported Past Surgical History: Adenoidectomy, Bariatric Surgery, Breast Surgery, Cholecystectomy, Joint Replacement, Orthopedic Surgery, Tonsillectomy Additional Past Surgical History / Comment(s): LT KNEE arthroscopy x2, bilateral hip replacement, lap band with hiatal hernia repair, loly breast biopsy, Past Anesthesia/Blood Transfusion Reactions: Motion Sickness Past Psychological History: Depression Smoking Status: Former smoker Past Alcohol Use History: Rare Additional Past Alcohol Use History / Comment(s): QUIT SMOKING 2006, started smoking age 18's, 1 PPD Past Drug Use History: None Reported - Past Family History Father Family Medical History: Cancer Brother(s) Family Medical History: Cancer Medications and Allergies Home Medications Medication Instructions Recorded Confirmed Type Levothyroxine Sodium [Synthroid] 50 mcg PO QAM 08/31/17 10/25/23 History Metoprolol Succinate [Toprol XL] 25 mg PO QAM 05/06/19 10/25/23 History Losartan Potassium 100 mg PO QAM 05/16/19 10/25/23 History Baclofen [Lioresal] 20 mg PO HS 10/04/22 10/25/23 History Cetirizine HCl 10 mg PO QAM 10/04/22 10/25/23 History Cholecalciferol [Vitamin D3 (25 25 mcg PO QAM 10/04/22 10/25/23 History Mcg = 1000 Iu)] Cyanocobalamin [Vitamin B-12] 500 mcg PO DAILY 10/04/22 10/25/23 History Fluticasone Propion/Salmeterol 1 puff INHALATION RT-BID 10/04/22 10/25/23 History [Fluticasone-Salmeterol 250-50] Multivitamins, Thera [Multivitamin 1 tab PO QAM 10/04/22 10/25/23 History (formulary)] Ondansetron Odt [Zofran ODT] 4 mg PO Q8HR PRN 10/04/22 10/25/23 History Pravastatin Sodium [Pravachol] 40 mg PO MOWEFR 10/04/22 10/25/23 History Acetaminophen Tab [Tylenol] 650 mg PO Q6HR PRN tab 10/10/22 10/25/23 Rx Gabapentin 800 mg PO QID #12 tab 10/10/22 10/25/23 Rx Diclofenac Sodium [Voltaren] 75 mg PO QAM 08/16/23 10/25/23 History HYDROcodone/APAP 10-325MG [[place] 1 tab PO TID PRN 08/16/23 10/25/23 History 10-325] Primidone 50 mg PO HS 08/16/23 10/25/23 History Sildenafil [Revatio] 20 mg PO BID 08/16/23 10/25/23 History amLODIPine [Norvasc] 10 mg PO QAM 08/16/23 10/25/23 History oxyCODONE ER [OxyCONTIN] 10 mg PO Q12HR 5 Days #10 tab 08/18/23 10/25/23 Rx Ipratropium Nebulized [Atrovent 0.5 mg INHALATION RT-QID ml 08/19/23 10/25/23 Rx Nebulized 0.2 MG/ML] Ascorbic Acid [Vitamin C] 500 mg PO BID 10/24/23 10/25/23 History Baclofen 10 mg PO BID PRN 10/24/23 10/25/23 History FLUoxetine HCL 20 mg PO HS 10/24/23 10/25/23 History Ferrous Sulfate [Feosol] 325 mg PO BID 10/24/23 10/25/23 History Fluticasone Propionate 2 spray NASAL BID 10/24/23 10/25/23 History [Fluticasone Propionate [place] 50 mcg Nasal [place]] Omeprazole 20 mg PO QAM 10/24/23 10/25/23 History Pravastatin Sodium [Pravachol] 40 mg PO HS 10/24/23 10/25/23 History Promethazine/Dextromethorphan 5 ml PO Q8H PRN 10/24/23 10/25/23 History [Promethazine-Dm 6.25-15 mg/5Ml] Umeclidinium [place] [Incruse 1 puff INHALATION QAM 10/24/23 10/25/23 History Ellipta] guaiFENesin [guaiFENesin Oral 10 ml PO Q4HR PRN 10/24/23 10/25/23 History Solution] risperiDONE [RisperDAL] 2 mg PO QAM 10/24/23 10/25/23 History Allergies Allergy/AdvReac Type Severity Reaction Status Date / Time aripiprazole [From Abiliy] Allergy Anaphylaxis, Verified 10/25/23 12:45 TROUBLE BREATHING Physical Exam Vitals: Vital Signs Temp Pulse Pulse Resp BP BP Pulse Ox 11/17/23 09:23 68 11/17/23 09:09 68 11/17/23 06:58 98.5 F 87 19 166/74 94 L 11/17/23 03:23 98 F 71 16 146/75 96 11/17/23 02:46 76 18 161/80 96 11/17/23 02:00 77 19 156/67 95 11/17/23 01:00 80 18 158/68 96 11/17/23 00:33 79 18 158/68 95 11/17/23 00:32 79 20 153/99 94 L 11/16/23 23:46 73 11/16/23 23:23 67 11/16/23 22:14 97.5 F L 76 91 H 153/73 94 L Intake and Output 11/16/23 11/17/23 11/17/23 22:59 06:59 14:59 Output Total 650 Balance -650 Output: Urine 650 Other: Voiding Method External Catheter # Voids 3 1 Weight 158.757 kg 158.757 kg PHYSICAL EXAM: VITAL SIGNS: As above GENERAL: Alert and oriented 3, no acute distress, no conversational dyspnea. HEENT: Normocephalic, atraumatic conjunctivae normal. eyes normal. MMM. NECK: Supple, No JVD. CARDIOVASCULAR: S1, S2 regular..No murmur RESPIRATION: Unlabored, equal air entry .no accessory muscle use .essentially clear, bilateral bases diminished. ABDOMEN: Obese, soft, nontender . No guarding. No rigidity. no hepatomegaly +BS. SKIN/Extremities:Warm and dry. Mild nonpitting edema of bilateral lower extre mities, no calf tenderness. NERVOUS SYSTEM: Cranial N 2-12 grossly normal. No focal deficits. Results CBC & Chem 7: 11/16/23 22:32 11/16/23 22:32 Labs: Abnormal Lab Results - Last 24 Hours (Table) 11/16/23 11/16/23 Range/Units 22:32 22:32 Lymphocytes # 0.8 L (1.0-4.8) k/uL Sodium 136 L (137-145) mmol/L BUN 25 H (7-17) mg/dL Glucose 119 H (74-99) mg/dL AST 163 H (14-36) U/L ALT 243 H (4-34) U/L Alkaline Phosphatase 289 H (38-126) U/L Total Protein 6.0 L (6.3-8.2) g/dL Thrombosis Risk Factor Assmnt - Choose All That Apply Any of the Below Risk Factors Present?: Yes Each Factor Represents 1 point: Abnormal pulmonary function (COPD), Obesity (BMI >25), Swollen legs (current), Varicose veins Each Risk Factor Represents 2 Points: Age 61-74 years Thrombosis Risk Factor Assessment Total Risk Factor Score: 6 Thrombosis Risk Factor Assessment Level: High Risk Assessment and Plan Assessment: Weakness, bronchospasms, upon climbing stairs at home,discharged yesterday from [facility] subacute rehab. Tracheobronchomalacia reported per recent bronchoscopy completed on 10/25/2023 Bibasilar atelectasis History of recurrent pneumonias History of rhabdomyolysis status post fall earlier this year. Osteoarthritis Obstructive sleep apnea, wears CPAP Morbid obesity, BMI 55 Chronic back pain,degenerative disc, spinal stenosis , reports extensive workup previously outpatient with orthopedic spine Elevated LFTs, mild Hypertension Hyperlipidemia Hypothyroidism Gastroesophageal reflux disease Former nicotine dependence Depression, patient asking for psychiatry evaluation. Reports depression secondary to health declining with alf, family complains of her h oarding/clutter. Plan: Continue on current medication regimen ,monitoring and symptomatic treatment. Discharge planning in progress for today pending final DC recommendations and clearance per pulmonary, PT/OT. Case management consulted to assist with discharge planning. The impression and plan of care has been dictated as directed. : I performed a history and examination of this patient, discussed the same with the dictator. I agree with the dictator's note ,documented as a scribe. Any additional findings or plans will be noted.
[2023-11-17] MEDS: SILDENAFIL 20 MG TAB PO SCH (11:20)
[2023-11-17] MEDS: risperiDONE 2 MG TAB PO SCH (11:20)
[2023-11-17] MEDS: METOCLOPRAMIDE 5 MG/ML 2 ML VIAL IVP PRN (12:18)
[2023-11-17 14:21] VITALS: BP 152/66; RESP 18; TEMP 98
[2023-11-17] MEDS ORDERED: HYDROcodone/APAP 10-325MG 1 EACH TAB PO PRN (15:36)
[2023-11-17 16:59] VITALS: PULSE 76
[2023-11-17] MEDS ORDERED: PRIMIDONE 50 MG TAB PO SCH (21:00)
[2023-11-17] MEDS ORDERED: FLUoxetine HCL 20 MG CAP PO SCH (21:00)
== END 2023-11-17 16:27 | disposition home health service (06) ==
LOC: EC 22:11 → 6NMEDSUR 11-17 01:54 → 5NMEDONC 11-17 14:28
PROVIDERS: ADMIT Family Medicine; ATTEND Family Medicine
DX: J98.01 Acute bronchospasm (principal); R53.1 Weakness; J98.09 Other diseases of bronchus, not elsewhere classified; R10.9 Unspecified abdominal pain; R11.0 Nausea; F32.A Depression, unspecified; E03.9 Hypothyroidism, unspecified; E78.5 Hyperlipidemia, unspecified; J44.9 Chronic obstructive pulmonary disease, unspecified; I10 Essential (primary) hypertension; R74.01 Elevation of levels of liver transaminase levels; M19.90 Unspecified osteoarthritis, unspecified site; J98.11 Atelectasis; G47.33 Obstructive sleep apnea (adult) (pediatric); K21.9 Gastro-esophageal reflux disease without esophagitis; E66.01 Morbid (severe) obesity due to excess calories; Z68.43 Body mass index [BMI] 50.0-59.9, adult; Z87.891 Personal history of nicotine dependence; Z87.01 Personal history of pneumonia (recurrent); Z79.890 Hormone replacement therapy; Z79.899 Other long term (current) drug therapy
CPT/HCPCS: 96376; 96375; 96374; 99285; 36415; 94640 ×3; 93005; 97162; 83880; 80053; 80074; 83605; 83735; 84484; 85025; 85610; 85730; 84145; 87636; 71046; 74177; G0378; J2765; J2405 ×2; J7512; Q9967

== ENCOUNTER → 2024-02-09 | Outpatient (CLI) | payer MEDICARE, BC ==
--- NOTE | 2024-02-10 16:09 | MR ---
EXAMINATION TYPE: MR brain wo/w con DATE OF EXAM: 02/09/2024 8:56 PM CLINICAL INDICATION:Female, 68 years old with history of R41.3 AMNESIA R26.89 ABN MOBILITY R41.0 DISO RIENTA; PHH, Jerking body, uncontrollable movement COMPARISON: None TECHNIQUE: Multi planar, multi sequence imaging was performed through the brain including: T1, T2, In version recovery, susceptibility weighted imaging and gradient echo imaging and Diffusion weighted im aging. The patient was then given intravenous contrast and multi planar, T1 fat-saturation images wer e obtained. IV Contrast: 15 cc Gadavist FINDINGS: The wallace-white junctions, ventricular system, basal cisterns appear unremarkable. Diffusion-weighted imaging shows no evidence of restricted diffusion to suggest acute/subacute infarct. Intracranial ar terial flow voids are maintained. Midline structures show no abnormality. Scattered foci of high T2 s ignal intensity are seen within the periventricular white matter. The susceptibility weighted images do not reveal any evidence for micro-hemorrhage. After administration of gadolinium, no abnormal enha ncement is seen. The bone marrow signal is within normal limits. Paranasal sinuses and mastoid air cells: No significant paranasal sinus disease. Visualized orbits: Orbital contents are intact. IMPRESSION: 1. No evidence of intracranial mass, acute/subacute infarct, or abnormal enhancement. 2. Nonspecific white matter changes, likely related to small vessel ischemic disease.
== END | disposition home or self-care (01) ==
LOC: RADMRIMAIN 20:15
PROVIDERS: ATTEND Family Medicine
DX: R90.82 White matter disease, unspecified (principal); R41.3 Other amnesia; R26.89 Other abnormalities of gait and mobility; R41.0 Disorientation, unspecified; R29.6 Repeated falls
CPT/HCPCS: 70553; A9585

== ENCOUNTER → 2024-04-05 | Outpatient (CLI) | payer MEDICARE, BC ==
[2024-04-05 16:13] LABS: C Reactive Protein 1.8 mg/dL (0.00-0.80)
[2024-04-09 16:47] LABS: Alternaria alternata IgE <0.10 kU/L; Aspergillus fumagatus IgE <0.10 kU/L; Birch IgE <0.10 kU/L; Cat Epith & Dander IgE <0.10 kU/L; Cladosporian herbarum IgE <0.10 kU/L; Cockroach IgE <0.10 kU/L; Dermato. farinae IgE <0.10 kU/L; Dog Dander IgE <0.10 kU/L; Elm IgE <0.10 kU/L; Maple (Box Elder) IgE <0.10 kU/L; Oak IgE <0.10 kU/L; Ragweed,Common IgE <0.10 kU/L; Red Top (Bentgrass) IgE <0.10 kU/L
== END | disposition home or self-care (01) ==
LOC: LABWHC1 11:13
PROVIDERS: ATTEND Psychiatry & Neurology Neurology
DX: G25.3 Myoclonus (principal); T78.49XD Other allergy, subsequent encounter; Z79.899 Other long term (current) drug therapy
CPT/HCPCS: 36415; 82306; 82550; 82607; 82785; 83036; 85652; 86003; 86140

== ENCOUNTER 2024-05-21 05:52 | Inpatient (IN) | payer MEDICARE, BC ==
[~2024-05-21 05:52] MED LIST changes: -LACTATED RINGERS 1,000 ML IV SCH; +TRANEXAMIC 1,000 MG/100ML-NACL 1,000 MG in SALINE 1 100ML.BAG IVPB PRN
[2024-05-21 07:16] LABS: Glucose,Whole Blood 98 mg/dL (70-110)
[2024-05-21] MEDS: MELOXICAM 7.5 MG TAB PO PRN (07:20)
[2024-05-21] MEDS: GABAPENTIN 300 MG CAP PO PRN (07:21)
[2024-05-21] MEDS: ONDANSETRON 4 MG/2 ML VIAL IVP ONE (07:21)
[2024-05-21] MEDS: ACETAMINOPHEN TAB 500 MG TAB PO PRN (07:21)
[2024-05-21 07:22] LABS: INR 1.1 (<1.2); Partial Thromboplastin Time 26.4 sec (22.0-30.0); Prothrombin Time 11.7 sec (10.0-12.5)
[2024-05-21] MEDS: DEXAMETHASONE SOD PHOSPHATE 4 MG/ML 1 ML VIAL IV ONE (07:22)
[2024-05-21] MEDS: LACTATED RINGERS 1,000 ML IV SCH (07:22)
[2024-05-21] MEDS: MIDAZOLAM 2 MG/2 ML VIAL IV ONE (07:26)
[2024-05-21] MEDS ORDERED: ROPIVACAINE 5 MG/ML 30 ML VIAL ONE (07:48)
[2024-05-21] MEDS ORDERED: PROPOFOL 10 MG/ML 20 ML VIAL IV ONE (07:48)
[2024-05-21] MEDS ORDERED: TRANEXAMIC 1,000 MG/100ML-NACL PREMIX BAG ONE (07:48)
[2024-05-21] MEDS ORDERED: MIDAZOLAM 2 MG/2 ML VIAL ONE (07:48)
[2024-05-21] MEDS ORDERED: ePHEDrine 50 MG/ML 1 ML VIAL ONE (07:48)
[2024-05-21] MEDS: IV FLUID CONTINUATION 1,000 ML IV ONE ×2 (07:48→13:08)
[2024-05-21] MEDS: ceFAZolin 1,000 MG in SODIUM CHLORIDE 0.9% 1,000 ML IRRIGATION ONE (07:53)
[2024-05-21] MEDS: ceFAZolin 3 GM in SODIUM CHLORIDE 0.9% 100 ML IVPB PRN (07:53)
[2024-05-21] MEDS: LACTATED RINGERS 1,000 ML IV ONE (09:08)
--- NOTE | 2024-05-21 09:17 | P.OP ---
Date of Procedure: 05/21/24 Preoperative Diagnosis: Severe osteoarthritis right knee Postoperative Diagnosis: Severe osteoarthritis right knee Procedure(s) Performed: Right total knee arthroplasty Implants: Bacon [employer] Nephew Journey II CR Oxinium cruciate retaining femoral component size 6, right [employer] Journey nonporous tibial baseplate size 5, right [employer] Journey II, XLPE Deep Dished articular insert, size 9 mm, Size 5- 6, right [employer] Journey Juany II resurfacing patellar component, oval, 29 mm All components were cemented using Palacos R bone cement The articulation is Oxinium on polyethylene Anesthesia: spinal Surgeon: Randy Deras Network Cabler #1: Pamela Juares Estimated Blood Loss (ml): 50 Pathology: none sent Condition: stable Disposition: PACU Indications for Procedure: The patient's knee is end-stage, and conservative management has failed. The operation of knee replacement has been discussed at length in the office, as well as potential risks and complications. These are inclusive of, but not limited to: Infection, bleeding, scarring, discomfort, stiffness, blood vessel and nerve damage, need for further surgery, failure to relieve symptoms, persistence, recurrence, or worsening of problems, loosening, dislocation, wear, blood clot, pulmonary embolism, , gait dysfunction, stiffness, and other risks as discussed in the office. Patient elects to proceed and the consent form has been signed. Operative Findings: The operative findings are consistent with severe osteoarthritis of the right knee Description of Procedure: The patient was seen in the preoperative area, the consent was reviewed and the operative site was marked with a skin marker. The patient verified the procedure and the operative site. An adductor canal pain catheter and an iPACK block were placed by anesthesia in the preoperative area. The patient was then brought to the operating room and positioned on the operating room table in the supine position. Preoperative antibiotics and a gram of tranexamic acid were given intravenously. A spinal anesthetic was administered by the anesthesia department. Care was taken to make sure that all pressure points were adequately padded. A tourniquet was placed on the upper thigh and the lower extremity was prepped with ChloraPrep and draped in usual sterile fashion. A universal time-out was then performed which confirmed the patient's name, surgical site, ALLERGIES, and consent. The lower extremity was then exsanguinated and tourniquet was inflated to 250 mmHg. A standard anterior midline approach to the knee was performed. The skin and subcutaneous tissue were sharply dissected down to the patellar tendon. A medial parapatellar arthrotomy was then performed. The knee was then extended, the patellar was everted, and the knee was flexed. The infra-patellar fat pad was removed in order to enhance exposure. The anterior horns of both menisci were excised, and a release was performed to the posterior medial aspect of the knee. On gross visual inspection, there was complete loss of articular cartilage in the medial and patellofemoral joint spaces. There was also significant cartilage damage in the lateral compartment. There were multiple periarticular osteophytes globally about the knee which were then removed with a Ronguer. The femoral canal was then opened with the 9.5 mm intramedullary drill. The 8 mm intramedullary mary was then inserted into the femoral canal with the distal femoral cutting guide set for 5 of valgus. The distal femoral cutting block was then pinned in place. The intramedullary mary was then removed, and the distal femur was then cut. The cutting block was then removed and the cut was checked for symmetry. The resected bone was then measured to confirm the appropriate distal femoral resection. Next, the sizing guide was then placed and set for 3 external rotation based off of the epicondylar axis and Bremer's line. Pins were then placed and the drill holes, and the femur was sized with the sizing stylus. The pins were then removed, and the sizing guide was then removed. The spikes of the appropriate size femoral block was then placed into the predrilled holes, and malleted into place. Two 45 mm pins were then placed into the fixation holes on the cutting block. An mirna wing was then used to ensure there would be no notching with the anterior cut. The anterior condyles were cut without notching. The anterior chord cut was then performed, followed by the posterior cut, posterior chamfer cut, and the anterior chamfer cut. The collateral ligaments were protected during the entire process. The cutting block was then removed. Any remaining bone and osteophytes were removed from the femur with a Ronguer. Attention was then directed to the tibia. The remaining ACL was removed with a Ronguer, and the tibia was then gently subluxed forward with a large bent knee retractor. Any remaining menisci were excised. The posterior lateral corner was cauterized in order to coagulate the lateral geniculate artery. The extra medullary tibial cutting guide was then placed, set for the appropriate rotation, slope, and depth of resection. The proximal tibia cutting guide was then pinned in place. Proximal tibia was then cut and sized. A curved osteotome was then used to remove any posterior osteophytes from the distal femur. The femoral trial was placed. A narrow saw blade was then used to remove the anterior intracondylar femoral bone. The CR notch trial was then placed. The tibial trial was placed with the appropriate-sized insert. The knee was able to fully extend and flex to 130 and was stable throughout all range of motion. The knee was then extended and the patella was everted. Patella was then measured, and then using an osteotomy guide, the patella was cut at the appropriate level. The patellar component was sized. The patellar drill guide was placed and the patella was drilled. The patella trial was then placed. The knee was then taken through range of motion with the patella trial and the patella tracked normally using the no thumbs technique. The patella trial was t hen removed. The knee was then flexed and lug holes were drilled through the femoral trial and the femoral trial was then removed. The tibial was then re- exposed, and the tibial broach guide was then pinned in place after it was set for the appropriate rotation to allow for the most coverage without overhang. The tibia was then reamed and broached. The femoral canal was plugged with autologous bone. The cut surfaces of bone were then irrigated with pulsatile lavage. The knee was also irrigated with Irrisept solution. The components were then opened, the cement was mixed. Cement was placed on the backside of the femoral, tibial, and patellar components. Cement was then applied to the tibial surface and pressurized into the surface using finger pressurization technique. The tibial component was then applied and excess cement was removed after it was impacted securely noted to be flush with the cut surface. In similar fashion, the cement was applied to the cut femoral surface, pressurized and using finger pressurization the component was impacted in place. Excess cement was removed. The polyethylene spacer was then implanted and locked into position. Patellar component was then applied in a similar technique and the patellar clamp was used to hold patella in place while the cement hardened. The knee was held in full extension while the cement hardened. Once the cement had fully hardened, the knee was reinspected. Any other cement extrusion was removed the final range of motion testing showed range of motion from 0-130 with excellent stability, both medial and laterally and appropriate alignment of the leg. Patella tracked normally. After the cemented hardened, the tourniquet was released and hemostasis was obtained. A second gram of transexamic acid was given intravenously. The knee was again irrigated. The knee was again taken through range of motion and found to be stable throughout all range of motion of 0-130, and the patella tracked normally. The fascia was then closed with 0 Vicryl followed by #2 strata fix suture. The subcutaneous tissue was closed with 3-0 Vicryl and 3-0 strata fix. Exofin glue was used for the skin and placed with the knee in flexion. After the glue had dried, and Optafoam silver impregnated dressing was applied. A lightly compressive dressing was applied using web roll and Jose wrap. Patient was then transferred to the stretcher and taken to recovery room in stable condition. Sponge and needle counts were correct. The assistant brand manager CARY Bose was required due the complexity surgery and the need for a skilled surgical services assistant. She assisted in positioning, draping, retraction, and closure of the wound.
[2024-05-21] MEDS ORDERED: NALOXONE 0.4 MG/ML 1 ML VIAL IV PRN (09:52)
[2024-05-21] MEDS ORDERED: HYDROmorphone 0.5 MG/0.5 ML SYRINGE IVP PRN (09:52)
[2024-05-21] MEDS ORDERED: NA PHOS,M-B/NA PHOS,DI-BA 133 ML ENEMA RECTAL PRN (09:52)
[2024-05-21] MEDS ORDERED: bisacodyL 10 MG SUPP RECTAL PRN (09:52)
[2024-05-21] MEDS ORDERED: MAGNESIUM HYDROXIDE 2,400 MG/30 ML CUP PO PRN (09:52)
[2024-05-21] MEDS ORDERED: HYDROcodone/APAP 7.5-325MG 1 EACH TAB PO PRN ×2 (09:54)
[2024-05-21] MEDS ORDERED: HYDROcodone/APAP 10-325MG 1 EACH TAB PO PRN (09:56)
--- NOTE | 2024-05-21 10:47 | XR ---
EXAMINATION TYPE: XR knee limited RT DATE OF EXAM: 05/21/2024 COMPARISON: NONE TECHNIQUE: Two views submitted HISTORY: Post op FINDINGS: There is a prosthetic knee in anatomic alignment. No acute fracture. Mild generalized soft tissue e axel and air\emphysema likely postoperative. Punctate soft tissue calcifications.. IMPRESSION: 1. Postoperative change. [facility], , 05/21/2024 10:45 AM
--- NOTE | 2024-05-21 11:08 | P.ANPRN ---
Procedure Note - Anesthesia - Nerve Block Performed Right Adductor Canal Single Time Out Performed: Yes (0726) Date of Procedure: 05/21/24 Procedure Start Time: Procedure Stop Time: Location of Patient: PreOp Indication: Acute Post-Operative Pain, Requested by Surgeon Specifically requested for management of pain by DrAmita: Randy Deras Sedation Type: Sedate with meaningful contact maintained Preparation: Sterile Prep Position: Supine Catheter: None Needle Types: Pajunk Needle Gauge: 21 Ultrasound used to visualize needle placement: Yes Ultrasound used to observe medication spread: Yes Injectate: 0.5% Ropivacaine (see comment for volume) (30cc) Blood Aspirated: No Pain Paresthesia on Injection Noted: No Resistance on Injection: Normal Image Stored and Saved: Yes Events: Uneventful and Well Tolerated
--- NOTE | 2024-05-21 11:09 | P.ANPRN ---
Procedure Note - Anesthesia - Nerve Block Performed Right iPack Single Time Out Performed: Yes (0726) Date of Procedure: 05/21/24 Procedure Start Time: : Procedure Stop Time: :34 Location of Patient: PreOp Indication: Acute Post-Operative Pain, Requested by Surgeon Specifically requested for management of pain by DrAmita: Randy Deras Sedation Type: Sedate with meaningful contact maintained Preparation: Sterile Prep Position: Supine Catheter: None Needle Types: Pajunk Needle Gauge: 21 Ultrasound used to visualize needle placement: Yes Ultrasound used to observe medication spread: Yes Injectate: 0.5% Ropivacaine (see comment for volume) (30cc) Blood Aspirated: No Pain Paresthesia on Injection Noted: No Resistance on Injection: Normal Image Stored and Saved: Yes Events: Uneventful and Well Tolerated
[2024-05-21] MEDS: HYDROmorphone 0.5 MG/0.5 ML SYRINGE IVP PRN ×2 (11:11→15:26)
[2024-05-21] MEDS: SODIUM CHLORIDE 0.9% 1,000 ML IV SCH (13:07)
[2024-05-21 13:14] LABS: Glucose,Whole Blood 142 mg/dL (70-110)
[2024-05-21] MEDS: PANTOPRAZOLE 40 MG TABLET PO SCH (16:05)
[2024-05-21] MEDS: PRIMIDONE 50 MG TAB PO SCH (16:05)
[2024-05-21] MEDS: ceFAZolin 3 GM in SODIUM CHLORIDE 0.9% 100 ML IVPB SCH (16:05)
[2024-05-21] MEDS: IPRATROPIUM-ALBUTEROL 3 ML NEB INHALATION PRN (16:38)
[2024-05-21] MEDS: HYDROcodone/APAP 7.5-325MG 1 EACH TAB PO PRN (16:44)
[2024-05-21] MEDS: GABAPENTIN 400 MG CAP PO SCH (17:25)
[2024-05-21] MEDS: METOPROLOL SUCCINATE (ER) 25 MG TAB.ER.24H PO SCH (22:05)
[2024-05-21] MEDS: ASPIRIN 325 MG TAB PO SCH (22:05)
[2024-05-21] MEDS: SENNOSIDES-DOCUSATE SODIUM 1 EACH TAB PO SCH (22:05)
[2024-05-21] MEDS: OLANZapine 2.5 MG TAB PO SCH (22:32)
[2024-05-22] MEDS: LEVOTHYROXINE 50 MCG TAB PO SCH (05:46)
[2024-05-22 08:39] LABS: Basophils # (A) 0.02 X 10*3/uL (0.00-0.10); Basophils % (A) 0.4 %; Eosinophils # (A) 0.03 X 10*3/uL (0.04-0.35); Eosinophils % (A) 0.6 %; HCT 32.2 % (37.2-46.3); HGB 9.8 g/dL (12.0-15.0); Lymphocytes # (A) 0.73 X 10*3/uL (0.90-5.00); Lymphocytes % (A) 15.2 %; MCH 28.4 pg (27.0-32.0); MCHC 30.4 g/dL (32.0-37.0); MCV 93.3 FL (80.0-97.0); Mean Platelet Volume 11.7 FL (9.5-12.2); Monocytes # (A) 0.23 X 10*3/uL (0.20-1.00); Monocytes % (A) 4.8 %; NRBC Per 100 WBC 0 X 10*3/uL (0.00-0.01); Neutrophils # (A) 3.77 X 10*3/uL (1.80-7.70); Neutrophils % (A) 78.4 %; Platelet Count 177 X 10*3/uL (140-440); RBC 3.45 X 10*6/uL (4.10-5.20); RDW 13.7 % (11.5-14.5); WBC 4.81 X 10*3/uL (4.50-10.00)
[2024-05-22] MEDS: LORATADINE 10 MG TAB PO SCH (10:12)
[2024-05-22] MEDS: FUROSEMIDE 40 MG TAB PO SCH (10:13)
--- NOTE | 2024-05-22 10:35 | P.PN ---
Subjective Progress Note Date: 05/22/24 This is a 68-year-old female who is status post right total knee arthroplasty. This is postoperative day #1 and patient is seen and evaluated at bedside today. Patient states that she is quite sore today and had difficulty working with physical therapy. Objective - Vital Signs Vital signs: Vital Signs Temp 98.3 F 05/22/24 07:46 Pulse 75 05/22/24 08:02 Resp 13 05/22/24 08:02 BP 101/66 05/22/24 07:46 Pulse Ox 94 L 05/22/24 07:46 FiO2 Intake & Output 05/21/24 05/22/24 05/22/24 18:59 06:59 18:59 Intake Total 2401 118 Output Total 550 450 Balance 1851 -450 118 Weight 152.407 kg Intake: IV 2151 Oral 250 118 Output: Urine 500 450 Estimated Blood Loss 50 Other: Voiding Method Bedside Commode Bedside Commode # Voids 1 3 - Exam Vital signs are stable. Patient is in no acute distress and is alert and oriented 3. Calf is soft and nontender to palpation. Dressing is clean, dry, and intact. Patient has full foot and ankle motion without pain or difficulty. Sensation intact. Neurovascular status and circulatory status are intact. - Labs CBC & Chem 7: 05/22/24 02:52 Labs: Abnormal Lab Results - Last 24 Hours (Table) 05/21/24 05/22/24 Range/Units 13:13 02:52 RBC 3.45 L (4.10-5.20) X 10*6/uL Hgb 9.8 L (12.0-15.0) g/dL Hct 32.2 L (37.2-46.3) % MCHC 30.4 L (32.0-37.0) g/dL Lymphocytes # 0.73 L (0.90-5.00) X 10*3/uL Eosinophils # 0.03 L (0.04-0.35) X 10*3/uL POC Glucose (mg/dL) 142 H (70-110) mg/dL Assessment and Plan (1) Osteoarthritis of right knee Current Visit: Yes Status: Acute Code(s): M17.11 - UNILATERAL PRIMARY OSTEOARTHRITIS, RIGHT KNEE SNOMED Code(s): 104836323310249 (2) S/P total knee arthroplasty Current Visit: Yes Status: Acute Code(s): Z96.659 - PRESENCE OF UNSPECIFIED ARTIFICIAL KNEE JOINT SNOMED Code(s): 2928515528126 Plan: #1 Continue with routine postoperative care and pain control, leave dressing in place for 7 days. #2 Anticoagulation with aspirin. #3 Physical therapy today. #4 Appreciate input from internal medicine. #5 Anticipate discharge to ECF in the next 24-48 hours.
[2024-05-22] MEDS ORDERED: KETOROLAC 15 MG/ML 1 ML VIAL IVP PRN (10:44)
--- NOTE | 2024-05-22 14:59 | P.CONS ---
History of Present Illness - Reason for Consult Consult date: 05/22/24 Medical management Requesting physician: Randy Deras - Chief Complaint OA Right knee - History of Present Illness This is a 68-year-old female with past medical history significant for morbid obesity, obstructive sleep apnea, chronic back pain, degenerative disc, spinal stenosis, hypertension, hyperlipidemia, hypothyroidism, osteoarthritis, depression, former nicotine dependence and multiple other medical issues status post total knee arthroplasty secondary to OA of right knee. Tolerated procedure well. This morning reports significant pain, both at rest and unable to stand up at the bedside with PT. passing flatus. Denies chest pain, palpitations. Reports exertional shortness of breath. Maintaining O2 sats in the 90s on 2 L nasal cannula. Afebrile, normal WBC. Hemoglobin 9.8, platelets 177. Blood sugars controlled Review of Systems ROS Statement: Those systems with pertinent positive or pertinent negative responses have been documented in the HPI. ROS Other: All systems not noted in ROS Statement are negative. Past Medical History Past Medical History: Hypertension, Pneumonia, Sleep Apnea/CPAP/BIPAP, Thyroid Disorder Additional Past Medical History / Comment(s): having nausea,sob w/ activity, hx ulcer and hiatal hernia, arthritis in back, degenerative disks, pinched nerve L5, sciatica, spinal stenosis, hx anemia, urinary urgency/leakage incontinence of bladder and bowels) Pt seeing urologist to determine cause, emphysema History of Any Multi-Drug Resistant Organisms: None Reported Past Surgical History: Adenoidectomy, Bariatric Surgery, Breast Surgery, Cholecystectomy, Joint Replacement, Orthopedic Surgery, Tonsillectomy Additional Past Surgical History / Comment(s): LT KNEE arthroscopy x2, bilateral hip replacement, lap band with hiatal hernia repair, loly breast biopsy, loly catracts removed 04/2024 Past Anesthesia/Blood Transfusion Reactions: Motion Sickness Additional Past Anesthesia/Blood Transfusion Reaction / Comm: slow to wake up after bronchoscopy Past Psychological History: Anxiety, Depression, Panic Disorder Smoking Status: Former smoker Past Alcohol Use History: Rare Additional Past Alcohol Use History / Comment(s): QUIT SMOKING 2006, started smoking age 18's, 1 PPD Past Drug Use History: None Reported - Past Family History Father Family Medical History: Cancer Brother(s) Family Medical History: Cancer Medications and Allergies Home Medications Medication Instructions Recorded Confirmed Type Levothyroxine Sodium [Synthroid] 50 mcg PO QAM 08/31/17 05/21/24 History Metoprolol Succinate [Toprol XL] 25 mg PO BID 05/06/19 05/21/24 History Losartan Potassium 25 mg PO QAM 05/16/19 05/21/24 History Baclofen [Lioresal] 20 mg PO HS 10/04/22 05/21/24 History Cetirizine HCl 10 mg PO QAM 10/04/22 05/21/24 History Gabapentin 800 mg PO QID #12 tab 10/10/22 05/21/24 Rx Diclofenac Sodium [Voltaren] 75 mg PO QAM 08/16/23 05/21/24 History HYDROcodone/APAP 10-325MG [[place] 1 tab PO QID 08/16/23 05/21/24 History 10-325] Primidone 50 mg PO TID 08/16/23 05/21/24 History Sildenafil [Revatio] 20 mg PO BID 08/16/23 05/21/24 History amLODIPine [Norvasc] 10 mg PO QAM 08/16/23 05/21/24 History Omeprazole 20 mg PO QAM 10/24/23 05/21/24 History Pravastatin Sodium [Pravachol] 40 mg PO MOWEFR 10/24/23 05/21/24 History Ipratropium-Albuterol Nebulize 3 ml INHALATION RT-QID PRN 11/17/23 05/21/24 History [Duoneb 0.5 mg-3 mg/3 ml Soln] OLANZapine [ZyPREXA] 2.5 mg PO HS 11/17/23 05/21/24 History Potassium Chloride [Klor-Con M20] 20 meq PO BID #60 tab 11/17/23 05/21/24 Rx Furosemide [Lasix] 40 mg PO DAILY 04/24/24 05/21/24 History Semaglutide [Ozempic] 2 mg SQ MENDEZ 04/24/24 05/21/24 History Aspirin 325 mg PO BID #60 tab 05/21/24 Rx HYDROcodone/APAP 7.5-325MG [[place] 1 - 2 tab PO Q6H PRN #32 tab 05/21/24 Rx 7.5-325] Sennosides [Senokot] 2 tab PO DAILY PRN #60 tablet 05/21/24 Rx Allergies Allergy/AdvReac Type Severity Reaction Status Date / Time aripiprazole [[facility] Allergy Anaphylaxis, Verified 05/21/24 06:34 TROUBLE BREATHING Physical Exam Vitals: Vital Signs Temp Pulse Pulse Resp BP Pulse Ox 05/22/24 08:02 75 13 05/22/24 07:46 98.3 F 75 13 101/66 94 L 05/22/24 07:37 75 05/22/24 07:24 72 05/22/24 01:49 98.1 F 83 15 148/65 92 L 05/21/24 21:00 76 05/21/24 20:38 78 05/21/24 20:30 98.6 F 85 16 148/78 98 05/21/24 16:46 85 05/21/24 16:38 84 05/21/24 16:20 97.3 F L 86 17 150/76 99 Intake and Output 05/21/24 05/22/24 05/22/24 22:59 06:59 14:59 Intake Total 250 118 Output Total 500 450 Balance -250 -450 118 Intake: Oral 250 118 Output: Urine 500 450 Other: Voiding Method Bedside Commode Bedside Commode # Voids 1 3 PHYSICAL EXAM: VITAL SIGNS: As above GENERAL: Alert and oriented 3, no acute distress, no conversational dyspnea. HEENT: Normocephalic, atraumatic conjunctivae normal. eyes normal. MMM. NECK: Supple, No JVD. CARDIOVASCULAR: S1, S2 regular.No murmur RESPIRATION: Unlabored, equal air entry .no accessory muscle use .essentially clear, bilateral bases diminished. ABDOMEN: Obese, soft, nondistended, nontender . No guarding. No rigidity. +BS. SKIN/Extremities:Warm and dry. Right lower extremity Jose wrap clean dry and intact , trace nonpitting edema of bilateral lower extremities, no calf tenderness. NERVOUS SYSTEM: Cranial N 2-12 grossly normal. No focal deficits. Results CBC & Chem 7: 05/22/24 02:52 Labs: Abnormal Lab Results - Last 24 Hours (Table) 05/22/24 Range/Units 02:52 RBC 3.45 L (4.10-5.20) X 10*6/uL Hgb 9.8 L (12.0-15.0) g/dL Hct 32.2 L (37.2-46.3) % MCHC 30.4 L (32.0-37.0) g/dL Lymphocytes # 0.73 L (0.90-5.00) X 10*3/uL Eosinophils # 0.03 L (0.04-0.35) X 10*3/uL Assessment and Plan Assessment: Right knee OA status post total knee arthroplasty Morbid obesity, BMI 55 Obstructive sleep apnea, currently does not wear CPAP Chronic back pain,degenerative disc, spinal stenosis Elevated LFTs, mild Hypertension Hyperlipidemia Hypothyroidism Gastroesophageal reflux disease Former nicotine dependence Depression Plan: Continue on current medication resume ,monitoring and symptomatic treatment. Pain management and DVT prophylaxis as per orthopedic surgery. Aggressive pulmonary toileting with incentive spirometer reinforced. PT. discharge planning per primary to subacute rehab possibly tomorrow. Follow-up with PCP in 1 week after DC from subacute rehab. The impression and plan of care has been dictated as directed. : I performed a history and examination of this patient, discussed the same with the dictator. I agree with the dictator's note ,documented as a scribe. Any additional findings or plans will be noted.
[2024-05-22] MEDS: ONDANSETRON 4 MG/2 ML VIAL IVP PRN (18:36)
[2024-05-23] MEDS ORDERED: ZINC OXIDE PASTE (Z-GUARD) 1 APPLIC TOPICAL PRN (00:28)
--- NOTE | 2024-05-23 10:29 | P.PN ---
Subjective Progress Note Date: 05/23/24 This is a 68-year-old female who is status post right total knee arthroplasty. This is postoperative day #2 and patient is seen and evaluated at bedside today. Patient denies any new symptoms or complaints today. Objective - Vital Signs Vital signs: Vital Signs Temp 97.6 F 05/23/24 07:37 Pulse 74 05/23/24 08:19 Resp 20 05/23/24 08:19 BP 132/78 05/23/24 07:37 Pulse Ox 95 05/23/24 07:37 FiO2 Intake & Output 05/22/24 05/23/24 05/23/24 18:59 06:59 18:59 Intake Total 354 1020 Output Total 175 Balance 354 845 Intake: Oral 354 1020 Output: Urine 175 Other: Voiding Method Bedside Commode Bedside Commode Bedside Commode External Catheter External Catheter # Voids 5 4 # Bowel Movements 1 - Exam Vital signs are stable. Patient is in no acute distress and is alert and oriented 3. Calf is soft and nontender to palpation. Dressing is clean, dry, and intact. Patient has full foot and ankle motion without pain or difficulty. Sensation intact. Neurovascular status and circulatory status are intact. - Labs CBC & Chem 7: 05/22/24 02:52 Assessment and Plan (1) Osteoarthritis of right knee Current Visit: Yes Status: Acute Code(s): M17.11 - UNILATERAL PRIMARY OSTEOARTHRITIS, RIGHT KNEE SNOMED Code(s): 815370078033275 (2) S/P total knee arthroplasty Current Visit: Yes Status: Acute Code(s): Z96.659 - PRESENCE OF UNSPECIFIED ARTIFICIAL KNEE JOINT SNOMED Code(s): 7044049288521 Plan: #1 Continue with routine postoperative care and pain control, leave dressing in place for 7 days. #2 Anticoagulation with aspirin. #3 Physical therapy today. #4 Appreciate input from internal medicine. #5 Anticipate discharge to ECF in the next 24-48 hours.
--- NOTE | 2024-05-23 11:20 | P.PN ---
Subjective Progress Note Date: 05/23/24 - History of Present Illness This is a 68-year-old female with past medical history significant for morbid obesity, obstructive sleep apnea, chronic back pain, degenerative disc, spinal stenosis, hypertension, hyperlipidemia, hypothyroidism, osteoarthritis, depression, former nicotine dependence and multiple other medical issues status post total knee arthroplasty secondary to OA of right knee. Tolerated procedure well. This morning reports significant pain, both at rest and unable to stand up at the bedside with PT. passing flatus. Denies chest pain, palpitations. Reports exertional shortness of breath. Maintaining O2 sats in the 90s on 2 L nasal cannula. Afebrile, normal WBC. Hemoglobin 9.8, platelets 177. Blood sugars controlled 05/23/2024 reports pain unchanged. No new complaints. Breathing better today reports less shortness of breath, maintaining O2 sats in the mid to high 90s on 2 L nasal cannula/95% on room air ,incentive spirometer 500. Re-instructed on I-S. Afebrile. Objective - Vital Signs Vital signs: Vital Signs Temp 97.6 F 05/23/24 07:37 Pulse 74 05/23/24 08:19 Resp 20 05/23/24 08:19 BP 132/78 05/23/24 07:37 Pulse Ox 95 05/23/24 07:37 FiO2 Intake & Output 05/22/24 05/23/24 05/23/24 18:59 06:59 18:59 Intake Total 354 1020 Output Total 175 Balance 354 845 Intake: Oral 354 1020 Output: Urine 175 Other: Voiding Method Bedside Commode Bedside Commode Bedside Commode External Catheter External Catheter # Voids 5 4 # Bowel Movements 1 - Exam PHYSICAL EXAM: VITAL SIGNS: As above GENERAL: Alert and oriented 3, no acute distress, no conversational dyspnea. HEENT: Normocephalic, atraumatic conjunctivae normal. eyes normal. MMM. NECK: Supple, No JVD. CARDIOVASCULAR: S1, S2 regular.No murmur RESPIRATION: Unlabored, equal air entry .no accessory muscle use .essentially clear, bilateral bases diminished. ABDOMEN: Obese, soft, nondistended, nontender . No guarding. No rigidity. +BS. SKIN/Extremities:Warm and dry. Right lower extremity dressing clean dry and intact, trace nonpitting edema of bilateral lower extremities, no calf tende rness. NERVOUS SYSTEM: Cranial N 2-12 grossly normal. No focal deficits. - Labs CBC & Chem 7: 05/22/24 02:52 Assessment and Plan Assessment: Right knee OA status post total knee arthroplasty Morbid obesity, BMI 55 Obstructive sleep apnea, currently does not wear CPAP Chronic back pain,degenerative disc, spinal stenosis Elevated LFTs, mild Hypertension Hyperlipidemia Hypothyroidism Gastroesophageal reflux disease Former nicotine dependence Depression Plan: Continue on current medication resume ,monitoring and symptomatic treatment. Pain management and DVT prophylaxis as per orthopedic surgery. Maintain/encourage aggressive pulmonary toileting with incentive spirometer reinforced as well as reinstructed on correct use. PT. OBRA completed, medically cleared for discharge to [facility]. discharge planning per primary.Follow-up with PCP in 1 week after DC from subacute rehab. The impression and plan of care has been dictated as directed. : I performed a history and examination of this patient, discussed the same with the dictator. I agree with the dictator's note ,documented as a scribe. Any additional findings or plans will be noted.
[2024-05-24] MEDS: HYDROmorphone 0.5 MG/0.5 ML SYRINGE IVP PRN (08:14)
--- NOTE | 2024-05-24 09:02 | P.DS ---
Providers Date of admission: 05/21/24 09:52 Expected date of discharge: 05/24/24 Attending physician: Randy Deras Consults: 05/21/24 09:52 Consult Physician Routine Consulting Provider: Phu Cordova Consult Reason/Comments: medical management Do you want consulting provider notified?: Yes Primary care physician: Dilia Wilkerson - Discharge Diagnosis(es) (1) Hypertension Current Visit: Yes Status: Acute (2) Hyperlipidemia Current Visit: Yes Status: Acute (3) Hypothyroidism Current Visit: Yes Status: Acute (4) Chronic low back pain Current Visit: Yes Status: Acute (5) Osteoarthritis of right knee Current Visit: Yes Status: Acute (6) S/P total knee arthroplasty Current Visit: Yes Status: Acute (7) BMI 50.0-59.9, adult Current Visit: No Status: Acute Hospital Course: This is a pleasant 68-year-old female who presented with right knee osteoarthritis who failed outpatient conservative therapy. She was admitted for a right total knee arthroplasty performed by Dr. Randy Deras. The patient tolerated the procedure well and has been doing okay postoperatively. He does continue to have some difficulty with pain control. She has significant difficulty with her mobilization. She is unable to ambulate independently. She is currently planning for discharge to rehabilitation facility today pending insurance approval. She will need clearance by medicine. Condition on day of discharge stable. Patient will be discharged home [facility]. Patient was cleared preoperatively for surgery by Dr. Dilia Wilkerson. Patient currently denies any nausea, vomiting, fever, or chills. Patient is eating and voiding freely without difficulty with an external catheter. Patient may shower Optifoam dressing intact. Patient may remove Optifoam dressing in 7 days and shower without a dressing at that time. Patient should refrain from driving until at least after their first follow-up appointment in the office. Patient may weight-bear as tolerated on the right lower extremity with the assistance of a walker. She will utilize CPM machine 5 to 6 hours daily as tolerated. MAPS has been r previously reviewed. An "Opiod Start Talking" Form has been signed and placed in the patient's chart. A prescription has been written for hydrocodone 7.5 mg / 325 mg, 1-2 tabs, every 6 hours, as needed for acute pain, dispense #32. Prescription is printed, signed, and placed in the patient's chart for discharge to a rehabilitation facility. Patient's other medical diagnoses include hypertension, hyperlipidemia, hypothyroidism, morbid obesity, sleep apnea, and chronic low back pain. We will plan for medicine to complete the med rec prior to discharge to rehabilitation facility. Physical Exam on day of discharge: Status post surgical day number 3 Patient is awake, alert, and oriented 3 Vital signs stable Good chest excursion with deep inspiration and expiration No signs or symptoms of DVT; no calf pain Dressing is clean, dry, and intact; no erythema, purulence, or signs of infection Patient has full foot and ankle motion without difficulty bilateral lower extremities Dorsiflexion, plantar flexion, and extensor hallucis longus positive sustained bilaterally Neurovascular status left lower extremity intact Procedures: Right total knee arthroplasty Patient Condition at Discharge: Stable Plan - Discharge Summary Discharge Rx Participant: No New Discharge Prescriptions: New Aspirin 325 mg PO BID #60 tab Sennosides [Senokot] 2 tab PO DAILY PRN #60 tablet PRN Reason: Constipation HYDROcodone/APAP 7.5-325MG [[place] 7.5-325] 1 - 2 tab PO Q6H PRN #32 tab PRN Reason: Pain No Action Levothyroxine Sodium [Synthroid] 50 mcg PO QAM Metoprolol Succinate [Toprol XL] 25 mg PO BID Losartan Potassium 25 mg PO QAM Baclofen [Lioresal] 20 mg PO HS Sildenafil [Revatio] 20 mg PO BID Primidone 50 mg PO TID Pravastatin Sodium [Pravachol] 40 mg PO MOWEFR Ipratropium-Albuterol Nebulize [Duoneb 0.5 mg-3 mg/3 ml Soln] 3 ml INHALATION RT-QID PRN PRN Reason: Shortness Of Breath Or Wheezing Potassium Chloride [Klor-Con M20] 20 meq PO BID #60 tab Furosemide [Lasix] 40 mg PO DAILY Semaglutide [Ozempic] 2 mg SQ MENDEZ Cetirizine HCl 10 mg PO QAM Gabapentin 800 mg PO QID #12 tab amLODIPine [Norvasc] 10 mg PO QAM Diclofenac Sodium [Voltaren] 75 mg PO QAM HYDROcodone/APAP 10-325MG [[place] 10-325] 1 tab PO QID Omeprazole 20 mg PO QAM OLANZapine [ZyPREXA] 2.5 mg PO HS Discharge Medication List Levothyroxine Sodium [Synthroid] 50 mcg PO QAM 08/31/17 [History] Metoprolol Succinate [Toprol XL] 25 mg PO BID 05/06/19 [History] Losartan Potassium 25 mg PO QAM 05/16/19 [History] Baclofen [Lioresal] 20 mg PO HS 10/04/22 [History] Cetirizine HCl 10 mg PO QAM 10/04/22 [History] Gabapentin 800 mg PO QID #12 tab 10/10/22 [Rx] Diclofenac Sodium [Voltaren] 75 mg PO QAM 08/16/23 [History] HYDROcodone/APAP 10-325MG [[place] 10-325] 1 tab PO QID 08/16/23 [History] Primidone 50 mg PO TID 08/16/23 [History] Sildenafil [Revatio] 20 mg PO BID 08/16/23 [History] amLODIPine [Norvasc] 10 mg PO QAM 08/16/23 [History] Omeprazole 20 mg PO QAM 10/24/23 [History] Pravastatin Sodium [Pravachol] 40 mg PO MOWEFR 10/24/23 [History] Ipratropium-Albuterol Nebulize [Duoneb 0.5 mg-3 mg/3 ml Soln] 3 ml INHALATION RT-QID PRN 11/17/23 [History] OLANZapine [ZyPREXA] 2.5 mg PO HS 11/17/23 [History] Potassium Chloride [Klor-Con M20] 20 meq PO BID #60 tab 11/17/23 [Rx] Furosemide [Lasix] 40 mg PO DAILY 04/24/24 [History] Semaglutide [Ozempic] 2 mg SQ MENDEZ 04/24/24 [History] Aspirin 325 mg PO BID #60 tab 05/21/24 [Rx] HYDROcodone/APAP 7.5-325MG [[place] 7.5-325] 1 - 2 tab PO Q6H PRN #32 tab 05/21/24 [Rx] Sennosides [Senokot] 2 tab PO DAILY PRN #60 tablet 05/21/24 [Rx] Follow up Appointment(s)/Referral(s): Phu Cordova MD [STAFF PHYSICIAN] - 1 Week (After DC from subacute rehab) Randy Deras DO [Doctor of Osteopathic Medicine] - 2 Weeks Activity/Diet/Wound Care/Special Instructions: MARITZA: Weightbearing as tolerated with a walker. CPM 5-6h daily as tolerated. Leave dressing intact. Dressing may be removed by home care nurse or by patient in 7 days. Then change dressing twice daily until follow up. May shower with initial dressing intact and after removal. If dressing become saturated, please remove. Recommend use of compression stockings daily until follow up to help prevent swelling and blood clots. May remove at night before sleeping. Please take aspirin 325mg twice daily for 30 days to prevent blood clots. Please follow up with [facility] and call with any questions or concerns, . IS Q1H WA X 10 CBC,BMP in 3 days Discharge Disposition: TRANSFER TO SNF/ECF
[2024-05-24] MEDS ORDERED: polyethylene glycoL 3350 17 GM POWD.PACK PO PRN (09:09)
[2024-05-24 10:16] LABS: Basophils # (A) 0.03 X 10*3/uL (0.00-0.10); Basophils % (A) 0.6 %; Eosinophils # (A) 0.21 X 10*3/uL (0.04-0.35); Eosinophils % (A) 4.2 %; HCT 32.6 % (37.2-46.3); HGB 9.9 g/dL (12.0-15.0); Lymphocytes # (A) 0.98 X 10*3/uL (0.90-5.00); Lymphocytes % (A) 19.8 %; MCH 28.4 pg (27.0-32.0); MCHC 30.4 g/dL (32.0-37.0); MCV 93.4 FL (80.0-97.0); Mean Platelet Volume 11.5 FL (9.5-12.2); Monocytes # (A) 0.32 X 10*3/uL (0.20-1.00); Monocytes % (A) 6.5 %; NRBC Per 100 WBC 0 X 10*3/uL (0.00-0.01); Neutrophils % (A) 68.5 %; Platelet Count 169 X 10*3/uL (140-440); RBC 3.49 X 10*6/uL (4.10-5.20); RDW 13.6 % (11.5-14.5); WBC 4.96 X 10*3/uL (4.50-10.00)
--- NOTE | 2024-05-24 11:04 | P.PN ---
Subjective Progress Note Date: 05/24/24 - History of Present Illness This is a 68-year-old female with past medical history significant for morbid obesity, obstructive sleep apnea, chronic back pain, degenerative disc, spinal stenosis, hypertension, hyperlipidemia, hypothyroidism, osteoarthritis, depression, former nicotine dependence and multiple other medical issues status post total knee arthroplasty secondary to OA of right knee. Tolerated procedure well. This morning reports significant pain, both at rest and unable to stand up at the bedside with PT. passing flatus. Denies chest pain, palpitations. Reports exertional shortness of breath. Maintaining O2 sats in the 90s on 2 L nasal cannula. Afebrile, normal WBC. Hemoglobin 9.8, platelets 177. Blood sugars controlled 05/23/2024 reports pain unchanged. No new complaints. Breathing better today reports less shortness of breath, maintaining O2 sats in the mid to high 90s on 2 L nasal cannula/95% on room air ,incentive spirometer 500. Re-instructed on I-S. Afebrile. 05/24/2024 pain unchanged. Did not sit up in chair yesterday. maintaining O2 sats of 97% on 1 L nasal cannula O2. Afebrile, normal WBC. Denies any chest pain, palpitations or shortness of breath. denies lightheadedness, dizziness or focal deficits. Consuming 100% of meals, denies nausea vomiting or diarrhea. Reports no bowel movement, passing flatus. MiraLAX ordered. Objective - Vital Signs Vital signs: Vital Signs Temp 97.6 F 05/24/24 07:30 Pulse 68 05/24/24 08:30 Resp 12 05/24/24 07:30 BP 156/89 05/24/24 07:30 Pulse Ox 97 05/24/24 00:36 FiO2 Intake & Output 05/23/24 05/24/24 05/24/24 18:59 06:59 18:59 Intake Total 118 Output Total 1000 1350 Balance -882 -1350 Intake: Oral 118 Output: Urine 1000 1350 Other: Voiding Method Bedside Commode Bedside Commode Incontinent External Catheter - Exam PHYSICAL EXAM: VITAL SIGNS: As above GENERAL: Alert and oriented 3, lying in bed, no acute distress. HEENT: Normocephalic, atraumatic conjunctivae normal. eyes normal. MMM. NECK: Supple, No JVD. CARDIOVASCULAR: S1, S2 regular.No murmur RESPIRATION: Unlabored, equal air entry .no accessory muscle use .essentially clear, bilateral bases diminished. ABDOMEN: Obese, soft, nondistended, nontender . No guarding. No rigidity. +BS. SKIN/Extremities:Warm and dry. Right lower extremity dressing clean dry and intact, trace nonpitting edema of bilateral lower extremities, no calf tenderness. NERVOUS SYSTEM: Cranial N 2-12 grossly normal. No focal deficits. - Labs CBC & Chem 7: 05/24/24 02:44 Assessment and Plan Assessment: Right knee OA status post total knee arthroplasty Morbid obesity, BMI 55 Obstructive sleep apnea, currently does not wear CPAP Chronic back pain,degenerative disc, spinal stenosis, reports extensive workup Elevated LFTs, mild Hypertension Hyperlipidemia Hypothyroidism Gastroesophageal reflux disease Former nicotine dependence Depression Plan: Continue on current medication resume ,monitoring and symptomatic treatment. MiraLAX ordered in addition to Senokot S. Pain management and DVT prophylaxis as per orthopedic surgery. Patient to sit in chair for all meals.At DC continue encouraging incentive spirometer every hour x 10 while awake. PT. Medically cleared for discharge to [facility]. Follow-up with PCP in 1 week after DC from subacute rehab. The impression and plan of care has been dictated as directed. : I performed a history and examination of this patient, discussed the same with the dictator. I agree with the dictator's note ,documented as a scribe. Any additional findings or plans will be noted.
[2024-05-24 13:24] VITALS: BP 175/81; PULSE 81; RESP 14; TEMP 97.9
== END 2024-05-24 15:06 | DRG 470 ==
LOC: OR 05:52 → 4SSUR 09:44 → OR 09:52 → 4SSUR 09:52
PROVIDERS: ADMIT Orthopaedic Surgery; ATTEND Orthopaedic Surgery
PROC: 0SRC0J9 Replacement of Right Knee Joint with Synthetic Substitute, Cemented, Open Approach (ICD-10-PCS; principal; 2024-05-21 08:00)
DX: M17.11 Unilateral primary osteoarthritis, right knee (principal); Z68.43 Body mass index [BMI] 50.0-59.9, adult; E03.9 Hypothyroidism, unspecified; E66.01 Morbid (severe) obesity due to excess calories; E78.5 Hyperlipidemia, unspecified; F32.A Depression, unspecified; K44.9 Diaphragmatic hernia without obstruction or gangrene; G47.33 Obstructive sleep apnea (adult) (pediatric); G89.29 Other chronic pain; R94.5 Abnormal results of liver function studies; I10 Essential (primary) hypertension; J43.9 Emphysema, unspecified; K21.9 Gastro-esophageal reflux disease without esophagitis; N39.41 Urge incontinence; Z79.82 Long term (current) use of aspirin; Z79.890 Hormone replacement therapy; Z79.899 Other long term (current) drug therapy; Z87.891 Personal history of nicotine dependence; Z96.643 Presence of artificial hip joint, bilateral; Z98.84 Bariatric surgery status
CPT/HCPCS: 64447; 64999; 83036; 85025; 85610; 85730; 94640

== ENCOUNTER 2024-11-10 19:55 | Outpatient (CLI) | payer MEDICARE, BC | END 2024-11-11 07:00 | disposition home or self-care (01) | LOC: 3 N SLEEP 19:55 | PROVIDERS: ATTEND Internal Medicine Critical Care Medicine | DX: G47.33 Obstructive sleep apnea (adult) (pediatric) (principal); Z88.8 Allergy status to other drugs, medicaments and biological substances; Z87.891 Personal history of nicotine dependence | CPT/HCPCS: 95810 ==

== ENCOUNTER → 2025-01-28 | Outpatient (CLI) | payer MEDICARE, BC ==
[2025-01-28 18:20] LABS: African American GFR (CKD) 71 (>60 ml/min/1.73 sqM); Blood Urea Nitrogen 25 mg/dL (7-17); Non-African American GFR(CKD) 61 (>60 ml/min/1.73 sqM)
--- NOTE | 2025-01-28 19:41 | CT ---
EXAMINATION TYPE: CT chest w con DATE OF EXAM: 01/28/2025 6:47 PM COMPARISON: Multiple prior CT chest studies, most recently dated 10/11/2023. CLINICAL INDICATION: Female, 69 years old with history of R07.9 CHEST PAIN J44.9 COPD J18.9 PNEUMONI A; PHH, pneumonia, pleurisy x5 weeks, unresponsive to treatment TECHNIQUE: Multiple axial images were obtained through the chest. Sagittal and coronal reformats were created for review. MIP was performed on a separate workstation. Contrast used:100 mL of Isovue 300 with IV Contrast (None if empty) CT DLP: 637.6 mGycm, Automated exposure control for dose reduction was used. FINDINGS: LUNGS/ PLEURA: Redemonstration of mild subpleural reticular changes, most pronounced in the lower dameon gs and linear bands of scarring/atelectasis. Some groundglass changes also present in the lower lobes . Overall, findings have slightly progressed from prior study 10/11/2023. No evidence of traction bronc hiectasis or significant honeycombing. No acute focal consolidation. No pleural effusion or pneumotho rax. AIRWAY: Patent and unremarkable. HEART: Cardiomegaly without significant pericardial effusion. Coronary artery calcifications. MEDIASTINUM: No gross evidence of adenopathy. VASCULATURE: No aortic aneurysm. MUSCULOSKELETAL: No acute osseous abnormalities SOFT TISSUES/LYMPH NODES: Unremarkable. LOWER NECK: No significant findings. UPPER ABDOMEN: No significant acute findings. Gastric lap band in place. Circumscribed left adrenal g land adenoma measuring 3 cm. IMPRESSION: 1. No acute abnormality in the chest. 2. Lower lobe scarring and chronic interstitial findings, slightly progressed from prior study 024. No evidence of significant traction bronchiectasis or honeycombing. [facility], , 01/28/2025 7:39 PM
== END | disposition home or self-care (01) ==
LOC: RADCTMAIN 17:30
PROVIDERS: ATTEND Family Medicine
DX: J44.9 Chronic obstructive pulmonary disease, unspecified (principal); J18.9 Pneumonia, unspecified organism; J98.4 Other disorders of lung
CPT/HCPCS: 82565; 84520; 71260; 36415; Q9967